=== PATIENT | female | born 1960 | race Caucasian/White ===

== ENCOUNTER 2016-07-23 17:26 | Inpatient (IN) | payer MEDICARE, MEDICAID ==
[~2016-07-23] VITALS: Ht 167.6 cm; Wt 69.4 kg
[2016-07-23 18:23] LABS: BASOPHILS % (AUTO) 2.4 % (0.0-2.0); EOSINOPHILS % (AUTO) 0.6 % (0.0-3.0); LYMPHOCYTES % (AUTO) 6.6 % (20.0-45.0); MEAN CORPUSCULAR HEMOGLOBIN 31.6 PG (27.0-31.0); MEAN CORPUSCULAR HGB CONC 31.9 G/DL (32.0-36.0); MEAN CORPUSCULAR VOLUME 99 FL (80-99); MEAN PLATELET VOLUME 5.3 FL (6.5-10.1); MONOCYTES % (AUTO) 13.6 % (1.0-10.0); NEUTROPHILS % (AUTO) 76.8 % (45.0-75.0); PLATELET COUNT 276 K/UL (150-450); RED BLOOD COUNT 3.26 M/UL (4.20-5.40); RED CELL DISTRIBUTION WIDTH 14.1 % (11.6-14.8)
[2016-07-23 18:39] LABS: TROPONIN I < 0.30 ng/mL (<=0.30)
[2016-07-23 18:41] LABS: ALBUMIN/GLOBULIN RATIO 0.9 (1.0-2.7); CALCIUM 8.2 mg/dL (8.6-10.2); CREATININE 1.2 mg/dL (0.5-0.9); GLOMERULAR FILTRATION RATE 46.2 mL/min (>60); POTASSIUM 3.1 mEQ/L (3.4-4.9); TOTAL PROTEIN 5.8 g/dL (6.6-8.7)
[2016-07-23 18:51] LABS: CKMB 2.5 ng/mL (< 3.8)
[2016-07-23] MEDS ORDERED: ATENOLOL25 MG ORAL (18:59)
[2016-07-23] MEDS ORDERED: ZANTAC150 MG ORAL (18:59)
[2016-07-23] MEDS ORDERED: CLOPIDOGREL75 MG ORAL (18:59)
[2016-07-23] MEDS ORDERED: PROTONIX40 MG ORAL (18:59)
[2016-07-23] MEDS ORDERED: MAGNESIUM OXID500 M2 PO (18:59)
[2016-07-23] MEDS ORDERED: PRAVASTATIN SOD20 M1 ORAL (18:59)
[2016-07-23] MEDS ORDERED: ASPIR 8181 MG ORAL (18:59)
[2016-07-23] MEDS ORDERED: VITAMIN C500 M1 ORAL (18:59)
[2016-07-23] MEDS ORDERED: FUROSEMIDE20 M1 ORAL (18:59)
[2016-07-23] MEDS ORDERED: ZOFRAN ODT8 MG ORAL (18:59)
[2016-07-23] MEDS ORDERED: MULTIVITAMINS1 EAC8 ORAL (18:59)
[2016-07-23] MEDS ORDERED: XANAX0.5 MG ORAL (18:59)
[2016-07-23] MEDS ORDERED: LORazepam Inj 2mg/ml 1ml ONE (19:15)
--- NOTE | 2016-07-23 21:08 | Emergency Room Report ---
History of Present Illness General Chief Complaint: Altered Level of Consciousness Source: EMS Present Illness HPI 56 YO F BIBEMS from SNF for AMS from 4pm today. No specifics provided by EMS as to what makes patient more altered than usual. No family members are present. Allergies: Coded Allergies: No Known Allergies (Verified , 04/10/06) Patient History Past Medical History: see triage record, old chart reviewed, CAD, CHF, COPD, other - PVD Past Surgical History: unable to obtain Pertinent Family History: unable to obtain Social History: Denies: alcohol use, drug use, smoking Now: No Immunizations: UTD Reviewed Nursing Documentation: PMH: Agreed, PSxH: Agreed Nursing Documentation-PMH Hx Cardiac Problems: Yes - CHF, renal insufficiency, coronary bypass, SC,[place] Hx Hypertension: Yes Hx COPD: Yes Hx Cancer: Yes Review of Systems All Other Systems: negative except mentioned in HPI Physical Exam Vital Signs Date Time Temp Pulse Resp B/P Pulse Ox O2 Delivery O2 Flow Rate FiO2 07/23/16 17:18 99.1 86 16 115/64 98 Sp02 EP Interpretation: reviewed, normal General Appearance: normal inspection, well appearing, no apparent distress, alert, obese, Chronically Ill Head: normocephalic, atraumatic Eyes: bilateral eye EOMI, bilateral eye PERRL ENT: normal ENT inspection, hearing grossly normal Neck: normal inspection, full range of motion, supple, no bony tend Respiratory: normal inspection, lungs clear, normal breath sounds, no respiratory distress, no retraction, no wheezing Cardiovascular #1: regular rate, rhythm, no edema Gastrointestinal: normal inspection, normal bowel sounds, non tender, soft, no guarding, no hernia Genitourinary: no CVA tenderness Musculoskeletal: normal inspection, back normal, normal range of motion, Pili' s Sign negative Neurologic: normal inspection, alert, responsive, rendering equipment tender III-XII nml as tested, speech normal, other - 4 limb movement normal Psychiatric: normal inspection, judgement/insight normal, mood/affect normal Skin: normal inspection, normal color, no rash Medical Decision Making Medicare Attestation I Joselito Garcia MD hereby attest that the medical record entry for date of service, 04/28/16 accurately reflects signatures/notations that I made in my capacity as MD when I treated/diagnosed the above listed Medicare beneficiary. I attest that this information is true, accurate and complete to the best of my knowledge. I understand that any falsification, omission, or concealment of material fact may subject me to administrative, civil, or criminal liability. This patient warrants hospital admission for extreme of age and has a condition that cannot be treated as outpatient. Diagnostic Impression: Primary Impression: Altered level of consciousness Additional Impressions: Lesion of left parietal lobe of brain LUBA (acute kidney injury) Rhabdomyolysis Qualified Codes: T79.6XXA - Traumatic ischemia of muscle, initial encounter ER Course Labs: 3.1K. Serum Cr 1.2. H&H stable. No leuks. Troponin 0. Elevated CK CT head: ?parietal infarct CXR: No PNA ECG Wide QRS rythm, RBBB A: AMS - Rhabdo, LUBA - ?parietal CVA although likely chronic on CT - Gentle hydration given - ASA given for ?CVA - Vitals stable in ED Endorsed to Dr Kendall 908pm tele admission EKG Diagnostic Results Rate: other - Wide QRS ST Segments: no acute changes ASA given to the pt in ED: Yes Rhythm Strip Diag. Results EP Interpretation: yes Rate: 83 Chest X-Ray Diagnostic Results EP Interpretation: Yes Findings: no consolidation, no effusion, no pneumothorax, no acute cardiopulmonary disease Number of Views: 1 Last Vital Signs Date Time Temp Pulse Resp B/P Pulse Ox O2 Delivery O2 Flow Rate FiO2 07/23/16 17:18 99.1 86 16 115/64 98 Status: improved Disposition: ADMITTED INPATIENT Condition: Serious Referrals: Todd Kendall MD (PCP) JOSELITO GARCIA M.D. Jul 23, 2016 21:08
[2016-07-23] MEDS ORDERED: Aspirin Baby 81mg ONE (21:16)
[2016-07-23 21:25] VITALS: BP 103/53
[2016-07-23 22:13] LABS: APPEARANCE,URINE SLIGHTLY CLOUDY; KETONES,URINE NEGATIVE (NEGATIVE); LEUKOCYTE ESTERASE ,URINE 1+ (NEGATIVE); NITRITE,URINE POSITIVE (NEGATIVE); PH,URINE 9 (4.5-8.0); PROTEIN,URINE NEGATIVE (NEGATIVE); UROBILINOGEN,URINE NORMAL MG/DL (0.0-1.0)
[2016-07-23] MEDS ORDERED: LORazepam Inj 2mg/ml 1ml IV PRN (22:30)
[2016-07-23] MEDS ORDERED: ALPRAZolam 0.5mg tab ORAL PRN (22:30)
[2016-07-23] MEDS ORDERED: Mylanta II UD 30ml ORAL PRN (22:30)
[2016-07-23] MEDS ORDERED: Miralax 17gm pkt ORAL PRN (22:30)
[2016-07-23] MEDS ORDERED: Morphine Sulfate 2mg/ml Inj IVP PRN (22:30)
[2016-07-23] MEDS ORDERED: Nitroglycerin Subl 0.4mg tab (Bottle Of 25) SL PRN (22:30)
[2016-07-23] MEDS ORDERED: Promethazine/Codeine 5ml UD ORAL PRN (22:30)
[2016-07-23] MEDS ORDERED: DuoNeb 0.5-3(2.5)mg/3ml neb HHN PRN (22:30)
[2016-07-23 22:37] LABS: AMORPHOUS SEDIMENT,UR MANY /LPF; BACTERIA,URINE MANY /HPF; RBC,URINE 0-2 /HPF (0 - 2); WBC,URINE 0-2 /HPF (0 - 2)
--- NOTE | 2016-07-23 23:22 | History & Physical ---
History and Physical History & Physicial The patient was seen and examined at bedside and all new and available data was reviewed in the patients chart. Last 24 Hour Vital Signs Date Time Temp Pulse Resp B/P Pulse Ox O2 Delivery O2 Flow Rate FiO2 07/23/16 22:13 98.9 75 17 103/53 99 07/23/16 21:25 98.9 75 17 103/53 99 07/23/16 17:18 99.1 86 16 115/64 98 GENERAL: The patient is well-developed and well-nourished, confused, no apparent distress. HEENT: Eyes, pupils are equal and responsive to light and accommodation. Extraocular movements are intact. NECK: Supple without lymphadenopathy. CHEST: Lungs are clear to auscultation bilaterally without wheezes. CARDIOVASCULAR: Regular rhythm and rate. S1 and S2 are normal, + Click. ABDOMEN: Soft, nontender, and nondistended. Positive bowel sounds. EXTREMITIES: Negative for clubbing, cyanosis, or edema. Hyperpigmentation on LE 's. RECTAL/GENITALIA: Refused. NEUROLOGIC: Limited due to patient status, moved all extremities. ASSESSMENT: 1. Altered mental status / Toxic Metabolic encephalopathy. 2. Urinary tract infection. 3. Congestive heart failure. 4. Chronic obstructive pulmonary disease. 5. History of coronary artery disease. 6. Hypertension. 7. Hypercholesterolemia. 8. Renal insufficiency. 9. History of gastrointestinal hemorrhage. 10. S/p Mechanical Mitral Valve replacement. 11. Squamous cell CA of Lung. 12. Depression and anxiety. Plan: Admit to [employer] [facility] Neurology / Pulmonary consult. (Patient was seen earlier today. Signature timestamp does not reflect patient encounter time) Todd Jaam MD, MD Jul 23, 2016 23:22
[2016-07-24 00:44] VITALS: BP 94/42
[2016-07-24] MEDS: D5 1/2NS 1,000 ML IV SCH ×2 (01:31→13:50)
[2016-07-24 04:34] VITALS: BP 97/48
[2016-07-24 08:00] VITALS: BP 88/44
[2016-07-24 08:25] LABS: BASOPHILS % (AUTO) 1.4 % (0.0-2.0); EOSINOPHILS % (AUTO) 1.4 % (0.0-3.0); LYMPHOCYTES % (AUTO) 5.7 % (20.0-45.0); MEAN CORPUSCULAR HEMOGLOBIN 31.8 PG (27.0-31.0); MEAN CORPUSCULAR HGB CONC 32.4 G/DL (32.0-36.0); MEAN CORPUSCULAR VOLUME 98 FL (80-99); MEAN PLATELET VOLUME 5.5 FL (6.5-10.1); MONOCYTES % (AUTO) 14.6 % (1.0-10.0); NEUTROPHILS % (AUTO) 76.9 % (45.0-75.0); PLATELET COUNT 288 K/UL (150-450); RED CELL DISTRIBUTION WIDTH 14.3 % (11.6-14.8); WHITE BLOOD COUNT 7.2 K/UL (4.8-10.8)
[2016-07-24 08:34] LABS: ALANINE AMINOTRANSFERASE 10 U/L (3-33); ALBUMIN/GLOBULIN RATIO 0.8 (1.0-2.7); ANION GAP 14 (5-15); ASPARTATE AMINO TRANSFERASE 22 U/L (5-40); CALCIUM 7.7 mg/dL (8.6-10.2); CARBON DIOXIDE 28 mEQ/L (20-30); CHLORIDE 96 mEQ/L (98-107); CHOLESTEROL 80 mg/dL (< 200); CHOLESTEROL/HDL RATIO 3.5 (3.3-4.4); CREATININE 0.8 mg/dL (0.5-0.9); GLOMERULAR FILTRATION RATE > 60 mL/min (>60); HEMOLYSIS 5; LDL CHOLESTEROL (CALC.) 31 mg/dL (60-99); POTASSIUM 2.9 mEQ/L (3.4-4.9); SODIUM 138 mEQ/L (135-145); TOTAL PROTEIN 4.9 g/dL (6.6-8.7)
[2016-07-24 08:39] LABS: INR 1.7 (0.9-1.1); PROTHROMBIN TIME 17.7 SEC (9.30-11.50)
[2016-07-24] MEDS ORDERED: Aspirin Baby 81mg ORAL SCH (09:00)
[2016-07-24] MEDS: Atenolol 25mg tab ORAL SCH (09:00)
[2016-07-24] MEDS: Heparin 5000 units/ml inj SUBQ SCH ×2 (09:00→21:00)
--- NOTE | 2016-07-24 10:05 | Diagnostic Imaging Report ---
Indication: Altered mental status Technique: Contiguous 5 mm thick transaxial imaging of the head obtained in a Siemens Sensation [address] scanner. Soft tissue and bone windows generated. Total Dose length Product (DLP): [address] Dose Index Volume (CTDIvol): 70.38 mGy Comparison: none Findings: Mild, nonspecific, white matter hypoattenuation is noted throughout the brain consistent with chronic small vessel disease. An asymmetric low attenuation focus is noted in the left posterior parietal lobe. This is probably a focus of old white matter ischemia. There is no midline shift, edema, acute hemorrhage, mass effect, or abnormal extra-axial fluid collections. Bones and extra osseous soft tissues are unremarkable. Impression: No acute intracranial bleed, mass effect or edema. Nonspecific white matter hypoattenuation probably due to chronic small vessel disease. The CT scanner at [facility] is accredited by the [employer] and the scans are performed using protocols designed to limit radiation exposure to as low as reasonably achievable to attain images of sufficient resolution adequate for diagnostic evaluation.
--- NOTE | 2016-07-24 11:46 | Neurology Progress Note ---
Objective Physical Exam Last Vital Signs Date Time Temp Pulse Resp B/P Pulse Ox O2 Delivery O2 Flow Rate FiO2 07/24/16 08:00 96.5 81 17 88/44 96 Room Air Laboratory Tests Test 07/23/16 18:00 07/23/16 21:30 07/24/16 07:20 White Blood Count 9.0 K/UL (4.8-10.8) 7.2 K/UL (4.8-10.8) Red Blood Count 3.26 M/UL (4.20-5.40) L 3.20 M/UL (4.20-5.40) L Hemoglobin 10.3 G/DL (12.0-16.0) L 10.2 G/DL (12.0-16.0) L Hematocrit 32.2 % (37.0-47.0) L 31.4 % (37.0-47.0) L Mean Corpuscular Volume 99 FL (80-99) 98 FL (80-99) Mean Corpuscular Hemoglobin 31.6 PG (27.0-31.0) H 31.8 PG (27.0-31.0) H Mean Corpuscular Hemoglobin Concent 31.9 G/DL (32.0-36.0) L 32.4 G/DL (32.0-36.0) Red Cell Distribution Width 14.1 % (11.6-14.8) 14.3 % (11.6-14.8) Platelet Count 276 K/UL (150-450) 288 K/UL (150-450) Mean Platelet Volume 5.3 FL (6.5-10.1) L 5.5 FL (6.5-10.1) L Neutrophils (%) (Auto) 76.8 % (45.0-75.0) H 76.9 % (45.0-75.0) H Lymphocytes (%) (Auto) 6.6 % (20.0-45.0) L 5.7 % (20.0-45.0) L Monocytes (%) (Auto) 13.6 % (1.0-10.0) H 14.6 % (1.0-10.0) H Eosinophils (%) (Auto) 0.6 % (0.0-3.0) 1.4 % (0.0-3.0) Basophils (%) (Auto) 2.4 % (0.0-2.0) H 1.4 % (0.0-2.0) Sodium Level 136 mEQ/L (135-145) 138 mEQ/L (135-145) Potassium Level 3.1 mEQ/L (3.4-4.9) L 2.9 mEQ/L (3.4-4.9) L Chloride Level 92 mEQ/L (98-107) L 96 mEQ/L (98-107) L Carbon Dioxide Level 28 mEQ/L (20-30) 28 mEQ/L (20-30) Anion Gap 16 (5-15) H 14 (5-15) Blood Urea Nitrogen 25 mg/dL (7-23) H 22 mg/dL (7-23) Creatinine 1.2 mg/dL (0.5-0.9) H 0.8 mg/dL (0.5-0.9) Estimat Glomerular Filtration Rate 46.2 mL/min (>60) > 60 mL/min (>60) Glucose Level 56 mg/dL (74-106) L 59 mg/dL (74-106) L Calcium Level 8.2 mg/dL (8.6-10.2) L 7.7 mg/dL (8.6-10.2) L Total Bilirubin 0.5 mg/dL (0.0-1.2) 0.5 mg/dL (0.0-1.2) Aspartate Amino Transf (AST/SGOT) 27 U/L (5-40) 22 U/L (5-40) Alanine Aminotransferase (ALT/SGPT) 12 U/L (3-33) 10 U/L (3-33) Alkaline Phosphatase 139 U/L (35-104) H 123 U/L (35-104) H Total Creatine Kinase 326 U/L (26-140) H Creatine Kinase MB 2.5 ng/mL (< 3.8) Creatine Kinase MB Relative Index 0.7 Troponin I < 0.30 ng/mL (<=0.30) Total Protein 5.8 g/dL (6.6-8.7) L 4.9 g/dL (6.6-8.7) L Albumin 2.8 g/dL (3.5-5.2) L 2.3 g/dL (3.5-5.2) L Globulin 3.0 g/dL 2.6 g/dL Albumin/Globulin Ratio 0.9 (1.0-2.7) L 0.8 (1.0-2.7) L Urine Color Pale yellow Urine Appearance Slightly cloudy Urine pH 9 (4.5-8.0) Urine Specific [place] 1.010 (1.005-1.035) Urine Protein Negative (NEGATIVE) Urine Glucose (UA) Negative (NEGATIVE) Urine Ketones Negative (NEGATIVE) Urine Occult Blood Negative (NEGATIVE) Urine Nitrite Positive (NEGATIVE) H Urine Bilirubin Negative (NEGATIVE) Urine Urobilinogen Normal MG/DL (0.0-1.0) Urine Leukocyte Esterase 1+ (NEGATIVE) H Urine RBC 0-2 /HPF (0 - 2) Urine WBC 0-2 /HPF (0 - 2) Urine Squamous Epithelial Cells None /LPF (NONE/OCC) Urine Amorphous Sediment Many /LPF (NONE) H Urine Bacteria Many /HPF (NONE) H Prothrombin Time 17.7 SEC (9.30-11.50) H Prothromb Time International Ratio 1.7 (0.9-1.1) H Activated Partial Thromboplast Time 34 SEC (23-33) H Triglycerides Level 132 mg/dL (< 150) Cholesterol Level 80 mg/dL (< 200) LDL Cholesterol 31 mg/dL (60-99) L HDL Cholesterol 23 mg/dL (> 60) Cholesterol/HDL Ratio 3.5 (3.3-4.4) Thyroid Stimulating Hormone (TSH) 3.660 uIU/mL (0.300-4.500) Impression/Recommendations Problems: (1) acute confusion with paranoid ideation (2) r/o vascular dementia (3) coagulopathy (4) 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
[2016-07-24 12:00] VITALS: BP 96/57
[2016-07-24] MEDS ORDERED: RisperiDONE 0.25mg tab ORAL PRN (12:00)
--- NOTE | 2016-07-24 13:36 | Diagnostic Imaging Report ---
Indication: Chest Pain Comparison: None A single view chest radiograph was obtained. Findings: No definite infiltrate or pulmonary vascular congestion identified. There is a right chest port. Sternotomy noted. The heart is enlarged. The aorta is mildly enlarged consistent with atherosclerotic vascular disease. The bones are osteopenic. Impression: No acute disease
[2016-07-24] MEDS ORDERED: KCl 10% 40mEq/30ml liquid ORAL SCH (15:30)
--- NOTE | 2016-07-24 15:33 | Consultation ---
History of Present Illness General Date patient seen: Jul 24, 2016 Chief Complaint: Altered Level of Consciousness Referring physician: Dr. Abbott Reason for Consultation: LUng cancer, COPd Present Illness HPI 56 year old female with extensive PMHx including CHF, COPD, coronary stent, Metalic Valve, brought in from SNF for AMS. No specifics provided by EMS as to what makes patient more altered than usual. Pt has been more lethargic than usual. Initial CT of head was negative. she is admitted to further work up. Allergies: Coded Allergies: No Known Allergies (Verified , 04/10/06) Medication History Scheduled Ascorbic Acid* (Vitamin C*), 500 MG ORAL DAILY, (Reported) Aspirin* (Aspir 81*), 81 MG ORAL DAILY, (Reported) Atenolol* (Tenormin*), 25 MG ORAL DAILY, (Reported) Clopidogrel* (Clopidogrel*), 75 MG ORAL DAILY, (Reported) Furosemide* (Lasix*), 20 MG ORAL DAILY, (Reported) Magnesium Oxide (Magnesium Oxide), 400 MG PO TID, (Reported) Multivitamin With Minerals (Multivitamins With Minerals*), 1 TAB ORAL DAILY, ( Reported) Pantoprazole* (Protonix*), 40 MG ORAL DAILY, (Reported) Pravastatin Sod* (Pravastatin Sod*), 80 MG ORAL BEDTIME, (Reported) Ranitidine Hcl* (Zantac*), 300 MG ORAL DAILY, (Reported) Scheduled PRN Alprazolam* (Xanax*), 0.5 MG ORAL TID PRN for PRN Agitation/Anxiety, (Reported) Ondansetron Odt* (Zofran Odt*), 8 MG ORAL Q6H PRN for Nausea & Vomiting, ( Reported) Patient History Healthcare decision maker Stephani Miller Resuscitation status Full Code Advanced Directive on File No Past Medical/Surgical History Past Medical/Surgical History: (1) 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 (2) S /P CABG/MVR (3) Lesion of left parietal lobe of brain Review of Systems All Other Systems: negative except mentioned in HPI Physical Exam General Appearance: WD/WN, no apparent distress Lines, tubes and drains: peripheral, central line HEENT: normocephalic, atraumatic Neck: non-tender, normal alignment Respiratory/Chest: chest wall non-tender, lungs clear Breasts: no masses Cardiovascular/Chest: normal peripheral pulses Genitourinary/Rectal: normal genital exam Extremities: normal range of motion Last 24 Hour Vital Signs Date Time Temp Pulse Resp B/P Pulse Ox O2 Delivery O2 Flow Rate FiO2 07/24/16 12:00 96.9 86 17 96/57 95 Room Air 07/24/16 08:00 96.5 81 17 88/44 96 Room Air 07/24/16 08:00 84 07/24/16 04:34 97.6 79 18 97/48 95 Room Air 07/24/16 04:00 75 07/24/16 00:44 97.0 77 19 94/42 94 Room Air 07/23/16 22:13 98.9 75 17 103/53 99 07/23/16 21:25 98.9 75 17 103/53 99 07/23/16 17:18 99.1 86 16 115/64 98 Intake and Output 07/23/16 07/24/16 19:00 07:00 Intake Total 0 ml 250 ml Output Total 600 ml Balance 0 ml -350 ml Intake Oral 0 ml IV Total 250 ml Output Urine Total 600 ml Laboratory Tests Test 07/23/16 18:00 07/23/16 21:30 07/24/16 07:20 White Blood Count 9.0 K/UL (4.8-10.8) 7.2 K/UL (4.8-10.8) Red Blood Count 3.26 M/UL (4.20-5.40) L 3.20 M/UL (4.20-5.40) L Hemoglobin 10.3 G/DL (12.0-16.0) L 10.2 G/DL (12.0-16.0) L Hematocrit 32.2 % (37.0-47.0) L 31.4 % (37.0-47.0) L Mean Corpuscular Volume 99 FL (80-99) 98 FL (80-99) Mean Corpuscular Hemoglobin 31.6 PG (27.0-31.0) H 31.8 PG (27.0-31.0) H Mean Corpuscular Hemoglobin Concent 31.9 G/DL (32.0-36.0) L 32.4 G/DL (32.0-36.0) Red Cell Distribution Width 14.1 % (11.6-14.8) 14.3 % (11.6-14.8) Platelet Count 276 K/UL (150-450) 288 K/UL (150-450) Mean Platelet Volume 5.3 FL (6.5-10.1) L 5.5 FL (6.5-10.1) L Neutrophils (%) (Auto) 76.8 % (45.0-75.0) H 76.9 % (45.0-75.0) H Lymphocytes (%) (Auto) 6.6 % (20.0-45.0) L 5.7 % (20.0-45.0) L Monocytes (%) (Auto) 13.6 % (1.0-10.0) H 14.6 % (1.0-10.0) H Eosinophils (%) (Auto) 0.6 % (0.0-3.0) 1.4 % (0.0-3.0) Basophils (%) (Auto) 2.4 % (0.0-2.0) H 1.4 % (0.0-2.0) Sodium Level 136 mEQ/L (135-145) 138 mEQ/L (135-145) Potassium Level 3.1 mEQ/L (3.4-4.9) L 2.9 mEQ/L (3.4-4.9) L Chloride Level 92 mEQ/L (98-107) L 96 mEQ/L (98-107) L Carbon Dioxide Level 28 mEQ/L (20-30) 28 mEQ/L (20-30) Anion Gap 16 (5-15) H 14 (5-15) Blood Urea Nitrogen 25 mg/dL (7-23) H 22 mg/dL (7-23) Creatinine 1.2 mg/dL (0.5-0.9) H 0.8 mg/dL (0.5-0.9) Estimat Glomerular Filtration Rate 46.2 mL/min (>60) > 60 mL/min (>60) Glucose Level 56 mg/dL (74-106) L 59 mg/dL (74-106) L Calcium Level 8.2 mg/dL (8.6-10.2) L 7.7 mg/dL (8.6-10.2) L Total Bilirubin 0.5 mg/dL (0.0-1.2) 0.5 mg/dL (0.0-1.2) Aspartate Amino Transf (AST/SGOT) 27 U/L (5-40) 22 U/L (5-40) Alanine Aminotransferase (ALT/SGPT) 12 U/L (3-33) 10 U/L (3-33) Alkaline Phosphatase 139 U/L (35-104) H 123 U/L (35-104) H Total Creatine Kinase 326 U/L (26-140) H Creatine Kinase MB 2.5 ng/mL (< 3.8) Creatine Kinase MB Relative Index 0.7 Troponin I < 0.30 ng/mL (<=0.30) Total Protein 5.8 g/dL (6.6-8.7) L 4.9 g/dL (6.6-8.7) L Albumin 2.8 g/dL (3.5-5.2) L 2.3 g/dL (3.5-5.2) L Globulin 3.0 g/dL 2.6 g/dL Albumin/Globulin Ratio 0.9 (1.0-2.7) L 0.8 (1.0-2.7) L Urine Color Pale yellow Urine Appearance Slightly cloudy Urine pH 9 (4.5-8.0) Urine Specific [place] 1.010 (1.005-1.035) Urine Protein Negative (NEGATIVE) Urine Glucose (UA) Negative (NEGATIVE) Urine Ketones Negative (NEGATIVE) Urine Occult Blood Negative (NEGATIVE) Urine Nitrite Positive (NEGATIVE) H Urine Bilirubin Negative (NEGATIVE) Urine Urobilinogen Normal MG/DL (0.0-1.0) Urine Leukocyte Esterase 1+ (NEGATIVE) H Urine RBC 0-2 /HPF (0 - 2) Urine WBC 0-2 /HPF (0 - 2) Urine Squamous Epithelial Cells None /LPF (NONE/OCC) Urine Amorphous Sediment Many /LPF (NONE) H Urine Bacteria Many /HPF (NONE) H Prothrombin Time 17.7 SEC (9.30-11.50) H Prothromb Time International Ratio 1.7 (0.9-1.1) H Activated Partial Thromboplast Time 34 SEC (23-33) H Triglycerides Level 132 mg/dL (< 150) Cholesterol Level 80 mg/dL (< 200) LDL Cholesterol 31 mg/dL (60-99) L HDL Cholesterol 23 mg/dL (> 60) Cholesterol/HDL Ratio 3.5 (3.3-4.4) Thyroid Stimulating Hormone (TSH) 3.660 uIU/mL (0.300-4.500) Height (Feet): 5 Height (Inches): 6.00 Weight (Pounds): 153 Medications Current Medications Medications (Trade) Dose Ordered Sig/Jagruti Route PRN Reason Start Time Stop Time Status Last Admin Dose Admin Acetaminophen (Tylenol) 650 mg Q4H PRN ORAL fever 07/23/16 22:30 08/22/16 22:29 Al Hydroxide/Mg Hydroxide (Mylanta II) 30 ml Q6H PRN ORAL dyspepsia 07/23/16 22:30 08/22/16 22:29 Albuterol/ Ipratropium (DuoNeb 0.5-3(2.5)mg/3ml) 3 ml EVERY 4 HOURS PRN HHN Shortness of Breath 07/23/16 22:30 07/28/16 22:29 Aspirin (ASA) 162 mg DAILY ORAL 07/24/16 09:00 08/23/16 08:59 Atenolol (Tenormin) 25 mg DAILY ORAL 07/24/16 09:00 08/23/16 08:59 Clonidine HCl (Catapres) 0.1 mg Q4H PRN ORAL For High Blood Pressure 07/23/16 22:30 08/22/16 22:29 Clopidogrel Bisulfate 75 mg 75 mg DAILY ORAL 07/24/16 09:00 08/23/16 08:59 Dextrose (Dextrose 50%) STAT PRN IV Hypoglycemia 07/23/16 22:30 08/22/16 22:29 Dextrose/Sodium Chloride (D5 0.45% NS) 1,000 ml @ 50 mls/hr Q20H IV 07/23/16 17:50 08/22/16 17:49 07/24/16 01:31 Heparin Sodium (Porcine) (Heparin 5000 units/ml) 5,000 units EVERY 12 HOURS SUBQ 07/24/16 09:00 08/23/16 08:59 Lorazepam (Ativan 2mg/ml 1ml) 0.5 mg Q4H PRN IV For Anxiety 07/23/16 22:30 07/30/16 22:29 Morphine Sulfate (Morphine Sulfate) 1 mg EVERY 4 HOURS PRN IVP For Pain 7-10 07/23/16 22:30 07/30/16 22:29 Nitroglycerin (Ntg) 0.4 mg Q5M X 3 DOSES PRN SL Prn Chest Pain 07/23/16 22:30 08/22/16 22:29 Ondansetron HCl (Zofran) 4 mg Q6H PRN IVP Nausea & Vomiting 07/23/16 22:30 08/22/16 22:29 Polyethylene Glycol (Miralax) 17 gm HSPRN PRN ORAL Constipation 07/23/16 22:30 08/22/16 22:29 Promethazine HCl/ Codeine (Phenergan with Codeine) 5 ml Q4H PRN ORAL For Cough 07/23/16 22:30 08/22/16 22:29 Risperidone (RisperDAL) 0.25 mg Q6H PRN ORAL Agitation 07/24/16 12:00 08/23/16 11:59 07/24/16 12:01 Temazepam (Restoril) 15 mg HSPRN PRN ORAL Insomnia 07/23/16 22:30 07/30/16 22:29 Assessment/Plan Problem List: (1) Altered level of consciousness ICD Codes: R40.4 - Transient alteration of awareness SNOMED: 8316718 (2) COPD (chronic obstructive pulmonary disease) ICD Codes: J44.9 - Chronic obstructive pulmonary disease, unspecified SNOMED: 17822265 (3) History of lung cancer ICD Codes: Z85.118 - Personal history of other malignant neoplasm of bronchus and lung SNOMED: 723565375, [id number] (4) 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 LISETTE ANTUNEZ Jul 24, 2016 15:32
--- NOTE | 2016-07-24 16:55 | History & Physical ---
History and Physical History & Physicial Dictated for Int Med-Dr Kendall no.[id number]. JOSE ALFARO Jul 24, 2016 16:55
[2016-07-24] MEDS: Warfarin Sodium 3mg ORAL SCH ×2 (17:00→18:07)
[2016-07-24] MEDS ORDERED: Haloperidol 5mg/ml Inj IM ONE (17:00)
--- NOTE | 2016-07-24 17:30 | Consultation ---
DATE OF CONSULTATION: 07/24/2016 NEUROLOGICAL CONSULTATION REQUESTING PHYSICIAN: Todd Kendall M.D. HISTORY OF PRESENT ILLNESS: The patient is a 56-year-old female, resident of nursing facility, brought to this hospital after she developed the confusional state. The patient has multiple medical issues, starting 4 p.m. on the day of admission, she was noted to be confused, disoriented more than usual. She was brought to the emergency room. Her vital signs were stable. Temperature 99.1. Her initial workup included CAT scan of the brain without contrast, this revealed mild nonspecific white matter attenuation with probably old left parietal lobe infarct but no evidence of acute stroke. No midline shift. No hemorrhage. Her laboratory work included CBC study with hemoglobin 10.2, hematocrit 32.2. Chemistry panel, potassium 3.1, anion gap of 16, BUN 25, creatinine 1.2, blood sugar , and a calcium 8.2. Elevated CPK at 326 and low albumin 2.8. Lipid panel unremarkable. TSH normal. Coagulation panel with INR 1.7 and PT 17.7. Urinalysis many bacteria, 1+ leukocyte esterase. Since admission till present time, there was no further changes. The patient remained confused. PAST MEDICAL HISTORY: Known that the patient has a mitral valve replacement, open heart surgery. She has a history of cardiac catheterization, coronary artery bypass grafting surgery, coronary disease, hypertension, chronic obstructive pulmonary disease, history of gastrointestinal bleed, history of anxiety and depression. Her treatment list prior to admission included Xanax 0.5 three times a day, aspirin, atenolol 25 mg daily, Plavix 75 mg daily, furosemide, magnesium oxide 400 mg t.i.d., Zofran, pantoprazole, pravastatin, and ranitidine. ALLERGIES: None reported. SOCIAL HISTORY: Resident of nursing facility. The patient has a daughter and a brother who are visiting her. No alcohol or drug abuse. 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 She has no complaints and she would like to go back home as soon as possible. Denies headache or dizziness. No chest pain. No palpitations. Unaware of ever having previous strokes, TIA, or seizures. PHYSICAL EXAMINATION: GENERAL: The patient is a well-developed but somewhat ill-appearing lady not in acute distress. VITAL SIGNS: Now stable but blood pressure down to 88/44, temperature HEENT: Head normocephalic. No evidence of trauma. Eyes, ears, and throat are clear. NECK: Neck is rigid, posture stooped. EXTREMITIES: Upper and lower extremities without clubbing, cyanosis, except left lower extremity swelling with dark discoloration with previous cellulitis. Peripheral pulses 1+ symmetric. MENTAL STATUS: The patient is alert and oriented to her name, but stated her age is 52. She was convinced that she lives in [place]. When corrected, she is in [place], she states yes, "I come and then go back." She also thought that her family is in [place]. The patient expressed paranoid ideation stating that they stolen her clothes and she has no idea why she is in the hospital stating that she came to pickup her stuff but would not name what is it. She was reluctantly following instructions. No aphasia. No apraxia noted. Mood depressed. She is tense and anxious. CRANIAL NERVE II: Pupils both responding to light and accommodation. Extraocular movement full range. CRANIAL NERVE V: Normal corneal responses. CRANIAL NERVE VII: Minor facial asymmetry. CRANIAL NERVE VIII: Normal hearing. CRANIAL NERVES IX THROUGH XII: Tongue is in midline. Symmetric palate elevation. MOTOR EXAMINATION: Able to lift arms and legs against gravity. Strength 5/5. Deep reflexes depressed bilaterally. Plantar response is mute. SENSORY EXAMINATION: Withdrawing to pin stimulation both arms and Legs.gait not tested but the patient reports she is able to ambulate without assistance. IMPRESSION: 1. Acute confusional state with paranoid ideation, rule out early dementia with confusion, rule out chronic psychiatric disorder. 2. Coagulopathy. 3. Depression. 4. Hypertension. 5. Coronary artery disease. 6. Status post mitral valve replacement/coronary artery bypass graft. 7. Chronic obstructive pulmonary disease. 8. Status post left lower extremity cellulitis. RECOMMENDATION: 1. Psychiatry assessment to the initiate antipsychotic treatment. 2. Recheck carotid duplex, 2D echocardiogram. 3. Address issue of coagulopathy in absence of anticoagulation. 4. Recheck liver function. 5. Risperdal 1 mg twice a day. 6. PT/OT started on mobility protocol. 7. Speech therapy to assess for swallow study. Thank you for allowing me to see this interesting patient in neurological consultation. Darryn Renetta Storey DR: Brigitte JOB#: [id number] CC:
[2016-07-24] MEDS: Cefepime HCl 1 GM in D5W 55 ML IVPB SCH ×2 (18:00→18:13)
--- NOTE | 2016-07-24 21:20 | History and Physical Report ---
DATE OF ADMISSION: 07/23/2016 CHIEF COMPLAINT: The patient is a 56-year-old white female, who presents with complaint of altered mental status. HISTORY OF PRESENT ILLNESS: The patient is a resident of [facility]. According to the staff at [facility], the patient began to become confused yesterday, 07/23/2016. The patient herself is unable to contribute much to the history and physical. Much of the history and physical is obtained from the patient's chart. The patient presented to [facility]. The patient was found to be confused. The patient was admitted for altered mental status to rule out acute cerebrovascular accident. PAST MEDICAL HISTORY: Significant for, 1. Congestive heart failure. 2. Chronic obstructive pulmonary disease. 3. History of coronary artery disease. 4. History of myocardial infarction. 5. Hypercholesterolemia. 6. Hypertension. 7. History of myocardial infarction. 8. History of renal insufficiency. PAST SURGICAL HISTORY: Significant for, 1. Cardiac stent placement. 2. Coronary artery bypass graft. 3. Mitral valve replacement. CURRENT MEDICATIONS: 1. Pravastatin 80 mg one tablet p.o. at bedtime. 2. Protonix 40 mg one tablet p.o. daily. 3. Spironolactone 50 mg one tablet p.o. daily. 4. Zantac 300 mg one tablet p.o. at bedtime. 5. Zofran 8 mg one tablet p.o. three times daily. 6. Xanax 0.5 mg one tablet p.o. q.6 hours p.r.n. 7. Remeron 30 mg one tablet p.o. at bedtime. 8. Wellbutrin XL 450 mg one tablet p.o. daily. 9. Aspirin 81 mg one tablet p.o. daily. 10. Atenolol 25 mg one tablet p.o. daily. 11. Clopidogrel 75 mg one tablet p.o. daily. 12. Lasix 20 mg one tablet p.o. daily. 13. MS Contin extended release 100 mg one tablet p.o. twice daily p.r.n. ALLERGIES: No known drug allergies. SOCIAL HISTORY: The patient is single. The patient is a resident of [facility]. The patient admits to tobacco use of [id number] packs per day. The patient denies alcohol use. REVIEW OF SYSTEMS: Unable to assess secondary to the patient's altered mental status. PHYSICAL EXAMINATION: VITAL SIGNS: Temperature 98.9 degrees, respirations 17, pulse 75, and blood pressure 103/53. GENERAL: The patient is well-developed and well-nourished, slightly confused, female, in no apparent distress. HEENT: Eyes, pupils are equal and responsive to light and accommodation. Extraocular movements are intact. NECK: Supple without lymphadenopathy. CHEST: Lungs are clear to auscultation bilaterally without wheezes or rales. CARDIOVASCULAR: Regular rhythm and rate. S1 and S2 are normal without murmurs, rubs, or gallops. ABDOMEN: Soft, nontender, and nondistended. Positive bowel sounds. No evidence of hepatosplenomegaly. Currently, no rebound or guarding noted. EXTREMITIES: Negative for clubbing, cyanosis, or edema. RECTAL/GENITALIA: Refused. NEUROLOGIC: Cranial nerves II through XII are grossly intact without focal deficits. Motor strength is 5/5 bilaterally. Deep tendon reflexes are 2+ plantar. LABORATORY STUDIES: WBC 9.2, hemoglobin 10.8, hematocrit 32.2, and platelets 276,000. Sodium 136, potassium 3.1, chloride 92, CO2 28, BUN 25, creatinine 1.2, and glucose 56. Troponin less than 0.3. Urinalysis reveals nitrite positive and 1+ leukocyte esterase. A CT of the brain showed no acute intracranial bleed, mass, or edema. The chest x-ray was reported as no acute disease. ASSESSMENT: This is a 56-year-old white female. 1. Altered mental status. 2. Urinary tract infection. 3. Congestive heart failure. 4. Chronic obstructive pulmonary disease. 5. History of coronary artery disease. 6. Hypertension. 7. Hypercholesterolemia. 8. Renal insufficiency. 9. History of gastrointestinal hemorrhage. TREATMENT: 1. Urinary tract infection. A urine culture is pending. The patient has been started empirically on intravenous cefepime and Levaquin. We will for follow up with urine culture as above. 2. Altered mental status. This is probably secondary to the urinary tract infection as above. Initial CT scan of the brain was reported as within normal limits. Carotid duplex and Dopplers are pending. 3. Congestive heart failure. A Cardiology consultation is pending. A BNP is pending. We will follow recommendation of Cardiology. 4. Hypertension. Continue atenolol as above. 5. Hypercholesterolemia. Continue pravastatin as above. 6. Renal insufficiency. The patient is currently receiving intravenous fluids. Jaden Abbott M.D. DR: RAYNE JOB#: [id number] CC:
[2016-07-25] VITALS: BP 128/83
--- NOTE | 2016-07-25 03:10 | Consultation ---
DATE OF CONSULTATION: HISTORY OF PRESENT ILLNESS: The patient is a 56-year-old female, who is admitted to the hospital due to altered mental status. Apparently, the patient [place] in a jail and she presented with confusion. She has been unable to provide any history and presents with waxing and waning consciousness. Mood is disoriented. PAST PSYCHIATRIC HISTORY: No history of psychiatric hospitalizations. PAST MEDICAL HISTORY: Includes congestive heart failure, renal insufficiency, myocardial infarction, hypertension, hypercholesterolemia, coronary artery disease, and chronic obstructive pulmonary disease. PAST SURGICAL HISTORY: Cardiac stent placement, coronary artery bypass, and mitral valve replacement. MEDICATIONS: The patient has been taking Xanax for anxiety 0.5 mg t.i.d. as needed. Medications at home includes Lasix, Clopidogrel, , aspirin, Wellbutrin, Xanax, warfarin, Zantac, Protonix, pravastatin, and Remeron. ALLERGIES: No known drug allergies. SUBSTANCE ABUSE HISTORY: No history of illicit drug use or alcohol. The patient is a smoker, [id number] packets per day. SOCIAL HISTORY: She resides in a jail. MENTAL STATUS EXAM: The patient is confused and disoriented and presenting with waxing and waning consciousness. Mood is neutral. Affect is constricted. Congruent mood. Thought process, there is a paucity of thought content. Insight and judgment is impaired. ASSESSMENT: [place] I Delirium due to underlying medical condition. [place] II Deferred. [place] III As above. [place] IV Low. [place] V Global assessment of functioning is 25. PLAN: 1. We will continue the patient on Haldol IM p.r.n. 2. We will start the patient on Risperdal 1 mg p.o. at bedtime. 3. We will recommend to limit risperidone, the benzodiazepines, opiate pain medication, and anticholinergics that may exacerbate delirium. Khurram Hoskins M.D. DR: GAIL JOB#: [id number] CC:
[2016-07-25] MEDS: Cefepime HCl 1 GM in D5W 55 ML IVPB SCH (06:00)
[2016-07-25 07:45] VITALS: BP 87/50
[2016-07-25] MEDS: Atenolol 25mg tab ORAL SCH (08:04)
[2016-07-25] MEDS: Heparin 5000 units/ml inj SUBQ SCH (08:05)
[2016-07-25 08:54] LABS: EOSINOPHILS % (AUTO) 0.2 % (0.0-3.0); LYMPHOCYTES % (AUTO) 4.4 % (20.0-45.0); MEAN CORPUSCULAR HEMOGLOBIN 31.7 PG (27.0-31.0); MEAN CORPUSCULAR HGB CONC 32.2 G/DL (32.0-36.0); MEAN CORPUSCULAR VOLUME 98 FL (80-99); MEAN PLATELET VOLUME 5.7 FL (6.5-10.1); MONOCYTES % (AUTO) 13.8 % (1.0-10.0); NEUTROPHILS % (AUTO) 80.6 % (45.0-75.0); PLATELET COUNT 251 K/UL (150-450); RED BLOOD COUNT 3.15 M/UL (4.20-5.40); RED CELL DISTRIBUTION WIDTH 14.2 % (11.6-14.8); WHITE BLOOD COUNT 8.1 K/UL (4.8-10.8)
[2016-07-25 09:06] LABS: INR 1.6 (0.9-1.1)
[2016-07-25 09:15] LABS: TROPONIN I < 0.30 ng/mL (<=0.30)
[2016-07-25 09:19] LABS: ANION GAP 16 (5-15); CALCIUM 7.8 mg/dL (8.6-10.2); CARBON DIOXIDE 27 mEQ/L (20-30); CHLORIDE 98 mEQ/L (98-107); CREATININE 0.8 mg/dL (0.5-0.9); GLOMERULAR FILTRATION RATE > 60 mL/min (>60); HEMOLYSIS 51; POTASSIUM 2.8 mEQ/L (3.4-4.9); SODIUM 141 mEQ/L (135-145)
[2016-07-25] MEDS ORDERED: Nitroglycerin Subl 0.4mg tab (Bottle Of 25) SL PRN (10:15)
[2016-07-25] MEDS ORDERED: Promethazine/Codeine 5ml UD ORAL PRN (10:30)
[2016-07-25] MEDS ORDERED: Mylanta II UD 30ml ORAL PRN (10:30)
[2016-07-25 10:40] VITALS: BP 98/62
[2016-07-25] MEDS ORDERED: D5 1/2NS 1,000 ML IV SCH (11:00)
[2016-07-25 12:00] VITALS: BP 109/68
[2016-07-25] MEDS ORDERED: Morphine Sulfate 2mg/ml Inj IVP PRN (13:00)
--- NOTE | 2016-07-25 13:32 | Pulmonology Progress Note ---
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 hx of CABG/MVR acute metabolic encephalopathy 2 to acute confusion , likely on underlying chronic dementia acute kidney injury-resolved hypokalemia COPD Hx of lung Ca PLAN OF CARE MS floor IVF, LUBA resolved, likely prerenal component [address] head no acute findings neuro follows, , no evidence of acute CVA, recommended psych eval ECHO and Carotid pending on Plavix a/coagulation with Coumadin to keep INR ij therapeutic range replace K, check K and Mg in am O2 HHN prn CXR negative PT/OT/ST psych eval noted, started on Risperdal, avoid oversedation case discussed and evaluated by supervising physician Subjective Allergies: Coded Allergies: No Known Allergies (Verified , 04/10/06) Subjective off tele on RA pulse oximetry stable renal parameters down to normal K-2.8 Objective Last 24 Hour Vital Signs Date Time Temp Pulse Resp B/P Pulse Ox O2 Delivery O2 Flow Rate FiO2 07/25/16 10:40 74 98/62 07/25/16 08:04 85 87/50 07/25/16 07:45 98.1 85 18 87/50 97 Room Air 07/25/16 07:30 86 18 Room Air 21 07/25/16 00:00 97.0 107 20 128/83 93 Room Air 07/24/16 16:00 82 Intake and Output 07/24/16 07/25/16 19:00 07:00 Intake Total 510 ml Output Total 250 ml Balance 260 ml Intake Oral 360 ml IV Total 150 ml Output Urine Total 250 ml # Voids 4 # Bowel Movements 1 General Appearance: WD/WN, no acute distress HEENT: normocephalic, atraumatic, anicteric, mucous membranes moist, PERRL Respiratory/Chest: chest wall non-tender, lungs clear, no respiratory distress , no accessory muscle use Cardiovascular: normal rate, regular rhythm, no JVD Abdomen: normal bowel sounds, soft, non tender Genitourinary: normal external genitalia Extremities: other - +1 edema BLE Neurologic/Psychiatric: alert, responsive - agitated at times Musculoskeletal: normal muscle bulk Microbiology Date/Time Source Procedure Growth Status 07/23/16 18:00 Blood Blood Culture - Preliminary NO GROWTH AFTER 24 HOURS Resulted 07/23/16 18:00 Blood Blood Culture - Preliminary NO GROWTH AFTER 24 HOURS Resulted 07/23/16 21:30 Urine,Clean Catch Urine Culture - Preliminary Gram Negative Bacillus 1 Resulted Laboratory Tests 07/24/16 16:00: Vitamin B12 Level 579 07/25/16 07:25: White Blood Count 8.1, Red Blood Count 3.15L, Hemoglobin 10.0L, Hematocrit 31.1L , Mean Corpuscular Volume 98, Mean Corpuscular Hemoglobin 31.7H, Mean Corpuscular Hemoglobin Concent 32.2, Red Cell Distribution Width 14.2, Platelet Count 251, Mean Platelet Volume 5.7L, Neutrophils (%) (Auto) 80.6H, Lymphocytes (%) (Auto) 4.4L, Monocytes (%) (Auto) 13.8H, Eosinophils (%) (Auto) 0.2, Basophils (%) (Auto) 1.0, Prothrombin Time 17.0H, Prothromb Time International Ratio 1.6H, Sodium Level 141, Potassium Level 2.8L, Chloride Level 98, Carbon Dioxide Level 27, Anion Gap 16H, Blood Urea Nitrogen 20, Creatinine 0.8, Estimat Glomerular Filtration Rate > 60, Glucose Level 73L, Calcium Level 7.8L, Troponin I < 0.30, Pro-B-Type Natriuretic Peptide 1295H Current Medications Medications (Trade) Dose Ordered Sig/Jagruti Route PRN Reason Start Time Stop Time Status Last Admin Dose Admin Acetaminophen (Tylenol) 650 mg Q4H PRN ORAL fever 07/25/16 10:30 08/24/16 10:29 Al Hydroxide/Mg Hydroxide (Mylanta II) 30 ml Q6H PRN ORAL dyspepsia 07/25/16 10:30 08/24/16 10:29 Albuterol/ Ipratropium (DuoNeb 0.5-3(2.5)mg/3ml) 3 ml EVERY 4 HOURS PRN HHN Shortness of Breath 07/25/16 13:00 07/30/16 12:59 Atenolol (Tenormin) 25 mg DAILY ORAL 07/26/16 09:00 08/25/16 08:59 Cefepime HCl 1 gm/ Dextrose 55 ml @ 110 mls/hr Q12HR@0600,1800 IVPB 07/25/16 18:00 07/31/16 17:59 Clonidine HCl (Catapres) 0.1 mg Q4H PRN ORAL For High Blood Pressure 07/25/16 10:30 08/24/16 10:29 Clopidogrel Bisulfate (Plavix) 75 mg DAILY ORAL 07/26/16 09:00 08/25/16 08:59 Dextrose (Dextrose 50%) STAT PRN IV Hypoglycemia 07/25/16 22:30 08/24/16 22:29 Dextrose/Sodium Chloride 1,000 ml @ 50 mls/hr Q20H IV 07/25/16 11:00 08/24/16 10:59 Heparin Sodium (Porcine) (Heparin 5000 units/ml) 5,000 units EVERY 12 HOURS SUBQ 07/25/16 21:00 08/24/16 20:59 Levofloxacin (Levaquin) 100 ml @ 100 mls/hr Q24H IVPB 07/25/16 19:00 07/31/16 18:59 Morphine Sulfate (Morphine Sulfate) 1 mg EVERY 4 HOURS PRN IVP For Pain 7-10 07/25/16 13:00 08/01/16 12:59 Nitroglycerin (Ntg) 0.4 mg Q5M X 3 DOSES PRN SL Prn Chest Pain 07/25/16 10:15 08/24/16 10:14 Ondansetron HCl (Zofran) 4 mg Q6H PRN IVP Nausea & Vomiting 07/25/16 10:30 08/24/16 10:29 Polyethylene Glycol (Miralax) 17 gm HSPRN PRN ORAL Constipation 07/25/16 22:30 08/24/16 22:29 Promethazine HCl/ Codeine (Phenergan with Codeine) 5 ml Q4H PRN ORAL For Cough 07/25/16 10:30 08/24/16 10:29 Risperidone (RisperDAL) 1 mg BEDTIME ORAL 07/25/16 21:00 08/24/16 20:59 Temazepam (Restoril) 15 mg HSPRN PRN ORAL Insomnia 07/25/16 22:30 08/01/16 22:29 Warfarin Sodium (Coumadin per pharmacy) 1 ea DAILY PRN MISC Per rx protocol 07/26/16 09:00 08/25/16 08:59 Warfarin Sodium (Coumadin) 4 mg COUMADIN PO 07/26/16 17:00 07/31/16 16:59 Warfarin Sodium (Coumadin) 6 mg COUMADIN ONCE ORAL 07/25/16 17:00 07/25/16 17:01 Ibrahima ([facility])Marisol NP Jul 25, 2016 13:32
[2016-07-25] MEDS ORDERED: KCl 10% 40mEq/30ml liquid NG ONE (14:00)
[2016-07-25] MEDS: DuoNeb 0.5-3(2.5)mg/3ml neb HHN PRN ×2 (15:03→19:58)
[2016-07-25] MEDS ORDERED: Morphine Sulfate 2mg/ml Inj IM PRN ×2 (15:30→23:30)
[2016-07-25] MEDS ORDERED: Haloperidol 5mg/ml Inj IM PRN (15:30)
[2016-07-25 16:00] VITALS: BP 94/49
[2016-07-25] MEDS ORDERED: Warfarin Sodium 3mg ORAL ONE (17:00)
[2016-07-25] MEDS ORDERED: Cefepime HCl 1 GM in D5W 55 ML IVPB SCH (18:00)
--- NOTE | 2016-07-25 18:52 | Internal Med Progress Note ---
Subjective Date of Service: Jul 25, 2016 Physician Name Jose Alfaro Attending Physician Todd Kendall MD Current Medications Medications (Trade) Dose Ordered Sig/Jagruti Route PRN Reason Start Time Stop Time Status Last Admin Dose Admin Acetaminophen (Tylenol) 650 mg Q4H PRN ORAL fever 07/25/16 10:30 08/24/16 10:29 Al Hydroxide/Mg Hydroxide (Mylanta II) 30 ml Q6H PRN ORAL dyspepsia 07/25/16 10:30 08/24/16 10:29 Albuterol/ Ipratropium (DuoNeb 0.5-3(2.5)mg/3ml) 3 ml EVERY 4 HOURS PRN HHN Shortness of Breath 07/25/16 13:00 07/30/16 12:59 07/25/16 15:03 Atenolol (Tenormin) 25 mg DAILY ORAL 07/26/16 09:00 08/25/16 08:59 Cefepime HCl 1 gm/ Dextrose 55 ml @ 110 mls/hr Q12HR@0600,1800 IVPB 07/25/16 18:00 07/31/16 17:59 Clonidine HCl (Catapres) 0.1 mg Q4H PRN ORAL For High Blood Pressure 07/25/16 10:30 08/24/16 10:29 Clopidogrel Bisulfate (Plavix) 75 mg DAILY ORAL 07/26/16 09:00 08/25/16 08:59 Dextrose (Dextrose 50%) STAT PRN IV Hypoglycemia 07/25/16 22:30 08/24/16 22:29 Dextrose/Sodium Chloride 1,000 ml @ 50 mls/hr Q20H IV 07/25/16 11:00 08/24/16 10:59 Enoxaparin Sodium (Lovenox) 70 mg Q12HR SUBQ 07/25/16 21:00 08/24/16 20:59 Haloperidol Lactate (Haldol) 5 mg Q6H PRN IM Agitation 07/25/16 15:30 08/24/16 15:29 07/25/16 15:04 Levofloxacin (Levaquin) 100 ml @ 100 mls/hr Q24H IVPB 07/25/16 19:00 07/31/16 18:59 Morphine Sulfate (Morphine Sulfate) 1 mg EVERY 4 HOURS PRN IVP For Pain 7-10 07/25/16 13:00 08/01/16 12:59 Morphine Sulfate (Morphine Sulfate) 2 mg Q4H PRN IM FOR SEVERE PAIN 07/25/16 15:30 08/01/16 15:29 Nitroglycerin (Ntg) 0.4 mg Q5M X 3 DOSES PRN SL Prn Chest Pain 07/25/16 10:15 08/24/16 10:14 Ondansetron HCl (Zofran) 4 mg Q6H PRN IVP Nausea & Vomiting 07/25/16 10:30 08/24/16 10:29 Polyethylene Glycol (Miralax) 17 gm HSPRN PRN ORAL Constipation 07/25/16 22:30 08/24/16 22:29 Promethazine HCl/ Codeine (Phenergan with Codeine) 5 ml Q4H PRN ORAL For Cough 07/25/16 10:30 08/24/16 10:29 Risperidone (RisperDAL) 1 mg BEDTIME ORAL 07/25/16 21:00 08/24/16 20:59 Temazepam (Restoril) 15 mg HSPRN PRN ORAL Insomnia 07/25/16 22:30 08/01/16 22:29 Warfarin Sodium (Coumadin per pharmacy) 1 ea DAILY PRN MISC Per rx protocol 07/26/16 09:00 08/25/16 08:59 Warfarin Sodium (Coumadin) 4 mg COUMADIN PO 07/26/16 17:00 07/31/16 16:59 Allergies: Coded Allergies: No Known Allergies (Verified , 04/10/06) ROS Limited/Unobtainable: No Constitutional: Reports: no symptoms HEENT: Reports: no symptoms Cardiovascular: Reports: no symptoms Respiratory: Reports: no symptoms Gastrointestinal/Abdominal: Reports: no symptoms Genitourinary: Reports: no symptoms Neurologic/Psychiatric: Reports: no symptoms Subjective 56 YO F admitted with altered mental status. Now UTI. Cover for Int Jm Kendall Objective Last Vital Signs Date Time Temp Pulse Resp B/P Pulse Ox O2 Delivery O2 Flow Rate FiO2 07/25/16 16:00 98.0 101 20 94/49 96 Non-Rebreather 15.0 07/25/16 15:05 28 General Appearance: WD/WN, no apparent distress, alert EENT: PERRL/EOMI, normal ENT inspection, TMs normal Neck: non-tender, normal alignment, supple Cardiovascular: normal peripheral pulses, normal rate, regular rhythm, regularly irregular, no gallop/murmur Respiratory/Chest: chest wall non-tender, lungs clear, normal breath sounds, no respiratory distress, no accessory muscle use Abdomen: normal bowel sounds, non tender, soft, no organomegaly, no mass, abnormal bowel sounds Extremities: normal range of motion Neurologic: clinical product manager II-XII grossly normal, no motor/sensory deficits Skin: normal pigmentation, warm/dry Laboratory Tests Test 07/25/16 07:25 White Blood Count 8.1 K/UL (4.8-10.8) Red Blood Count 3.15 M/UL (4.20-5.40) L Hemoglobin 10.0 G/DL (12.0-16.0) L Hematocrit 31.1 % (37.0-47.0) L Mean Corpuscular Volume 98 FL (80-99) Mean Corpuscular Hemoglobin 31.7 PG (27.0-31.0) H Mean Corpuscular Hemoglobin Concent 32.2 G/DL (32.0-36.0) Red Cell Distribution Width 14.2 % (11.6-14.8) Platelet Count 251 K/UL (150-450) Mean Platelet Volume 5.7 FL (6.5-10.1) L Neutrophils (%) (Auto) 80.6 % (45.0-75.0) H Lymphocytes (%) (Auto) 4.4 % (20.0-45.0) L Monocytes (%) (Auto) 13.8 % (1.0-10.0) H Eosinophils (%) (Auto) 0.2 % (0.0-3.0) Basophils (%) (Auto) 1.0 % (0.0-2.0) Prothrombin Time 17.0 SEC (9.30-11.50) H Prothromb Time International Ratio 1.6 (0.9-1.1) H Sodium Level 141 mEQ/L (135-145) Potassium Level 2.8 mEQ/L (3.4-4.9) L Chloride Level 98 mEQ/L (98-107) Carbon Dioxide Level 27 mEQ/L (20-30) Anion Gap 16 (5-15) H Blood Urea Nitrogen 20 mg/dL (7-23) Creatinine 0.8 mg/dL (0.5-0.9) Estimat Glomerular Filtration Rate > 60 mL/min (>60) Glucose Level 73 mg/dL (74-106) L Calcium Level 7.8 mg/dL (8.6-10.2) L Troponin I < 0.30 ng/mL (<=0.30) Pro-B-Type Natriuretic Peptide 1295 pg/mL (0-125) H Microbiology Date/Time Source Procedure Growth Status 07/23/16 18:00 Blood Blood Culture - Preliminary NO GROWTH AFTER 24 HOURS Resulted 07/23/16 18:00 Blood Blood Culture - Preliminary NO GROWTH AFTER 24 HOURS Resulted 07/23/16 21:30 Urine,Clean Catch Urine Culture - Preliminary Gram Negative Bacillus 1 Resulted Intake and Output 07/24/16 07/25/16 19:00 07:00 Intake Total 510 ml Output Total 250 ml Balance 260 ml Intake Oral 360 ml IV Total 150 ml Output Urine Total 250 ml # Voids 4 # Bowel Movements 1 Assessment/Plan Problem List: (1) UTI (urinary tract infection) Assessment & Plan: Gram neg deidre. Await ID and sensitivity. Cont levaquin for now. (2) CAD (coronary artery disease) (3) HTN (hypertension) Assessment & Plan: Cont atenolol (4) Hypercholesteremia (5) Renal insufficiency (6) Lesion of left parietal lobe of brain (7) COPD (chronic obstructive pulmonary disease) Status: not improved JOSE ALFARO Jul 25, 2016 18:52
[2016-07-25] MEDS: Enoxaparin 80mg Inj SUBQ SCH (20:32)
[2016-07-25] MEDS ORDERED: Heparin 5000 units/ml inj SUBQ SCH (21:00)
[2016-07-25 22:10] LABS: ABG ALLEN TEST POSITIVE; ABG BASE EXCESS -3.7
[2016-07-25 22:16] VITALS: BP 95/50
[2016-07-25] MEDS ORDERED: Miralax 17gm pkt ORAL PRN (22:30)
[2016-07-26] VITALS (19 sets, daily range): BP systolic 74–137; BP diastolic 38–105
[2016-07-26 01:47] LABS: ABG PCO2 22.5 mmHg (35.0-45.0)
[2016-07-26 01:48] LABS: ABG ALLEN TEST POSITIVE; ABG BASE EXCESS -4.6
[2016-07-26] MEDS ORDERED: Vancomycin 1 GM in D5W 275 ML IVPB ONE (02:15)
[2016-07-26 02:57] LABS: MEAN CORPUSCULAR HEMOGLOBIN 32.7 PG (27.0-31.0); MEAN CORPUSCULAR HGB CONC 33.6 G/DL (32.0-36.0); MEAN CORPUSCULAR VOLUME 97 FL (80-99); MEAN PLATELET VOLUME 6.6 FL (6.5-10.1); PLATELET COUNT 193 K/UL (150-450); RED BLOOD COUNT 2.49 M/UL (4.20-5.40); RED CELL DISTRIBUTION WIDTH 14.1 % (11.6-14.8); WHITE BLOOD COUNT 8.3 K/UL (4.8-10.8)
[2016-07-26] MEDS ORDERED: Vancomycin 1.5 GM in D5W 325 ML IVPB SCH ×2 (03:00→15:00)
[2016-07-26 03:03] LABS: INR 2.5 (0.9-1.1); PROTHROMBIN TIME 25.7 SEC (9.30-11.50)
[2016-07-26 03:13] LABS: ALBUMIN/GLOBULIN RATIO 0.8 (1.0-2.7); CALCIUM 7.4 mg/dL (8.6-10.2); CREATININE 1.8 mg/dL (0.5-0.9); GLOMERULAR FILTRATION RATE 28.9 mL/min (>60); MAGNESIUM 1.3 mg/dL (1.7-2.5); PHOSPHORUS 4.6 mg/dL (2.5-4.8); POTASSIUM 3.5 mEQ/L (3.4-4.9); TOTAL PROTEIN 4.7 g/dL (6.6-8.7)
[2016-07-26] MEDS ORDERED: Zosyn 3.375gm inj ONE (04:39)
[2016-07-26] MEDS ORDERED: Piperacillin/Tazobactam 3.375 GM in D5W 110 ML IVPB SCH ×2 (06:00→14:00)
[2016-07-26] MEDS ORDERED: Nitroglycerin Subl 0.4mg tab (Bottle Of 25) SL PRN ×2 (07:45→17:00)
[2016-07-26] MEDS ORDERED: Morphine Sulfate 2mg/ml Inj IVP PRN ×2 (08:00→17:00)
[2016-07-26] MEDS ORDERED: Morphine Sulfate 2mg/ml Inj IM PRN (08:00)
[2016-07-26] MEDS ORDERED: Promethazine/Codeine 5ml UD ORAL PRN ×2 (08:00→17:00)
[2016-07-26] MEDS ORDERED: Haloperidol 5mg/ml Inj IM PRN (08:00)
[2016-07-26] MEDS ORDERED: Mylanta II UD 30ml ORAL PRN ×2 (08:00→17:00)
[2016-07-26] MEDS ORDERED: Atenolol 25mg tab ORAL SCH ×3 (09:00)
[2016-07-26] MEDS ORDERED: Enoxaparin 80mg Inj SUBQ SCH (09:00)
[2016-07-26] MEDS: Enoxaparin 80mg Inj SUBQ SCH (09:00)
[2016-07-26] MEDS ORDERED: DuoNeb 0.5-3(2.5)mg/3ml neb HHN PRN ×2 (09:00→17:00)
--- NOTE | 2016-07-26 09:37 | Diagnostic Imaging Report ---
Indication: Shortness of breath Technique: XRAY CHEST 1 V Comparison: 07/23/16 Findings: Cardiomediastinal silhouette is stable. Sternotomy wires, right chest Port-A-Cath and valve replacement are again noted. Mild increased interstitial lung markings are unchanged. No new consolidation is identified. Osseous structures are stable. Impression: No interval change from 07/23/16.
[2016-07-26 10:05] LABS: MEAN CORPUSCULAR HEMOGLOBIN 31.9 PG (27.0-31.0); MEAN CORPUSCULAR HGB CONC 32.4 G/DL (32.0-36.0); MEAN CORPUSCULAR VOLUME 99 FL (80-99); PLATELET COUNT 177 K/UL (150-450); RED BLOOD COUNT 3.16 M/UL (4.20-5.40); RED CELL DISTRIBUTION WIDTH 13.7 % (11.6-14.8)
[2016-07-26 10:31] LABS: ALBUMIN/GLOBULIN RATIO 0.9 (1.0-2.7); ANION GAP 24 (5-15); CALCIUM 7.7 mg/dL (8.6-10.2); CARBON DIOXIDE 20 mEQ/L (20-30); CHLORIDE 99 mEQ/L (98-107); CREATININE 1.9 mg/dL (0.5-0.9); GLOMERULAR FILTRATION RATE 27.2 mL/min (>60); POTASSIUM 3.1 mEQ/L (3.4-4.9); SODIUM 143 mEQ/L (135-145); TOTAL PROTEIN 5.4 g/dL (6.6-8.7); URIC ACID 8.1 mg/dL (3.0-7.5)
[2016-07-26 10:42] LABS: FREE T3 1.7 pg/mL (2.3-4.2)
--- NOTE | 2016-07-26 10:51 | Diagnostic Imaging Report ---
Indication: Elevated renal function test Technique: Renal ultrasound Findings: The right kidney measures 11.0 cm in length. The left kidney measures 10.5 cm in length. Bilateral kidneys demonstrate normal echogenicity. No focal renal lesions are seen. There is no hydronephrosis. No sonographically evident stones are seen. The visualized portions of the inferior vena cava are unremarkable. The bladder is partially distended and grossly unremarkable. Impression: Normal sonographic appearance of the bilateral kidneys. Clinical correlation recommended.
[2016-07-26 10:58] LABS: HEMOLYSIS 13; IRON 123 ug/dL (37-145); TOTAL IRON BINDING CAPACITY 169 ug/dL (250-400)
[2016-07-26 11:03] LABS: ALANINE AMINOTRANSFERASE 1095 U/L (3-33); ASPARTATE AMINO TRANSFERASE 3975 U/L (5-40)
[2016-07-26 11:14] LABS: ERYTHROCYTE SEDIMENTATION RATE 55 MM/HR (0-30)
[2016-07-26 11:25] LABS: LACTATE DEHYDROGENASE 3740 U/L (135-230)
[2016-07-26 11:32] LABS: ABG PCO2 30.6 mmHg (35.0-45.0)
[2016-07-26 11:33] LABS: ABG ALLEN TEST POSITIVE; ABG BASE EXCESS -1.8
[2016-07-26 12:01] LABS: RETICULOCYTE COUNT 0.4 % (0.0-2.0)
--- NOTE | 2016-07-26 12:58 | Pulmonolgy Critical Care Note ---
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 acute metabolic encephalopathy 2 to acute confusion , likely on underlying chronic dementia acute renal failure elevated transaminase hypokalemia COPD Hx of lung Ca PLAN OF CARE ICU IVF, started on Midodrine and titrate as needed off BiPAP, ABG on 2L O2 stable LUBA resolved, likely prerenal component [address] head no acute findings neuro follows , no evidence of acute CVA, recommended psych eval ECHO and Carotid pending on Plavix a/coagulation with Coumadin to keep INR ij therapeutic range replace K, check K and Mg in am O2 HHN prn CXR negative PT/OT/ST psych eval noted, on Risperdal, avoid oversedation transfer to [facility] case discussed and evaluated by supervising physician Critical Care - Objective Last 24 Hour Vital Signs Date Time Temp Pulse Resp B/P Pulse Ox O2 Delivery O2 Flow Rate FiO2 07/26/16 11:05 100 2.0 28 07/26/16 11:00 96 23 85/49 100 Nasal Cannula 2.0 07/26/16 10:00 103 23 137/105 100 Bi-pap 35 07/26/16 09:05 98 22 100 Facial 35 07/26/16 09:00 83/45 07/26/16 09:00 98 22 125/48 100 Bi-pap 35 07/26/16 08:00 98.2 81 24 81/43 100 Bi-pap 35 07/26/16 07:00 100 26 102/83 100 Bi-pap 35 07/26/16 07:00 103 24 100 Facial 35 07/26/16 06:00 100 26 102/84 100 Bi-pap 35 07/26/16 05:30 98 27 82/61 100 Bi-pap 35 07/26/16 05:12 99 19 100 Facial 35 07/26/16 05:00 100 25 75/42 100 Bi-pap 35 07/26/16 04:30 98.0 95 25 114/92 100 Bi-pap 35 07/26/16 04:04 100 07/26/16 04:00 35 07/26/16 03:57 100 26 87/42 98 Bi-pap 35 07/26/16 03:30 97 25 99/82 98 Bi-pap 35 07/26/16 03:00 100 26 74/38 100 Bi-pap 35 07/26/16 02:55 98 26 97 Facial 35 07/26/16 02:15 75 07/26/16 02:15 98.5 99 28 88/67 96 Bi-pap 12.0 40 07/26/16 02:15 99 07/26/16 01:20 110 37 99 Facial 75 07/26/16 00:00 97 28 91/76 100 Bi-pap 07/25/16 22:30 91 25 97 Facial 50 07/25/16 22:16 99 20 95/50 95 Venturi Mask 15.0 07/25/16 20:06 78 26 97 Venturi Mask 15.0 50 07/25/16 19:56 50 07/25/16 19:54 101 18 Venturi Mask 15.0 50 07/25/16 19:49 101 24 96 Venturi Mask 15.0 50 07/25/16 16:00 98.0 101 20 94/49 96 Non-Rebreather 15.0 07/25/16 15:05 76 26 94 Nasal Cannula 2.0 28 07/25/16 14:55 74 24 94 Nasal Cannula 2.0 28 Objective: General Appearance: WD/WN, no acute distress HEENT: normocephalic, atraumatic, anicteric, mucous membranes moist, PERRL Respiratory/Chest: chest wall non-tender, lungs clear, no respiratory distress , no accessory muscle use Cardiovascular: normal rate, regular rhythm, no JVD Abdomen: normal bowel sounds, soft, non tender Genitourinary: normal external genitalia Extremities: other - +1 edema BLE Neurologic/Psychiatric: alert, responsive Musculoskeletal: normal muscle bulk Micro: Microbiology Date/Time Source Procedure Growth Status 07/23/16 18:00 Blood Blood Culture - Preliminary NO GROWTH AFTER 24 HOURS Resulted 07/23/16 18:00 Blood Blood Culture - Preliminary NO GROWTH AFTER 24 HOURS Resulted 07/23/16 21:00 Nasal Nares MRSA Culture - Final NO METHICILLIN RESISTANT STAPH AUREUS... Complete 07/23/16 21:30 Urine,Clean Catch Urine Culture - Final Proteus Mirabilis Complete Accucheck: 62 Critical Care - Subjective ROS Limited/Unobtainable: Yes Interval Events: off BiPAP ABG stable on o2 via NC BP remains stable on IVF, mental status back to baseline Condition: improving EKG Rhythm: Sinus Rhythm FI02: 28 Sputum Amount: None Fluids: NS at 100 I&O: Intake and Output 07/25/16 07/26/16 19:00 07:00 Intake Total 120 ml 1052.5 ml Balance 120 ml 1052.5 ml Intake Oral 120 ml IV Total 1052.5 ml # Voids 2 3 # Bowel Movements 2 Ibrahima (Marisol Grissom NP Jul 26, 2016 12:58
[2016-07-26 13:14] LABS: BAND NEUTROPHILS % (MANUAL) 3 % (0-8); BASOPHILS % (MANUAL) 0 % (0-2); EOSINOPHILS % (MANUAL) 0 % (0-3); LYMPHOCYTES % (MANUAL) 8 % (20-45); NEUTROPHILS % (MANUAL) 86 % (45-75); PLATELET ESTIMATE ADEQUATE; PLATELET MORPHOLOGY NORMAL; TOTAL CELLS COUNTED 100
[2016-07-26 13:15] LABS: HYPOCHROMASIA 1+; MACROCYTES 1+
[2016-07-26 13:31] LABS: PATH BLOOD SMEAR/OMC SENT TO PATHOLOGIST
--- NOTE | 2016-07-26 13:31 | Wound Care Consultation ---
Wound Assessment Wound Assessment #1: Wound Number: #1 Wound Present on Admission: Yes New Wound: No Status Change of Wound: No Wound Location Body Site Modif: mid Wound Location Body Site: sacral Wound Type: pressure ulcer Barrie Test: Does not Barrie Pressure Ulcer Stage: I - noted scattered full thickness scars Wound Length: 5.0 Wound Width: 5.0 Percent of Wound [place]/Red: 100 Wound Drainage Description: Serous Wound Drainage Amount: None Wound Drainage Odor: None/Absent Tissue Surrounding Wound: Erythemic Wound General Appearance: Reddened Wound Assessment #2: Wound Number: #2 Wound Present on Admission: Yes New Wound: No Status Change of Wound: No Wound Location Body Site Modif: left, lower, anterior Wound Location Body Site: leg Wound Type: scab Barrie Test: Does not Barrie Wound Thickness: Full Thickness Wound Length: 1.0 Wound Width: 1.0 Percent of Wound Black/Brown: 100 - thick adhered Wound Drainage Amount: None Wound Drainage Odor: None/Absent Tissue Surrounding Wound: Intact Wound General Appearance: Blackened Wound Assessment #3: Wound Number: #3 Wound Present on Admission: Yes New Wound: No Status Change of Wound: No Wound Location Body Site Modif: left, dorsal Wound Location Body Site: foot Wound Type: scab Barrie Test: Does not Barrie Wound Thickness: Full Thickness Wound Length: 1.0 Wound Width: 1.0 Wound Depth: utd Percent of Wound Black/Brown: 100 - thick adhered scab. Wound Drainage Amount: None Wound Drainage Odor: None/Absent Tissue Surrounding Wound: Intact Wound General Appearance: Blackened Wound Assessment #4: Wound Number: #4 Wound Present on Admission: Yes New Wound: No Status Change of Wound: No Wound Location Body Site Modif: left Wound Location Body Site: toe - 2nd Wound Type: scab - thick adhered Barrie Test: Does not Barrie Wound Thickness: Full Thickness Wound Length: 0.5 Wound Width: 0.5 Wound Depth: utd Percent of Wound Black/Brown: 100 Wound Drainage Amount: None Wound Drainage Odor: None/Absent Tissue Surrounding Wound: Intact Wound General Appearance: Blackened Wound Assessment #5: Wound Number: #5 Wound Present on Admission: Yes New Wound: No Status Change of Wound: No Wound Location Body Site Modif: right Wound Location Body Site: knee Wound Type: other - open wound-etiology unknown. Barrie Test: Does not Barrie Wound Thickness: Full Thickness Wound Length: 1.5 Wound Width: 1.5 Wound Depth: 0.2 Percent of Wound Bed Yellow/Wh: 100 Wound Drainage Description: Serosanguineous Wound Drainage Amount: Scant Wound Drainage Odor: None/Absent Tissue Surrounding Wound: Macerated Wound General Appearance: Reddened Wound Assessment #6: Wound Number: #6 Wound Present on Admission: Yes New Wound: No Status Change of Wound: No Wound Location Body Site Modif: left, anterior, dorsal Wound Location Body Site: foot Wound Type: other - scattered redness/maroon intact skin Barrie Test: Does not Barrie Percent of Wound [place]/Red: 50 Percent of Wound Purple/Maroon: 50 Wound Drainage Amount: None Wound Drainage Odor: None/Absent Tissue Surrounding Wound: Intact Wound General Appearance: Open to air Wound Assessment #7: Wound Number: #7 Wound Present on Admission: Yes New Wound: No Status Change of Wound: No Wound Location Body Site Modif: left Wound Location Body Site: heel Wound Type: pressure ulcer Barrie Test: Does not Barrie Pressure Ulcer Stage: IV/unstageable Wound Thickness: Full Thickness Wound Length: 0.5 Wound Width: 0.5 Wound Depth: utd Percent of Wound Black/Brown: 100 Wound Drainage Amount: None Wound Drainage Odor: None/Absent Tissue Surrounding Wound: Intact Wound General Appearance: Necrotic Wound Comment #1 Sacral pressure ulcer stage I. #2 Right knee open wound-etiology unknown. #3 Left anterior lower leg scab. #4 Left dorsal aspect of foot scab. #5 Left second toe scab. #6 Scattered reddened/maroon discoloration to left anterior foot. #7 Left heel pressure ulcer stage IV/Unstageable. Recommendation -Local wound care as ordered. -Turn and reposition. -Offload affected sites. -Heel protectors. -Keep clean and dry. -Optimize nutrition. -Assess and notify MD if change of condition is noted. upon assessment noted patient is able to reposition self. Patient was repositioned on side to offload sacral site,however she placed herself back to supine position. Placed pillows to offload heels, however patient did not keep heels offloaded , kicked off pillow , noted patient rubbing feet, heels on bed, skin on heels at risk for skin breakdown due to friction and shear. continue to remind and encourage patient risks and benefits of repositioning and offloading. TERRENCE CORTES Jul 26, 2016 13:31
--- NOTE | 2016-07-26 14:08 | Internal Med Progress Note ---
Subjective Date of Service: Jul 26, 2016 Physician Name Jose Alfaro Attending Physician Todd Kendall MD Current Medications Medications (Trade) Dose Ordered Sig/Jagruti Route PRN Reason Start Time Stop Time Status Last Admin Dose Admin Acetaminophen (Tylenol) 650 mg Q4H PRN ORAL fever 07/26/16 08:00 08/25/16 07:59 Al Hydroxide/Mg Hydroxide (Mylanta II) 30 ml Q6H PRN ORAL dyspepsia 07/26/16 08:00 08/25/16 07:59 Albuterol/ Ipratropium (DuoNeb 0.5-3(2.5)mg/3ml) 3 ml Q4H PRN HHN Shortness of Breath 07/26/16 09:00 07/31/16 08:59 Atenolol (Tenormin) 25 mg DAILY ORAL 07/26/16 09:00 08/25/16 08:59 Clonidine HCl (Catapres) 0.1 mg Q4H PRN ORAL For High Blood Pressure 07/26/16 10:30 08/25/16 10:29 Clopidogrel Bisulfate (Plavix) 75 mg DAILY ORAL 07/26/16 09:00 08/25/16 08:59 Dextrose (Dextrose 50%) STAT PRN IV Hypoglycemia 07/26/16 08:00 08/25/16 07:59 Haloperidol Lactate (Haldol) 5 mg Q6H PRN IM Agitation 07/26/16 08:00 08/25/16 07:59 07/26/16 10:10 Midodrine (Pro-Amatine) 2.5 mg THREE TIMES A DAY ORAL 07/26/16 10:00 08/25/16 09:59 Morphine Sulfate (Morphine Sulfate) 1 mg Q4H PRN IVP For Pain 7-10 07/26/16 08:00 08/02/16 07:59 Morphine Sulfate (Morphine Sulfate) 2 mg Q4H PRN IM FOR SEVERE PAIN/SOB 07/26/16 08:00 08/02/16 07:59 Nitroglycerin (Ntg) 0.4 mg Q5M X 3 DOSES PRN SL Prn Chest Pain 07/26/16 07:45 08/25/16 07:44 Ondansetron HCl (Zofran) 4 mg Q6H PRN IVP Nausea & Vomiting 07/26/16 08:00 08/25/16 07:59 Piperacillin Sod/ Tazobactam Sod/ Dextrose (Zosyn/D5W) 110 ml @ 27.5 mls/hr EVERY 8 HOURS IVPB 07/26/16 14:00 07/31/16 13:59 07/26/16 13:58 Polyethylene Glycol (Miralax) 17 gm HSPRN PRN ORAL Constipation 07/26/16 22:30 08/25/16 22:29 Promethazine HCl/ Codeine (Phenergan with Codeine) 5 ml Q4H PRN ORAL For Cough 07/26/16 08:00 08/25/16 07:59 Risperidone (RisperDAL) 1 mg BEDTIME ORAL 07/26/16 21:00 08/25/16 20:59 Sodium Chloride 1,000 ml @ 100 mls/hr Q10H IV 07/26/16 08:30 08/25/16 08:29 07/26/16 09:16 Temazepam (Restoril) 15 mg HSPRN PRN ORAL Insomnia 07/26/16 22:30 08/02/16 22:29 Vancomycin HCl (Vanco rx to dose) 1 ea DAILY PRN MISC Per rx protocol 07/26/16 09:00 08/25/16 08:59 Vitamin A/Vitamin D (A & D Oint) 1 applic EVERY 12 HOURS TOPIC 07/26/16 21:00 08/25/16 20:59 Warfarin Sodium (Coumadin per pharmacy) 1 ea DAILY PRN MISC Per rx protocol 07/26/16 09:00 08/25/16 08:59 Warfarin Sodium (Coumadin) 4 mg COUMADIN PO 07/27/16 17:00 08/01/16 16:59 Allergies: Coded Allergies: No Known Allergies (Verified , 04/10/06) Subjective 56 YO F admitted with altered mental status. Transfered to ICU overnight due to worsening Respiratory failure. ICU. Cover for Int Med Dr Kendall Objective Last Vital Signs Date Time Temp Pulse Resp B/P Pulse Ox O2 Delivery O2 Flow Rate FiO2 07/26/16 12:30 35 07/26/16 11:05 100 2.0 07/26/16 11:00 96 23 85/49 Nasal Cannula 07/26/16 08:00 98.2 Laboratory Tests Test 07/25/16 22:04 07/26/16 02:40 07/26/16 09:20 07/26/16 09:45 Arterial Blood pH 7.416 (7.350-7.450) Arterial Blood Partial Pressure CO2 32.0 mmHg (35.0-45.0) L Arterial Blood Partial Pressure O2 51.9 mmHg (75.0-100.0) L Arterial Blood HCO3 20.1 mmol/L (22.0-26.0) L Arterial Blood Oxygen Saturation 80.5 % (92.0-98.0) L Arterial Blood Base Excess -3.7 Bi Test Positive White Blood Count 8.3 K/UL (4.8-10.8) 10.0 K/UL (4.8-10.8) Red Blood Count 2.49 M/UL (4.20-5.40) L 3.16 M/UL (4.20-5.40) L Hemoglobin 8.1 G/DL (12.0-16.0) L 10.1 G/DL (12.0-16.0) L Hematocrit 24.2 % (37.0-47.0) L 31.2 % (37.0-47.0) L Mean Corpuscular Volume 97 FL (80-99) 99 FL (80-99) Mean Corpuscular Hemoglobin 32.7 PG (27.0-31.0) H 31.9 PG (27.0-31.0) H Mean Corpuscular Hemoglobin Concent 33.6 G/DL (32.0-36.0) 32.4 G/DL (32.0-36.0) Red Cell Distribution Width 14.1 % (11.6-14.8) 13.7 % (11.6-14.8) Platelet Count 193 K/UL (150-450) 177 K/UL (150-450) Mean Platelet Volume 6.6 FL (6.5-10.1) 6.0 FL (6.5-10.1) L Neutrophils (%) (Auto) % (45.0-75.0) % (45.0-75.0) Lymphocytes (%) (Auto) % (20.0-45.0) % (20.0-45.0) Monocytes (%) (Auto) % (1.0-10.0) % (1.0-10.0) Eosinophils (%) (Auto) % (0.0-3.0) % (0.0-3.0) Basophils (%) (Auto) % (0.0-2.0) % (0.0-2.0) Prothrombin Time 25.7 SEC (9.30-11.50) H Prothromb Time International Ratio 2.5 (0.9-1.1) H Sodium Level 144 mEQ/L (135-145) 143 mEQ/L (135-145) Potassium Level 3.5 mEQ/L (3.4-4.9) 3.1 mEQ/L (3.4-4.9) L Chloride Level 102 mEQ/L (98-107) 99 mEQ/L (98-107) Carbon Dioxide Level 19 mEQ/L (20-30) L 20 mEQ/L (20-30) Anion Gap 23 (5-15) H 24 (5-15) H Blood Urea Nitrogen 23 mg/dL (7-23) 25 mg/dL (7-23) H Creatinine 1.8 mg/dL (0.5-0.9) #H 1.9 mg/dL (0.5-0.9) H Estimat Glomerular Filtration Rate 28.9 mL/min (>60) 27.2 mL/min (>60) Glucose Level 92 mg/dL (74-106) 73 mg/dL (74-106) L Calcium Level 7.4 mg/dL (8.6-10.2) L 7.7 mg/dL (8.6-10.2) L Phosphorus Level 4.6 mg/dL (2.5-4.8) Magnesium Level 1.3 mg/dL (1.7-2.5) L Total Bilirubin 0.9 mg/dL (0.0-1.2) 1.0 mg/dL (0.0-1.2) Aspartate Amino Transf (AST/SGOT) 3616 U/L (5-40) H 3975 U/L (5-40) H Alanine Aminotransferase (ALT/SGPT) 953 U/L (3-33) H 1095 U/L (3-33) H Alkaline Phosphatase 412 U/L (35-104) H 447 U/L (35-104) H Total Creatine Kinase 377 U/L (26-140) H Troponin I 1.80 ng/mL (<=0.30) *H Total Protein 4.7 g/dL (6.6-8.7) L 5.4 g/dL (6.6-8.7) L Albumin 2.2 g/dL (3.5-5.2) L 2.6 g/dL (3.5-5.2) L Globulin 2.5 g/dL 2.8 g/dL Albumin/Globulin Ratio 0.8 (1.0-2.7) L 0.9 (1.0-2.7) L Differential Total Cells Counted 100 Neutrophils % (Manual) 86 % (45-75) H Lymphocytes % (Manual) 8 % (20-45) L Monocytes % (Manual) 3 % (1-10) Eosinophils % (Manual) 0 % (0-3) Basophils % (Manual) 0 % (0-2) Band Neutrophils 3 % (0-8) Platelet Estimate Adequate Platelet Morphology Normal Hypochromasia 1+ Macrocytosis 1+ Erythrocyte Sedimentation Rate 55 MM/HR (0-30) H Reticulocyte Count 0.4 % (0.0-2.0) Activated Partial Thromboplast Time 30 SEC (23-33) Plasma/Serum Osmolality Pending Uric Acid 8.1 mg/dL (3.0-7.5) H Iron Level 123 ug/dL (37-145) Total Iron Binding Capacity 169 ug/dL (250-400) L Percent Iron Saturation 73 % (15-50) H Unsaturated Iron Binding 46 ug/dL (112-346) L Lactate Dehydrogenase 3740 U/L (135-230) H Carcinoembryonic Antigen 5.5 ng/mL H Vitamin B12 Level > 2000 pg/mL (211-946) H Folate Pending Thyroid Stimulating Hormone (TSH) 3.680 uIU/mL (0.300-4.500) Free Thyroxine 1.21 ng/dL (0.86-1.85) Free Triiodothyronine 1.7 pg/mL (2.3-4.2) L Cortisol Pending Urine Osmolality Pending Urine Random Sodium 110 mmol/L Urine Random Chloride 86 MEQ/L Urine Potassium Timed 12 mmol/L Test 07/26/16 11:26 07/26/16 13:29 Arterial Blood pH 7.462 (7.350-7.450) 7.501 (7.350-7.450) Arterial Blood Partial Pressure CO2 30.6 mmHg (35.0-45.0) L 22.5 mmHg (35.0-45.0) *L Arterial Blood Partial Pressure O2 102.6 mmHg (75.0-100.0) H 286.1 mmHg (75.0-100.0) H Arterial Blood HCO3 21.4 mmol/L (22.0-26.0) L 17.2 mmol/L (22.0-26.0) L Arterial Blood Oxygen Saturation 96.3 % (92.0-98.0) 99.0 % (92.0-98.0) H Arterial Blood Base Excess -1.8 -4.6 Bi Test Positive Positive Microbiology Date/Time Source Procedure Growth Status 07/23/16 18:00 Blood Blood Culture - Preliminary NO GROWTH AFTER 48 HOURS Resulted 07/23/16 18:00 Blood Blood Culture - Preliminary NO GROWTH AFTER 48 HOURS Resulted 07/23/16 21:00 Nasal Nares MRSA Culture - Final NO METHICILLIN RESISTANT STAPH AUREUS... Complete 07/23/16 21:30 Urine,Clean Catch Urine Culture - Final Proteus Mirabilis Complete 07/23/16 21:00 Rectum VRE Culture - Final Enterococcus Faecium - Vre Complete Intake and Output 07/25/16 07/26/16 19:00 07:00 Intake Total 120 ml 1052.5 ml Balance 120 ml 1052.5 ml Intake Oral 120 ml IV Total 1052.5 ml # Voids 2 3 # Bowel Movements 2 Objective General Appearance: WD/WN, no apparent distress, alert EENT: PERRL/EOMI, normal ENT inspection, TMs normal Neck: non-tender, normal alignment, supple Cardiovascular: normal peripheral pulses, normal rate, regular rhythm, regularly irregular, no gallop/murmur Respiratory/Chest: Nasal canula; chest wall non-tender, Wheezing bilat, respiratory distress, accessory muscle use Abdomen: normal bowel sounds, non tender, soft, no organomegaly, no mass, abnormal bowel sounds Extremities: normal range of motion 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 D/C levaquin; start zosyn. 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 See pulmonary note. Status: deteriorating JOSE ALFARO Jul 26, 2016 14:08
[2016-07-26] MEDS ORDERED: D5 1/2NS 1000ml IV ONE (16:37)
[2016-07-26] MEDS ORDERED: Warfarin Sodium 4mg PO SCH (17:00)
[2016-07-26] MEDS: Haloperidol 5mg/ml Inj IM PRN (18:13)
[2016-07-26] MEDS ORDERED: Levofloxacin 250mg/D5W 50ml IVPB SCH (19:00)
[2016-07-26] MEDS ORDERED: Vitamin A&D Oint 2oz Tube TOPIC SCH (21:00)
[2016-07-26] MEDS ORDERED: Miralax 17gm pkt ORAL PRN ×2 (21:00→22:30)
[2016-07-26] MEDS: Vitamin A&D Oint 2oz Tube TOPIC SCH (21:28)
[2016-07-26] MEDS: Piperacillin/Tazobactam 3.375 GM in D5W 110 ML IVPB SCH (21:34)
--- NOTE | 2016-07-26 21:38 | Consultation ---
DATE OF CONSULTATION: 07/26/2016 CHIEF COMPLAINT: Anemia. HISTORY OF PRESENT ILLNESS: Most of the history per chart. The patient is in the intensive care unit on BiPAP. Cannot give any history. She is an elderly female, who was admitted to the hospital with a complaint of shortness of breath and was found to have acute myocardial infarction and also was found to be anemic, so GI consult was requested for evaluation. PAST MEDICAL HISTORY: History of UTI, CHF, hypertension, hypercholesterolemia, renal insufficiency, lung CA, depression anxiety, and mitral valve replacement. PAST SURGICAL HISTORY: History of mitral valve replacement. ALLERGIES: No known drug allergies. MEDICATIONS: Please see medication reconciliation list. FAMILY HISTORY: Noncontributory. REVIEW OF SYSTEMS: Unable to obtain. PHYSICAL EXAMINATION: VITAL SIGNS: Temperature 98.2 degrees, pulse 96, respirations 23, and blood pressure is 85/49. HEENT: Normocephalic and atraumatic. Pale conjunctivae. NECK: Supple. No adenopathy. CARDIOVASCULAR: Tachy. Regular rate. Plus S1 and S2. LUNGS: Decreased breath sounds bilaterally and diffusely. ABDOMEN: Soft and nontender. No rebound. No guarding. EXTREMITIES: Lower extremity, the patient has minimum lower extremity edema. There is no evidence of any clubbing. LABORATORY DATA: Sodium 143, potassium 3.1, BUN 25, and creatinine is 1.9. White count is 10, hemoglobin 10, hematocrit 31, and platelets 177,000. ASSESSMENT AND PLAN: This is a 56-year-old female with multiple medical problems. At this time, the patient is not actively bleeding. Stool for occult blood still pending. H and H has been relatively stable. The patient is at very high risk for any gastrointestinal procedures given recent troponin elevation. The patient is currently on BiPAP so we are going to monitor closely. The patient had evidence of signs and symptoms of acute bleeding. The patient most probably would need an intubation and gastrointestinal procedures. The patient also has minimal by mouth intake. We will monitor overnight. If continues to be might need an NG tube placement for feeding. nAgus Berman M.D. DR: MANUELA JOB#: [id number] CC:
[2016-07-27] VITALS: BP 122/88
[2016-07-27] MEDS: Haloperidol 5mg/ml Inj IM PRN ×2 (00:36→10:00)
[2016-07-27 04:00] VITALS: BP 106/67
[2016-07-27 04:43] LABS: MEAN CORPUSCULAR HEMOGLOBIN 32.5 PG (27.0-31.0); MEAN CORPUSCULAR HGB CONC 32.8 G/DL (32.0-36.0); MEAN CORPUSCULAR VOLUME 99 FL (80-99); MEAN PLATELET VOLUME 5.8 FL (6.5-10.1); PLATELET COUNT 163 K/UL (150-450); RED BLOOD COUNT 2.93 M/UL (4.20-5.40); RED CELL DISTRIBUTION WIDTH 14.2 % (11.6-14.8); WHITE BLOOD COUNT 8.9 K/UL (4.8-10.8)
[2016-07-27 04:50] LABS: INR 2.2 (0.9-1.1); PROTHROMBIN TIME 23.3 SEC (9.30-11.50)
[2016-07-27] MEDS: Morphine Sulfate 2mg/ml Inj IM PRN ×2 (05:10→14:46)
[2016-07-27 05:43] LABS: ALBUMIN/GLOBULIN RATIO 0.9 (1.0-2.7); CALCIUM 7.2 mg/dL (8.6-10.2); CREATININE 1.9 mg/dL (0.5-0.9); GLOMERULAR FILTRATION RATE 27.2 mL/min (>60); TOTAL PROTEIN 5.1 g/dL (6.6-8.7)
[2016-07-27] MEDS: Piperacillin/Tazobactam 3.375 GM in D5W 110 ML IVPB SCH ×3 (05:59→20:53)
[2016-07-27] MEDS ORDERED: Vancomycin 1.5 GM in D5W 325 ML IVPB SCH (06:30)
[2016-07-27] MEDS: Vancomycin 1gm/D5W 275ml IVPB SCH ×2 (07:41)
[2016-07-27 08:00] VITALS: BP 108/61
[2016-07-27 08:08] LABS: CORTISOL LC 33.5 ug/dL (.)
[2016-07-27] MEDS: Vitamin A&D Oint 2oz Tube TOPIC SCH ×2 (09:00→20:54)
[2016-07-27] MEDS: Atenolol 25mg tab ORAL SCH (09:00)
[2016-07-27] MEDS ORDERED: KCl 10% 40mEq/30ml liquid ORAL ONE (10:00)
--- NOTE | 2016-07-27 10:49 | Pulmonology Progress Note ---
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 CT head no acute findings neuro follows , no evidence of acute CVA, recommended psych eval ECHO Carotid on Plavix a/coagulation with Coumadin to keep INR in therapeutic range , INR-2.2 today replace K, check K and Mg in am insert Key - 400 cc out, renal US 07/26 with normal bilateral kidney echogenicity, no hydro creat up to 1.9 nephro consult as per PMD IVF, LFT trending down, still high hepatitis panel, abdominal US GI follows PT/OT/ST psych eval noted, on Risperdal, avoid oversedation case discussed and evaluated by supervising physician Subjective Allergies: Coded Allergies: No Known Allergies (Verified , 04/10/06) Subjective on BiPAP, ABG stable mild tachycardia and tachypnea per nurse no UO from last night Objective Last 24 Hour Vital Signs Date Time Temp Pulse Resp B/P Pulse Ox O2 Delivery O2 Flow Rate FiO2 07/27/16 09:00 105 106/67 07/27/16 08:42 105 36 98 Facial 100 07/27/16 07:17 102 36 100 Facial 100 07/27/16 05:15 89 27 99 Facial 100 07/27/16 04:00 35 07/27/16 04:00 113 07/27/16 04:00 97.7 109 21 106/67 97 Mechanical Ventilator 07/27/16 03:14 89 26 91 Facial 100 07/27/16 01:16 94 32 96 Facial 35 07/27/16 00:00 97.0 103 24 122/88 96 Bi-pap 07/27/16 00:00 110 07/27/16 00:00 35 07/26/16 23:04 88 38 97 Facial 35 07/26/16 20:42 91 32 100 Facial 35 07/26/16 20:00 99 07/26/16 20:00 35 07/26/16 19:16 89 34 100 Facial 35 07/26/16 17:30 98 32 100 Facial 35 07/26/16 16:00 110 07/26/16 16:00 35 07/26/16 16:00 98.1 107 27 109/64 100 Bi-pap 35 07/26/16 15:11 102 24 97/48 100 Bi-pap 35 07/26/16 15:00 98 31 100 Facial 35 07/26/16 14:00 106 26 119/105 100 Bi-pap 35 07/26/16 13:10 97 35 100 Facial 35 07/26/16 13:00 107 29 93/53 100 Bi-pap 35 07/26/16 12:30 35 07/26/16 12:00 97 07/26/16 12:00 97.2 106 27 98/50 100 Nasal Cannula 2.0 07/26/16 11:05 100 2.0 28 07/26/16 11:00 96 23 85/49 100 Nasal Cannula 2.0 Intake and Output 07/26/16 07/27/16 19:00 07:00 Intake Total 1197.5 ml 1010.0 ml Output Total 300 ml Balance 897.5 ml 1010.0 ml Intake Oral 205 ml IV Total 992.5 ml 1010.0 ml Output Urine Total 300 ml # Voids 4 Objective General Appearance: WD/WN, no acute distress, weak, HEENT: normocephalic, atraumatic, anicteric, mucous membranes moist, PERRL Respiratory/Chest: chest wall non-tender, lungs clear with decreased air entry , tachypnea. BiPAP mask on , R chest ya cath Cardiovascular: tachy, 100-110, regular rhythm, no JVD Abdomen: normal bowel sounds, soft, non tender Genitourinary: normal external genitalia Extremities: +1 edema BLE Neurologic/Psychiatric: alert, responsive, depressed Musculoskeletal: normal muscle bulk Laboratory Tests 07/26/16 11:26: Arterial Blood pH 7.462H, Arterial Blood Partial Pressure CO2 30.6L, Arterial Blood Partial Pressure O2 102.6H, Arterial Blood HCO3 21.4L, Arterial Blood Oxygen Saturation 96.3, Arterial Blood Base Excess -1.8, Bi Test Positive 07/26/16 13:29: Arterial Blood pH 7.501H, Arterial Blood Partial Pressure CO2 22.5*L, Arterial Blood Partial Pressure O2 286.1H, Arterial Blood HCO3 17.2L, Arterial Blood Oxygen Saturation 99.0H, Arterial Blood Base Excess -4.6, Bi Test Positive 07/27/16 04:15: White Blood Count 8.9, Red Blood Count 2.93L, Hemoglobin 9.5L, Hematocrit 29.0L , Mean Corpuscular Volume 99, Mean Corpuscular Hemoglobin 32.5H, Mean Corpuscular Hemoglobin Concent 32.8, Red Cell Distribution Width 14.2, Platelet Count 163, Mean Platelet Volume 5.8L, Neutrophils (%) (Auto) , Lymphocytes (%) ( Auto) , Monocytes (%) (Auto) , Eosinophils (%) (Auto) , Basophils (%) (Auto) , Prothrombin Time 23.3H, Prothromb Time International Ratio 2.2H, Sodium Level 144, Potassium Level 3.0L, Chloride Level 103, Carbon Dioxide Level 18L, Anion Gap 23H, Blood Urea Nitrogen 30H, Creatinine 1.9H, Estimat Glomerular Filtration Rate 27.2, Glucose Level 53L, Calcium Level 7.2L, Total Bilirubin 0.8 , Aspartate Amino Transf (AST/SGOT) 1159H, Alanine Aminotransferase (ALT/SGPT) 2699H, Alkaline Phosphatase 392H, Total Protein 5.1L, Albumin 2.5L, Globulin 2.6 , Albumin/Globulin Ratio 0.9L, Random Vancomycin Level 17.8 Current Medications Medications (Trade) Dose Ordered Sig/Jagruti Route PRN Reason Start Time Stop Time Status Last Admin Dose Admin Acetaminophen (Tylenol) 650 mg Q4H PRN ORAL T>100.5 07/26/16 17:00 08/25/16 16:59 Al Hydroxide/Mg Hydroxide (Mylanta II) 30 ml Q6H PRN ORAL dyspepsia 07/26/16 17:00 08/25/16 16:59 Albuterol/ Ipratropium (DuoNeb 0.5-3(2.5)mg/3ml) 3 ml Q4H PRN HHN Shortness of Breath 07/26/16 17:00 07/31/16 16:59 Atenolol (Tenormin) 25 mg DAILY ORAL 07/27/16 09:00 08/26/16 08:59 Clonidine HCl (Catapres) 0.1 mg Q4H PRN ORAL SBP>160 07/26/16 17:00 08/25/16 16:59 Clopidogrel Bisulfate (Plavix) 75 mg DAILY ORAL 07/27/16 09:00 08/26/16 08:59 07/27/16 10:01 Dextrose (Dextrose 50%) STAT PRN IV Hypoglycemia 07/26/16 17:00 08/25/16 16:59 Haloperidol Lactate (Haldol) 5 mg Q6H PRN IM Agitation 07/26/16 17:00 08/25/16 16:59 07/27/16 10:00 Midodrine (Pro-Amatine) 2.5 mg THREE TIMES A DAY ORAL 07/26/16 18:00 08/25/16 17:59 07/27/16 10:01 Morphine Sulfate (Morphine Sulfate) 1 mg Q4H PRN IVP For Pain 7-10 07/26/16 17:00 08/02/16 16:59 Morphine Sulfate (Morphine Sulfate) 2 mg Q4H PRN IM FOR SEVERE PAIN/SOB 07/26/16 17:00 08/02/16 16:59 07/27/16 05:10 Nitroglycerin (Ntg) 0.4 mg Q5M X 3 DOSES PRN SL Prn Chest Pain 07/26/16 17:00 08/25/16 16:59 Ondansetron HCl (Zofran) 4 mg Q6H PRN IVP Nausea & Vomiting 07/26/16 17:00 08/25/16 16:59 Piperacillin Sod/ Tazobactam Sod/ Dextrose (Zosyn/D5W) 110 ml @ 27.5 mls/hr EVERY 8 HOURS IVPB 07/26/16 22:00 07/31/16 21:59 07/27/16 05:59 Polyethylene Glycol (Miralax) 17 gm HSPRN PRN ORAL Constipation 07/26/16 21:00 08/25/16 20:59 Promethazine HCl/ Codeine (Phenergan with Codeine) 5 ml Q4H PRN ORAL For Cough 07/26/16 17:00 08/25/16 16:59 Risperidone (RisperDAL) 1 mg BEDTIME ORAL 07/26/16 21:00 08/25/16 20:59 07/26/16 21:28 Sodium Chloride 1,000 ml @ 100 mls/hr Q10H IV 07/26/16 17:00 08/25/16 16:59 07/27/16 03:49 Temazepam (Restoril) 15 mg HSPRN PRN ORAL Insomnia 07/26/16 21:00 08/02/16 20:59 07/27/16 00:36 Vancomycin HCl (Vanco rx to dose) 1 ea DAILY PRN MISC Per rx protocol 07/26/16 17:00 08/25/16 16:59 Vancomycin HCl/ Dextrose (Vancomycin/D5W) 275 ml @ 183.708 mls/hr Q24H IVPB 07/27/16 06:30 08/01/16 06:29 07/27/16 07:41 Vitamin A/Vitamin D (A & D Oint) 1 applic EVERY 12 HOURS TOPIC 07/26/16 21:00 08/25/16 20:59 07/27/16 09:00 Warfarin Sodium (Coumadin per pharmacy) 1 ea DAILY PRN MISC Per rx protocol 07/26/16 17:00 08/25/16 16:59 Warfarin Sodium 4 mg 4 mg COUMADIN PO 07/27/16 17:00 08/01/16 16:59 Ibrahima (Eileenclaudia)Marisol NP Jul 27, 2016 10:49
[2016-07-27 11:43] LABS: ABG BASE EXCESS -5.6; ABG PCO2 29.7 mmHg (35.0-45.0)
[2016-07-27 11:44] LABS: ABG ALLEN TEST POSITIVE
--- NOTE | 2016-07-27 11:53 | General Progress Note ---
Assessment/Plan Problem List: (1) Shock liver ICD Codes: K72.00 - Acute and subacute hepatic failure without coma SNOMED: 427998797 (2) Anemia ICD Codes: D64.9 - Anemia, unspecified SNOMED: 211624788 (3) 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 (4) coagulopathy (5) COPD (chronic obstructive pulmonary disease) ICD Codes: J44.9 - Chronic obstructive pulmonary disease, unspecified SNOMED: 90661810 (6) CAD (coronary artery disease) ICD Codes: I25.10 - Atherosclerotic heart disease of [place] coronary artery without angina pectoris SNOMED: 30039210 (7) Hypercholesteremia ICD Codes: E78.00 - Pure hypercholesterolemia, unspecified SNOMED: 76122419 (8) Renal insufficiency ICD Codes: N28.9 - Disorder of kidney and ureter, unspecified SNOMED: 725581262 (9) HTN (hypertension) ICD Codes: I10 - Essential (primary) hypertension SNOMED: 27674670 Assessment/Plan still NPO stable H&H ppi GI procedures on hold fu LFTS>>> improving Subjective ROS Limited/Unobtainable: No Allergies: Coded Allergies: No Known Allergies (Verified , 04/10/06) Subjective respiratory distress Objective Last 24 Hour Vital Signs Date Time Temp Pulse Resp B/P Pulse Ox O2 Delivery O2 Flow Rate FiO2 07/27/16 10:49 117 43 99 Facial 100 07/27/16 09:00 105 106/67 07/27/16 08:42 105 36 98 Facial 100 07/27/16 08:00 98.4 101 27 108/61 98 Mechanical Ventilator 35 07/27/16 08:00 35 07/27/16 08:00 115 07/27/16 07:17 102 36 100 Facial 100 07/27/16 05:15 89 27 99 Facial 100 07/27/16 04:00 35 07/27/16 04:00 113 07/27/16 04:00 97.7 109 21 106/67 97 Mechanical Ventilator 07/27/16 03:14 89 26 91 Facial 100 07/27/16 01:16 94 32 96 Facial 35 07/27/16 00:00 97.0 103 24 122/88 96 Bi-pap 07/27/16 00:00 110 07/27/16 00:00 35 07/26/16 23:04 88 38 97 Facial 35 07/26/16 20:42 91 32 100 Facial 35 07/26/16 20:00 99 07/26/16 20:00 35 07/26/16 19:16 89 34 100 Facial 35 07/26/16 17:30 98 32 100 Facial 35 07/26/16 16:00 110 07/26/16 16:00 35 07/26/16 16:00 98.1 107 27 109/64 100 Bi-pap 35 07/26/16 15:11 102 24 97/48 100 Bi-pap 35 07/26/16 15:00 98 31 100 Facial 35 07/26/16 14:00 106 26 119/105 100 Bi-pap 35 07/26/16 13:10 97 35 100 Facial 35 07/26/16 13:00 107 29 93/53 100 Bi-pap 35 07/26/16 12:30 35 07/26/16 12:00 97 07/26/16 12:00 97.2 106 27 98/50 100 Nasal Cannula 2.0 Intake and Output 07/26/16 07/27/16 19:00 07:00 Intake Total 1197.5 ml 1237.5 ml Output Total 300 ml Balance 897.5 ml 1237.5 ml Intake Oral 205 ml IV Total 992.5 ml 1237.5 ml Output Urine Total 300 ml # Voids 4 Laboratory Tests 07/26/16 13:29: Arterial Blood pH 7.501H, Arterial Blood Partial Pressure CO2 22.5*L, Arterial Blood Partial Pressure O2 286.1H, Arterial Blood HCO3 17.2L, Arterial Blood Oxygen Saturation 99.0H, Arterial Blood Base Excess -4.6, Bi Test Positive 07/27/16 04:15: White Blood Count 8.9, Red Blood Count 2.93L, Hemoglobin 9.5L, Hematocrit 29.0L , Mean Corpuscular Volume 99, Mean Corpuscular Hemoglobin 32.5H, Mean Corpuscular Hemoglobin Concent 32.8, Red Cell Distribution Width 14.2, Platelet Count 163, Mean Platelet Volume 5.8L, Neutrophils (%) (Auto) , Lymphocytes (%) ( Auto) , Monocytes (%) (Auto) , Eosinophils (%) (Auto) , Basophils (%) (Auto) , Prothrombin Time 23.3H, Prothromb Time International Ratio 2.2H, Sodium Level 144, Potassium Level 3.0L, Chloride Level 103, Carbon Dioxide Level 18L, Anion Gap 23H, Blood Urea Nitrogen 30H, Creatinine 1.9H, Estimat Glomerular Filtration Rate 27.2, Glucose Level 53L, Calcium Level 7.2L, Total Bilirubin 0.8 , Aspartate Amino Transf (AST/SGOT) 1159H, Alanine Aminotransferase (ALT/SGPT) 2699H, Alkaline Phosphatase 392H, Total Protein 5.1L, Albumin 2.5L, Globulin 2.6 , Albumin/Globulin Ratio 0.9L, Random Vancomycin Level 17.8 07/27/16 11:38: Arterial Blood pH 7.404, Arterial Blood Partial Pressure CO2 29.7L, Arterial Blood Partial Pressure O2 419.1H, Arterial Blood HCO3 18.3L, Arterial Blood Oxygen Saturation 99.7H, Arterial Blood Base Excess -5.6, Bi Test Positive Height (Feet): 5 Height (Inches): 6.00 Weight (Pounds): 153 General Appearance: mild distress EENT: normal ENT inspection Neck: supple Cardiovascular: tachycardia Respiratory/Chest: decreased breath sounds Abdomen: normal bowel sounds, non tender, soft Extremities: non-tender MARQUITA LUIS Jul 27, 2016 11:53
[2016-07-27 12:00] VITALS: BP 129/78
--- NOTE | 2016-07-27 14:24 | Consultation ---
Consult Note Consult Note asked to eval for worsenning renal failure- 56 Y old female in DEIRDRE on BIPAP now ! According to the staff at [facility], the patient began to become confused on, 07/23/2016. The patient presented to [facility]. The patient was found to be confused. The patient was admitted for altered mental status to rule out acute cerebrovascular accident. PAST MEDICAL HISTORY: Significant for, 1. Congestive heart failure. 2. Chronic obstructive pulmonary disease. 3. History of coronary artery disease. 4. History of myocardial infarction. 5. Hypercholesterolemia. 6. Hypertension. 7. History of myocardial infarction. 8. History of renal insufficiency. PAST SURGICAL HISTORY: Significant for, 1. Cardiac stent placement. 2. Coronary artery bypass graft. 3. Mitral valve replacement. patient examined- She can not give any history- data reviewed . Assessment/Plan Acute Renal Failure - Cr deneen from 0.8 to 1.9- Multifactorial: Low BP- Vanco.... 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
--- NOTE | 2016-07-27 14:26 | Internal Med Progress Note ---
Subjective Date of Service: Jul 27, 2016 Physician Name Jose Alfaro Attending Physician Todd Kendall MD Current Medications Medications (Trade) Dose Ordered Sig/Jagruti Route PRN Reason Start Time Stop Time Status Last Admin Dose Admin Acetaminophen (Tylenol) 650 mg Q4H PRN ORAL T>100.5 07/26/16 17:00 08/25/16 16:59 Al Hydroxide/Mg Hydroxide (Mylanta II) 30 ml Q6H PRN ORAL dyspepsia 07/26/16 17:00 08/25/16 16:59 Albuterol/ Ipratropium (DuoNeb 0.5-3(2.5)mg/3ml) 3 ml Q4H PRN HHN Shortness of Breath 07/26/16 17:00 07/31/16 16:59 Atenolol (Tenormin) 25 mg DAILY ORAL 07/27/16 09:00 08/26/16 08:59 Clonidine HCl (Catapres) 0.1 mg Q4H PRN ORAL SBP>160 07/26/16 17:00 08/25/16 16:59 Clopidogrel Bisulfate (Plavix) 75 mg DAILY ORAL 07/27/16 09:00 08/26/16 08:59 07/27/16 10:01 Dextrose (Dextrose 50%) STAT PRN IV Hypoglycemia 07/26/16 17:00 08/25/16 16:59 Haloperidol Lactate (Haldol) 5 mg Q6H PRN IM Agitation 07/26/16 17:00 08/25/16 16:59 07/27/16 10:00 Midodrine (Pro-Amatine) 5 mg THREE TIMES A DAY ORAL 07/27/16 13:00 08/26/16 12:59 07/27/16 13:35 Morphine Sulfate (Morphine Sulfate) 1 mg Q4H PRN IVP For Pain 7-10 07/26/16 17:00 08/02/16 16:59 Morphine Sulfate (Morphine Sulfate) 2 mg Q4H PRN IM FOR SEVERE PAIN/SOB 07/26/16 17:00 08/02/16 16:59 07/27/16 05:10 Nitroglycerin (Ntg) 0.4 mg Q5M X 3 DOSES PRN SL Prn Chest Pain 07/26/16 17:00 08/25/16 16:59 Ondansetron HCl (Zofran) 4 mg Q6H PRN IVP Nausea & Vomiting 07/26/16 17:00 08/25/16 16:59 Piperacillin Sod/ Tazobactam Sod/ Dextrose (Zosyn/D5W) 110 ml @ 27.5 mls/hr EVERY 8 HOURS IVPB 07/26/16 22:00 07/31/16 21:59 07/27/16 13:36 Polyethylene Glycol (Miralax) 17 gm HSPRN PRN ORAL Constipation 07/26/16 21:00 08/25/16 20:59 Promethazine HCl/ Codeine (Phenergan with Codeine) 5 ml Q4H PRN ORAL For Cough 07/26/16 17:00 08/25/16 16:59 Risperidone (RisperDAL) 1 mg BEDTIME ORAL 07/26/16 21:00 08/25/16 20:59 07/26/16 21:28 Sodium Chloride 1,000 ml @ 100 mls/hr Q10H IV 07/26/16 17:00 08/25/16 16:59 07/27/16 13:35 Temazepam (Restoril) 15 mg HSPRN PRN ORAL Insomnia 07/26/16 21:00 08/02/16 20:59 07/27/16 00:36 Vancomycin HCl (Vanco rx to dose) 1 ea DAILY PRN MISC Per rx protocol 07/26/16 17:00 08/25/16 16:59 Vancomycin HCl/ Dextrose (Vancomycin/D5W) 275 ml @ 183.708 mls/hr Q24H IVPB 07/27/16 06:30 08/01/16 06:29 07/27/16 07:41 Vitamin A/Vitamin D (A & D Oint) 1 applic EVERY 12 HOURS TOPIC 07/26/16 21:00 08/25/16 20:59 07/27/16 09:00 Warfarin Sodium (Coumadin per pharmacy) 1 ea DAILY PRN MISC Per rx protocol 07/26/16 17:00 08/25/16 16:59 Warfarin Sodium 4 mg 4 mg COUMADIN PO 07/27/16 17:00 08/01/16 16:59 Allergies: Coded Allergies: No Known Allergies (Verified , 04/10/06) ROS Limited/Unobtainable: Yes Subjective 56 YO F admitted with altered mental status. DEIRDRE. Cover for Int Med Dr Kendall. Tolerating full face mask. Objective Last Vital Signs Date Time Temp Pulse Resp B/P Pulse Ox O2 Delivery O2 Flow Rate FiO2 07/27/16 14:10 129 43 99 Facial 60 07/27/16 09:00 106/67 07/27/16 08:00 98.4 07/26/16 12:00 2.0 Laboratory Tests Test 07/27/16 04:15 07/27/16 11:38 White Blood Count 8.9 K/UL (4.8-10.8) Red Blood Count 2.93 M/UL (4.20-5.40) L Hemoglobin 9.5 G/DL (12.0-16.0) L Hematocrit 29.0 % (37.0-47.0) L Mean Corpuscular Volume 99 FL (80-99) Mean Corpuscular Hemoglobin 32.5 PG (27.0-31.0) H Mean Corpuscular Hemoglobin Concent 32.8 G/DL (32.0-36.0) Red Cell Distribution Width 14.2 % (11.6-14.8) Platelet Count 163 K/UL (150-450) Mean Platelet Volume 5.8 FL (6.5-10.1) L Neutrophils (%) (Auto) % (45.0-75.0) Lymphocytes (%) (Auto) % (20.0-45.0) Monocytes (%) (Auto) % (1.0-10.0) Eosinophils (%) (Auto) % (0.0-3.0) Basophils (%) (Auto) % (0.0-2.0) Prothrombin Time 23.3 SEC (9.30-11.50) H Prothromb Time International Ratio 2.2 (0.9-1.1) H Sodium Level 144 mEQ/L (135-145) Potassium Level 3.0 mEQ/L (3.4-4.9) L Chloride Level 103 mEQ/L (98-107) Carbon Dioxide Level 18 mEQ/L (20-30) L Anion Gap 23 (5-15) H Blood Urea Nitrogen 30 mg/dL (7-23) H Creatinine 1.9 mg/dL (0.5-0.9) H Estimat Glomerular Filtration Rate 27.2 mL/min (>60) Glucose Level 53 mg/dL (74-106) L Calcium Level 7.2 mg/dL (8.6-10.2) L Total Bilirubin 0.8 mg/dL (0.0-1.2) Aspartate Amino Transf (AST/SGOT) 1159 U/L (5-40) H Alanine Aminotransferase (ALT/SGPT) 2699 U/L (3-33) H Alkaline Phosphatase 392 U/L (35-104) H Total Protein 5.1 g/dL (6.6-8.7) L Albumin 2.5 g/dL (3.5-5.2) L Globulin 2.6 g/dL Albumin/Globulin Ratio 0.9 (1.0-2.7) L Random Vancomycin Level 17.8 ug/mL Arterial Blood pH 7.404 (7.350-7.450) Arterial Blood Partial Pressure CO2 29.7 mmHg (35.0-45.0) L Arterial Blood Partial Pressure O2 419.1 mmHg (75.0-100.0) H Arterial Blood HCO3 18.3 mmol/L (22.0-26.0) L Arterial Blood Oxygen Saturation 99.7 % (92.0-98.0) H Arterial Blood Base Excess -5.6 Bi Test Positive Intake and Output 07/26/16 07/27/16 19:00 07:00 Intake Total 1197.5 ml 1237.5 ml Output Total 300 ml Balance 897.5 ml 1237.5 ml Intake Oral 205 ml IV Total 992.5 ml 1237.5 ml Output Urine Total 300 ml # Voids 4 Objective General Appearance: WD/WN, no apparent distress, alert EENT: PERRL/EOMI, normal ENT inspection, TMs normal Neck: non-tender, normal alignment, supple Cardiovascular: normal peripheral pulses, normal rate, regular rhythm, regularly irregular, no gallop/murmur Respiratory/Chest: Full face mask; chest wall non-tender, Wheezing bilat, respiratory distress, accessory muscle use Abdomen: normal bowel sounds, non tender, soft, no organomegaly, no mass, abnormal bowel sounds Extremities: normal range of motion Neurologic: press officer 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 D/C levaquin; start zosyn. 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 Tolerating full face mask. See pulmonary note. Status: not improved JOSE ALFARO Jul 27, 2016 14:26
[2016-07-27] MEDS ORDERED: NS 275ml ONE (15:16)
[2016-07-27] MEDS ORDERED: Tubing IV Secondary IV ONE (15:27)
[2016-07-27] MEDS ORDERED: LORazepam Inj 2mg/ml 1ml IV ONE (16:20)
[2016-07-27 17:00] VITALS: BP 110/64
[2016-07-27] MEDS ORDERED: Warfarin Sodium 4mg PO SCH ×2 (17:00)
[2016-07-27 20:00] VITALS: BP_SYST 113; BP_SYST 118; BP_DIAS 63; BP_DIAS 69
[2016-07-27] MEDS: Pantoprazole Inj IVP SCH (20:53)
[2016-07-28] VITALS: BP 139/71
[2016-07-28 04:00] VITALS: BP 111/67
[2016-07-28 06:15] LABS: MEAN CORPUSCULAR HEMOGLOBIN 33.6 PG (27.0-31.0); MEAN CORPUSCULAR HGB CONC 33.5 G/DL (32.0-36.0); MEAN CORPUSCULAR VOLUME 100 FL (80-99); MEAN PLATELET VOLUME 6.7 FL (6.5-10.1); PLATELET COUNT 146 K/UL (150-450); RED BLOOD COUNT 2.76 M/UL (4.20-5.40); RED CELL DISTRIBUTION WIDTH 14.3 % (11.6-14.8); WHITE BLOOD COUNT 9.1 K/UL (4.8-10.8)
[2016-07-28] MEDS: Vancomycin 1gm/D5W 275ml IVPB SCH ×2 (06:25)
[2016-07-28 06:27] LABS: INR 2.9 (0.9-1.1); PROTHROMBIN TIME 30.8 SEC (9.30-11.50)
[2016-07-28 06:52] LABS: ALBUMIN/GLOBULIN RATIO 0.7 (1.0-2.7); CALCIUM 7.1 mg/dL (8.6-10.2); GLOMERULAR FILTRATION RATE 56.9 mL/min (>60); TOTAL PROTEIN 4.6 g/dL (6.6-8.7)
[2016-07-28 06:57] LABS: CRP QUANT 6.4 mg/dL (< 0.5); PHOSPHORUS 1.7 mg/dL (2.5-4.8); URIC ACID 3.9 mg/dL (3.0-7.5)
[2016-07-28 07:00] LABS: CHOLESTEROL/HDL RATIO 16.8 (3.3-4.4); MAGNESIUM 1.2 mg/dL (1.7-2.5)
[2016-07-28 07:04] LABS: THYROID STIMULATING HORMONE 2.41 uIU/mL (0.300-4.500)
[2016-07-28 07:08] LABS: POTASSIUM 2.6 mEQ/L (3.4-4.9)
--- NOTE | 2016-07-28 07:55 | Diagnostic Imaging Report ---
Indication: Abdominal pain Technique: Ultrasound of the abdomen. Findings: The pancreas is incompletely visualized. Visualized portions are unremarkable. Liver measures 16.4 cm with mild increased echogenicity. No focal liver lesions are identified. Visualized portions of the main portal vein and the hepatic veins are grossly unremarkable although incompletely evaluated. There is a punctate echogenic focus dependently within the gallbladder. Gallbladder wall thickness is within normal limits. Sonographic Olea's is negative. Common bile duct measures 3 mm. Bilateral kidneys demonstrate normal echogenicity. A left renal cyst measures 11 mm. There is no hydronephrosis. No echogenic renal stones are identified. The spleen is normal in size and echogenicity. The visualized aorta is normal in caliber. Visualized portions of the inferior vena cava are unremarkable. Impression: Punctate echogenic focus dependently within the gallbladder possibly a tiny calculus or polyp measuring 3 mm. No sonographic evidence of acute cholecystitis. Slight increased echogenicity of the liver may suggest fatty infiltration. Clinical correlation recommended. Small left renal cyst.
[2016-07-28 08:00] VITALS: BP 97/54
[2016-07-28] MEDS: Atenolol 25mg tab ORAL SCH (09:09)
[2016-07-28] MEDS: Haloperidol 5mg/ml Inj IM PRN (09:12)
[2016-07-28] MEDS: Vitamin A&D Oint 2oz Tube TOPIC SCH ×2 (09:12→21:54)
[2016-07-28] MEDS: Pantoprazole Inj IVP SCH ×2 (09:53→21:54)
[2016-07-28] MEDS: Piperacillin/Tazobactam 3.375 GM in D5W 110 ML IVPB SCH ×2 (09:53→17:59)
[2016-07-28] MEDS ORDERED: Potassium Phosphate 30 MM in NS 275 ML IV ONE (12:00)
[2016-07-28 12:01] VITALS: BP 123/78
--- NOTE | 2016-07-28 12:10 | Neurology Progress Note ---
Interim History Interim History ROS Limited/Unobtainable: Yes Complaints: sedated Events: agitated in AM , sedated with Haldol Objective Physical Exam Last Vital Signs Date Time Temp Pulse Resp B/P Pulse Ox O2 Delivery O2 Flow Rate FiO2 07/28/16 12:01 97.7 105 22 123/78 100 Bi-pap 07/28/16 08:00 40 07/27/16 12:00 14.0 Laboratory Tests Test 07/28/16 03:50 07/28/16 04:00 White Blood Count 9.1 K/UL (4.8-10.8) Red Blood Count 2.76 M/UL (4.20-5.40) L Hemoglobin 9.3 G/DL (12.0-16.0) L Hematocrit 27.6 % (37.0-47.0) L Mean Corpuscular Volume 100 FL (80-99) H Mean Corpuscular Hemoglobin 33.6 PG (27.0-31.0) H Mean Corpuscular Hemoglobin Concent 33.5 G/DL (32.0-36.0) Red Cell Distribution Width 14.3 % (11.6-14.8) Platelet Count 146 K/UL (150-450) L Mean Platelet Volume 6.7 FL (6.5-10.1) Neutrophils (%) (Auto) % (45.0-75.0) Lymphocytes (%) (Auto) % (20.0-45.0) Monocytes (%) (Auto) % (1.0-10.0) Eosinophils (%) (Auto) % (0.0-3.0) Basophils (%) (Auto) % (0.0-2.0) Prothrombin Time 30.8 SEC (9.30-11.50) H Prothromb Time International Ratio 2.9 (0.9-1.1) H Sodium Level 146 mEQ/L (135-145) H Potassium Level 2.6 mEQ/L (3.4-4.9) *L Chloride Level 111 mEQ/L (98-107) H Carbon Dioxide Level 17 mEQ/L (20-30) L Anion Gap 18 (5-15) H Blood Urea Nitrogen 23 mg/dL (7-23) Creatinine 1.0 mg/dL (0.5-0.9) H Estimat Glomerular Filtration Rate 56.9 mL/min (>60) Glucose Level 93 mg/dL (74-106) Uric Acid 3.9 mg/dL (3.0-7.5) Calcium Level 7.1 mg/dL (8.6-10.2) L Phosphorus Level 1.7 mg/dL (2.5-4.8) L Magnesium Level 1.2 mg/dL (1.7-2.5) L Total Bilirubin 0.7 mg/dL (0.0-1.2) Gamma Glutamyl Transpeptidase 89 U/L (5-36) H Aspartate Amino Transf (AST/SGOT) 764 U/L (5-40) H Alanine Aminotransferase (ALT/SGPT) 721 U/L (3-33) H Alkaline Phosphatase 325 U/L (35-104) H Total Creatine Kinase 196 U/L (26-140) H C-Reactive Protein, Quantitative 6.4 mg/dL (< 0.5) H Pro-B-Type Natriuretic Peptide 47306 pg/mL (0-125) H Total Protein 4.6 g/dL (6.6-8.7) L Albumin 2.0 g/dL (3.5-5.2) L Globulin 2.6 g/dL Albumin/Globulin Ratio 0.7 (1.0-2.7) L Triglycerides Level 167 mg/dL (< 150) H Cholesterol Level 67 mg/dL (< 200) LDL Cholesterol 30 mg/dL (60-99) L HDL Cholesterol 4 mg/dL (> 60) Cholesterol/HDL Ratio 16.8 (3.3-4.4) H Thyroid Stimulating Hormone (TSH) 2.410 uIU/mL (0.300-4.500) Hepatitis A IgM Antibody Pending Hepatitis B Surface Antigen Pending Hepatitis B Core IgM Antibody Pending Hepatitis C Antibody Pending Urine Eosinophils None seen General: well developed, well nourished - O2 mask torticollis, no acute distress, other - O2 mask torticollis Head: normocophalic, atraumatic Neck: other - rigid Neurologic Exam Mental Status: other - asleep Speech: other Language: other Cranial Nerve II: other Cranial Nerves III, IV, : EOMI, pupils Cranial Nerve V: masseters function normal Cranial Nerve VII: other - droopy R side Cranial Nerve VIII: no nystagmus Cranial Nerve IX: other - poor gag Cranial Nerve X: other Cranial Nerve XI: other Cranial Nerve XII: tongue midline Motor System: other - diffuse rigidity weakness 4/5 R arm Sensory: other Coordination: other Deep Tendon Reflexes: 0 ankle (L), 0 ankle (R), 0 bicep (L), 0 bicep (R), 0 brachioradialis (L), 0 brachioradialis (R), 0 knee (L), 0 knee (R), 0 tricep (L) , 0 tricep (R) Reflexes: mute plantar (L), mute plantar (R) Impression/Recommendations Problems: (1) acute confusion with paranoid ideation (2) r/o vascular dementia (3) 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
--- NOTE | 2016-07-28 12:10 | Pulmonology Progress Note ---
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 (5) S /P CABG/MVR Respiratory: monitor respiratory rate, adjust FIO2, CXR, other - taper/titrate bipap Renal: F/U I&O, decrease IV fluid, other - lasix bid Gastrointestinal: hold feedings Endocrine: monitor blood sugar, check TSH Hematologic: monitor H/H Prophylaxis: Protonix Time Spent (Minutes): 40 Notes Reviewed: radio rigger, cardio, renal Discussed with: consultants, continuous pillowcase cutter Subjective ROS Limited/Unobtainable: Yes Interval Events: on BIPAP Allergies: Coded Allergies: No Known Allergies (Verified , 04/10/06) Objective Last 24 Hour Vital Signs Date Time Temp Pulse Resp B/P Pulse Ox O2 Delivery O2 Flow Rate FiO2 07/28/16 12:01 97.7 105 22 123/78 100 Bi-pap 07/28/16 09:09 121 97/54 07/28/16 08:00 97.3 121 24 97/54 100 Bi-pap 07/28/16 08:00 40 07/28/16 05:02 138 45 99 Facial 40 07/28/16 04:00 124 07/28/16 04:00 40 07/28/16 04:00 97.3 120 30 111/67 99 Bi-pap 07/28/16 02:47 132 45 98 Facial 40 07/28/16 00:42 116 39 96 Facial 40 07/28/16 00:00 40 07/28/16 00:00 136 07/28/16 00:00 99.0 139 28 139/71 99 Bi-pap 07/27/16 23:10 129 40 100 Facial 40 07/27/16 20:37 123 34 100 Facial 40 07/27/16 20:00 126 07/27/16 20:00 40 07/27/16 20:00 99.0 117 28 118/63 100 Bi-pap 07/27/16 20:00 99.0 122 24 113/69 100 Bi-pap 07/27/16 18:55 117 34 100 Facial 50 07/27/16 17:00 98.4 26 110/64 98 Bi-pap 07/27/16 16:03 115 34 98 Facial 60 07/27/16 16:00 127 07/27/16 16:00 35 07/27/16 14:10 129 43 99 Facial 60 Intake and Output 07/27/16 07/28/16 19:00 07:00 Intake Total 1457.500 ml 1232.5 ml Output Total 350 ml 370 ml Balance 1107.500 ml 862.5 ml IV Total 1457.500 ml 1232.5 ml Output Urine Total 350 ml 370 ml # Bowel Movements 1 General Appearance: WD/WN HEENT: normocephalic, anicteric Respiratory/Chest: decreased breath sounds, crackles/rales Cardiovascular: normal peripheral pulses, normal rate Abdomen: normal bowel sounds, soft, non tender Genitourinary: normal external genitalia Neurologic/Psychiatric: 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 specialist 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 grossly normal, no motor/sensory deficits Lymphatic: no neck adenopathy Musculoskeletal: normal muscle bulk Laboratory Tests 07/28/16 03:50: White Blood Count 9.1, Red Blood Count 2.76L, Hemoglobin 9.3L, Hematocrit 27.6L , Mean Corpuscular Volume 100H, Mean Corpuscular Hemoglobin 33.6H, Mean Corpuscular Hemoglobin Concent 33.5, Red Cell Distribution Width 14.3, Platelet Count 146L, Mean Platelet Volume 6.7, Neutrophils (%) (Auto) , Lymphocytes (%) ( Auto) , Monocytes (%) (Auto) , Eosinophils (%) (Auto) , Basophils (%) (Auto) , Prothrombin Time 30.8H, Prothromb Time International Ratio 2.9H, Sodium Level 146H, Potassium Level 2.6*L, Chloride Level 111H, Carbon Dioxide Level 17L, Anion Gap 18H, Blood Urea Nitrogen 23, Creatinine 1.0H, Estimat Glomerular Filtration Rate 56.9, Glucose Level 93, Uric Acid 3.9, Calcium Level 7.1L, Phosphorus Level 1.7L, Magnesium Level 1.2L, Total Bilirubin 0.7, Gamma Glutamyl Transpeptidase 89H, Aspartate Amino Transf (AST/SGOT) 764H, Alanine Aminotransferase (ALT/SGPT) 721H, Alkaline Phosphatase 325H, Total Creatine Kinase 196H, C-Reactive Protein, Quantitative 6.4H, Pro-B-Type Natriuretic Peptide 97167I, Total Protein 4.6L, Albumin 2.0L, Globulin 2.6, Albumin/ Globulin Ratio 0.7L, Triglycerides Level 167H, Cholesterol Level 67, LDL Cholesterol 30L, HDL Cholesterol 4, Cholesterol/HDL Ratio 16.8H, Thyroid Stimulating Hormone (TSH) 2.410, Hepatitis A IgM Antibody [Pending], Hepatitis B Surface Antigen [Pending], Hepatitis B Core IgM Antibody [Pending], Hepatitis C Antibody [Pending] 07/28/16 04:00: Urine Eosinophils None seen Current Medications Medications (Trade) Dose Ordered Sig/Jagruti Route PRN Reason Start Time Stop Time Status Last Admin Dose Admin Acetaminophen (Tylenol) 650 mg Q4H PRN ORAL T>100.5 07/26/16 17:00 08/25/16 16:59 Albuterol/ Ipratropium (DuoNeb 0.5-3(2.5)mg/3ml) 3 ml Q4H PRN HHN Shortness of Breath 07/26/16 17:00 07/31/16 16:59 Atenolol (Tenormin) 25 mg DAILY ORAL 07/27/16 09:00 08/26/16 08:59 07/28/16 09:09 Clonidine HCl (Catapres) 0.1 mg Q4H PRN ORAL SBP>160 07/26/16 17:00 08/25/16 16:59 Clopidogrel Bisulfate (Plavix) 75 mg DAILY ORAL 07/27/16 09:00 08/26/16 08:59 07/28/16 09:13 Dextrose (Dextrose 50%) STAT PRN IV Hypoglycemia 07/26/16 17:00 08/25/16 16:59 Haloperidol Lactate (Haldol) 5 mg Q6H PRN IM Agitation 07/26/16 17:00 08/25/16 16:59 07/28/16 09:12 Midodrine 5 mg 5 mg THREE TIMES A DAY ORAL 07/27/16 13:00 08/26/16 12:59 07/28/16 09:24 Morphine Sulfate (Morphine Sulfate) 1 mg Q4H PRN IVP For Pain 7-10 07/26/16 17:00 08/02/16 16:59 Nitroglycerin (Ntg) 0.4 mg Q5M X 3 DOSES PRN SL Prn Chest Pain 07/26/16 17:00 08/25/16 16:59 Ondansetron HCl (Zofran) 4 mg Q6H PRN IVP Nausea & Vomiting 07/26/16 17:00 08/25/16 16:59 Pantoprazole 40 mg 40 mg EVERY 12 HOURS IVP 07/27/16 21:00 08/26/16 20:59 07/28/16 09:53 Piperacillin Sod/ Tazobactam Sod/ Dextrose (Zosyn/D5W) 110 ml @ 27.5 mls/hr EVERY 12 HOURS IVPB 07/27/16 21:00 07/28/16 14:00 07/28/16 09:53 Piperacillin Sod/ Tazobactam Sod/ Dextrose (Zosyn/D5W) 110 ml @ 27.5 mls/hr Q8HR@0200,1000,1800 IVPB 07/28/16 18:00 08/04/16 17:59 Potassium Phosphate/Sodium Chloride (Potassium Phosphate/Sodium Chloride) 285 ml @ 47.5 mls/hr ONCE ONCE IV 07/28/16 12:00 07/28/16 17:59 Vancomycin HCl (Vanco rx to dose) 1 ea DAILY PRN MISC Per rx protocol 07/26/16 17:00 08/25/16 16:59 Vancomycin HCl/ Dextrose (Vancomycin/D5W) 275 ml @ 183.708 mls/hr Q24H IVPB 07/27/16 06:30 08/01/16 06:29 07/28/16 06:25 Vitamin A/Vitamin D (A & D Oint) 1 applic EVERY 12 HOURS TOPIC 07/26/16 21:00 08/25/16 20:59 07/28/16 09:12 Warfarin Sodium 1 ea 1 ea DAILY PRN MISC Per rx protocol 07/26/16 17:00 08/25/16 16:59 Warfarin Sodium 1 mg 1 mg COUMADIN ONCE ORAL 07/28/16 17:00 07/28/16 17:01 LISETTE ANTUNEZ Jul 28, 2016 12:10
--- NOTE | 2016-07-28 12:15 | Diagnostic Imaging Report ---
Indication: Dyspnea Comparison: 07/26/16 A single view chest radiograph was obtained. Findings: There is a right chest port present. Mechanical heart, cardiomegaly and some vascular congestion are noted. Impression: No significant radiographically
[2016-07-28] MEDS ORDERED: LORazepam Inj 2mg/ml 1ml IV PRN (12:45)
--- NOTE | 2016-07-28 12:47 | Internal Med Progress Note ---
Subjective Date of Service: Jul 28, 2016 Physician Name Alfaro,Jose Attending Physician Todd Kendall MD Current Medications Medications (Trade) Dose Ordered Sig/Jagruti Route PRN Reason Start Time Stop Time Status Last Admin Dose Admin Acetaminophen (Tylenol) 650 mg Q4H PRN ORAL T>100.5 07/26/16 17:00 08/25/16 16:59 Albuterol/ Ipratropium (DuoNeb 0.5-3(2.5)mg/3ml) 3 ml Q4H PRN HHN Shortness of Breath 07/26/16 17:00 07/31/16 16:59 Atenolol (Tenormin) 25 mg DAILY ORAL 07/27/16 09:00 08/26/16 08:59 07/28/16 09:09 Clonidine HCl (Catapres) 0.1 mg Q4H PRN ORAL SBP>160 07/26/16 17:00 08/25/16 16:59 Clopidogrel Bisulfate (Plavix) 75 mg DAILY ORAL 07/27/16 09:00 08/26/16 08:59 07/28/16 09:13 Dextrose (Dextrose 50%) STAT PRN IV Hypoglycemia 07/26/16 17:00 08/25/16 16:59 Furosemide (Lasix) 20 mg EVERY 12 HOURS IV 07/28/16 13:00 08/27/16 12:59 Haloperidol Lactate (Haldol) 2 mg Q6H PRN IM Agitation 07/28/16 15:00 08/27/16 14:59 Midodrine (Pro-Amatine) 5 mg BEFORE BREAKFAST ORAL 07/29/16 06:30 08/28/16 06:29 Morphine Sulfate (Morphine Sulfate) 1 mg Q4H PRN IVP For Pain 7-10 07/26/16 17:00 08/02/16 16:59 Nitroglycerin (Ntg) 0.4 mg Q5M X 3 DOSES PRN SL Prn Chest Pain 07/26/16 17:00 08/25/16 16:59 Ondansetron HCl (Zofran) 4 mg Q6H PRN IVP Nausea & Vomiting 07/26/16 17:00 08/25/16 16:59 Pantoprazole 40 mg 40 mg EVERY 12 HOURS IVP 07/27/16 21:00 08/26/16 20:59 07/28/16 09:53 Piperacillin Sod/ Tazobactam Sod/ Dextrose (Zosyn/D5W) 110 ml @ 27.5 mls/hr EVERY 12 HOURS IVPB 07/27/16 21:00 07/28/16 14:00 07/28/16 09:53 Piperacillin Sod/ Tazobactam Sod/ Dextrose (Zosyn/D5W) 110 ml @ 27.5 mls/hr Q8HR@0200,1000,1800 IVPB 07/28/16 18:00 08/04/16 17:59 Potassium Phosphate/Sodium Chloride (Potassium Phosphate/Sodium Chloride) 285 ml @ 47.5 mls/hr ONCE ONCE IV 07/28/16 12:00 07/28/16 17:59 Potassium Chloride (K-Dur) 40 meq ONCE ONCE ORAL 07/28/16 21:00 07/28/16 21:01 Vancomycin HCl (Vanco rx to dose) 1 ea DAILY PRN MISC Per rx protocol 07/26/16 17:00 08/25/16 16:59 Vancomycin HCl 1 gm/Dextrose 275 ml @ 183.708 mls/hr Q24H IVPB 07/27/16 06:30 08/01/16 06:29 07/28/16 06:25 Vitamin A/Vitamin D (A & D Oint) 1 applic EVERY 12 HOURS TOPIC 07/26/16 21:00 08/25/16 20:59 07/28/16 09:12 Warfarin Sodium 1 ea 1 ea DAILY PRN MISC Per rx protocol 07/26/16 17:00 08/25/16 16:59 Warfarin Sodium 1 mg 1 mg COUMADIN ONCE ORAL 07/28/16 17:00 07/28/16 17:01 Allergies: Coded Allergies: No Known Allergies (Verified , 04/10/06) ROS Limited/Unobtainable: Yes Subjective 56 YO F admitted with altered mental status. DEIRDRE. Cover for Int Med Dr Kendall. Back on BIPAP Objective Last Vital Signs Date Time Temp Pulse Resp B/P Pulse Ox O2 Delivery O2 Flow Rate FiO2 07/28/16 12:01 97.7 105 22 123/78 100 Bi-pap 07/28/16 10:56 40 07/27/16 12:00 14.0 Laboratory Tests Test 07/28/16 03:50 3/6/17 04:00 White Blood Count 9.1 K/UL (4.8-10.8) Red Blood Count 2.76 M/UL (4.20-5.40) L Hemoglobin 9.3 G/DL (12.0-16.0) L Hematocrit 27.6 % (37.0-47.0) L Mean Corpuscular Volume 100 FL (80-99) H Mean Corpuscular Hemoglobin 33.6 PG (27.0-31.0) H Mean Corpuscular Hemoglobin Concent 33.5 G/DL (32.0-36.0) Red Cell Distribution Width 14.3 % (11.6-14.8) Platelet Count 146 K/UL (150-450) L Mean Platelet Volume 6.7 FL (6.5-10.1) Neutrophils (%) (Auto) % (45.0-75.0) Lymphocytes (%) (Auto) % (20.0-45.0) Monocytes (%) (Auto) % (1.0-10.0) Eosinophils (%) (Auto) % (0.0-3.0) Basophils (%) (Auto) % (0.0-2.0) Prothrombin Time 30.8 SEC (9.30-11.50) H Prothromb Time International Ratio 2.9 (0.9-1.1) H Sodium Level 146 mEQ/L (135-145) H Potassium Level 2.6 mEQ/L (3.4-4.9) *L Chloride Level 111 mEQ/L (98-107) H Carbon Dioxide Level 17 mEQ/L (20-30) L Anion Gap 18 (5-15) H Blood Urea Nitrogen 23 mg/dL (7-23) Creatinine 1.0 mg/dL (0.5-0.9) H Estimat Glomerular Filtration Rate 56.9 mL/min (>60) Glucose Level 93 mg/dL (74-106) Uric Acid 3.9 mg/dL (3.0-7.5) Calcium Level 7.1 mg/dL (8.6-10.2) L Phosphorus Level 1.7 mg/dL (2.5-4.8) L Magnesium Level 1.2 mg/dL (1.7-2.5) L Total Bilirubin 0.7 mg/dL (0.0-1.2) Gamma Glutamyl Transpeptidase 89 U/L (5-36) H Aspartate Amino Transf (AST/SGOT) 764 U/L (5-40) H Alanine Aminotransferase (ALT/SGPT) 721 U/L (3-33) H Alkaline Phosphatase 325 U/L (35-104) H Total Creatine Kinase 196 U/L (26-140) H C-Reactive Protein, Quantitative 6.4 mg/dL (< 0.5) H Pro-B-Type Natriuretic Peptide 94180 pg/mL (0-125) H Total Protein 4.6 g/dL (6.6-8.7) L Albumin 2.0 g/dL (3.5-5.2) L Globulin 2.6 g/dL Albumin/Globulin Ratio 0.7 (1.0-2.7) L Triglycerides Level 167 mg/dL (< 150) H Cholesterol Level 67 mg/dL (< 200) LDL Cholesterol 30 mg/dL (60-99) L HDL Cholesterol 4 mg/dL (> 60) Cholesterol/HDL Ratio 16.8 (3.3-4.4) H Thyroid Stimulating Hormone (TSH) 2.410 uIU/mL (0.300-4.500) Hepatitis A IgM Antibody Pending Hepatitis B Surface Antigen Pending Hepatitis B Core IgM Antibody Pending Hepatitis C Antibody Pending Urine Eosinophils None seen Intake and Output 07/27/16 07/28/16 19:00 07:00 Intake Total 1457.500 ml 1232.5 ml Output Total 350 ml 370 ml Balance 1107.500 ml 862.5 ml IV Total 1457.500 ml 1232.5 ml Output Urine Total 350 ml 370 ml # Bowel Movements 1 Objective General Appearance: WD/WN, no apparent distress, alert EENT: PERRL/EOMI, normal ENT inspection, TMs normal Neck: non-tender, normal alignment, supple Cardiovascular: normal peripheral pulses, normal rate, regular rhythm, regularly irregular, no gallop/murmur Respiratory/Chest: BIPAP; chest wall non-tender, Wheezing bilat, respiratory distress, accessory muscle use Abdomen: normal bowel sounds, non tender, soft, no organomegaly, no mass, abnormal bowel sounds Extremities: normal range of motion 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 D/C levaquin; start zosyn. 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 On BIPAP. See pulmonary note. (9) Agitation Assessment & Plan: Restart ativan prn Status: deteriorating JOSE ALFARO Jul 28, 2016 12:47
--- NOTE | 2016-07-28 14:39 | General Progress Note ---
Assessment/Plan Status: stable - from renal state, unchanged - pulmonary status Status Narrative Cr 1.9 down to 1.0 Assessment/Plan Acute Renal Failure - Cr deneen from 0.8 to 1.9- Multifactorial: Low BP- Vanco.... 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 elevated transaminase , likely due to shock liver , improving hypokalemia COPD Hx of lung Ca urinary retention , has hadley now Sugg: Hydrate- Correct abnormal electrolytes- Gastric support- Avoid Nephrotoxics- Aim to optimize cardiac and pulmonary status Subjective ROS Limited/Unobtainable: No Constitutional: Reports: malaise, weakness Allergies: Coded Allergies: No Known Allergies (Verified , 04/10/06) Objective Last 24 Hour Vital Signs Date Time Temp Pulse Resp B/P Pulse Ox O2 Delivery O2 Flow Rate FiO2 07/28/16 13:06 105 46 99 Facial 40 07/28/16 12:01 97.7 105 22 123/78 100 Bi-pap 07/28/16 12:00 40 07/28/16 11:57 105 07/28/16 10:56 119 48 99 Facial 40 07/28/16 09:09 121 97/54 07/28/16 08:55 123 39 99 Facial 40 07/28/16 08:00 97.3 121 24 97/54 100 Bi-pap 07/28/16 08:00 40 07/28/16 07:59 122 07/28/16 06:54 121 48 100 Facial 40 07/28/16 05:02 138 45 99 Facial 40 07/28/16 04:00 124 07/28/16 04:00 40 07/28/16 04:00 97.3 120 30 111/67 99 Bi-pap 07/28/16 02:47 132 45 98 Facial 40 07/28/16 00:42 116 39 96 Facial 40 07/28/16 00:00 40 07/28/16 00:00 136 07/28/16 00:00 99.0 139 28 139/71 99 Bi-pap 07/27/16 23:10 129 40 100 Facial 40 07/27/16 20:37 123 34 100 Facial 40 07/27/16 20:00 126 07/27/16 20:00 40 07/27/16 20:00 99.0 117 28 118/63 100 Bi-pap 07/27/16 20:00 99.0 122 24 113/69 100 Bi-pap 07/27/16 18:55 117 34 100 Facial 50 07/27/16 17:00 98.4 26 110/64 98 Bi-pap 07/27/16 16:03 115 34 98 Facial 60 07/27/16 16:00 127 07/27/16 16:00 35 Intake and Output 07/27/16 07/28/16 19:00 07:00 Intake Total 1457.500 ml 1232.5 ml Output Total 350 ml 370 ml Balance 1107.500 ml 862.5 ml IV Total 1457.500 ml 1232.5 ml Output Urine Total 350 ml 370 ml # Bowel Movements 1 Laboratory Tests 07/28/16 03:50: White Blood Count 9.1, Red Blood Count 2.76L, Hemoglobin 9.3L, Hematocrit 27.6L , Mean Corpuscular Volume 100H, Mean Corpuscular Hemoglobin 33.6H, Mean Corpuscular Hemoglobin Concent 33.5, Red Cell Distribution Width 14.3, Platelet Count 146L, Mean Platelet Volume 6.7, Neutrophils (%) (Auto) , Lymphocytes (%) ( Auto) , Monocytes (%) (Auto) , Eosinophils (%) (Auto) , Basophils (%) (Auto) , Prothrombin Time 30.8H, Prothromb Time International Ratio 2.9H, Sodium Level 146H, Potassium Level 2.6*L, Chloride Level 111H, Carbon Dioxide Level 17L, Anion Gap 18H, Blood Urea Nitrogen 23, Creatinine 1.0H, Estimat Glomerular Filtration Rate 56.9, Glucose Level 93, Uric Acid 3.9, Calcium Level 7.1L, Phosphorus Level 1.7L, Magnesium Level 1.2L, Total Bilirubin 0.7, Gamma Glutamyl Transpeptidase 89H, Aspartate Amino Transf (AST/SGOT) 764H, Alanine Aminotransferase (ALT/SGPT) 721H, Alkaline Phosphatase 325H, Total Creatine Kinase 196H, C-Reactive Protein, Quantitative 6.4H, Pro-B-Type Natriuretic Peptide 35395X, Total Protein 4.6L, Albumin 2.0L, Globulin 2.6, Albumin/ Globulin Ratio 0.7L, Triglycerides Level 167H, Cholesterol Level 67, LDL Cholesterol 30L, HDL Cholesterol 4, Cholesterol/HDL Ratio 16.8H, Thyroid Stimulating Hormone (TSH) 2.410, Hepatitis A IgM Antibody [Pending], Hepatitis B Surface Antigen [Pending], Hepatitis B Core IgM Antibody [Pending], Hepatitis C Antibody [Pending] 07/28/16 04:00: Urine Eosinophils None seen Height (Feet): 5 Height (Inches): 6.00 Weight (Pounds): 153 General Appearance: moderate distress Neck: stiff neck Cardiovascular: bradycardia Respiratory/Chest: decreased breath sounds, rhonchi - bilaterally Abdomen: distended GINA VILLARREAL 6, 2017 14:39
[2016-07-28] MEDS ORDERED: Haloperidol 5mg/ml Inj IM PRN (15:00)
--- NOTE | 2016-07-28 15:50 | GI Progress Note ---
Assessment/Plan Problems: (1) Elevated CEA ICD Codes: R97.0 - Elevated carcinoembryonic antigen [CEA] SNOMED: 84108582, 086100268 (2) Shock liver ICD Codes: K72.00 - Acute and subacute hepatic failure without coma SNOMED: 294452765 (3) Anemia ICD Codes: D64.9 - Anemia, unspecified SNOMED: 141299532 (4) Liver disease ICD Codes: K76.9 - Liver disease, unspecified SNOMED: 489049731 Status: unchanged Status Narrative Discussed with Dr. Berman. Assessment/Plan abd U/S >> fatty infiltration, see full report. OB stool uncollected ok to resume diet stable H&H, transfuse prn monitor LFTS>>> improving ppi GI procedures on hold, will require cardiac clearance fu labs Subjective Subjective limited Objective Last 24 Hour Vital Signs Date Time Temp Pulse Resp B/P Pulse Ox O2 Delivery O2 Flow Rate FiO2 07/28/16 13:06 105 46 99 Facial 40 07/28/16 12:01 97.7 105 22 123/78 100 Bi-pap 07/28/16 12:00 40 07/28/16 11:57 105 07/28/16 10:56 119 48 99 Facial 40 07/28/16 09:09 121 97/54 07/28/16 08:55 123 39 99 Facial 40 07/28/16 08:00 97.3 121 24 97/54 100 Bi-pap 07/28/16 08:00 40 07/28/16 07:59 122 07/28/16 06:54 121 48 100 Facial 40 07/28/16 05:02 138 45 99 Facial 40 07/28/16 04:00 124 07/28/16 04:00 40 07/28/16 04:00 97.3 120 30 111/67 99 Bi-pap 07/28/16 02:47 132 45 98 Facial 40 07/28/16 00:42 116 39 96 Facial 40 07/28/16 00:00 40 07/28/16 00:00 136 07/28/16 00:00 99.0 139 28 139/71 99 Bi-pap 07/27/16 23:10 129 40 100 Facial 40 07/27/16 20:37 123 34 100 Facial 40 07/27/16 20:00 126 07/27/16 20:00 40 07/27/16 20:00 99.0 117 28 118/63 100 Bi-pap 07/27/16 20:00 99.0 122 24 113/69 100 Bi-pap 07/27/16 18:55 117 34 100 Facial 50 07/27/16 17:00 98.4 26 110/64 98 Bi-pap 07/27/16 16:03 115 34 98 Facial 60 07/27/16 16:00 127 07/27/16 16:00 35 Intake and Output 07/27/16 07/28/16 19:00 07:00 Intake Total 1457.500 ml 1232.5 ml Output Total 350 ml 370 ml Balance 1107.500 ml 862.5 ml IV Total 1457.500 ml 1232.5 ml Output Urine Total 350 ml 370 ml # Bowel Movements 1 Laboratory Tests Test 07/28/16 03:50 07/28/16 04:00 White Blood Count 9.1 K/UL (4.8-10.8) Red Blood Count 2.76 M/UL (4.20-5.40) L Hemoglobin 9.3 G/DL (12.0-16.0) L Hematocrit 27.6 % (37.0-47.0) L Mean Corpuscular Volume 100 FL (80-99) H Mean Corpuscular Hemoglobin 33.6 PG (27.0-31.0) H Mean Corpuscular Hemoglobin Concent 33.5 G/DL (32.0-36.0) Red Cell Distribution Width 14.3 % (11.6-14.8) Platelet Count 146 K/UL (150-450) L Mean Platelet Volume 6.7 FL (6.5-10.1) Neutrophils (%) (Auto) % (45.0-75.0) Lymphocytes (%) (Auto) % (20.0-45.0) Monocytes (%) (Auto) % (1.0-10.0) Eosinophils (%) (Auto) % (0.0-3.0) Basophils (%) (Auto) % (0.0-2.0) Prothrombin Time 30.8 SEC (9.30-11.50) H Prothromb Time International Ratio 2.9 (0.9-1.1) H Sodium Level 146 mEQ/L (135-145) H Potassium Level 2.6 mEQ/L (3.4-4.9) *L Chloride Level 111 mEQ/L (98-107) H Carbon Dioxide Level 17 mEQ/L (20-30) L Anion Gap 18 (5-15) H Blood Urea Nitrogen 23 mg/dL (7-23) Creatinine 1.0 mg/dL (0.5-0.9) H Estimat Glomerular Filtration Rate 56.9 mL/min (>60) Glucose Level 93 mg/dL (74-106) Uric Acid 3.9 mg/dL (3.0-7.5) Calcium Level 7.1 mg/dL (8.6-10.2) L Phosphorus Level 1.7 mg/dL (2.5-4.8) L Magnesium Level 1.2 mg/dL (1.7-2.5) L Total Bilirubin 0.7 mg/dL (0.0-1.2) Gamma Glutamyl Transpeptidase 89 U/L (5-36) H Aspartate Amino Transf (AST/SGOT) 764 U/L (5-40) H Alanine Aminotransferase (ALT/SGPT) 721 U/L (3-33) H Alkaline Phosphatase 325 U/L (35-104) H Total Creatine Kinase 196 U/L (26-140) H C-Reactive Protein, Quantitative 6.4 mg/dL (< 0.5) H Pro-B-Type Natriuretic Peptide 86935 pg/mL (0-125) H Total Protein 4.6 g/dL (6.6-8.7) L Albumin 2.0 g/dL (3.5-5.2) L Globulin 2.6 g/dL Albumin/Globulin Ratio 0.7 (1.0-2.7) L Triglycerides Level 167 mg/dL (< 150) H Cholesterol Level 67 mg/dL (< 200) LDL Cholesterol 30 mg/dL (60-99) L HDL Cholesterol 4 mg/dL (> 60) Cholesterol/HDL Ratio 16.8 (3.3-4.4) H Thyroid Stimulating Hormone (TSH) 2.410 uIU/mL (0.300-4.500) Hepatitis A IgM Antibody Pending Hepatitis B Surface Antigen Pending Hepatitis B Core IgM Antibody Pending Hepatitis C Antibody Pending Urine Eosinophils None seen Height (Feet): 5 Height (Inches): 6.00 Weight (Pounds): 153 General Appearance: no apparent distress, moderate distress Cardiovascular: normal rate Respiratory/Chest: other - facial mask Abdominal Exam: normal bowel sounds, non tender, soft Objective Service Date: 07/26/16 Procedure: US ABD Complete Indication: Abdominal pain Impression: Punctate echogenic focus dependently within the gallbladder possibly a tiny calculus or polyp measuring 3 mm. No sonographic evidence of acute cholecystitis. Slight increased echogenicity of the liver may suggest fatty infiltration. Clinical correlation recommended. Small left renal cyst. Mckenzie Taylor N.P. Jul 28, 2016 15:50
[2016-07-28 16:00] VITALS: BP 111/68
[2016-07-28] MEDS ORDERED: Warfarin Sodium 1mg ORAL ONE (17:00)
[2016-07-28 20:00] VITALS: BP 116/78
--- NOTE | 2016-07-28 23:18 | Progress Note ---
SUBJECTIVE: The patient is still confused, presents with waxing and waning consciousness, not engaged during the evaluation, and disoriented. Her anxiety and agitation has improved. The patient has been agitated in the morning and received Haldol p.r.n. MENTAL STATUS EXAMINATION: The patient is not engaged during the evaluation, presents with waxing and waning consciousness. Mood is currently neutral as the patient refused antipsychotics, however, was agitated in the morning. Affect is constricted. Congruent mood. Thought process is concrete. There is a paucity of thought content. ASSESSMENT: Delirium. Haldol was decreased by the neurologist. Risperidone was stopped by Dr. Abbott. PLAN: 1. I do recommend limit prescribing pain medication. 2. Treating underlying medical condition. 3. Limit prescribing benzodiazepine as the patient is delirious and all the above may cause more sedation and confusion. The antipsychotics do not cause deterioration of delirium or confusion. Khurram Hoskins M.D. DR: Antonio JOB#: [id number] CC:
[2016-07-29] VITALS: BP 110/65
[2016-07-29] MEDS: Piperacillin/Tazobactam 3.375 GM in D5W 110 ML IVPB SCH ×3 (01:54→17:42)
[2016-07-29 04:00] VITALS: BP 100/60
[2016-07-29 06:30] LABS: MEAN CORPUSCULAR HEMOGLOBIN 32.5 PG (27.0-31.0); MEAN CORPUSCULAR HGB CONC 32.8 G/DL (32.0-36.0); MEAN CORPUSCULAR VOLUME 99 FL (80-99); MEAN PLATELET VOLUME 6.9 FL (6.5-10.1); PLATELET COUNT 176 K/UL (150-450); RED BLOOD COUNT 3.32 M/UL (4.20-5.40); RED CELL DISTRIBUTION WIDTH 14.2 % (11.6-14.8); WHITE BLOOD COUNT 11.3 K/UL (4.8-10.8)
[2016-07-29 06:53] LABS: PROTHROMBIN TIME 42.2 SEC (9.30-11.50)
[2016-07-29] MEDS: Vancomycin 1gm/D5W 275ml IVPB SCH ×2 (07:30)
[2016-07-29 07:35] LABS: ALANINE AMINOTRANSFERASE 533 U/L (3-33); ALBUMIN/GLOBULIN RATIO 0.8 (1.0-2.7); ASPARTATE AMINO TRANSFERASE 230 U/L (5-40); CALCIUM 7.5 mg/dL (8.6-10.2); CARBON DIOXIDE 25 mEQ/L (20-30); CHLORIDE 106 mEQ/L (98-107); CREATININE 0.9 mg/dL (0.5-0.9); GLOMERULAR FILTRATION RATE > 60 mL/min (>60); HEMOLYSIS 7; SODIUM 149 mEQ/L (135-145); TOTAL PROTEIN 5.3 g/dL (6.6-8.7)
[2016-07-29 07:40] LABS: ANION GAP 18 (5-15)
[2016-07-29 07:44] LABS: POTASSIUM 2.4 mEQ/L (3.4-4.9)
[2016-07-29 08:25] VITALS: BP 95/67
[2016-07-29] MEDS: Atenolol 25mg tab ORAL SCH (09:00)
[2016-07-29] MEDS: Pantoprazole Inj IVP SCH ×2 (09:00→20:50)
[2016-07-29] MEDS: Vitamin A&D Oint 2oz Tube TOPIC SCH ×2 (09:00→21:57)
[2016-07-29] MEDS ORDERED: Haloperidol 5mg/ml Inj IM PRN (09:45)
--- NOTE | 2016-07-29 11:30 | Diagnostic Imaging Report ---
Indication: DYSPNEA Technique: One view of the chest Comparison: 07/28/2016 Findings: Patient is rotated to the right. There may be decreased interstitial congestive changes, although this may in part be an artifact of improved technique and positioning. Right chest port catheter remains. Evidence of prior cardiac valve replacement again noted. The heart remains borderline enlarged. Impression: Suspect improvement of previously demonstrated interstitial congestive changes, over one day Other findings as noted
[2016-07-29 11:33] VITALS: BP 99/53
--- NOTE | 2016-07-29 11:49 | General Progress Note ---
Assessment/Plan Status: stable - from renal stand, unchanged, deteriorating - from pulmonary stand Assessment/Plan Acute Renal Failure - Cr deneen from 0.8 to 1.9- Multifactorial: Low BP- Vanco.... 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 elevated transaminase , likely due to shock liver , improving hypokalemia COPD Hx of lung Ca urinary retention , has hadley now Sugg: Hydrate- Correct abnormal electrolytes- Gastric support- Avoid Nephrotoxics- Aim to optimize cardiac and pulmonary status Subjective ROS Limited/Unobtainable: Yes Allergies: Coded Allergies: No Known Allergies (Verified , 04/10/06) Objective Last 24 Hour Vital Signs Date Time Temp Pulse Resp B/P Pulse Ox O2 Delivery O2 Flow Rate FiO2 07/29/16 11:33 98.7 101 19 99/53 100 Mechanical Ventilator 07/29/16 11:01 100 Venturi Mask 45 07/29/16 09:21 99 39 100 Facial 40 07/29/16 09:00 100 95/67 07/29/16 08:25 98.3 100 19 95/67 100 Bi-pap 07/29/16 08:00 100 07/29/16 08:00 40 07/29/16 07:29 100 34 100 Facial 40 07/29/16 05:07 95 29 100 Facial 40 07/29/16 04:00 97.3 95 20 100/60 100 Bi-pap 40.0 07/29/16 04:00 40 07/29/16 03:38 99 07/29/16 03:02 102 36 100 Facial 40 07/29/16 00:54 99 26 100 Facial 40 07/29/16 00:00 100 07/29/16 00:00 88.2 97 43 110/65 100 Bi-pap 40 07/29/16 00:00 40 07/28/16 23:00 93 32 100 Facial 40 07/28/16 20:45 95 30 100 Facial 40 07/28/16 20:00 96 07/28/16 20:00 40 07/28/16 20:00 97.7 99 33 116/78 100 Bi-pap 40 07/28/16 19:03 98 33 100 Facial 40 07/28/16 17:27 112 52 99 Facial 40 07/28/16 16:00 40 07/28/16 16:00 97.0 97 42 111/68 99 Bi-pap 40 07/28/16 16:00 99 07/28/16 15:27 97 28 99 Facial 40 07/28/16 13:06 105 46 99 Facial 40 07/28/16 12:01 97.7 105 22 123/78 100 Bi-pap 07/28/16 12:00 40 07/28/16 11:57 105 Intake and Output 07/28/16 07/29/16 19:00 07:00 Intake Total 370.000 ml 110.0 ml Output Total 350 ml 2200 ml Balance 20.000 ml -2090.0 ml Intake Oral 0 ml IV Total 370.000 ml 110.0 ml Output Urine Total 350 ml 2200 ml Laboratory Tests 07/29/16 04:30: Urine Eosinophils None seen 07/29/16 06:15: White Blood Count 11.3H, Red Blood Count 3.32L, Hemoglobin 10.8L, Hematocrit 32.9L, Mean Corpuscular Volume 99, Mean Corpuscular Hemoglobin 32.5H, Mean Corpuscular Hemoglobin Concent 32.8, Red Cell Distribution Width 14.2, Platelet Count 176, Mean Platelet Volume 6.9, Neutrophils (%) (Auto) , Lymphocytes (%) ( Auto) , Monocytes (%) (Auto) , Eosinophils (%) (Auto) , Basophils (%) (Auto) , Prothrombin Time 42.2H, Prothromb Time International Ratio 4.0H, Sodium Level 149H, Potassium Level 2.4*L, Chloride Level 106, Carbon Dioxide Level 25, Anion Gap 18H, Blood Urea Nitrogen 14, Creatinine 0.9, Estimat Glomerular Filtration Rate > 60, Glucose Level 117H, Calcium Level 7.5L, Phosphorus Level 1.8L, Total Bilirubin 0.9, Aspartate Amino Transf (AST/SGOT) 230H, Alanine Aminotransferase (ALT/SGPT) 533H, Alkaline Phosphatase 312H, Pro-B-Type Natriuretic Peptide 85147Q, Total Protein 5.3L, Albumin 2.5L, Globulin 2.8, Albumin/Globulin Ratio 0.8L, Vancomycin Level Trough 13.7H Height (Feet): 5 Height (Inches): 6.00 Weight (Pounds): 153 General Appearance: moderate distress EENT: other - on bipap Cardiovascular: tachycardia Respiratory/Chest: decreased breath sounds Abdomen: distended FOULADIAN,GINA Jul 29, 2016 11:48
[2016-07-29] MEDS ORDERED: Potassium Chloride 60 MEQ in NS 1000ml 1,000 ML IV ONE (12:00)
--- NOTE | 2016-07-29 12:01 | Diagnostic Imaging Report ---
APPROVED REPORT CPT Code: 20150 Present Symptoms Shortness of breath Comments: The left greater saphenous vein was absent due to graft (CAD) BILATERAL: Imaging reveals a patent deep venous system bilaterally. There is no evidence of thrombus within the femoral, popliteal or tibial segments. The right greater saphenous vein is also within normal limits. Doppler indicates normal spontaneous flow within these segments.
--- NOTE | 2016-07-29 12:15 | Pulmonology Progress Note ---
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 (5) S /P CABG/MVR Assessment/Plan bipap prn dc vancomycin, no evidence of MRSA check electrolytes titrate fio2 to sat of 92% f/u renal function dvt prophylaxis all notes, meds reviewed ON zosyn for UTI Subjective ROS Limited/Unobtainable: No Interval Events: off bipap, wants to eat, Constitutional: Reports: no symptoms HEENT: Repors: no symptoms Respiratory: Reports: shortness of breath Cardiovascular: Reports: no symptoms Allergies: Coded Allergies: No Known Allergies (Verified , 04/10/06) Objective Last 24 Hour Vital Signs Date Time Temp Pulse Resp B/P Pulse Ox O2 Delivery O2 Flow Rate FiO2 07/29/16 11:33 98.7 101 19 99/53 100 Mechanical Ventilator 07/29/16 11:01 100 Venturi Mask 45 07/29/16 09:21 99 39 100 Facial 40 07/29/16 09:00 100 95/67 07/29/16 08:25 98.3 100 19 95/67 100 Bi-pap 07/29/16 08:00 100 07/29/16 08:00 40 07/29/16 07:29 100 34 100 Facial 40 07/29/16 05:07 95 29 100 Facial 40 07/29/16 04:00 97.3 95 20 100/60 100 Bi-pap 40.0 07/29/16 04:00 40 07/29/16 03:38 99 07/29/16 03:02 102 36 100 Facial 40 07/29/16 00:54 99 26 100 Facial 40 07/29/16 00:00 100 07/29/16 00:00 88.2 97 43 110/65 100 Bi-pap 40 07/29/16 00:00 40 07/28/16 23:00 93 32 100 Facial 40 07/28/16 20:45 95 30 100 Facial 40 07/28/16 20:00 96 07/28/16 20:00 40 07/28/16 20:00 97.7 99 33 116/78 100 Bi-pap 40 07/28/16 19:03 98 33 100 Facial 40 07/28/16 17:27 112 52 99 Facial 40 07/28/16 16:00 40 07/28/16 16:00 97.0 97 42 111/68 99 Bi-pap 40 07/28/16 16:00 99 07/28/16 15:27 97 28 99 Facial 40 07/28/16 13:06 105 46 99 Facial 40 Intake and Output 07/28/16 07/29/16 18:59 06:59 Intake Total 370.000 ml 110.0 ml Output Total 350 ml 2200 ml Balance 20.000 ml -2090.0 ml Intake Oral 0 ml IV Total 370.000 ml 110.0 ml Output Urine Total 350 ml 2200 ml General Appearance: WD/WN HEENT: normocephalic, atraumatic Respiratory/Chest: chest wall non-tender, lungs clear, decreased breath sounds Breasts: no masses Cardiovascular: normal rate Abdomen: normal bowel sounds, soft, non tender Extremities: no cyanosis, no clubbing Skin: no rash, no lesions Laboratory Tests 07/29/16 04:30: Urine Eosinophils None seen 07/29/16 06:15: White Blood Count 11.3H, Red Blood Count 3.32L, Hemoglobin 10.8L, Hematocrit 32.9L, Mean Corpuscular Volume 99, Mean Corpuscular Hemoglobin 32.5H, Mean Corpuscular Hemoglobin Concent 32.8, Red Cell Distribution Width 14.2, Platelet Count 176, Mean Platelet Volume 6.9, Neutrophils (%) (Auto) , Lymphocytes (%) ( Auto) , Monocytes (%) (Auto) , Eosinophils (%) (Auto) , Basophils (%) (Auto) , Prothrombin Time 42.2H, Prothromb Time International Ratio 4.0H, Sodium Level 149H, Potassium Level 2.4*L, Chloride Level 106, Carbon Dioxide Level 25, Anion Gap 18H, Blood Urea Nitrogen 14, Creatinine 0.9, Estimat Glomerular Filtration Rate > 60, Glucose Level 117H, Calcium Level 7.5L, Phosphorus Level 1.8L, Total Bilirubin 0.9, Aspartate Amino Transf (AST/SGOT) 230H, Alanine Aminotransferase (ALT/SGPT) 533H, Alkaline Phosphatase 312H, Pro-B-Type Natriuretic Peptide 17610E, Total Protein 5.3L, Albumin 2.5L, Globulin 2.8, Albumin/Globulin Ratio 0.8L, Vancomycin Level Trough 13.7H Current Medications Medications (Trade) Dose Ordered Sig/Jagruti Route PRN Reason Start Time Stop Time Status Last Admin Dose Admin Acetaminophen (Tylenol) 650 mg Q4H PRN ORAL T>100.5 07/26/16 17:00 08/25/16 16:59 Albuterol/ Ipratropium (DuoNeb 0.5-3(2.5)mg/3ml) 3 ml Q4H PRN HHN Shortness of Breath 07/26/16 17:00 07/31/16 16:59 Atenolol (Tenormin) 25 mg DAILY ORAL 07/27/16 09:00 08/26/16 08:59 07/28/16 09:09 Clonidine HCl (Catapres) 0.1 mg Q4H PRN ORAL SBP>160 07/26/16 17:00 08/25/16 16:59 Clopidogrel Bisulfate (Plavix) 75 mg DAILY ORAL 07/27/16 09:00 08/26/16 08:59 07/29/16 09:00 Dextrose (Dextrose 50%) STAT PRN IV Hypoglycemia 07/26/16 17:00 08/25/16 16:59 Furosemide (Lasix) 20 mg EVERY 12 HOURS IV 07/28/16 13:00 08/27/16 12:59 07/29/16 09:00 Haloperidol Lactate 2.5 mg 2.5 mg Q6H PRN IM Agitation 07/29/16 09:45 08/28/16 09:44 Midodrine (Pro-Amatine) 5 mg BEFORE BREAKFAST ORAL 07/29/16 06:30 08/28/16 06:29 07/29/16 07:30 Morphine Sulfate (Morphine Sulfate) 1 mg Q4H PRN IVP For Pain 7-10 07/26/16 17:00 08/02/16 16:59 Nitroglycerin (Ntg) 0.4 mg Q5M X 3 DOSES PRN SL Prn Chest Pain 07/26/16 17:00 08/25/16 16:59 Ondansetron HCl (Zofran) 4 mg Q6H PRN IVP Nausea & Vomiting 07/26/16 17:00 08/25/16 16:59 Pantoprazole 40 mg 40 mg EVERY 12 HOURS IVP 07/27/16 21:00 08/26/16 20:59 07/29/16 09:00 Phosphorus (Phospha 250 Neutral) 500 mg THREE TIMES A DAY ORAL 07/29/16 13:00 08/28/16 12:59 UNV Piperacillin Sod/ Tazobactam Sod/ Dextrose (Zosyn/D5W) 110 ml @ 27.5 mls/hr Q8HR@0200,1000,1800 IVPB 07/28/16 18:00 08/04/16 17:59 07/29/16 10:00 Potassium Chloride/Sodium Chloride (KCl/Sodium Chloride 1000ml bag) 1,030 ml @ 167 mls/hr ONCE ONCE IV 07/29/16 12:00 07/29/16 18:10 07/29/16 11:44 Vancomycin HCl (Vanco rx to dose) 1 ea DAILY PRN MISC Per rx protocol 07/26/16 17:00 08/25/16 16:59 Vancomycin HCl/ Dextrose (Vancomycin/D5W) 275 ml @ 183.708 mls/hr Q24H IVPB 07/27/16 06:30 08/01/16 06:29 07/29/16 07:30 Vitamin A/Vitamin D (A & D Oint) 1 applic EVERY 12 HOURS TOPIC 07/26/16 21:00 08/25/16 20:59 07/29/16 09:00 Warfarin Sodium 1 ea 1 ea DAILY PRN MISC Per rx protocol 07/26/16 17:00 08/25/16 16:59 LISETTE ANTUNEZ Jul 29, 2016 12:15
--- NOTE | 2016-07-29 12:51 | GI Progress Note ---
Assessment/Plan Problems: (1) Elevated CEA ICD Codes: R97.0 - Elevated carcinoembryonic antigen [CEA] SNOMED: 82964364, 667310567 (2) Shock liver ICD Codes: K72.00 - Acute and subacute hepatic failure without coma SNOMED: 097120678 (3) Anemia ICD Codes: D64.9 - Anemia, unspecified SNOMED: 686664728 (4) Liver disease ICD Codes: K76.9 - Liver disease, unspecified SNOMED: 565718099 Status: unchanged Status Narrative Discussed with Dr. Berman. Assessment/Plan ST eval >> INITIATE YVONNE MOIST PUREED AND NECTAR THICK LIQUIDS USING POSTED ASPIRATION AND REFLUX PRECAUTIONS AND 1 TO 1 FEEDING. abd U/S >> fatty infiltration, see full report. OB stool uncollected stable H&H, transfuse prn shock liver >> monitor LFTS>>> downtrending ppi GI procedures on hold, will require cardiac clearance fu labs Subjective Subjective hungry, wants to eat Objective Last 24 Hour Vital Signs Date Time Temp Pulse Resp B/P Pulse Ox O2 Delivery O2 Flow Rate FiO2 07/29/16 11:33 98.7 101 19 99/53 100 Mechanical Ventilator 07/29/16 11:01 100 Venturi Mask 45 07/29/16 09:21 99 39 100 Facial 40 07/29/16 09:00 100 95/67 07/29/16 08:25 98.3 100 19 95/67 100 Bi-pap 07/29/16 08:00 100 07/29/16 08:00 40 07/29/16 07:29 100 34 100 Facial 40 07/29/16 05:07 95 29 100 Facial 40 07/29/16 04:00 97.3 95 20 100/60 100 Bi-pap 40.0 07/29/16 04:00 40 07/29/16 03:38 99 07/29/16 03:02 102 36 100 Facial 40 07/29/16 00:54 99 26 100 Facial 40 07/29/16 00:00 100 07/29/16 00:00 88.2 97 43 110/65 100 Bi-pap 40 07/29/16 00:00 40 07/28/16 23:00 93 32 100 Facial 40 07/28/16 20:45 95 30 100 Facial 40 07/28/16 20:00 96 07/28/16 20:00 40 07/28/16 20:00 97.7 99 33 116/78 100 Bi-pap 40 07/28/16 19:03 98 33 100 Facial 40 07/28/16 17:27 112 52 99 Facial 40 07/28/16 16:00 40 07/28/16 16:00 97.0 97 42 111/68 99 Bi-pap 40 07/28/16 16:00 99 07/28/16 15:27 97 28 99 Facial 40 07/28/16 13:06 105 46 99 Facial 40 Intake and Output 07/28/16 07/29/16 19:00 07:00 Intake Total 370.000 ml 110.0 ml Output Total 350 ml 2200 ml Balance 20.000 ml -2090.0 ml Intake Oral 0 ml IV Total 370.000 ml 110.0 ml Output Urine Total 350 ml 2200 ml Laboratory Tests Test 07/29/16 04:30 07/29/16 06:15 Urine Eosinophils None seen White Blood Count 11.3 K/UL (4.8-10.8) H Red Blood Count 3.32 M/UL (4.20-5.40) L Hemoglobin 10.8 G/DL (12.0-16.0) L Hematocrit 32.9 % (37.0-47.0) L Mean Corpuscular Volume 99 FL (80-99) Mean Corpuscular Hemoglobin 32.5 PG (27.0-31.0) H Mean Corpuscular Hemoglobin Concent 32.8 G/DL (32.0-36.0) Red Cell Distribution Width 14.2 % (11.6-14.8) Platelet Count 176 K/UL (150-450) Mean Platelet Volume 6.9 FL (6.5-10.1) Neutrophils (%) (Auto) % (45.0-75.0) Lymphocytes (%) (Auto) % (20.0-45.0) Monocytes (%) (Auto) % (1.0-10.0) Eosinophils (%) (Auto) % (0.0-3.0) Basophils (%) (Auto) % (0.0-2.0) Prothrombin Time 42.2 SEC (9.30-11.50) H Prothromb Time International Ratio 4.0 (0.9-1.1) H Sodium Level 149 mEQ/L (135-145) H Potassium Level 2.4 mEQ/L (3.4-4.9) *L Chloride Level 106 mEQ/L (98-107) Carbon Dioxide Level 25 mEQ/L (20-30) Anion Gap 18 (5-15) H Blood Urea Nitrogen 14 mg/dL (7-23) Creatinine 0.9 mg/dL (0.5-0.9) Estimat Glomerular Filtration Rate > 60 mL/min (>60) Glucose Level 117 mg/dL (74-106) H Calcium Level 7.5 mg/dL (8.6-10.2) L Phosphorus Level 1.8 mg/dL (2.5-4.8) L Total Bilirubin 0.9 mg/dL (0.0-1.2) Aspartate Amino Transf (AST/SGOT) 230 U/L (5-40) H Alanine Aminotransferase (ALT/SGPT) 533 U/L (3-33) H Alkaline Phosphatase 312 U/L (35-104) H Pro-B-Type Natriuretic Peptide 12130 pg/mL (0-125) H Total Protein 5.3 g/dL (6.6-8.7) L Albumin 2.5 g/dL (3.5-5.2) L Globulin 2.8 g/dL Albumin/Globulin Ratio 0.8 (1.0-2.7) L Vancomycin Level Trough 13.7 ug/mL (5.0-12.0) H Height (Feet): 5 Height (Inches): 6.00 Weight (Pounds): 153 General Appearance: no apparent distress, alert Cardiovascular: normal rate Respiratory/Chest: other - venturi mask Abdominal Exam: normal bowel sounds, non tender, soft Objective Service Date: 07/26/16 Procedure: US ABD Complete Indication: Abdominal pain Impression: Punctate echogenic focus dependently within the gallbladder possibly a tiny calculus or polyp measuring 3 mm. No sonographic evidence of acute cholecystitis. Slight increased echogenicity of the liver may suggest fatty infiltration. Clinical correlation recommended. Small left renal cyst. Mckenzie Taylor N.P. Jul 29, 2016 12:51
--- NOTE | 2016-07-29 14:19 | Cardiology Report ---
APPROVED REPORT EXAM: Two-dimensional and M-mode echocardiogram with Doppler and color Doppler. INDICATION Left ventricular function M-Mode DIMENSIONS IVSd0.8 (0.7-1.1cm)Left Atrium (MM)4.0 (1.6-4.0cm) LVDd5.6 (3.5-5.6cm)Aortic Root2.5 (2.0-3.7cm) PWd0.9 (0.7-1.1cm)Aortic Cusp Exc.1.8 (1.5-2.0cm) LVDs5.3 (2.5-4.0cm) PWs0.8 cm Technically difficult study due to poor acoustic windows. Normal left ventricular chamber size. Global left ventricular hypokinesis. Distal anterior wall and apical dyskinesis. Apical echodensity noted in some views, cannot rule out apical thrombus. Left ventricular ejection fraction estimated to be 30-35 %. No evidence of left ventricular hypertrophy. Small posterior pericardial fat or effusion. Focal aortic valve sclerosis with adequate cusp excursion Mitral valve prosthesis is seen and appears to move appropriately. Mitral annulus and aortic root calcification. Pulmonic valve is well visualized. Normal tricuspid valve structure. IVC is normal in size with physiologic collapse. A color flow and spectral Doppler study was performed and revealed: No aortic regurgitation. Trace mitral regurgitation. Mitral P1/2 time of 167 m/s is compatible with a mitral valve area of 4.5cm2 Peak mitral valve diastolic gradient of 8 mmHg and a mean gradient of 3 mmHg Mild tricuspid regurgitation. Tricuspid systolic velocities suggests peak right ventricular systolic pressure of 22 mmHg Pulmonic regurgitation present.
[2016-07-29] MEDS: Phospha 250 Neutral tab ORAL SCH ×2 (14:44→17:42)
--- NOTE | 2016-07-29 15:40 | Internal Med Progress Note ---
Subjective Date of Service: Jul 29, 2016 Physician Name Alfaro,Jose Attending Physician Todd Kendall MD Current Medications Medications (Trade) Dose Ordered Sig/Jagruti Route PRN Reason Start Time Stop Time Status Last Admin Dose Admin Acetaminophen (Tylenol) 650 mg Q4H PRN ORAL T>100.5 07/26/16 17:00 08/25/16 16:59 Albuterol/ Ipratropium (DuoNeb 0.5-3(2.5)mg/3ml) 3 ml Q4H PRN HHN Shortness of Breath 07/26/16 17:00 07/31/16 16:59 Atenolol (Tenormin) 25 mg DAILY ORAL 07/27/16 09:00 08/26/16 08:59 07/28/16 09:09 Clonidine HCl (Catapres) 0.1 mg Q4H PRN ORAL SBP>160 07/26/16 17:00 08/25/16 16:59 Clopidogrel Bisulfate (Plavix) 75 mg DAILY ORAL 07/27/16 09:00 08/26/16 08:59 07/29/16 09:00 Dextrose (Dextrose 50%) STAT PRN IV Hypoglycemia 07/26/16 17:00 08/25/16 16:59 Furosemide (Lasix) 20 mg EVERY 12 HOURS IV 07/28/16 13:00 08/27/16 12:59 07/29/16 09:00 Haloperidol Lactate 2.5 mg 2.5 mg Q6H PRN IM Agitation 07/29/16 09:45 08/28/16 09:44 Midodrine (Pro-Amatine) 5 mg BEFORE BREAKFAST ORAL 07/29/16 06:30 08/28/16 06:29 07/29/16 07:30 Morphine Sulfate (Morphine Sulfate) 1 mg Q4H PRN IVP For Pain 7-10 07/26/16 17:00 08/02/16 16:59 Nitroglycerin (Ntg) 0.4 mg Q5M X 3 DOSES PRN SL Prn Chest Pain 07/26/16 17:00 08/25/16 16:59 Ondansetron HCl (Zofran) 4 mg Q6H PRN IVP Nausea & Vomiting 07/26/16 17:00 08/25/16 16:59 Pantoprazole 40 mg 40 mg EVERY 12 HOURS IVP 07/27/16 21:00 08/26/16 20:59 07/29/16 09:00 Phosphorus (Phospha 250 Neutral) 500 mg THREE TIMES A DAY ORAL 07/29/16 13:00 08/28/16 12:59 07/29/16 14:44 Piperacillin Sod/ Tazobactam Sod/ Dextrose (Zosyn/D5W) 110 ml @ 27.5 mls/hr Q8HR@0200,1000,1800 IVPB 07/28/16 18:00 08/04/16 17:59 07/29/16 10:00 Potassium Chloride/Sodium Chloride (KCl/Sodium Chloride 1000ml bag) 1,030 ml @ 167 mls/hr ONCE ONCE IV 07/29/16 12:00 07/29/16 18:10 07/29/16 11:44 Vitamin A/Vitamin D (A & D Oint) 1 applic EVERY 12 HOURS TOPIC 07/26/16 21:00 08/25/16 20:59 07/29/16 09:00 Warfarin Sodium (Coumadin per pharmacy) 1 ea DAILY PRN MISC Per rx protocol 07/26/16 17:00 08/25/16 16:59 Allergies: Coded Allergies: No Known Allergies (Verified , 04/10/06) ROS Limited/Unobtainable: Yes Subjective 56 YO F admitted with altered mental status. DEIRDRE. Cover for Int Med Dr Kendall. Tolerating nasal canula. Objective Last Vital Signs Date Time Temp Pulse Resp B/P Pulse Ox O2 Delivery O2 Flow Rate FiO2 07/29/16 14:20 100 Nasal Cannula 4.0 07/29/16 12:00 40 07/29/16 12:00 106 07/29/16 11:33 98.7 19 99/53 Laboratory Tests Test 07/29/16 04:30 07/29/16 06:15 Urine Eosinophils None seen White Blood Count 11.3 K/UL (4.8-10.8) H Red Blood Count 3.32 M/UL (4.20-5.40) L Hemoglobin 10.8 G/DL (12.0-16.0) L Hematocrit 32.9 % (37.0-47.0) L Mean Corpuscular Volume 99 FL (80-99) Mean Corpuscular Hemoglobin 32.5 PG (27.0-31.0) H Mean Corpuscular Hemoglobin Concent 32.8 G/DL (32.0-36.0) Red Cell Distribution Width 14.2 % (11.6-14.8) Platelet Count 176 K/UL (150-450) Mean Platelet Volume 6.9 FL (6.5-10.1) Neutrophils (%) (Auto) % (45.0-75.0) Lymphocytes (%) (Auto) % (20.0-45.0) Monocytes (%) (Auto) % (1.0-10.0) Eosinophils (%) (Auto) % (0.0-3.0) Basophils (%) (Auto) % (0.0-2.0) Prothrombin Time 42.2 SEC (9.30-11.50) H Prothromb Time International Ratio 4.0 (0.9-1.1) H Sodium Level 149 mEQ/L (135-145) H Potassium Level 2.4 mEQ/L (3.4-4.9) *L Chloride Level 106 mEQ/L (98-107) Carbon Dioxide Level 25 mEQ/L (20-30) Anion Gap 18 (5-15) H Blood Urea Nitrogen 14 mg/dL (7-23) Creatinine 0.9 mg/dL (0.5-0.9) Estimat Glomerular Filtration Rate > 60 mL/min (>60) Glucose Level 117 mg/dL (74-106) H Calcium Level 7.5 mg/dL (8.6-10.2) L Phosphorus Level 1.8 mg/dL (2.5-4.8) L Total Bilirubin 0.9 mg/dL (0.0-1.2) Aspartate Amino Transf (AST/SGOT) 230 U/L (5-40) H Alanine Aminotransferase (ALT/SGPT) 533 U/L (3-33) H Alkaline Phosphatase 312 U/L (35-104) H Pro-B-Type Natriuretic Peptide 65698 pg/mL (0-125) H Total Protein 5.3 g/dL (6.6-8.7) L Albumin 2.5 g/dL (3.5-5.2) L Globulin 2.8 g/dL Albumin/Globulin Ratio 0.8 (1.0-2.7) L Vancomycin Level Trough 13.7 ug/mL (5.0-12.0) H Intake and Output 07/28/16 07/29/16 19:00 07:00 Intake Total 370.000 ml 110.0 ml Output Total 350 ml 2200 ml Balance 20.000 ml -2090.0 ml Intake Oral 0 ml IV Total 370.000 ml 110.0 ml Output Urine Total 350 ml 2200 ml Objective General Appearance: WD/WN, no apparent distress, alert EENT: PERRL/EOMI, normal ENT inspection, TMs normal Neck: non-tender, normal alignment, supple Cardiovascular: normal peripheral pulses, normal rate, regular rhythm, regularly irregular, no gallop/murmur Respiratory/Chest: Nasal canula; chest wall non-tender, Wheezing bilat, respiratory distress, accessory muscle use Abdomen: normal bowel sounds, non tender, soft, no organomegaly, no mass, abnormal bowel sounds Extremities: normal range of motion Neurologic: coffee weigher 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 D/C levaquin; start zosyn. 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 On BIPAP. See pulmonary note. (9) Agitation Assessment & Plan: Restart ativan prn Status: progressing Assessment/Plan Transfer to telemetry today JOSE ALFARO Jul 29, 2016 15:40
[2016-07-29 16:00] VITALS: BP 117/74
[2016-07-29 20:06] VITALS: BP 121/59
[2016-07-30] VITALS: BP 118/48
[2016-07-30] MEDS: Piperacillin/Tazobactam 3.375 GM in D5W 110 ML IVPB SCH ×3 (01:34→18:34)
[2016-07-30 04:00] VITALS: BP 113/77
[2016-07-30 06:03] LABS: MEAN CORPUSCULAR HEMOGLOBIN 32.9 PG (27.0-31.0); MEAN CORPUSCULAR VOLUME 100 FL (80-99); MEAN PLATELET VOLUME 6.4 FL (6.5-10.1); PLATELET COUNT 189 K/UL (150-450); RED BLOOD COUNT 3.32 M/UL (4.20-5.40); RED CELL DISTRIBUTION WIDTH 14.3 % (11.6-14.8); WHITE BLOOD COUNT 18.5 K/UL (4.8-10.8)
[2016-07-30 06:32] LABS: INR 4.4 (0.9-1.1); PROTHROMBIN TIME 46.8 SEC (9.30-11.50)
[2016-07-30 07:12] LABS: ALANINE AMINOTRANSFERASE 370 U/L (3-33); ALBUMIN/GLOBULIN RATIO 0.8 (1.0-2.7); ANION GAP 18 (5-15); ASPARTATE AMINO TRANSFERASE 106 U/L (5-40); CALCIUM 7.2 mg/dL (8.6-10.2); CARBON DIOXIDE 24 mEQ/L (20-30); CHLORIDE 103 mEQ/L (98-107); CRP QUANT 2.3 mg/dL (< 0.5); GLOMERULAR FILTRATION RATE 56.9 mL/min (>60); HEMOLYSIS 3; MAGNESIUM 1.1 mg/dL (1.7-2.5); PHOSPHORUS 1.4 mg/dL (2.5-4.8); SODIUM 145 mEQ/L (135-145); TOTAL PROTEIN 5.4 g/dL (6.6-8.7); URIC ACID 2.8 mg/dL (3.0-7.5)
[2016-07-30 07:40] LABS: POTASSIUM 2.3 mEQ/L (3.4-4.9)
[2016-07-30 08:00] VITALS: BP 117/70
[2016-07-30] MEDS: Phospha 250 Neutral tab ORAL SCH ×3 (08:06→18:36)
[2016-07-30] MEDS: Pantoprazole Inj IVP SCH ×2 (08:07→20:54)
[2016-07-30] MEDS: Vitamin A&D Oint 2oz Tube TOPIC SCH ×2 (08:07→20:54)
[2016-07-30 08:36] LABS: BAND NEUTROPHILS % (MANUAL) 2 % (0-8); BASOPHILS % (MANUAL) 0 % (0-2); EOSINOPHILS % (MANUAL) 0 % (0-3); LYMPHOCYTES % (MANUAL) 1 % (20-45); NEUTROPHILS % (MANUAL) 93 % (45-75); PLATELET ESTIMATE ADEQUATE; PLATELET MORPHOLOGY NORMAL; TOTAL CELLS COUNTED 100
[2016-07-30 08:37] LABS: MACROCYTES 1+
[2016-07-30] MEDS ORDERED: Metoprolol 5mg/5ml Inj IVP SCH ×2 (09:15→22:30)
[2016-07-30] MEDS: KCl 10% 40mEq/30ml liquid ORAL SCH ×2 (09:20→18:35)
--- NOTE | 2016-07-30 11:04 | GI Progress Note ---
Assessment/Plan Problems: (1) Elevated CEA ICD Codes: R97.0 - Elevated carcinoembryonic antigen [CEA] SNOMED: 27504996, 036519430 (2) Shock liver ICD Codes: K72.00 - Acute and subacute hepatic failure without coma SNOMED: 652635275 (3) Anemia ICD Codes: D64.9 - Anemia, unspecified SNOMED: 054311358 (4) Liver disease ICD Codes: K76.9 - Liver disease, unspecified SNOMED: 352821021 Status: unchanged Status Narrative Discussed with Dr. Berman. Assessment/Plan ST eval >> INITIATE YVONNE MOIST PUREED AND NECTAR THICK LIQUIDS USING POSTED ASPIRATION AND REFLUX PRECAUTIONS AND 1 TO 1 FEEDING. abd U/S >> fatty infiltration, see full report. OB stool uncollected stable H&H, transfuse prn shock liver >> monitor LFTS>>> downtrending ppi GI procedures on hold, will require cardiac clearance fu labs Subjective Subjective hungry Objective Last 24 Hour Vital Signs Date Time Temp Pulse Resp B/P Pulse Ox O2 Delivery O2 Flow Rate FiO2 07/30/16 10:03 150 102/58 07/30/16 09:08 141 38 100 Facial 40 07/30/16 08:06 144 117/75 07/30/16 07:06 Bi-pap 40 07/30/16 07:06 138 35 100 Facial 40 07/30/16 07:06 100 Bi-pap 40 07/30/16 05:39 121 35 100 Facial 40 07/30/16 04:00 40 07/30/16 04:00 98.4 107 26 113/77 94 Bi-pap 40 07/30/16 04:00 149 07/30/16 02:46 116 33 100 Facial 40 07/30/16 01:00 103 28 100 Facial 40 07/30/16 00:10 99 26 Bi-pap 40 07/30/16 00:00 97.9 107 44 118/48 99 Bi-pap 40 07/30/16 00:00 40 07/30/16 00:00 103 07/29/16 23:05 112 27 100 Facial 40 07/29/16 21:06 90 32 97 Facial 40 07/29/16 20:06 97.2 120 25 121/59 99 Bi-pap 07/29/16 20:00 40 07/29/16 19:25 123 27 100 Facial 70 07/29/16 19:24 Bi-pap 70 07/29/16 19:23 100 Bi-pap 70 07/29/16 19:09 126 07/29/16 17:14 4.0 07/29/16 16:00 98.1 109 20 117/74 100 Nasal Cannula 07/29/16 16:00 110 07/29/16 14:20 100 Nasal Cannula 4.0 07/29/16 12:00 40 07/29/16 12:00 106 07/29/16 11:33 98.7 101 19 99/53 100 Mechanical Ventilator Intake and Output 07/29/16 07/30/16 19:00 07:00 Intake Total 150 ml 260.0 ml Output Total 750 ml 1600 ml Balance -600 ml -1340.0 ml Intake Oral 150 ml 150 ml IV Total 110.0 ml Output Urine Total 750 ml 1600 ml # Bowel Movements 2 6 Laboratory Tests Test 07/30/16 03:15 07/30/16 05:30 White Blood Count 18.5 K/UL (4.8-10.8) #H Red Blood Count 3.32 M/UL (4.20-5.40) L Hemoglobin 10.9 G/DL (12.0-16.0) L Hematocrit 33.1 % (37.0-47.0) L Mean Corpuscular Volume 100 FL (80-99) H Mean Corpuscular Hemoglobin 32.9 PG (27.0-31.0) H Mean Corpuscular Hemoglobin Concent 33.0 G/DL (32.0-36.0) Red Cell Distribution Width 14.3 % (11.6-14.8) Platelet Count 189 K/UL (150-450) Mean Platelet Volume 6.4 FL (6.5-10.1) L Neutrophils (%) (Auto) % (45.0-75.0) Lymphocytes (%) (Auto) % (20.0-45.0) Monocytes (%) (Auto) % (1.0-10.0) Eosinophils (%) (Auto) % (0.0-3.0) Basophils (%) (Auto) % (0.0-2.0) Differential Total Cells Counted 100 Neutrophils % (Manual) 93 % (45-75) H Lymphocytes % (Manual) 1 % (20-45) L Monocytes % (Manual) 4 % (1-10) Eosinophils % (Manual) 0 % (0-3) Basophils % (Manual) 0 % (0-2) Band Neutrophils 2 % (0-8) Platelet Estimate Adequate Platelet Morphology Normal Macrocytosis 1+ Prothrombin Time 46.8 SEC (9.30-11.50) H Prothromb Time International Ratio 4.4 (0.9-1.1) H Sodium Level 145 mEQ/L (135-145) Potassium Level 2.3 mEQ/L (3.4-4.9) *L Chloride Level 103 mEQ/L (98-107) Carbon Dioxide Level 24 mEQ/L (20-30) Anion Gap 18 (5-15) H Blood Urea Nitrogen 11 mg/dL (7-23) Creatinine 1.0 mg/dL (0.5-0.9) H Estimat Glomerular Filtration Rate 56.9 mL/min (>60) Glucose Level 112 mg/dL (74-106) H Uric Acid 2.8 mg/dL (3.0-7.5) L Calcium Level 7.2 mg/dL (8.6-10.2) L Phosphorus Level 1.4 mg/dL (2.5-4.8) L Magnesium Level 1.1 mg/dL (1.7-2.5) L Total Bilirubin 0.9 mg/dL (0.0-1.2) Gamma Glutamyl Transpeptidase 105 U/L (5-36) H Aspartate Amino Transf (AST/SGOT) 106 U/L (5-40) H Alanine Aminotransferase (ALT/SGPT) 370 U/L (3-33) H Alkaline Phosphatase 286 U/L (35-104) H Total Creatine Kinase 93 U/L (26-140) C-Reactive Protein, Quantitative 2.3 mg/dL (< 0.5) H Pro-B-Type Natriuretic Peptide 80284 pg/mL (0-125) H Total Protein 5.4 g/dL (6.6-8.7) L Albumin 2.5 g/dL (3.5-5.2) L Globulin 2.9 g/dL Albumin/Globulin Ratio 0.8 (1.0-2.7) L Urine Eosinophils None seen Height (Feet): 5 Height (Inches): 6.00 Weight (Pounds): 153 General Appearance: moderate distress Cardiovascular: normal rate Respiratory/Chest: other - facial Abdominal Exam: normal bowel sounds, non tender, soft Objective Service Date: 07/26/16 Procedure: US ABD Complete Indication: Abdominal pain Impression: Punctate echogenic focus dependently within the gallbladder possibly a tiny calculus or polyp measuring 3 mm. No sonographic evidence of acute cholecystitis. Slight increased echogenicity of the liver may suggest fatty infiltration. Clinical correlation recommended. Small left renal cyst. Mckenzie Taylor N.P. Jul 30, 2016 11:04
--- NOTE | 2016-07-30 11:44 | Internal Med Progress Note ---
Subjective Date of Service: Jul 30, 2016 Physician Name Jose Alfaro Attending Physician Todd Kendall MD Current Medications Medications (Trade) Dose Ordered Sig/Jagruti Route PRN Reason Start Time Stop Time Status Last Admin Dose Admin Acetaminophen (Tylenol) 650 mg Q4H PRN ORAL T>100.5 07/26/16 17:00 08/25/16 16:59 Albuterol/ Ipratropium (DuoNeb 0.5-3(2.5)mg/3ml) 3 ml Q4H PRN HHN Shortness of Breath 07/26/16 17:00 07/31/16 16:59 07/29/16 19:23 Atenolol (Tenormin) 50 mg BID ORAL 07/30/16 18:00 08/29/16 17:59 Clonidine HCl (Catapres) 0.1 mg Q4H PRN ORAL SBP>160 07/26/16 17:00 08/25/16 16:59 Clopidogrel Bisulfate (Plavix) 75 mg DAILY ORAL 07/27/16 09:00 08/26/16 08:59 07/30/16 08:06 Dextrose (Dextrose 50%) STAT PRN IV Hypoglycemia 07/26/16 17:00 08/25/16 16:59 Furosemide (Lasix) 20 mg EVERY 12 HOURS IV 07/28/16 13:00 08/27/16 12:59 07/30/16 11:33 Haloperidol Lactate (Haldol) 2.5 mg Q6H PRN IM Agitation 07/29/16 09:45 08/28/16 09:44 07/30/16 01:34 Magnesium Sulfate (Magnesium Sulfate 1gm/100ml) 100 ml @ 100 mls/hr Q1H IVPB 07/30/16 10:00 07/30/16 13:59 07/30/16 11:33 Metoprolol Tartrate 10 mg 10 mg Q5MIN X 3 IVP 07/30/16 09:15 07/30/16 23:59 07/30/16 10:03 Midodrine (Pro-Amatine) 5 mg BEFORE BREAKFAST ORAL 07/29/16 06:30 08/28/16 06:29 07/30/16 06:30 Morphine Sulfate (Morphine Sulfate) 1 mg Q4H PRN IVP For Pain 7-10 07/26/16 17:00 08/02/16 16:59 07/30/16 04:28 Nitroglycerin (Ntg) 0.4 mg Q5M X 3 DOSES PRN SL Prn Chest Pain 07/26/16 17:00 08/25/16 16:59 Ondansetron HCl (Zofran) 4 mg Q6H PRN IVP Nausea & Vomiting 07/26/16 17:00 08/25/16 16:59 Pantoprazole 40 mg 40 mg EVERY 12 HOURS IVP 07/27/16 21:00 08/26/16 20:59 07/30/16 08:07 Phosphorus (Phospha 250 Neutral) 500 mg THREE TIMES A DAY ORAL 07/29/16 13:00 08/28/16 12:59 07/30/16 08:06 Piperacillin Sod/ Tazobactam Sod/ Dextrose (Zosyn/D5W) 110 ml @ 27.5 mls/hr Q8HR@0200,1000,1800 IVPB 07/28/16 18:00 08/04/16 17:59 07/30/16 10:08 Potassium Phosphate 30 mm/ Sodium Chloride 285 ml @ 47.5 mls/hr ONCE ONCE IV 07/30/16 12:00 07/30/16 17:59 Potassium Chloride (KCl 10% 40mEq Oral solution) 40 meq TWICE A DAY ORAL 07/30/16 09:00 07/30/16 18:01 07/30/16 09:20 Vitamin A/Vitamin D (A & D Oint) 1 applic EVERY 12 HOURS TOPIC 07/26/16 21:00 08/25/16 20:59 07/30/16 08:07 Warfarin Sodium (Coumadin per pharmacy) 1 ea DAILY PRN MISC Per rx protocol 07/26/16 17:00 08/25/16 16:59 Allergies: Coded Allergies: No Known Allergies (Verified , 04/10/06) ROS Limited/Unobtainable: No Constitutional: Reports: no symptoms HEENT: Reports: no symptoms Cardiovascular: Reports: no symptoms Respiratory: Reports: no symptoms Gastrointestinal/Abdominal: Reports: no symptoms Genitourinary: Reports: no symptoms Neurologic/Psychiatric: Reports: no symptoms Subjective 56 YO F admitted with altered mental status. DEIRDRE. Cover for Int Med Dr Kendall. Tolerating nasal canula. Objective Last Vital Signs Date Time Temp Pulse Resp B/P Pulse Ox O2 Delivery O2 Flow Rate FiO2 07/30/16 10:03 150 102/58 07/30/16 09:08 38 100 Facial 40 07/30/16 08:00 98.2 07/29/16 17:14 4.0 Laboratory Tests Test 07/30/16 03:15 07/30/16 05:30 White Blood Count 18.5 K/UL (4.8-10.8) #H Red Blood Count 3.32 M/UL (4.20-5.40) L Hemoglobin 10.9 G/DL (12.0-16.0) L Hematocrit 33.1 % (37.0-47.0) L Mean Corpuscular Volume 100 FL (80-99) H Mean Corpuscular Hemoglobin 32.9 PG (27.0-31.0) H Mean Corpuscular Hemoglobin Concent 33.0 G/DL (32.0-36.0) Red Cell Distribution Width 14.3 % (11.6-14.8) Platelet Count 189 K/UL (150-450) Mean Platelet Volume 6.4 FL (6.5-10.1) L Neutrophils (%) (Auto) % (45.0-75.0) Lymphocytes (%) (Auto) % (20.0-45.0) Monocytes (%) (Auto) % (1.0-10.0) Eosinophils (%) (Auto) % (0.0-3.0) Basophils (%) (Auto) % (0.0-2.0) Differential Total Cells Counted 100 Neutrophils % (Manual) 93 % (45-75) H Lymphocytes % (Manual) 1 % (20-45) L Monocytes % (Manual) 4 % (1-10) Eosinophils % (Manual) 0 % (0-3) Basophils % (Manual) 0 % (0-2) Band Neutrophils 2 % (0-8) Platelet Estimate Adequate Platelet Morphology Normal Macrocytosis 1+ Prothrombin Time 46.8 SEC (9.30-11.50) H Prothromb Time International Ratio 4.4 (0.9-1.1) H Sodium Level 145 mEQ/L (135-145) Potassium Level 2.3 mEQ/L (3.4-4.9) *L Chloride Level 103 mEQ/L (98-107) Carbon Dioxide Level 24 mEQ/L (20-30) Anion Gap 18 (5-15) H Blood Urea Nitrogen 11 mg/dL (7-23) Creatinine 1.0 mg/dL (0.5-0.9) H Estimat Glomerular Filtration Rate 56.9 mL/min (>60) Glucose Level 112 mg/dL (74-106) H Uric Acid 2.8 mg/dL (3.0-7.5) L Calcium Level 7.2 mg/dL (8.6-10.2) L Phosphorus Level 1.4 mg/dL (2.5-4.8) L Magnesium Level 1.1 mg/dL (1.7-2.5) L Total Bilirubin 0.9 mg/dL (0.0-1.2) Gamma Glutamyl Transpeptidase 105 U/L (5-36) H Aspartate Amino Transf (AST/SGOT) 106 U/L (5-40) H Alanine Aminotransferase (ALT/SGPT) 370 U/L (3-33) H Alkaline Phosphatase 286 U/L (35-104) H Total Creatine Kinase 93 U/L (26-140) C-Reactive Protein, Quantitative 2.3 mg/dL (< 0.5) H Pro-B-Type Natriuretic Peptide 11855 pg/mL (0-125) H Total Protein 5.4 g/dL (6.6-8.7) L Albumin 2.5 g/dL (3.5-5.2) L Globulin 2.9 g/dL Albumin/Globulin Ratio 0.8 (1.0-2.7) L Urine Eosinophils None seen Intake and Output 07/29/16 07/30/16 19:00 07:00 Intake Total 150 ml 260.0 ml Output Total 750 ml 1600 ml Balance -600 ml -1340.0 ml Intake Oral 150 ml 150 ml IV Total 110.0 ml Output Urine Total 750 ml 1600 ml # Bowel Movements 2 6 Objective General Appearance: WD/WN, no apparent distress, alert EENT: PERRL/EOMI, normal ENT inspection, TMs normal Neck: non-tender, normal alignment, supple Cardiovascular: normal peripheral pulses, normal rate, regular rhythm, regularly irregular, no gallop/murmur Respiratory/Chest: Nasal canula; chest wall non-tender, Wheezing bilat, respiratory distress, accessory muscle use Abdomen: normal bowel sounds, non tender, soft, no organomegaly, no mass, abnormal bowel sounds Extremities: normal range of motion 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 D/C levaquin; start zosyn. 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 On BIPAP. See pulmonary note. (9) Agitation Assessment & Plan: Delirium per psych. Agitation meds to be managed by psychiatry only. D/W Dr Hoskins (10) Delirium due to another medical condition, acute, hyperactive Assessment & Plan: See psych note. Status: unchanged Assessment/Plan Transfer to telemetry today JOSE ALFARO Jul 30, 2016 11:43
--- NOTE | 2016-07-30 11:53 | Pulmonology Progress Note ---
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 (6) S /P CABG/MVR Assessment/Plan bipap prn check electrolytes titrate fio2 to sat of 92% f/u renal function dvt prophylaxis all notes, meds reviewed cardiology evaluation for tachycardia Subjective ROS Limited/Unobtainable: Yes Interval Events: back on bipap, more somnolent Allergies: Coded Allergies: No Known Allergies (Verified , 04/10/06) Objective Last 24 Hour Vital Signs Date Time Temp Pulse Resp B/P Pulse Ox O2 Delivery O2 Flow Rate FiO2 07/30/16 10:03 150 102/58 07/30/16 09:08 141 38 100 Facial 40 07/30/16 08:06 144 117/75 07/30/16 08:00 163 07/30/16 08:00 40 07/30/16 08:00 98.2 98 40 117/70 95 Bi-pap 40 07/30/16 07:06 Bi-pap 40 07/30/16 07:06 138 35 100 Facial 40 07/30/16 07:06 100 Bi-pap 40 07/30/16 05:39 121 35 100 Facial 40 07/30/16 04:00 40 07/30/16 04:00 98.4 107 26 113/77 94 Bi-pap 40 07/30/16 04:00 149 07/30/16 02:46 116 33 100 Facial 40 07/30/16 01:00 103 28 100 Facial 40 07/30/16 00:10 99 26 Bi-pap 40 07/30/16 00:00 97.9 107 44 118/48 99 Bi-pap 40 07/30/16 00:00 40 07/30/16 00:00 103 07/29/16 23:05 112 27 100 Facial 40 07/29/16 21:06 90 32 97 Facial 40 07/29/16 20:06 97.2 120 25 121/59 99 Bi-pap 07/29/16 20:00 40 07/29/16 19:25 123 27 100 Facial 70 07/29/16 19:24 Bi-pap 70 07/29/16 19:23 100 Bi-pap 70 07/29/16 19:09 126 3/7/17 17:14 4.0 07/29/16 16:00 98.1 109 20 117/74 100 Nasal Cannula 07/29/16 16:00 110 07/29/16 14:20 100 Nasal Cannula 4.0 07/29/16 12:00 40 07/29/16 12:00 106 Intake and Output 07/29/16 07/30/16 19:00 07:00 Intake Total 150 ml 260.0 ml Output Total 750 ml 1600 ml Balance -600 ml -1340.0 ml Intake Oral 150 ml 150 ml IV Total 110.0 ml Output Urine Total 750 ml 1600 ml # Bowel Movements 2 6 General Appearance: WD/WN HEENT: normocephalic, atraumatic Cardiovascular: normal peripheral pulses, regular rhythm Genitourinary: normal external genitalia Extremities: no cyanosis Skin: no rash Neurologic/Psychiatric: color corrector II-XII grossly normal, abnormal gait Laboratory Tests 07/30/16 03:15: White Blood Count 18.5#H, Red Blood Count 3.32L, Hemoglobin 10.9L, Hematocrit 33.1L, Mean Corpuscular Volume 100H, Mean Corpuscular Hemoglobin 32.9H, Mean Corpuscular Hemoglobin Concent 33.0, Red Cell Distribution Width 14.3, Platelet Count 189, Mean Platelet Volume 6.4L, Neutrophils (%) (Auto) , Lymphocytes (%) ( Auto) , Monocytes (%) (Auto) , Eosinophils (%) (Auto) , Basophils (%) (Auto) , Differential Total Cells Counted 100, Neutrophils % (Manual) 93H, Lymphocytes % (Manual) 1L, Monocytes % (Manual) 4, Eosinophils % (Manual) 0, Basophils % ( Manual) 0, Band Neutrophils 2, Platelet Estimate Adequate, Platelet Morphology Normal, Macrocytosis 1+, Prothrombin Time 46.8H, Prothromb Time International Ratio 4.4H, Sodium Level 145, Potassium Level 2.3*L, Chloride Level 103, Carbon Dioxide Level 24, Anion Gap 18H, Blood Urea Nitrogen 11, Creatinine 1.0H, Estimat Glomerular Filtration Rate 56.9, Glucose Level 112H, Uric Acid 2.8L, Calcium Level 7.2L, Phosphorus Level 1.4L, Magnesium Level 1.1L, Total Bilirubin 0.9, Gamma Glutamyl Transpeptidase 105H, Aspartate Amino Transf (AST/ SGOT) 106H, Alanine Aminotransferase (ALT/SGPT) 370H, Alkaline Phosphatase 286H , Total Creatine Kinase 93, C-Reactive Protein, Quantitative 2.3H, Pro-B-Type Natriuretic Peptide 87295M, Total Protein 5.4L, Albumin 2.5L, Globulin 2.9, Albumin/Globulin Ratio 0.8L 07/30/16 05:30: Urine Eosinophils None seen Current Medications Medications (Trade) Dose Ordered Sig/Jagruti Route PRN Reason Start Time Stop Time Status Last Admin Dose Admin Acetaminophen (Tylenol) 650 mg Q4H PRN ORAL T>100.5 07/26/16 17:00 08/25/16 16:59 Albuterol/ Ipratropium (DuoNeb 0.5-3(2.5)mg/3ml) 3 ml Q4H PRN HHN Shortness of Breath 07/26/16 17:00 07/31/16 16:59 07/29/16 19:23 Atenolol (Tenormin) 50 mg BID ORAL 07/30/16 18:00 08/29/16 17:59 Clonidine HCl (Catapres) 0.1 mg Q4H PRN ORAL SBP>160 07/26/16 17:00 08/25/16 16:59 Clopidogrel Bisulfate (Plavix) 75 mg DAILY ORAL 07/27/16 09:00 08/26/16 08:59 07/30/16 08:06 Dextrose (Dextrose 50%) STAT PRN IV Hypoglycemia 07/26/16 17:00 08/25/16 16:59 Furosemide (Lasix) 20 mg EVERY 12 HOURS IV 07/28/16 13:00 08/27/16 12:59 07/30/16 11:33 Haloperidol Lactate (Haldol) 2.5 mg Q6H PRN IM Agitation 07/29/16 09:45 08/28/16 09:44 07/30/16 01:34 Magnesium Sulfate (Magnesium Sulfate 1gm/100ml) 100 ml @ 100 mls/hr Q1H IVPB 07/30/16 10:00 07/30/16 13:59 07/30/16 11:33 Metoprolol Tartrate 10 mg 10 mg Q5MIN X 3 IVP 07/30/16 09:15 07/30/16 23:59 07/30/16 10:03 Midodrine (Pro-Amatine) 5 mg BEFORE BREAKFAST ORAL 07/29/16 06:30 08/28/16 06:29 07/30/16 06:30 Morphine Sulfate (Morphine Sulfate) 1 mg Q4H PRN IVP For Pain 7-10 07/26/16 17:00 08/02/16 16:59 07/30/16 04:28 Nitroglycerin (Ntg) 0.4 mg Q5M X 3 DOSES PRN SL Prn Chest Pain 07/26/16 17:00 08/25/16 16:59 Ondansetron HCl (Zofran) 4 mg Q6H PRN IVP Nausea & Vomiting 07/26/16 17:00 08/25/16 16:59 Pantoprazole 40 mg 40 mg EVERY 12 HOURS IVP 07/27/16 21:00 08/26/16 20:59 07/30/16 08:07 Phosphorus (Phospha 250 Neutral) 500 mg THREE TIMES A DAY ORAL 07/29/16 13:00 08/28/16 12:59 07/30/16 08:06 Piperacillin Sod/ Tazobactam Sod/ Dextrose (Zosyn/D5W) 110 ml @ 27.5 mls/hr Q8HR@0200,1000,1800 IVPB 07/28/16 18:00 08/04/16 17:59 07/30/16 10:08 Potassium Phosphate 30 mm/ Sodium Chloride 285 ml @ 47.5 mls/hr ONCE ONCE IV 07/30/16 12:00 07/30/16 17:59 Potassium Chloride (KCl 10% 40mEq Oral solution) 40 meq TWICE A DAY ORAL 07/30/16 09:00 07/30/16 18:01 07/30/16 09:20 Vitamin A/Vitamin D (A & D Oint) 1 applic EVERY 12 HOURS TOPIC 07/26/16 21:00 08/25/16 20:59 07/30/16 08:07 Warfarin Sodium (Coumadin per pharmacy) 1 ea DAILY PRN MISC Per rx protocol 07/26/16 17:00 08/25/16 16:59 LISETTE ANTUNEZ Jul 30, 2016 11:53
[2016-07-30 12:00] VITALS: BP 119/59
[2016-07-30] MEDS ORDERED: Potassium Phosphate 30 MM in NS 275 ML IV ONE (12:00)
--- NOTE | 2016-07-30 14:13 | General Progress Note ---
Assessment/Plan Status: unchanged Assessment/Plan Acute Renal Failure - Cr deneen from 0.8 to 1.9- Multifactorial: Low BP- Vanco.... 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 elevated transaminase , likely due to shock liver , improving hypokalemia COPD Hx of lung Ca urinary retention , has hadley now Sugg: Hydrate- Correct abnormal electrolytes- ordered Gastric support- Avoid Nephrotoxics- Aim to optimize cardiac and pulmonary status Subjective ROS Limited/Unobtainable: No Constitutional: Reports: malaise, weakness Allergies: Coded Allergies: No Known Allergies (Verified , 04/10/06) Objective Last 24 Hour Vital Signs Date Time Temp Pulse Resp B/P Pulse Ox O2 Delivery O2 Flow Rate FiO2 07/30/16 12:58 96 42 99 Facial 40 07/30/16 12:00 40 07/30/16 10:03 150 102/58 07/30/16 09:08 141 38 100 Facial 40 07/30/16 08:06 144 117/75 07/30/16 08:00 163 07/30/16 08:00 40 07/30/16 08:00 98.2 98 40 117/70 95 Bi-pap 40 07/30/16 07:06 Bi-pap 40 07/30/16 07:06 138 35 100 Facial 40 07/30/16 07:06 100 Bi-pap 40 07/30/16 05:39 121 35 100 Facial 40 07/30/16 04:00 40 07/30/16 04:00 98.4 107 26 113/77 94 Bi-pap 40 07/30/16 04:00 149 07/30/16 02:46 116 33 100 Facial 40 07/30/16 01:00 103 28 100 Facial 40 07/30/16 00:10 99 26 Bi-pap 40 07/30/16 00:00 97.9 107 44 118/48 99 Bi-pap 40 07/30/16 00:00 40 07/30/16 00:00 103 07/29/16 23:05 112 27 100 Facial 40 07/29/16 21:06 90 32 97 Facial 40 07/29/16 20:06 97.2 120 25 121/59 99 Bi-pap 07/29/16 20:00 40 07/29/16 19:25 123 27 100 Facial 70 07/29/16 19:24 Bi-pap 70 07/29/16 19:23 100 Bi-pap 70 07/29/16 19:09 126 07/29/16 17:14 4.0 07/29/16 16:00 98.1 109 20 117/74 100 Nasal Cannula 07/29/16 16:00 110 07/29/16 14:20 100 Nasal Cannula 4.0 Intake and Output 07/29/16 07/30/16 19:00 07:00 Intake Total 150 ml 260.0 ml Output Total 750 ml 1600 ml Balance -600 ml -1340.0 ml Intake Oral 150 ml 150 ml IV Total 110.0 ml Output Urine Total 750 ml 1600 ml # Bowel Movements 2 6 Laboratory Tests 07/30/16 03:15: White Blood Count 18.5#H, Red Blood Count 3.32L, Hemoglobin 10.9L, Hematocrit 33.1L, Mean Corpuscular Volume 100H, Mean Corpuscular Hemoglobin 32.9H, Mean Corpuscular Hemoglobin Concent 33.0, Red Cell Distribution Width 14.3, Platelet Count 189, Mean Platelet Volume 6.4L, Neutrophils (%) (Auto) , Lymphocytes (%) ( Auto) , Monocytes (%) (Auto) , Eosinophils (%) (Auto) , Basophils (%) (Auto) , Differential Total Cells Counted 100, Neutrophils % (Manual) 93H, Lymphocytes % (Manual) 1L, Monocytes % (Manual) 4, Eosinophils % (Manual) 0, Basophils % ( Manual) 0, Band Neutrophils 2, Platelet Estimate Adequate, Platelet Morphology Normal, Macrocytosis 1+, Prothrombin Time 46.8H, Prothromb Time International Ratio 4.4H, Sodium Level 145, Potassium Level 2.3*L, Chloride Level 103, Carbon Dioxide Level 24, Anion Gap 18H, Blood Urea Nitrogen 11, Creatinine 1.0H, Estimat Glomerular Filtration Rate 56.9, Glucose Level 112H, Uric Acid 2.8L, Calcium Level 7.2L, Phosphorus Level 1.4L, Magnesium Level 1.1L, Total Bilirubin 0.9, Gamma Glutamyl Transpeptidase 105H, Aspartate Amino Transf (AST/ SGOT) 106H, Alanine Aminotransferase (ALT/SGPT) 370H, Alkaline Phosphatase 286H , Total Creatine Kinase 93, C-Reactive Protein, Quantitative 2.3H, Pro-B-Type Natriuretic Peptide 26177N, Total Protein 5.4L, Albumin 2.5L, Globulin 2.9, Albumin/Globulin Ratio 0.8L 07/30/16 05:30: Urine Eosinophils None seen Height (Feet): 5 Height (Inches): 6.00 Weight (Pounds): 153 General Appearance: moderate distress Neck: stiff neck Cardiovascular: tachycardia Respiratory/Chest: decreased breath sounds Abdomen: soft, distended Objective other physical exam not changed GINA VILLARREAL Jul 30, 2016 14:13
[2016-07-30 16:00] VITALS: BP 80/47
[2016-07-30] MEDS ORDERED: Tubing IV Secondary IV ONE (17:46)
[2016-07-30] MEDS ORDERED: NS 275ml ONE (17:46)
[2016-07-30 19:00] VITALS: BP 102/67
--- NOTE | 2016-07-30 19:16 | Cardiology Progress Note ---
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 electolyte abn cad lung cancer anemia diarrhea stool c diff bb diuretic once stable will need acei electrolyte repletion [id number] Objective Last 24 Hour Vital Signs Date Time Temp Pulse Resp B/P Pulse Ox O2 Delivery O2 Flow Rate FiO2 07/30/16 18:35 92 130/88 07/30/16 17:01 90 24 98 07/30/16 16:00 96.8 93 20 80/47 99 Bi-pap 40 07/30/16 14:52 100 40 95 Facial 40 07/30/16 12:58 96 42 99 Facial 40 07/30/16 12:00 101 07/30/16 12:00 98.1 104 41 119/59 100 Bi-pap 40 07/30/16 12:00 40 07/30/16 10:03 150 102/58 07/30/16 09:08 141 38 100 Facial 40 07/30/16 08:06 144 117/75 07/30/16 08:00 163 07/30/16 08:00 40 07/30/16 08:00 98.2 98 40 117/70 95 Bi-pap 40 07/30/16 07:06 Bi-pap 40 07/30/16 07:06 138 35 100 Facial 40 07/30/16 07:06 100 Bi-pap 40 07/30/16 05:39 121 35 100 Facial 40 07/30/16 04:00 40 07/30/16 04:00 98.4 107 26 113/77 94 Bi-pap 40 07/30/16 04:00 149 07/30/16 02:46 116 33 100 Facial 40 07/30/16 01:00 103 28 100 Facial 40 07/30/16 00:10 99 26 Bi-pap 40 07/30/16 00:00 97.9 107 44 118/48 99 Bi-pap 40 07/30/16 00:00 40 07/30/16 00:00 103 07/29/16 23:05 112 27 100 Facial 40 07/29/16 21:06 90 32 97 Facial 40 07/29/16 20:06 97.2 120 25 121/59 99 Bi-pap 07/29/16 20:00 40 07/29/16 19:25 123 27 100 Facial 70 07/29/16 19:24 Bi-pap 70 07/29/16 19:23 100 Bi-pap 70 Intake and Output 07/29/16 07/30/16 19:00 07:00 Intake Total 150 ml 260.0 ml Output Total 750 ml 1600 ml Balance -600 ml -1340.0 ml Intake Oral 150 ml 150 ml IV Total 110.0 ml Output Urine Total 750 ml 1600 ml # Bowel Movements 2 6 Laboratory Tests Test 07/30/16 03:15 07/30/16 05:30 White Blood Count 18.5 K/UL (4.8-10.8) #H Red Blood Count 3.32 M/UL (4.20-5.40) L Hemoglobin 10.9 G/DL (12.0-16.0) L Hematocrit 33.1 % (37.0-47.0) L Mean Corpuscular Volume 100 FL (80-99) H Mean Corpuscular Hemoglobin 32.9 PG (27.0-31.0) H Mean Corpuscular Hemoglobin Concent 33.0 G/DL (32.0-36.0) Red Cell Distribution Width 14.3 % (11.6-14.8) Platelet Count 189 K/UL (150-450) Mean Platelet Volume 6.4 FL (6.5-10.1) L Neutrophils (%) (Auto) % (45.0-75.0) Lymphocytes (%) (Auto) % (20.0-45.0) Monocytes (%) (Auto) % (1.0-10.0) Eosinophils (%) (Auto) % (0.0-3.0) Basophils (%) (Auto) % (0.0-2.0) Differential Total Cells Counted 100 Neutrophils % (Manual) 93 % (45-75) H Lymphocytes % (Manual) 1 % (20-45) L Monocytes % (Manual) 4 % (1-10) Eosinophils % (Manual) 0 % (0-3) Basophils % (Manual) 0 % (0-2) Band Neutrophils 2 % (0-8) Platelet Estimate Adequate Platelet Morphology Normal Macrocytosis 1+ Prothrombin Time 46.8 SEC (9.30-11.50) H Prothromb Time International Ratio 4.4 (0.9-1.1) H Sodium Level 145 mEQ/L (135-145) Potassium Level 2.3 mEQ/L (3.4-4.9) *L Chloride Level 103 mEQ/L (98-107) Carbon Dioxide Level 24 mEQ/L (20-30) Anion Gap 18 (5-15) H Blood Urea Nitrogen 11 mg/dL (7-23) Creatinine 1.0 mg/dL (0.5-0.9) H Estimat Glomerular Filtration Rate 56.9 mL/min (>60) Glucose Level 112 mg/dL (74-106) H Uric Acid 2.8 mg/dL (3.0-7.5) L Calcium Level 7.2 mg/dL (8.6-10.2) L Phosphorus Level 1.4 mg/dL (2.5-4.8) L Magnesium Level 1.1 mg/dL (1.7-2.5) L Total Bilirubin 0.9 mg/dL (0.0-1.2) Gamma Glutamyl Transpeptidase 105 U/L (5-36) H Aspartate Amino Transf (AST/SGOT) 106 U/L (5-40) H Alanine Aminotransferase (ALT/SGPT) 370 U/L (3-33) H Alkaline Phosphatase 286 U/L (35-104) H Total Creatine Kinase 93 U/L (26-140) C-Reactive Protein, Quantitative 2.3 mg/dL (< 0.5) H Pro-B-Type Natriuretic Peptide 51075 pg/mL (0-125) H Total Protein 5.4 g/dL (6.6-8.7) L Albumin 2.5 g/dL (3.5-5.2) L Globulin 2.9 g/dL Albumin/Globulin Ratio 0.8 (1.0-2.7) L Urine Eosinophils None seen HIPOLITO LUCERO Jul 30, 2016 19:16
[2016-07-30] MEDS ORDERED: Nitroglycerin Subl 0.4mg tab (Bottle Of 25) SL PRN (22:30)
[2016-07-30] MEDS ORDERED: Ondansetron ODT 8mg tab ORAL PRN (22:30)
--- NOTE | 2016-07-30 23:48 | Progress Note ---
SUBJECTIVE: The patient continues to present with confusion. She is disoriented, however, she is more alert and she is in no apparent distress and still not engaged during the evaluation and is unable to answer questions appropriately. She still has episodes of anxiety and agitation. MENTAL STATUS EXAMINATION: Alert and oriented to self. She still presents with waxing and waning consciousness. Mood is anxious to neutral. Affect is blunted. Congruent with mood. Thought process is concrete. Thought content, there is no suicidal or homicidal ideation. Cognition is impaired. ASSESSMENT: Delirium due to general medical condition. PLAN: The patient will be continued on Haldol IM p.r.n. Avoid benzodiazepines. Avoid opiate pain medication and anticholinergics. Khurram Hoskins M.D. DR: GAIL JOB#: [id number] CC:
[2016-07-31 00:20] VITALS: BP 98/49
[2016-07-31] MEDS ORDERED: DuoNeb 0.5-3(2.5)mg/3ml neb HHN PRN (01:00)
[2016-07-31] MEDS: Piperacillin/Tazobactam 3.375 GM in D5W 110 ML IVPB SCH ×3 (02:41→18:59)
[2016-07-31] MEDS ORDERED: Haloperidol 5mg/ml Inj IM PRN (03:45)
[2016-07-31 04:12] VITALS: BP 84/52
[2016-07-31 08:43] VITALS: BP 112/62
[2016-07-31 09:29] LABS: MEAN CORPUSCULAR HEMOGLOBIN 31.5 PG (27.0-31.0); MEAN CORPUSCULAR HGB CONC 31.2 G/DL (32.0-36.0); MEAN CORPUSCULAR VOLUME 101 FL (80-99); PLATELET COUNT 191 K/UL (150-450); RED BLOOD COUNT 3.48 M/UL (4.20-5.40); RED CELL DISTRIBUTION WIDTH 14.6 % (11.6-14.8); WHITE BLOOD COUNT 15.7 K/UL (4.8-10.8)
[2016-07-31] MEDS: Phospha 250 Neutral tab ORAL SCH ×3 (09:43→17:41)
[2016-07-31] MEDS: Ascorbic Acid 500mg tab ORAL SCH (09:43)
[2016-07-31] MEDS: Multivitamin w/Minerals tab ORAL SCH (09:43)
[2016-07-31] MEDS: Vitamin A&D Oint 2oz Tube TOPIC SCH ×2 (09:46→21:38)
[2016-07-31 09:48] LABS: ALANINE AMINOTRANSFERASE 233 U/L (3-33); ALBUMIN/GLOBULIN RATIO 0.9 (1.0-2.7); ANION GAP 18 (5-15); ASPARTATE AMINO TRANSFERASE 45 U/L (5-40); CALCIUM 7.6 mg/dL (8.6-10.2); CARBON DIOXIDE 27 mEQ/L (20-30); CHLORIDE 102 mEQ/L (98-107); CREATININE 0.9 mg/dL (0.5-0.9); GLOMERULAR FILTRATION RATE > 60 mL/min (>60); HEMOLYSIS 4; SODIUM 147 mEQ/L (135-145); TOTAL PROTEIN 5.6 g/dL (6.6-8.7)
[2016-07-31 09:51] LABS: INR 2.5 (0.9-1.1); PROTHROMBIN TIME 26.2 SEC (9.30-11.50)
[2016-07-31 10:00] LABS: MAGNESIUM 1.6 mg/dL (1.7-2.5); PHOSPHORUS 2.4 mg/dL (2.5-4.8)
[2016-07-31 10:04] LABS: TROPONIN I < 0.30 ng/mL (<=0.30)
[2016-07-31 10:41] LABS: POTASSIUM 2.3 mEQ/L (3.4-4.9)
[2016-07-31 10:57] LABS: ANISOCYTOSIS 1+; BAND NEUTROPHILS % (MANUAL) 1 % (0-8); BASOPHILS % (MANUAL) 0 % (0-2); EOSINOPHILS % (MANUAL) 0 % (0-3); LYMPHOCYTES % (MANUAL) 5 % (20-45); MACROCYTES 1+; NEUTROPHILS % (MANUAL) 92 % (45-75); PLATELET ESTIMATE ADEQUATE; PLATELET MORPHOLOGY NORMAL; TOTAL CELLS COUNTED 100
[2016-07-31 10:58] LABS: HYPOCHROMASIA 1+
[2016-07-31] MEDS: Aspirin EC 81mg tab ORAL SCH (11:00)
--- NOTE | 2016-07-31 11:17 | General Progress Note ---
Assessment/Plan Status: stable - from renal stand Status Narrative low K and Phos persists Assessment/Plan status: Acute Renal Failure - Cr deneen from 0.8 to 1.9- Multifactorial: Low BP- Vanco.... 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 elevated transaminase , likely due to shock liver , improving hypokalemia COPD Hx of lung Ca urinary retention , has hadley now Sugg: Hydrate- Correct abnormal electrolytes- ordered Gastric support- Avoid Nephrotoxics- Aim to optimize cardiac and pulmonary status Subjective ROS Limited/Unobtainable: No Constitutional: Reports: malaise, other - off BIPAP, weakness Allergies: Coded Allergies: No Known Allergies (Verified , 04/10/06) Objective Last 24 Hour Vital Signs Date Time Temp Pulse Resp B/P Pulse Ox O2 Delivery O2 Flow Rate FiO2 07/31/16 09:46 98 112/62 07/31/16 08:43 97.2 98 22 112/62 100 Nasal Cannula 3.0 07/31/16 07:45 Nasal Cannula 3.0 32 07/31/16 07:45 100 Nasal Cannula 3.0 32 07/31/16 04:12 98.5 93 18 84/52 97 Room Air 07/31/16 03:42 94 07/31/16 00:20 98.7 92 18 98/49 99 Nasal Cannula 4.0 07/30/16 23:50 90 07/30/16 23:50 90 07/30/16 20:36 100 Nasal Cannula 3.0 32 07/30/16 20:36 Nasal Cannula 3.0 32 07/30/16 20:00 40 07/30/16 20:00 90 07/30/16 19:00 97.3 92 20 102/67 100 Bi-pap 40 07/30/16 18:35 92 130/88 07/30/16 17:01 90 24 98 07/30/16 16:00 92 07/30/16 16:00 40 07/30/16 16:00 96.8 93 20 80/47 99 Bi-pap 40 07/30/16 14:52 100 40 95 Facial 40 07/30/16 12:58 96 42 99 Facial 40 07/30/16 12:00 101 07/30/16 12:00 98.1 104 41 119/59 100 Bi-pap 40 07/30/16 12:00 40 Intake and Output 07/30/16 07/31/16 19:00 07:00 Intake Total 1005.0 ml Output Total 1000 ml 1350 ml Balance 5.0 ml -1350 ml Intake Oral 800 ml IV Total 205.0 ml Output Urine Total 1000 ml 1350 ml # Bowel Movements 1 1 Laboratory Tests 07/30/16 23:00: Stool Occult Blood [Pending] 07/31/16 09:03: White Blood Count 15.7H, Red Blood Count 3.48L, Hemoglobin 11.0L, Hematocrit 35.2L, Mean Corpuscular Volume 101H, Mean Corpuscular Hemoglobin 31.5H, Mean Corpuscular Hemoglobin Concent 31.2L, Red Cell Distribution Width 14.6, Platelet Count 191, Mean Platelet Volume 7.0, Neutrophils (%) (Auto) , Lymphocytes (%) (Auto) , Monocytes (%) (Auto) , Eosinophils (%) (Auto) , Basophils (%) (Auto) , Differential Total Cells Counted 100, Neutrophils % ( Manual) 92H, Lymphocytes % (Manual) 5L, Monocytes % (Manual) 2, Eosinophils % ( Manual) 0, Basophils % (Manual) 0, Band Neutrophils 1, Platelet Estimate Adequate, Platelet Morphology Normal, Hypochromasia 1+, Anisocytosis 1+, Macrocytosis 1+, Prothrombin Time 26.2H, Prothromb Time International Ratio 2.5H , Sodium Level 147H, Potassium Level 2.3*L, Chloride Level 102, Carbon Dioxide Level 27, Anion Gap 18H, Blood Urea Nitrogen 14, Creatinine 0.9, Estimat Glomerular Filtration Rate > 60, Glucose Level 130H, Calcium Level 7.6L, Phosphorus Level 2.4L, Magnesium Level 1.6L, Total Bilirubin 0.6, Aspartate Amino Transf (AST/SGOT) 45H, Alanine Aminotransferase (ALT/SGPT) 233H, Alkaline Phosphatase 229H, Troponin I < 0.30, Total Protein 5.6L, Albumin 2.7L, Globulin 2.9, Albumin/Globulin Ratio 0.9L Height (Feet): 5 Height (Inches): 6.00 Weight (Pounds): 153 General Appearance: no apparent distress, lethargic Cardiovascular: tachycardia Respiratory/Chest: decreased breath sounds Abdomen: soft Objective other physical exam not changed GINA VILLARREAL Jul 31, 2016 11:17
--- NOTE | 2016-07-31 11:23 | GI Progress Note ---
Assessment/Plan Problems: (1) Elevated CEA ICD Codes: R97.0 - Elevated carcinoembryonic antigen [CEA] SNOMED: 39508363, 331430642 (2) Shock liver ICD Codes: K72.00 - Acute and subacute hepatic failure without coma SNOMED: 845656011 (3) Anemia ICD Codes: D64.9 - Anemia, unspecified SNOMED: 869477724 (4) Liver disease ICD Codes: K76.9 - Liver disease, unspecified SNOMED: 461916624 Status: stable, progressing Status Narrative Discussed with Dr. Berman. Assessment/Plan ST eval >> INITIATE YVONNE MOIST PUREED AND NECTAR THICK LIQUIDS USING POSTED ASPIRATION AND REFLUX PRECAUTIONS AND 1 TO 1 FEEDING. abd U/S >> fatty infiltration, see full report. OB stool pending fu cdiff stable H&H, transfuse prn shock liver >> monitor LFTS>>> downtrending ppi GI procedures on hold, will require cardiac clearance fu labs Subjective Subjective hungry Objective Last 24 Hour Vital Signs Date Time Temp Pulse Resp B/P Pulse Ox O2 Delivery O2 Flow Rate FiO2 07/31/16 09:46 98 112/62 07/31/16 08:43 97.2 98 22 112/62 100 Nasal Cannula 3.0 07/31/16 07:45 Nasal Cannula 3.0 32 07/31/16 07:45 100 Nasal Cannula 3.0 32 07/31/16 04:12 98.5 93 18 84/52 97 Room Air 07/31/16 03:42 94 07/31/16 00:20 98.7 92 18 98/49 99 Nasal Cannula 4.0 07/30/16 23:50 90 07/30/16 23:50 90 07/30/16 20:36 100 Nasal Cannula 3.0 32 07/30/16 20:36 Nasal Cannula 3.0 32 07/30/16 20:00 40 07/30/16 20:00 90 07/30/16 19:00 97.3 92 20 102/67 100 Bi-pap 40 07/30/16 18:35 92 130/88 07/30/16 17:01 90 24 98 07/30/16 16:00 92 07/30/16 16:00 40 07/30/16 16:00 96.8 93 20 80/47 99 Bi-pap 40 07/30/16 14:52 100 40 95 Facial 40 07/30/16 12:58 96 42 99 Facial 40 07/30/16 12:00 101 07/30/16 12:00 98.1 104 41 119/59 100 Bi-pap 40 07/30/16 12:00 40 Intake and Output 07/30/16 07/31/16 19:00 07:00 Intake Total 1005.0 ml Output Total 1000 ml 1350 ml Balance 5.0 ml -1350 ml Intake Oral 800 ml IV Total 205.0 ml Output Urine Total 1000 ml 1350 ml # Bowel Movements 1 1 Laboratory Tests Test 07/30/16 23:00 07/31/16 09:03 Stool Occult Blood Pending White Blood Count 15.7 K/UL (4.8-10.8) H Red Blood Count 3.48 M/UL (4.20-5.40) L Hemoglobin 11.0 G/DL (12.0-16.0) L Hematocrit 35.2 % (37.0-47.0) L Mean Corpuscular Volume 101 FL (80-99) H Mean Corpuscular Hemoglobin 31.5 PG (27.0-31.0) H Mean Corpuscular Hemoglobin Concent 31.2 G/DL (32.0-36.0) L Red Cell Distribution Width 14.6 % (11.6-14.8) Platelet Count 191 K/UL (150-450) Mean Platelet Volume 7.0 FL (6.5-10.1) Neutrophils (%) (Auto) % (45.0-75.0) Lymphocytes (%) (Auto) % (20.0-45.0) Monocytes (%) (Auto) % (1.0-10.0) Eosinophils (%) (Auto) % (0.0-3.0) Basophils (%) (Auto) % (0.0-2.0) Differential Total Cells Counted 100 Neutrophils % (Manual) 92 % (45-75) H Lymphocytes % (Manual) 5 % (20-45) L Monocytes % (Manual) 2 % (1-10) Eosinophils % (Manual) 0 % (0-3) Basophils % (Manual) 0 % (0-2) Band Neutrophils 1 % (0-8) Platelet Estimate Adequate Platelet Morphology Normal Hypochromasia 1+ Anisocytosis 1+ Macrocytosis 1+ Prothrombin Time 26.2 SEC (9.30-11.50) H Prothromb Time International Ratio 2.5 (0.9-1.1) H Sodium Level 147 mEQ/L (135-145) H Potassium Level 2.3 mEQ/L (3.4-4.9) *L Chloride Level 102 mEQ/L (98-107) Carbon Dioxide Level 27 mEQ/L (20-30) Anion Gap 18 (5-15) H Blood Urea Nitrogen 14 mg/dL (7-23) Creatinine 0.9 mg/dL (0.5-0.9) Estimat Glomerular Filtration Rate > 60 mL/min (>60) Glucose Level 130 mg/dL (74-106) H Calcium Level 7.6 mg/dL (8.6-10.2) L Phosphorus Level 2.4 mg/dL (2.5-4.8) L Magnesium Level 1.6 mg/dL (1.7-2.5) L Total Bilirubin 0.6 mg/dL (0.0-1.2) Aspartate Amino Transf (AST/SGOT) 45 U/L (5-40) H Alanine Aminotransferase (ALT/SGPT) 233 U/L (3-33) H Alkaline Phosphatase 229 U/L (35-104) H Troponin I < 0.30 ng/mL (<=0.30) Total Protein 5.6 g/dL (6.6-8.7) L Albumin 2.7 g/dL (3.5-5.2) L Globulin 2.9 g/dL Albumin/Globulin Ratio 0.9 (1.0-2.7) L Height (Feet): 5 Height (Inches): 6.00 Weight (Pounds): 153 General Appearance: no apparent distress, alert, thin Cardiovascular: normal rate Respiratory/Chest: other - 2LNC Abdominal Exam: normal bowel sounds, non tender, soft Objective Service Date: 07/26/16 Procedure: US ABD Complete Indication: Abdominal pain Impression: Punctate echogenic focus dependently within the gallbladder possibly a tiny calculus or polyp measuring 3 mm. No sonographic evidence of acute cholecystitis. Slight increased echogenicity of the liver may suggest fatty infiltration. Clinical correlation recommended. Small left renal cyst. Mckenzie Taylor NJosi Jul 31, 2016 11:23
--- NOTE | 2016-07-31 11:44 | Diagnostic Imaging Report ---
Indication: DYSPNEA Technique: One view of the chest Comparison: 07/29/2016 Findings: Right jugular port catheter, aortic valve prosthesis again demonstrated. Stable cardiomegaly. Mild interstitial congestive changes appear slightly improved, as does aeration at the lung bases. Impression: Over 2 days, suggestion of slight improvement of interstitial parenchymal disease. Correlate with clinical findings Other stable findings as described
[2016-07-31 12:35] VITALS: BP 106/62
[2016-07-31] MEDS: Pantoprazole Inj IVP SCH ×2 (13:20→21:36)
[2016-07-31] MEDS ORDERED: Tubing IV Secondary IV ONE (15:03)
[2016-07-31] MEDS ORDERED: NS 275ml ONE (15:03)
[2016-07-31 16:00] VITALS: BP 94/50
[2016-07-31] MEDS ORDERED: Potassium Phosphate 30 MM in NS 275 ML IV ONE (16:00)
--- NOTE | 2016-07-31 16:16 | Internal Med Progress Note ---
Subjective Date of Service: Jul 31, 2016 Physician Name Jose Alfaro Attending Physician Todd Kendall MD Current Medications Medications (Trade) Dose Ordered Sig/Jagruti Route PRN Reason Start Time Stop Time Status Last Admin Dose Admin Acetaminophen (Tylenol) 650 mg Q4H PRN ORAL T>100.5 07/31/16 01:00 08/30/16 00:59 Albuterol/ Ipratropium (DuoNeb 0.5-3(2.5)mg/3ml) 3 ml Q4H PRN HHN Shortness of Breath 07/31/16 01:00 08/05/16 00:59 Ascorbic Acid (Vitamin C) 500 mg DAILY ORAL 07/31/16 09:00 08/30/16 08:59 07/31/16 09:43 Aspirin (Ecotrin) 81 mg DAILY ORAL 07/31/16 09:00 08/30/16 08:59 07/31/16 11:00 Atenolol (Tenormin) 50 mg BID ORAL 07/31/16 09:00 08/30/16 08:59 07/31/16 09:46 Clonidine HCl (Catapres) 0.1 mg Q4H PRN ORAL SBP>160 07/31/16 01:00 08/30/16 00:59 Clopidogrel Bisulfate (Plavix) 75 mg DAILY ORAL 07/31/16 09:00 08/30/16 08:59 07/31/16 09:42 Dextrose (Dextrose 50%) STAT PRN IV Hypoglycemia 07/31/16 17:00 08/30/16 16:59 Furosemide (Lasix) 20 mg EVERY 12 HOURS IV 07/31/16 09:00 08/30/16 08:59 07/31/16 13:19 Haloperidol Lactate (Haldol) 2.5 mg Q6H PRN IM Agitation 07/31/16 03:45 08/30/16 03:44 Metoprolol Tartrate (Lopressor) 10 mg Q5MIN X 3 IVP 07/30/16 22:30 08/29/16 22:29 Midodrine (Pro-Amatine) 5 mg BEFORE BREAKFAST ORAL 07/31/16 06:30 08/30/16 06:29 07/31/16 06:58 Morphine Sulfate (Morphine Sulfate) 1 mg Q4H PRN IVP For Pain 7-10 07/31/16 01:00 08/07/16 00:59 Multivitamins Therapeutic (Therapeutic Multivitamin) 1 ea DAILY ORAL 07/31/16 09:00 08/30/16 08:59 07/31/16 09:43 Nitroglycerin (Ntg) 0.4 mg Q5M X 3 DOSES PRN SL Prn Chest Pain 07/30/16 22:30 08/29/16 22:29 Ondansetron HCl (Zofran) 4 mg Q6H PRN IVP Nausea & Vomiting 07/30/16 23:00 08/29/16 22:59 Pantoprazole (Protonix) 40 mg EVERY 12 HOURS IVP 07/31/16 09:00 08/30/16 08:59 07/31/16 13:20 Phosphorus (Phospha 250 Neutral) 500 mg THREE TIMES A DAY ORAL 07/31/16 09:00 08/30/16 08:59 07/31/16 13:20 Piperacillin Sod/ Tazobactam Sod/ Dextrose (Zosyn/D5W) 110 ml @ 27.5 mls/hr Q8HR@0200,1000,1800 IVPB 07/31/16 02:00 08/07/16 01:59 07/31/16 09:47 Potassium Phosphate/Sodium Chloride (Potassium Phosphate/Sodium Chloride) 285 ml @ 47.5 mls/hr ONCE ONCE IV 07/31/16 16:00 07/31/16 21:59 Potassium Chloride (K-Dur) 40 meq TWICE A DAY ORAL 07/31/16 12:00 08/30/16 11:59 07/31/16 13:20 Pravastatin Sodium 80 mg 80 mg BEDTIME ORAL 07/31/16 21:00 08/30/16 20:59 Vitamin A/Vitamin D (A & D Oint) 1 applic EVERY 12 HOURS TOPIC 07/31/16 09:00 08/30/16 08:59 07/31/16 09:46 Warfarin Sodium (Coumadin) 2 mg COUMADIN ONCE ORAL 07/31/16 17:00 07/31/16 17:01 Warfarin Sodium 1 ea 1 ea DAILY PRN MISC Per rx protocol 07/31/16 09:00 08/30/16 08:59 Allergies: Coded Allergies: No Known Allergies (Verified , 04/10/06) ROS Limited/Unobtainable: Yes Subjective 56 YO F admitted with altered mental status. Cover for Int Jm Kendall. Tolerating nasal canula. Objective Last Vital Signs Date Time Temp Pulse Resp B/P Pulse Ox O2 Delivery O2 Flow Rate FiO2 07/31/16 12:35 98.2 92 22 106/62 100 Nasal Cannula 3.0 07/31/16 07:45 32 Laboratory Tests Test 07/31/16 09:03 White Blood Count 15.7 K/UL (4.8-10.8) H Red Blood Count 3.48 M/UL (4.20-5.40) L Hemoglobin 11.0 G/DL (12.0-16.0) L Hematocrit 35.2 % (37.0-47.0) L Mean Corpuscular Volume 101 FL (80-99) H Mean Corpuscular Hemoglobin 31.5 PG (27.0-31.0) H Mean Corpuscular Hemoglobin Concent 31.2 G/DL (32.0-36.0) L Red Cell Distribution Width 14.6 % (11.6-14.8) Platelet Count 191 K/UL (150-450) Mean Platelet Volume 7.0 FL (6.5-10.1) Neutrophils (%) (Auto) % (45.0-75.0) Lymphocytes (%) (Auto) % (20.0-45.0) Monocytes (%) (Auto) % (1.0-10.0) Eosinophils (%) (Auto) % (0.0-3.0) Basophils (%) (Auto) % (0.0-2.0) Differential Total Cells Counted 100 Neutrophils % (Manual) 92 % (45-75) H Lymphocytes % (Manual) 5 % (20-45) L Monocytes % (Manual) 2 % (1-10) Eosinophils % (Manual) 0 % (0-3) Basophils % (Manual) 0 % (0-2) Band Neutrophils 1 % (0-8) Platelet Estimate Adequate Platelet Morphology Normal Hypochromasia 1+ Anisocytosis 1+ Macrocytosis 1+ Prothrombin Time 26.2 SEC (9.30-11.50) H Prothromb Time International Ratio 2.5 (0.9-1.1) H Sodium Level 147 mEQ/L (135-145) H Potassium Level 2.3 mEQ/L (3.4-4.9) *L Chloride Level 102 mEQ/L (98-107) Carbon Dioxide Level 27 mEQ/L (20-30) Anion Gap 18 (5-15) H Blood Urea Nitrogen 14 mg/dL (7-23) Creatinine 0.9 mg/dL (0.5-0.9) Estimat Glomerular Filtration Rate > 60 mL/min (>60) Glucose Level 130 mg/dL (74-106) H Calcium Level 7.6 mg/dL (8.6-10.2) L Phosphorus Level 2.4 mg/dL (2.5-4.8) L Magnesium Level 1.6 mg/dL (1.7-2.5) L Total Bilirubin 0.6 mg/dL (0.0-1.2) Aspartate Amino Transf (AST/SGOT) 45 U/L (5-40) H Alanine Aminotransferase (ALT/SGPT) 233 U/L (3-33) H Alkaline Phosphatase 229 U/L (35-104) H Troponin I < 0.30 ng/mL (<=0.30) Total Protein 5.6 g/dL (6.6-8.7) L Albumin 2.7 g/dL (3.5-5.2) L Globulin 2.9 g/dL Albumin/Globulin Ratio 0.9 (1.0-2.7) L Intake and Output 07/30/16 07/31/16 19:00 07:00 Intake Total 1005.0 ml Output Total 1000 ml 1350 ml Balance 5.0 ml -1350 ml Intake Oral 800 ml IV Total 205.0 ml Output Urine Total 1000 ml 1350 ml # Bowel Movements 1 1 Objective General Appearance: WD/WN, no apparent distress, alert EENT: PERRL/EOMI, normal ENT inspection, TMs normal Neck: non-tender, normal alignment, supple Cardiovascular: normal peripheral pulses, normal rate, regular rhythm, regularly irregular, no gallop/murmur Respiratory/Chest: Nasal canula; chest wall non-tender, Wheezing bilat, respiratory distress, accessory muscle use Abdomen: normal bowel sounds, non tender, soft, no organomegaly, no mass, abnormal bowel sounds Extremities: normal range of motion Neurologic: nurse midwife 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 D/C levaquin; start zosyn. (2) CAD (coronary artery disease) (3) HTN (hypertension) Assessment & Plan: Cont atenolol (4) Hypercholesteremia (5) Renal insufficiency Assessment & Plan: See nephrology note. 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 See pulmonary note. (9) Agitation Assessment & Plan: Delirium per psych. Agitation meds to be managed by psychiatry only. D/W Dr Hoskins (10) Delirium due to another medical condition, acute, hyperactive Assessment & Plan: See psych note. (11) Hypokalemia Assessment & Plan: Replace potassium; see nephrology note. Status: progressing JOSE ALFARO Jul 31, 2016 16:16
[2016-07-31] MEDS ORDERED: Warfarin Sodium 2mg ORAL ONE (17:00)
--- NOTE | 2016-07-31 19:29 | Cardiology Progress Note ---
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 electolyte abn cad lung cancer anemia diarrhea hypotension stool c diff bb will dc diurtic as has diarhea and is hypotensive stool for c diff still not back once stable will need acei electrolyte repletion tele persoanlly reviewed Subjective Cardiovascular: Denies: chest pain, lightheadedness Respiratory: Denies: shortness of breath Gastrointestinal/Abdominal: Denies: abdominal pain Genitourinary: Denies: burning Objective Last 24 Hour Vital Signs Date Time Temp Pulse Resp B/P Pulse Ox O2 Delivery O2 Flow Rate FiO2 07/31/16 17:26 94 94/50 07/31/16 16:00 96.6 94 20 94/50 Nasal Cannula 2.0 88 07/31/16 12:35 98.2 92 22 106/62 100 Nasal Cannula 3.0 07/31/16 12:00 92 07/31/16 09:46 98 112/62 07/31/16 08:43 97.2 98 22 112/62 100 Nasal Cannula 3.0 07/31/16 08:00 104 07/31/16 07:45 Nasal Cannula 3.0 32 07/31/16 07:45 100 Nasal Cannula 3.0 32 07/31/16 04:12 98.5 93 18 84/52 97 Room Air 07/31/16 03:42 94 07/31/16 00:20 98.7 92 18 98/49 99 Nasal Cannula 4.0 07/30/16 23:50 90 07/30/16 23:50 90 07/30/16 20:36 100 Nasal Cannula 3.0 32 07/30/16 20:36 Nasal Cannula 3.0 32 07/30/16 20:00 40 07/30/16 20:00 90 General Appearance: no apparent distress, alert Neck: supple Cardiovascular: normal rate, regular rhythm Respiratory/Chest: lungs clear Abdomen: normal bowel sounds, non tender, soft Extremities: no swelling Intake and Output 07/30/16 07/31/16 19:00 07:00 Intake Total 1005.0 ml Output Total 1000 ml 1350 ml Balance 5.0 ml -1350 ml Intake Oral 800 ml IV Total 205.0 ml Output Urine Total 1000 ml 1350 ml # Bowel Movements 1 1 Laboratory Tests Test 07/31/16 09:03 White Blood Count 15.7 K/UL (4.8-10.8) H Red Blood Count 3.48 M/UL (4.20-5.40) L Hemoglobin 11.0 G/DL (12.0-16.0) L Hematocrit 35.2 % (37.0-47.0) L Mean Corpuscular Volume 101 FL (80-99) H Mean Corpuscular Hemoglobin 31.5 PG (27.0-31.0) H Mean Corpuscular Hemoglobin Concent 31.2 G/DL (32.0-36.0) L Red Cell Distribution Width 14.6 % (11.6-14.8) Platelet Count 191 K/UL (150-450) Mean Platelet Volume 7.0 FL (6.5-10.1) Neutrophils (%) (Auto) % (45.0-75.0) Lymphocytes (%) (Auto) % (20.0-45.0) Monocytes (%) (Auto) % (1.0-10.0) Eosinophils (%) (Auto) % (0.0-3.0) Basophils (%) (Auto) % (0.0-2.0) Differential Total Cells Counted 100 Neutrophils % (Manual) 92 % (45-75) H Lymphocytes % (Manual) 5 % (20-45) L Monocytes % (Manual) 2 % (1-10) Eosinophils % (Manual) 0 % (0-3) Basophils % (Manual) 0 % (0-2) Band Neutrophils 1 % (0-8) Platelet Estimate Adequate Platelet Morphology Normal Hypochromasia 1+ Anisocytosis 1+ Macrocytosis 1+ Prothrombin Time 26.2 SEC (9.30-11.50) H Prothromb Time International Ratio 2.5 (0.9-1.1) H Sodium Level 147 mEQ/L (135-145) H Potassium Level 2.3 mEQ/L (3.4-4.9) *L Chloride Level 102 mEQ/L (98-107) Carbon Dioxide Level 27 mEQ/L (20-30) Anion Gap 18 (5-15) H Blood Urea Nitrogen 14 mg/dL (7-23) Creatinine 0.9 mg/dL (0.5-0.9) Estimat Glomerular Filtration Rate > 60 mL/min (>60) Glucose Level 130 mg/dL (74-106) H Calcium Level 7.6 mg/dL (8.6-10.2) L Phosphorus Level 2.4 mg/dL (2.5-4.8) L Magnesium Level 1.6 mg/dL (1.7-2.5) L Total Bilirubin 0.6 mg/dL (0.0-1.2) Aspartate Amino Transf (AST/SGOT) 45 U/L (5-40) H Alanine Aminotransferase (ALT/SGPT) 233 U/L (3-33) H Alkaline Phosphatase 229 U/L (35-104) H Troponin I < 0.30 ng/mL (<=0.30) Total Protein 5.6 g/dL (6.6-8.7) L Albumin 2.7 g/dL (3.5-5.2) L Globulin 2.9 g/dL Albumin/Globulin Ratio 0.9 (1.0-2.7) L HIPOLITO LUCERO Jul 31, 2016 19:29
[2016-07-31 20:00] VITALS: BP 116/44
--- NOTE | 2016-07-31 22:13 | Pulmonology Progress Note ---
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 (6) S /P CABG/MVR Assessment/Plan bipap prn check electrolytes titrate fio2 to sat of 92% f/u renal function dvt prophylaxis all notes, meds reviewed cardiology evaluation appreciated check cbc, bmp Subjective ROS Limited/Unobtainable: No Interval Events: doing better Allergies: Coded Allergies: No Known Allergies (Verified , 04/10/06) Objective Last 24 Hour Vital Signs Date Time Temp Pulse Resp B/P Pulse Ox O2 Delivery O2 Flow Rate FiO2 07/31/16 20:07 Nasal Cannula 3.0 32 07/31/16 20:07 99 Nasal Cannula 3.0 32 07/31/16 20:00 96.6 94 19 116/44 Nasal Cannula 2.0 100 07/31/16 17:26 94 94/50 07/31/16 16:00 92 07/31/16 16:00 96.6 94 20 94/50 Nasal Cannula 2.0 88 07/31/16 12:35 98.2 92 22 106/62 100 Nasal Cannula 3.0 07/31/16 12:00 92 07/31/16 09:46 98 112/62 07/31/16 08:43 97.2 98 22 112/62 100 Nasal Cannula 3.0 07/31/16 08:00 104 07/31/16 07:45 Nasal Cannula 3.0 32 07/31/16 07:45 100 Nasal Cannula 3.0 32 07/31/16 04:12 98.5 93 18 84/52 97 Room Air 07/31/16 03:42 94 07/31/16 00:20 98.7 92 18 98/49 99 Nasal Cannula 4.0 07/30/16 23:50 90 07/30/16 23:50 90 Intake and Output 07/30/16 07/31/16 19:00 07:00 Intake Total 1005.0 ml Output Total 1000 ml 1350 ml Balance 5.0 ml -1350 ml Intake Oral 800 ml IV Total 205.0 ml Output Urine Total 1000 ml 1350 ml # Bowel Movements 1 1 Objective General Appearance: WD/WN HEENT: normocephalic, atraumatic Respiratory/Chest: chest wall non-tender, crackles/rales Cardiovascular: normal peripheral pulses, normal rate Abdomen: normal bowel sounds, soft, non tender Genitourinary: normal external genitalia Extremities: no cyanosis, no clubbing Skin: no rash Neurologic/Psychiatric: 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 grossly normal Laboratory Tests 07/31/16 09:03: White Blood Count 15.7H, Red Blood Count 3.48L, Hemoglobin 11.0L, Hematocrit 35.2L, Mean Corpuscular Volume 101H, Mean Corpuscular Hemoglobin 31.5H, Mean Corpuscular Hemoglobin Concent 31.2L, Red Cell Distribution Width 14.6, Platelet Count 191, Mean Platelet Volume 7.0, Neutrophils (%) (Auto) , Lymphocytes (%) (Auto) , Monocytes (%) (Auto) , Eosinophils (%) (Auto) , Basophils (%) (Auto) , Differential Total Cells Counted 100, Neutrophils % ( Manual) 92H, Lymphocytes % (Manual) 5L, Monocytes % (Manual) 2, Eosinophils % ( Manual) 0, Basophils % (Manual) 0, Band Neutrophils 1, Platelet Estimate Adequate, Platelet Morphology Normal, Hypochromasia 1+, Anisocytosis 1+, Macrocytosis 1+, Prothrombin Time 26.2H, Prothromb Time International Ratio 2.5H , Sodium Level 147H, Potassium Level 2.3*L, Chloride Level 102, Carbon Dioxide Level 27, Anion Gap 18H, Blood Urea Nitrogen 14, Creatinine 0.9, Estimat Glomerular Filtration Rate > 60, Glucose Level 130H, Calcium Level 7.6L, Phosphorus Level 2.4L, Magnesium Level 1.6L, Total Bilirubin 0.6, Aspartate Amino Transf (AST/SGOT) 45H, Alanine Aminotransferase (ALT/SGPT) 233H, Alkaline Phosphatase 229H, Troponin I < 0.30, Total Protein 5.6L, Albumin 2.7L, Globulin 2.9, Albumin/Globulin Ratio 0.9L Current Medications Medications (Trade) Dose Ordered Sig/Jagruti Route PRN Reason Start Time Stop Time Status Last Admin Dose Admin Acetaminophen (Tylenol) 650 mg Q4H PRN ORAL T>100.5 07/31/16 01:00 08/30/16 00:59 Albuterol/ Ipratropium (DuoNeb 0.5-3(2.5)mg/3ml) 3 ml Q4H PRN HHN Shortness of Breath 07/31/16 01:00 08/05/16 00:59 Ascorbic Acid (Vitamin C) 500 mg DAILY ORAL 07/31/16 09:00 08/30/16 08:59 07/31/16 09:43 Aspirin (Ecotrin) 81 mg DAILY ORAL 07/31/16 09:00 08/30/16 08:59 07/31/16 11:00 Atenolol (Tenormin) 50 mg BID ORAL 07/31/16 09:00 08/30/16 08:59 07/31/16 09:46 Clonidine HCl (Catapres) 0.1 mg Q4H PRN ORAL SBP>160 07/31/16 01:00 08/30/16 00:59 Clopidogrel Bisulfate (Plavix) 75 mg DAILY ORAL 07/31/16 09:00 08/30/16 08:59 07/31/16 09:42 Dextrose (Dextrose 50%) STAT PRN IV Hypoglycemia 07/31/16 17:00 08/30/16 16:59 Furosemide (Lasix) 20 mg EVERY 12 HOURS IV 07/31/16 09:00 08/30/16 08:59 07/31/16 21:36 Haloperidol Lactate (Haldol) 2.5 mg Q6H PRN IM Agitation 07/31/16 03:45 08/30/16 03:44 Metoprolol Tartrate (Lopressor) 10 mg Q5MIN X 3 IVP 07/30/16 22:30 08/29/16 22:29 Midodrine (Pro-Amatine) 5 mg BEFORE BREAKFAST ORAL 07/31/16 06:30 08/30/16 06:29 07/31/16 06:58 Morphine Sulfate (Morphine Sulfate) 1 mg Q4H PRN IVP For Pain 7-10 07/31/16 01:00 08/07/16 00:59 Multivitamins Therapeutic (Therapeutic Multivitamin) 1 ea DAILY ORAL 07/31/16 09:00 08/30/16 08:59 07/31/16 09:43 Nitroglycerin (Ntg) 0.4 mg Q5M X 3 DOSES PRN SL Prn Chest Pain 07/30/16 22:30 08/29/16 22:29 Ondansetron HCl (Zofran) 4 mg Q6H PRN IVP Nausea & Vomiting 07/30/16 23:00 08/29/16 22:59 Pantoprazole (Protonix) 40 mg EVERY 12 HOURS IVP 07/31/16 09:00 08/30/16 08:59 07/31/16 21:36 Phosphorus (Phospha 250 Neutral) 500 mg THREE TIMES A DAY ORAL 07/31/16 09:00 08/30/16 08:59 07/31/16 17:41 Piperacillin Sod/ Tazobactam Sod/ Dextrose (Zosyn/D5W) 110 ml @ 27.5 mls/hr Q8HR@0200,1000,1800 IVPB 07/31/16 02:00 08/07/16 01:59 07/31/16 18:59 Potassium Chloride (K-Dur) 40 meq TWICE A DAY ORAL 07/31/16 12:00 08/30/16 11:59 07/31/16 17:41 Pravastatin Sodium 80 mg 80 mg BEDTIME ORAL 07/31/16 21:00 08/30/16 20:59 07/31/16 21:37 Vitamin A/Vitamin D (A & D Oint) 1 applic EVERY 12 HOURS TOPIC 07/31/16 09:00 08/30/16 08:59 07/31/16 21:38 Warfarin Sodium (Coumadin per pharmacy) 1 ea DAILY PRN MISC Per rx protocol 07/31/16 09:00 08/30/16 08:59 LISETTE ANTUNEZ Jul 31, 2016 22:13
[2016-08-01 00:25] VITALS: BP 95/58
[2016-08-01] MEDS: Piperacillin/Tazobactam 3.375 GM in D5W 110 ML IVPB SCH ×2 (02:00→10:27)
[2016-08-01 04:11] VITALS: BP 110/59
[2016-08-01] MEDS: Morphine Sulfate 2mg/ml Inj IVP PRN ×5 (05:06→22:17)
[2016-08-01 07:12] LABS: INR 2.2 (0.9-1.1); MEAN CORPUSCULAR HEMOGLOBIN 32.1 PG (27.0-31.0); MEAN CORPUSCULAR HGB CONC 32.2 G/DL (32.0-36.0); MEAN CORPUSCULAR VOLUME 100 FL (80-99); MEAN PLATELET VOLUME 7.4 FL (6.5-10.1); PLATELET COUNT 198 K/UL (150-450); RED BLOOD COUNT 3.72 M/UL (4.20-5.40); RED CELL DISTRIBUTION WIDTH 14.6 % (11.6-14.8); WHITE BLOOD COUNT 17.7 K/UL (4.8-10.8)
[2016-08-01 07:20] LABS: ALANINE AMINOTRANSFERASE 193 U/L (3-33); ALBUMIN/GLOBULIN RATIO 0.8 (1.0-2.7); ASPARTATE AMINO TRANSFERASE 34 U/L (5-40); CARBON DIOXIDE 26 mEQ/L (20-30); CHLORIDE 94 mEQ/L (98-107); CREATININE 0.8 mg/dL (0.5-0.9); CRP QUANT 1.2 mg/dL (< 0.5); GLOMERULAR FILTRATION RATE > 60 mL/min (>60); HEMOLYSIS 5; MAGNESIUM 1.9 mg/dL (1.7-2.5); PHOSPHORUS 3.5 mg/dL (2.5-4.8); SODIUM 141 mEQ/L (135-145); TOTAL PROTEIN 6.5 g/dL (6.6-8.7); URIC ACID 1.7 mg/dL (3.0-7.5)
[2016-08-01 07:33] LABS: ANION GAP 21 (5-15)
[2016-08-01 07:41] LABS: POTASSIUM 2.3 mEQ/L (3.4-4.9)
[2016-08-01 08:32] LABS: BAND NEUTROPHILS % (MANUAL) 4 % (0-8); EOSINOPHILS % (MANUAL) 2 % (0-3); LYMPHOCYTES % (MANUAL) 6 % (20-45); NEUTROPHILS % (MANUAL) 81 % (45-75); TOTAL CELLS COUNTED 100
[2016-08-01 08:33] LABS: BASOPHILS % (MANUAL) 0 % (0-2); PLATELET ESTIMATE ADEQUATE; PLATELET MORPHOLOGY NORMAL
[2016-08-01 08:48] VITALS: BP 95/64
[2016-08-01] MEDS: Vitamin A&D Oint 2oz Tube TOPIC SCH ×2 (09:00→20:53)
--- NOTE | 2016-08-01 10:07 | General Progress Note ---
Assessment/Plan Status: unchanged Assessment/Plan status: Acute Renal Failure - Cr deneen from 0.8 to 1.9- Multifactorial: Low BP- Vanco.... 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 elevated transaminase , likely due to shock liver , improving hypokalemia COPD Hx of lung Ca urinary retention , has hadley now Sugg: K supplement Diuresis Correct abnormal electrolytes- ordered Gastric support- Avoid Nephrotoxics- Aim to optimize cardiac and pulmonary status Subjective ROS Limited/Unobtainable: No Constitutional: Reports: malaise, weakness Allergies: Coded Allergies: No Known Allergies (Verified , 04/10/06) Objective Last 24 Hour Vital Signs Date Time Temp Pulse Resp B/P Pulse Ox O2 Delivery O2 Flow Rate FiO2 08/01/16 08:48 97.0 104 20 95/64 100 Nasal Cannula 3.0 08/01/16 07:43 Nasal Cannula 3.0 08/01/16 07:42 100 Nasal Cannula 3.0 08/01/16 04:11 98.7 106 18 110/59 100 Nasal Cannula 3.0 08/01/16 04:00 106 08/01/16 00:25 98.2 99 19 95/58 98 Nasal Cannula 3.0 08/01/16 00:00 101 07/31/16 20:07 Nasal Cannula 3.0 32 07/31/16 20:07 99 Nasal Cannula 3.0 32 07/31/16 20:00 96 07/31/16 20:00 96.6 94 19 116/44 Nasal Cannula 2.0 100 07/31/16 17:26 94 94/50 07/31/16 16:00 92 07/31/16 16:00 96.6 94 20 94/50 Nasal Cannula 2.0 88 07/31/16 12:35 98.2 92 22 106/62 100 Nasal Cannula 3.0 07/31/16 12:00 92 Intake and Output 07/31/16 08/01/16 19:00 07:00 Intake Total 790.5 ml 890.0 ml Output Total 100 ml 1150 ml Balance 690.5 ml -260.0 ml Intake Oral 480 ml 480 ml IV Total 310.5 ml 410.0 ml Output Urine Total 100 ml 1150 ml # Bowel Movements 9 4 Laboratory Tests 08/01/16 05:35: White Blood Count 17.7H, Red Blood Count 3.72L, Hemoglobin 11.9L, Hematocrit 37.1, Mean Corpuscular Volume 100H, Mean Corpuscular Hemoglobin 32.1H, Mean Corpuscular Hemoglobin Concent 32.2, Red Cell Distribution Width 14.6, Platelet Count 198, Mean Platelet Volume 7.4, Neutrophils (%) (Auto) , Lymphocytes (%) ( Auto) , Monocytes (%) (Auto) , Eosinophils (%) (Auto) , Basophils (%) (Auto) , Differential Total Cells Counted 100, Neutrophils % (Manual) 81H, Lymphocytes % (Manual) 6L, Monocytes % (Manual) 7, Eosinophils % (Manual) 2, Basophils % ( Manual) 0, Band Neutrophils 4, Platelet Estimate Adequate, Platelet Morphology Normal, Red Blood Cell Morphology Normal, Prothrombin Time 23.0H, Prothromb Time International Ratio 2.2H, Sodium Level 141, Potassium Level 2.3*L, Chloride Level 94L, Carbon Dioxide Level 26, Anion Gap 21H, Blood Urea Nitrogen 13, Creatinine 0.8, Estimat Glomerular Filtration Rate > 60, Glucose Level 90, Uric Acid 1.7L, Calcium Level 8.0L, Phosphorus Level 3.5, Magnesium Level 1.9, Total Bilirubin 0.9, Gamma Glutamyl Transpeptidase 96H, Aspartate Amino Transf ( AST/SGOT) 34, Alanine Aminotransferase (ALT/SGPT) 193H, Alkaline Phosphatase 236H, C-Reactive Protein, Quantitative 1.2H, Pro-B-Type Natriuretic Peptide 7879H, Total Protein 6.5L, Albumin 3.0L, Globulin 3.5, Albumin/Globulin Ratio 0.8L Height (Feet): 5 Height (Inches): 6.00 Weight (Pounds): 153 General Appearance: no apparent distress, lethargic, confused Neck: stiff neck Cardiovascular: tachycardia Respiratory/Chest: decreased breath sounds Abdomen: soft, distended Objective other physical exam not changed GINA VILLARREAL Aug 01, 2016 10:07
[2016-08-01] MEDS: Ascorbic Acid 500mg tab ORAL SCH (10:25)
[2016-08-01] MEDS: Pantoprazole Inj IVP SCH ×2 (10:25→20:53)
[2016-08-01] MEDS: Multivitamin w/Minerals tab ORAL SCH (10:26)
[2016-08-01] MEDS: Phospha 250 Neutral tab ORAL SCH ×3 (10:26→18:10)
[2016-08-01] MEDS: Aspirin EC 81mg tab ORAL SCH (10:26)
[2016-08-01] MEDS ORDERED: Potassium Chloride 60 MEQ in NS 1000ml 1,000 ML IV ONE (10:30)
--- NOTE | 2016-08-01 12:12 | GI Progress Note ---
Assessment/Plan Problems: (1) Elevated CEA ICD Codes: R97.0 - Elevated carcinoembryonic antigen [CEA] SNOMED: 65397592, 705348157 (2) Shock liver ICD Codes: K72.00 - Acute and subacute hepatic failure without coma SNOMED: 045428928 (3) Anemia ICD Codes: D64.9 - Anemia, unspecified SNOMED: 987732642 (4) Liver disease ICD Codes: K76.9 - Liver disease, unspecified SNOMED: 279229959 Status: unchanged Status Narrative Discussed with Dr. Berman. Assessment/Plan ST eval >> INITIATE YVONNE MOIST PUREED AND NECTAR THICK LIQUIDS USING POSTED ASPIRATION AND REFLUX PRECAUTIONS AND 1 TO 1 FEEDING. abd U/S >> fatty infiltration, see full report. OB stool pending fu cdiff stable H&H, transfuse prn shock liver >> monitor LFTS>>> downtrending ppi GI procedures on hold, will require cardiac clearance fu labs Subjective Subjective nausea Objective Last 24 Hour Vital Signs Date Time Temp Pulse Resp B/P Pulse Ox O2 Delivery O2 Flow Rate FiO2 08/01/16 09:00 104 95/64 08/01/16 08:48 97.0 104 20 95/64 100 Nasal Cannula 3.0 08/01/16 07:43 Nasal Cannula 3.0 08/01/16 07:42 100 Nasal Cannula 3.0 08/01/16 04:11 98.7 106 18 110/59 100 Nasal Cannula 3.0 08/01/16 04:00 106 08/01/16 00:25 98.2 99 19 95/58 98 Nasal Cannula 3.0 08/01/16 00:00 101 07/31/16 20:07 Nasal Cannula 3.0 32 07/31/16 20:07 99 Nasal Cannula 3.0 32 07/31/16 20:00 96 07/31/16 20:00 96.6 94 19 116/44 Nasal Cannula 2.0 100 07/31/16 17:26 94 94/50 07/31/16 16:00 92 07/31/16 16:00 96.6 94 20 94/50 Nasal Cannula 2.0 88 07/31/16 12:35 98.2 92 22 106/62 100 Nasal Cannula 3.0 Intake and Output 07/31/16 08/01/16 19:00 07:00 Intake Total 790.5 ml 890.0 ml Output Total 100 ml 1150 ml Balance 690.5 ml -260.0 ml Intake Oral 480 ml 480 ml IV Total 310.5 ml 410.0 ml Output Urine Total 100 ml 1150 ml # Bowel Movements 9 4 Laboratory Tests Test 08/01/16 05:35 White Blood Count 17.7 K/UL (4.8-10.8) H Red Blood Count 3.72 M/UL (4.20-5.40) L Hemoglobin 11.9 G/DL (12.0-16.0) L Hematocrit 37.1 % (37.0-47.0) Mean Corpuscular Volume 100 FL (80-99) H Mean Corpuscular Hemoglobin 32.1 PG (27.0-31.0) H Mean Corpuscular Hemoglobin Concent 32.2 G/DL (32.0-36.0) Red Cell Distribution Width 14.6 % (11.6-14.8) Platelet Count 198 K/UL (150-450) Mean Platelet Volume 7.4 FL (6.5-10.1) Neutrophils (%) (Auto) % (45.0-75.0) Lymphocytes (%) (Auto) % (20.0-45.0) Monocytes (%) (Auto) % (1.0-10.0) Eosinophils (%) (Auto) % (0.0-3.0) Basophils (%) (Auto) % (0.0-2.0) Differential Total Cells Counted 100 Neutrophils % (Manual) 81 % (45-75) H Lymphocytes % (Manual) 6 % (20-45) L Monocytes % (Manual) 7 % (1-10) Eosinophils % (Manual) 2 % (0-3) Basophils % (Manual) 0 % (0-2) Band Neutrophils 4 % (0-8) Platelet Estimate Adequate Platelet Morphology Normal Red Blood Cell Morphology Normal Prothrombin Time 23.0 SEC (9.30-11.50) H Prothromb Time International Ratio 2.2 (0.9-1.1) H Sodium Level 141 mEQ/L (135-145) Potassium Level 2.3 mEQ/L (3.4-4.9) *L Chloride Level 94 mEQ/L (98-107) L Carbon Dioxide Level 26 mEQ/L (20-30) Anion Gap 21 (5-15) H Blood Urea Nitrogen 13 mg/dL (7-23) Creatinine 0.8 mg/dL (0.5-0.9) Estimat Glomerular Filtration Rate > 60 mL/min (>60) Glucose Level 90 mg/dL (74-106) Uric Acid 1.7 mg/dL (3.0-7.5) L Calcium Level 8.0 mg/dL (8.6-10.2) L Phosphorus Level 3.5 mg/dL (2.5-4.8) Magnesium Level 1.9 mg/dL (1.7-2.5) Total Bilirubin 0.9 mg/dL (0.0-1.2) Gamma Glutamyl Transpeptidase 96 U/L (5-36) H Aspartate Amino Transf (AST/SGOT) 34 U/L (5-40) Alanine Aminotransferase (ALT/SGPT) 193 U/L (3-33) H Alkaline Phosphatase 236 U/L (35-104) H C-Reactive Protein, Quantitative 1.2 mg/dL (< 0.5) H Pro-B-Type Natriuretic Peptide 7879 pg/mL (0-125) H Total Protein 6.5 g/dL (6.6-8.7) L Albumin 3.0 g/dL (3.5-5.2) L Globulin 3.5 g/dL Albumin/Globulin Ratio 0.8 (1.0-2.7) L Height (Feet): 5 Height (Inches): 6.00 Weight (Pounds): 153 General Appearance: no apparent distress, alert, thin Cardiovascular: normal rate Respiratory/Chest: other - 2LNC Abdominal Exam: normal bowel sounds, non tender, soft Objective Service Date: 07/26/16 Procedure: US ABD Complete Indication: Abdominal pain Impression: Punctate echogenic focus dependently within the gallbladder possibly a tiny calculus or polyp measuring 3 mm. No sonographic evidence of acute cholecystitis. Slight increased echogenicity of the liver may suggest fatty infiltration. Clinical correlation recommended. Small left renal cyst. Mckenzie Taylor N.P. Aug 01, 2016 12:12
[2016-08-01 12:35] VITALS: BP 100/77
--- NOTE | 2016-08-01 15:39 | Consultation ---
DATE OF CONSULTATION: 07/30/2016 CONSULTING PHYSICIAN: Mario Mayberry M.D. ATTENDING PHYSICIAN: Jean-Claude Suresh M.D. REASON FOR REFERRAL: Tachycardia. HISTORY OF PRESENT ILLNESS: This is a 56-year-old female with a history of multiple medical problems as delineated below. The patient has been admitted to the hospital for some time now. She was noted to have an episode of tachycardia with heart rates staying in the 150. Oral beta-blockers were administered, but that did not control. IV beta-blockers were administered and she suddenly broke to sinus rhythm and she is now being seen in cardiac consultation. She tells me that she has had these palpitations off and on for some time, but this episode looked longest she has had for some time. She has occasionally some pain in the chest as well including a sharp sensation in the chest that lasted approximately one hour or so after the palpitations. She does have shortness of breath on exertion. There is no PND. She uses two pillows. Does not have any heartburn. Does not have any dizziness or lightheadedness. She does ambulate at some point. PAST MEDICAL HISTORY: Positive for history of anxiety; history of C. difficile colitis; history of tobacco use disorder, which she quit number of years ago; history of GI bleed; anemia; coronary artery disease, status post coronary artery bypass grafting and stent placement; history of atypical chest pain; history of acute chronic congestive heart failure; pneumonia; lung cancer; diastolic heart failure; acute on chronic respiratory failure; encephalopathy; cellulitis; depression; opiate use on chronic basis; mitral valve replacement; renal insufficiency; and mild cognitive dysfunction. The patient has a history of lung cancer, status post chemo and radiation therapy; non-small cell lung cancer; and she has had thrombocytopenia and anemia as well. ALLERGIES: She is not allergic to any medications. SOCIAL HISTORY: She used to smoke and drink previously as mentioned, she has quit those sometime ago. REVIEW OF SYSTEMS: Gastrointestinal: She has had some nausea, vomiting, diarrhea, and constipation. Genitourinary: Does have burning on urination, blood in her urine. Pulmonary: Does have cough and wheezing. Constitutional: Recently she has had fever, chills, and night sweats. Neurologic: There is numbness and tingling in her legs. PHYSICAL EXAMINATION: GENERAL: Shows to be elderly female, in no respiratory distress, although she is somewhat tachypneic. NECK: Supple. No jugular venous distention. Carotid upstrokes intact. LUNGS: She has some crackles at the bases. CARDIAC: Mechanical heart sounds. Regular rhythm. No heaves or thrills noted. Systolic ejection murmur. ABDOMEN: Soft and obese. Positive bowel sounds. EXTREMITIES: No significant edema. NEUROLOGICAL: She is awake, alert, responsive, and in no apparent respiratory distress. LABORATORY AND DIAGNOSTIC DATA: The chest x-ray performed yesterday demonstrated congestive changes and a venous duplex study of the lower extremities that have been performed showed patent venous lower extremities. An echocardiogram has been performed on 07/28/2016 that showed ejection fraction of 30% to 35%, global hypokinesis, thrombus could not be excluded, mitral valve prosthesis is seen and peak gradient of 8 and mean gradient of 3 across the mitral valve. PA pressure of 22. Lipase 18.5. Hemoglobin 10.9 and platelet count of 189,000. Chemistry, sodium 145, potassium 2.3, chloride 103, bicarbonate 24, BUN of 11, creatinine 1.0, and glucose of 112. Magnesium of 1.1. Phosphorus of 1.4. Calcium of 4.2. Uric acid is 2.8. GGT of 105. AST of 105, ALT of 370, and alkaline phosphatase was 280. ProBNP of 27,800. CRP of 2.3. Albumin of 2.5. Coags, INR of 4.4. Urine eosinophils are not seen. EKG shows what appears to be sinus with right bundle-branch conduction defect of atrial activity, it is very difficult to see on all EKGs, it is present on some of the EKGs. There is tachycardia of 103 and right bundle-branch conduction defect secondary to ST-segment changes that extends laterally. She does at the time of her supraventricular tachycardia, EKG shows rate as high as 156. There is no flutter waves that are visible, although that could not be entirely excluded in direct comparison with her EKG performed at [facility] in June . The right bundle-branch conduction defect was present at that time. She was in sinus at that time as well. Her previous echocardiograms at [facility] in February 2016 showed ejection fraction of 55% with a prosthetic mitral valve. Previous PET Rubidium scan has shown ejection fraction between 49% and 51% with 37% of fixed defect in the circumflex territory and small partial reversible defect in the apical area. ASSESSMENT: 1. Supraventricular tachycardia, cannot exclude atrial flutter. 2. Chronic right bundle-branch conduction defect. 3. Cardiomyopathy. 4. Coronary artery disease with a history of 37% fixed defect in the circumflex and the right coronary artery territory back in 2013 at [facility]. 5. Lung cancer, status post chemoradiation therapy. 6. Mitral valve prosthesis. 7. Coagulopathy. 8. Diarrhea, possible Clostridium difficile. 9. Anemia. 10. Electrolyte abnormality. PLAN: Dr. Suresh, this patient was seen in cardiac consultation. The patient responded to beta-blockers and we will need to incorporate those into her medications and she needs her electrolytes repleted. I agree with continuation of beta-blockers and atenolol on twice a day basis. For the time being, she may require other agents for control of her heart rate. She is already on anticoagulation for stroke prevention and those should be continued. A set of cardiac enzymes will be ordered. She will be diuresed. It is of note that her LV systolic function appears worse than what was reported on perfusion imaging, although perfusion defect seems to be significant amount of myocardium of 37% with ejection fraction of 49% to 50% . She had liver function test abnormalities, may be passive congestion or other etiologies. C. difficile should be sent. Mario Mayberry M.D. DR: JAZIEL JOB#: [id number] CC:
[2016-08-01 16:28] VITALS: BP 97/54
[2016-08-01] MEDS ORDERED: Warfarin Sodium 2.5mg ORAL ONE (17:00)
--- NOTE | 2016-08-01 17:21 | Internal Med Progress Note ---
Subjective Physician Name Todd Kendall Attending Physician Todd Kendall MD Current Medications Medications (Trade) Dose Ordered Sig/Jagruti Route PRN Reason Start Time Stop Time Status Last Admin Dose Admin Acetaminophen (Tylenol) 650 mg Q4H PRN ORAL T>100.5 07/31/16 01:00 08/30/16 00:59 Albuterol/ Ipratropium (DuoNeb 0.5-3(2.5)mg/3ml) 3 ml Q4H PRN HHN Shortness of Breath 07/31/16 01:00 08/05/16 00:59 Ascorbic Acid (Vitamin C) 500 mg DAILY ORAL 07/31/16 09:00 08/30/16 08:59 08/01/16 10:25 Aspirin (Ecotrin) 81 mg DAILY ORAL 07/31/16 09:00 08/30/16 08:59 08/01/16 10:26 Atenolol (Tenormin) 50 mg BID ORAL 07/31/16 09:00 08/30/16 08:59 07/31/16 09:46 Ceftriaxone Sodium/Dextrose (Rocephin/D5W) 55 ml @ 110 mls/hr Q24H IVPB 08/01/16 18:00 08/08/16 17:59 Clonidine HCl (Catapres) 0.1 mg Q4H PRN ORAL SBP>160 07/31/16 01:00 08/30/16 00:59 Clopidogrel Bisulfate (Plavix) 75 mg DAILY ORAL 07/31/16 09:00 08/30/16 08:59 08/01/16 10:26 Dextrose (Dextrose 50%) STAT PRN IV Hypoglycemia 07/31/16 17:00 08/30/16 16:59 Furosemide (Lasix) 20 mg EVERY 12 HOURS IV 07/31/16 09:00 08/30/16 08:59 08/01/16 10:27 Haloperidol Lactate (Haldol) 2.5 mg Q6H PRN IM Agitation 07/31/16 03:45 08/30/16 03:44 Metoprolol Tartrate (Lopressor) 10 mg Q5MIN X 3 IVP 07/30/16 22:30 08/29/16 22:29 Midodrine (Pro-Amatine) 5 mg BEFORE BREAKFAST ORAL 07/31/16 06:30 08/30/16 06:29 07/31/16 06:58 Morphine Sulfate (Morphine Sulfate) 1 mg Q4H PRN IVP For Pain 7-10 07/31/16 01:00 08/07/16 00:59 08/01/16 12:22 Multivitamins Therapeutic (Therapeutic Multivitamin) 1 ea DAILY ORAL 07/31/16 09:00 08/30/16 08:59 08/01/16 10:26 Nitroglycerin (Ntg) 0.4 mg Q5M X 3 DOSES PRN SL Prn Chest Pain 07/30/16 22:30 08/29/16 22:29 Ondansetron HCl 4 mg 4 mg Q4H PRN IVP Nausea & Vomiting 08/01/16 11:45 08/31/16 11:44 08/01/16 12:21 Pantoprazole (Protonix) 40 mg EVERY 12 HOURS IVP 07/31/16 09:00 08/30/16 08:59 08/01/16 10:25 Phosphorus (Phospha 250 Neutral) 500 mg THREE TIMES A DAY ORAL 07/31/16 09:00 08/30/16 08:59 08/01/16 12:21 Potassium Chloride (K-Dur) 40 meq TID ORAL 08/01/16 18:00 08/31/16 17:59 Pravastatin Sodium (Pravachol) 80 mg BEDTIME ORAL 07/31/16 21:00 08/30/16 20:59 07/31/16 21:37 Vitamin A/Vitamin D (A & D Oint) 1 applic EVERY 12 HOURS TOPIC 07/31/16 09:00 08/30/16 08:59 08/01/16 09:00 Warfarin Sodium (Coumadin per pharmacy) 1 ea DAILY PRN MISC Per rx protocol 07/31/16 09:00 08/30/16 08:59 Allergies: Coded Allergies: No Known Allergies (Verified , 04/10/06) Subjective awake, more responsive, NAD, sitting up on chair, WBC: 17.7 Objective Last Vital Signs Date Time Temp Pulse Resp B/P Pulse Ox O2 Delivery O2 Flow Rate FiO2 08/01/16 16:28 97.7 106 20 97/54 100 Nasal Cannula 3.0 07/31/16 20:07 32 Laboratory Tests Test 08/01/16 05:35 White Blood Count 17.7 K/UL (4.8-10.8) H Red Blood Count 3.72 M/UL (4.20-5.40) L Hemoglobin 11.9 G/DL (12.0-16.0) L Hematocrit 37.1 % (37.0-47.0) Mean Corpuscular Volume 100 FL (80-99) H Mean Corpuscular Hemoglobin 32.1 PG (27.0-31.0) H Mean Corpuscular Hemoglobin Concent 32.2 G/DL (32.0-36.0) Red Cell Distribution Width 14.6 % (11.6-14.8) Platelet Count 198 K/UL (150-450) Mean Platelet Volume 7.4 FL (6.5-10.1) Neutrophils (%) (Auto) % (45.0-75.0) Lymphocytes (%) (Auto) % (20.0-45.0) Monocytes (%) (Auto) % (1.0-10.0) Eosinophils (%) (Auto) % (0.0-3.0) Basophils (%) (Auto) % (0.0-2.0) Differential Total Cells Counted 100 Neutrophils % (Manual) 81 % (45-75) H Lymphocytes % (Manual) 6 % (20-45) L Monocytes % (Manual) 7 % (1-10) Eosinophils % (Manual) 2 % (0-3) Basophils % (Manual) 0 % (0-2) Band Neutrophils 4 % (0-8) Platelet Estimate Adequate Platelet Morphology Normal Red Blood Cell Morphology Normal Prothrombin Time 23.0 SEC (9.30-11.50) H Prothromb Time International Ratio 2.2 (0.9-1.1) H Sodium Level 141 mEQ/L (135-145) Potassium Level 2.3 mEQ/L (3.4-4.9) *L Chloride Level 94 mEQ/L (98-107) L Carbon Dioxide Level 26 mEQ/L (20-30) Anion Gap 21 (5-15) H Blood Urea Nitrogen 13 mg/dL (7-23) Creatinine 0.8 mg/dL (0.5-0.9) Estimat Glomerular Filtration Rate > 60 mL/min (>60) Glucose Level 90 mg/dL (74-106) Uric Acid 1.7 mg/dL (3.0-7.5) L Calcium Level 8.0 mg/dL (8.6-10.2) L Phosphorus Level 3.5 mg/dL (2.5-4.8) Magnesium Level 1.9 mg/dL (1.7-2.5) Total Bilirubin 0.9 mg/dL (0.0-1.2) Gamma Glutamyl Transpeptidase 96 U/L (5-36) H Aspartate Amino Transf (AST/SGOT) 34 U/L (5-40) Alanine Aminotransferase (ALT/SGPT) 193 U/L (3-33) H Alkaline Phosphatase 236 U/L (35-104) H C-Reactive Protein, Quantitative 1.2 mg/dL (< 0.5) H Pro-B-Type Natriuretic Peptide 7879 pg/mL (0-125) H Total Protein 6.5 g/dL (6.6-8.7) L Albumin 3.0 g/dL (3.5-5.2) L Globulin 3.5 g/dL Albumin/Globulin Ratio 0.8 (1.0-2.7) L Microbiology Date/Time Source Procedure Growth Status 07/31/16 03:00 Stool Clostridium difficile Toxin Assay - Final Complete Intake and Output 07/31/16 08/01/16 19:00 07:00 Intake Total 790.5 ml 890.0 ml Output Total 100 ml 1150 ml Balance 690.5 ml -260.0 ml Intake Oral 480 ml 480 ml IV Total 310.5 ml 410.0 ml Output Urine Total 100 ml 1150 ml # Bowel Movements 9 4 Objective GENERAL: The patient is well-developed and well-nourished, awake, responsive, no apparent distress. HEENT: Eyes, pupils are equal and responsive to light and accommodation. Extraocular movements are intact. NECK: Supple without lymphadenopathy. CHEST: decrease air in bases, Lungs are clear to auscultation bilaterally without wheezes. CHEST WALL: [place] with access, no sign of infection CARDIOVASCULAR: Regular rhythm and rate. S1 and S2 are normal, + Click. ABDOMEN: Soft, nontender, and nondistended. Positive bowel sounds. EXTREMITIES: Negative for clubbing, cyanosis, or edema. Hyperpigmentation on LE 's. RECTAL/GENITALIA: Refused. NEUROLOGIC: CN2-12 wnl, moved all extremities. Assessment/Plan Assessment/Plan ASSESSMENT: 1. Altered mental status / Toxic Metabolic encephalopathy. 2. Proteus Mirabilis Urinary tract infection. 3. Chronic Congestive heart failure. 4. Chronic obstructive pulmonary disease. 5. History of coronary artery disease. 6. Hypertension. 7. Hypercholesterolemia. 8. Renal insufficiency. 9. History of gastrointestinal hemorrhage. 10. S/p Mechanical Mitral Valve replacement. 11. Squamous cell CA of Lung. 12. Depression and anxiety. 13. Acute and subacute hepatic failure without coma 14. 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 Kcl supplements Abx: Jose Guadalupeepneyn discuss with daughter over the phone Todd Kendall MD Aug 01, 2016 17:21
[2016-08-01] MEDS ORDERED: cefTRIAXone 1gm/D5W 55ml IVPB SCH ×2 (18:00)
--- NOTE | 2016-08-01 19:22 | Cardiology Progress Note ---
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 electolyte abn cad lung cancer anemia diarrhea hypotension cdiff neg tele reviwed neg bp is on the lwo side keep off diuretics abx as per id lfts improve little k supplelmt Subjective Cardiovascular: Denies: chest pain, lightheadedness, palpitations Respiratory: Denies: shortness of breath Gastrointestinal/Abdominal: Denies: abdominal pain Genitourinary: Denies: burning Subjective wants to go home Objective Last 24 Hour Vital Signs Date Time Temp Pulse Resp B/P Pulse Ox O2 Delivery O2 Flow Rate FiO2 08/01/16 18:00 95 97/54 08/01/16 16:28 97.7 106 20 97/54 100 Nasal Cannula 3.0 08/01/16 12:52 97.7 08/01/16 12:35 97.7 106 20 100/77 100 Nasal Cannula 3.0 08/01/16 11:55 106 08/01/16 09:00 104 95/64 08/01/16 08:48 97.0 104 20 95/64 100 Nasal Cannula 3.0 08/01/16 08:22 112 08/01/16 07:43 Nasal Cannula 3.0 08/01/16 07:42 100 Nasal Cannula 3.0 08/01/16 04:11 98.7 106 18 110/59 100 Nasal Cannula 3.0 08/01/16 04:00 106 08/01/16 00:25 98.2 99 19 95/58 98 Nasal Cannula 3.0 08/01/16 00:00 101 07/31/16 20:07 Nasal Cannula 3.0 32 07/31/16 20:07 99 Nasal Cannula 3.0 32 07/31/16 20:00 96 07/31/16 20:00 96.6 94 19 116/44 Nasal Cannula 2.0 100 General Appearance: no apparent distress, alert Neck: supple Cardiovascular: normal rate, regular rhythm Respiratory/Chest: lungs clear, normal breath sounds Abdomen: normal bowel sounds, non tender, soft Extremities: no swelling Intake and Output 07/31/16 08/01/16 19:00 07:00 Intake Total 790.5 ml 890.0 ml Output Total 100 ml 1150 ml Balance 690.5 ml -260.0 ml Intake Oral 480 ml 480 ml IV Total 310.5 ml 410.0 ml Output Urine Total 100 ml 1150 ml # Bowel Movements 9 4 Laboratory Tests Test 08/01/16 05:35 White Blood Count 17.7 K/UL (4.8-10.8) H Red Blood Count 3.72 M/UL (4.20-5.40) L Hemoglobin 11.9 G/DL (12.0-16.0) L Hematocrit 37.1 % (37.0-47.0) Mean Corpuscular Volume 100 FL (80-99) H Mean Corpuscular Hemoglobin 32.1 PG (27.0-31.0) H Mean Corpuscular Hemoglobin Concent 32.2 G/DL (32.0-36.0) Red Cell Distribution Width 14.6 % (11.6-14.8) Platelet Count 198 K/UL (150-450) Mean Platelet Volume 7.4 FL (6.5-10.1) Neutrophils (%) (Auto) % (45.0-75.0) Lymphocytes (%) (Auto) % (20.0-45.0) Monocytes (%) (Auto) % (1.0-10.0) Eosinophils (%) (Auto) % (0.0-3.0) Basophils (%) (Auto) % (0.0-2.0) Differential Total Cells Counted 100 Neutrophils % (Manual) 81 % (45-75) H Lymphocytes % (Manual) 6 % (20-45) L Monocytes % (Manual) 7 % (1-10) Eosinophils % (Manual) 2 % (0-3) Basophils % (Manual) 0 % (0-2) Band Neutrophils 4 % (0-8) Platelet Estimate Adequate Platelet Morphology Normal Red Blood Cell Morphology Normal Prothrombin Time 23.0 SEC (9.30-11.50) H Prothromb Time International Ratio 2.2 (0.9-1.1) H Sodium Level 141 mEQ/L (135-145) Potassium Level 2.3 mEQ/L (3.4-4.9) *L Chloride Level 94 mEQ/L (98-107) L Carbon Dioxide Level 26 mEQ/L (20-30) Anion Gap 21 (5-15) H Blood Urea Nitrogen 13 mg/dL (7-23) Creatinine 0.8 mg/dL (0.5-0.9) Estimat Glomerular Filtration Rate > 60 mL/min (>60) Glucose Level 90 mg/dL (74-106) Uric Acid 1.7 mg/dL (3.0-7.5) L Calcium Level 8.0 mg/dL (8.6-10.2) L Phosphorus Level 3.5 mg/dL (2.5-4.8) Magnesium Level 1.9 mg/dL (1.7-2.5) Total Bilirubin 0.9 mg/dL (0.0-1.2) Gamma Glutamyl Transpeptidase 96 U/L (5-36) H Aspartate Amino Transf (AST/SGOT) 34 U/L (5-40) Alanine Aminotransferase (ALT/SGPT) 193 U/L (3-33) H Alkaline Phosphatase 236 U/L (35-104) H C-Reactive Protein, Quantitative 1.2 mg/dL (< 0.5) H Pro-B-Type Natriuretic Peptide 7879 pg/mL (0-125) H Total Protein 6.5 g/dL (6.6-8.7) L Albumin 3.0 g/dL (3.5-5.2) L Globulin 3.5 g/dL Albumin/Globulin Ratio 0.8 (1.0-2.7) L Microbiology Date/Time Source Procedure Growth Status 07/31/16 03:00 Stool Clostridium difficile Toxin Assay - Final Complete HIPOLITO LUCERO Aug 01, 2016 19:22
[2016-08-01 20:00] VITALS: BP 111/58
--- NOTE | 2016-08-01 23:28 | Pulmonology Progress Note ---
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 (6) S /P CABG/MVR Assessment/Plan bipap prn tolerating nasal cnnula check electrolytes titrate fio2 to sat of 92% f/u renal function dvt prophylaxis all notes, meds reviewed Subjective ROS Limited/Unobtainable: No Interval Events: less short of breath Allergies: Coded Allergies: No Known Allergies (Verified , 04/10/06) Objective Last 24 Hour Vital Signs Date Time Temp Pulse Resp B/P Pulse Ox O2 Delivery O2 Flow Rate FiO2 08/01/16 20:00 98.1 74 18 111/58 100 Room Air 08/01/16 19:47 99 Nasal Cannula 3.0 32 08/01/16 19:47 Nasal Cannula 3.0 32 08/01/16 18:00 95 97/54 08/01/16 16:28 97.7 106 20 97/54 100 Nasal Cannula 3.0 08/01/16 12:52 97.7 08/01/16 12:35 97.7 106 20 100/77 100 Nasal Cannula 3.0 08/01/16 11:55 106 08/01/16 09:00 104 95/64 08/01/16 08:48 97.0 104 20 95/64 100 Nasal Cannula 3.0 08/01/16 08:22 112 08/01/16 07:43 Nasal Cannula 3.0 08/01/16 07:42 100 Nasal Cannula 3.0 08/01/16 04:11 98.7 106 18 110/59 100 Nasal Cannula 3.0 08/01/16 04:00 106 08/01/16 00:25 98.2 99 19 95/58 98 Nasal Cannula 3.0 08/01/16 00:00 101 Intake and Output 07/31/16 08/01/16 19:00 07:00 Intake Total 790.5 ml 890.0 ml Output Total 100 ml 1150 ml Balance 690.5 ml -260.0 ml Intake Oral 480 ml 480 ml IV Total 310.5 ml 410.0 ml Output Urine Total 100 ml 1150 ml # Bowel Movements 9 4 Objective General Appearance: WD/WN HEENT: normocephalic, atraumatic Respiratory/Chest: chest wall non-tender, crackles/rales Cardiovascular: normal peripheral pulses, normal rate Abdomen: normal bowel sounds, soft, non tender Genitourinary: normal external genitalia Extremities: no cyanosis, no clubbing Skin: no rash 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 Microbiology Date/Time Source Procedure Growth Status 07/31/16 03:00 Stool Clostridium difficile Toxin Assay - Final Complete Laboratory Tests 08/01/16 05:35: White Blood Count 17.7H, Red Blood Count 3.72L, Hemoglobin 11.9L, Hematocrit 37.1, Mean Corpuscular Volume 100H, Mean Corpuscular Hemoglobin 32.1H, Mean Corpuscular Hemoglobin Concent 32.2, Red Cell Distribution Width 14.6, Platelet Count 198, Mean Platelet Volume 7.4, Neutrophils (%) (Auto) , Lymphocytes (%) ( Auto) , Monocytes (%) (Auto) , Eosinophils (%) (Auto) , Basophils (%) (Auto) , Differential Total Cells Counted 100, Neutrophils % (Manual) 81H, Lymphocytes % (Manual) 6L, Monocytes % (Manual) 7, Eosinophils % (Manual) 2, Basophils % ( Manual) 0, Band Neutrophils 4, Platelet Estimate Adequate, Platelet Morphology Normal, Red Blood Cell Morphology Normal, Prothrombin Time 23.0H, Prothromb Time International Ratio 2.2H, Sodium Level 141, Potassium Level 2.3*L, Chloride Level 94L, Carbon Dioxide Level 26, Anion Gap 21H, Blood Urea Nitrogen 13, Creatinine 0.8, Estimat Glomerular Filtration Rate > 60, Glucose Level 90, Uric Acid 1.7L, Calcium Level 8.0L, Phosphorus Level 3.5, Magnesium Level 1.9, Total Bilirubin 0.9, Gamma Glutamyl Transpeptidase 96H, Aspartate Amino Transf ( AST/SGOT) 34, Alanine Aminotransferase (ALT/SGPT) 193H, Alkaline Phosphatase 236H, C-Reactive Protein, Quantitative 1.2H, Pro-B-Type Natriuretic Peptide 7879H, Total Protein 6.5L, Albumin 3.0L, Globulin 3.5, Albumin/Globulin Ratio 0.8L Current Medications Medications (Trade) Dose Ordered Sig/Jagruti Route PRN Reason Start Time Stop Time Status Last Admin Dose Admin Acetaminophen (Tylenol) 650 mg Q4H PRN ORAL T>100.5 07/31/16 01:00 08/30/16 00:59 Albuterol/ Ipratropium (DuoNeb 0.5-3(2.5)mg/3ml) 3 ml Q4H PRN HHN Shortness of Breath 07/31/16 01:00 08/05/16 00:59 Ascorbic Acid (Vitamin C) 500 mg DAILY ORAL 07/31/16 09:00 08/30/16 08:59 08/01/16 10:25 Aspirin (Ecotrin) 81 mg DAILY ORAL 07/31/16 09:00 08/30/16 08:59 08/01/16 10:26 Atenolol (Tenormin) 50 mg BID ORAL 07/31/16 09:00 08/30/16 08:59 07/31/16 09:46 Ceftriaxone Sodium/Dextrose (Rocephin/D5W) 55 ml @ 110 mls/hr Q24H IVPB 08/01/16 18:00 08/08/16 17:59 08/01/16 18:26 Clonidine HCl (Catapres) 0.1 mg Q4H PRN ORAL SBP>160 07/31/16 01:00 08/30/16 00:59 Clopidogrel Bisulfate (Plavix) 75 mg DAILY ORAL 07/31/16 09:00 08/30/16 08:59 08/01/16 10:26 Dextrose (Dextrose 50%) STAT PRN IV Hypoglycemia 07/31/16 17:00 08/30/16 16:59 Haloperidol Lactate (Haldol) 2.5 mg Q6H PRN IM Agitation 07/31/16 03:45 08/30/16 03:44 Metoprolol Tartrate (Lopressor) 10 mg Q5MIN X 3 IVP 07/30/16 22:30 08/29/16 22:29 Midodrine (Pro-Amatine) 5 mg BEFORE BREAKFAST ORAL 07/31/16 06:30 08/30/16 06:29 07/31/16 06:58 Morphine Sulfate (Morphine Sulfate) 1 mg Q4H PRN IVP For Pain 7-10 07/31/16 01:00 08/07/16 00:59 08/01/16 22:17 Multivitamins Therapeutic (Therapeutic Multivitamin) 1 ea DAILY ORAL 07/31/16 09:00 08/30/16 08:59 08/01/16 10:26 Nitroglycerin (Ntg) 0.4 mg Q5M X 3 DOSES PRN SL Prn Chest Pain 07/30/16 22:30 08/29/16 22:29 Ondansetron HCl 4 mg 4 mg Q4H PRN IVP Nausea & Vomiting 08/01/16 11:45 08/31/16 11:44 08/01/16 12:21 Pantoprazole (Protonix) 40 mg EVERY 12 HOURS IVP 07/31/16 09:00 08/30/16 08:59 08/01/16 20:53 Phosphorus (Phospha 250 Neutral) 500 mg THREE TIMES A DAY ORAL 07/31/16 09:00 08/30/16 08:59 08/01/16 18:10 Potassium Chloride (K-Dur) 40 meq TID ORAL 08/01/16 18:00 08/31/16 17:59 08/01/16 18:10 Pravastatin Sodium (Pravachol) 80 mg BEDTIME ORAL 07/31/16 21:00 08/30/16 20:59 08/01/16 20:52 Vitamin A/Vitamin D (A & D Oint) 1 applic EVERY 12 HOURS TOPIC 07/31/16 09:00 08/30/16 08:59 08/01/16 20:53 Warfarin Sodium (Coumadin per pharmacy) 1 ea DAILY PRN MISC Per rx protocol 07/31/16 09:00 08/30/16 08:59 LISETTE ANTUNEZ Aug 01, 2016 23:28
[2016-08-02] VITALS: BP 97/54
[2016-08-02] MEDS: Morphine Sulfate 2mg/ml Inj IVP PRN ×5 (02:36→22:00)
[2016-08-02 04:00] VITALS: BP 96/61
[2016-08-02 07:16] LABS: INR 1.6 (0.9-1.1); PROTHROMBIN TIME 16.8 SEC (9.30-11.50)
[2016-08-02 07:17] LABS: MEAN CORPUSCULAR HEMOGLOBIN 31.7 PG (27.0-31.0); MEAN CORPUSCULAR HGB CONC 31.8 G/DL (32.0-36.0); MEAN CORPUSCULAR VOLUME 99 FL (80-99); MEAN PLATELET VOLUME 7.4 FL (6.5-10.1); PLATELET COUNT 170 K/UL (150-450); RED BLOOD COUNT 3.17 M/UL (4.20-5.40); RED CELL DISTRIBUTION WIDTH 14.2 % (11.6-14.8)
[2016-08-02 08:05] VITALS: BP 100/99
[2016-08-02 08:16] LABS: ALANINE AMINOTRANSFERASE 115 U/L (3-33); ALBUMIN/GLOBULIN RATIO 0.9 (1.0-2.7); ANION GAP 17 (5-15); ASPARTATE AMINO TRANSFERASE 30 U/L (5-40); CALCIUM 7.9 mg/dL (8.6-10.2); CARBON DIOXIDE 25 mEQ/L (20-30); CHLORIDE 95 mEQ/L (98-107); CREATININE 0.7 mg/dL (0.5-0.9); GLOMERULAR FILTRATION RATE > 60 mL/min (>60); HEMOLYSIS 11; POTASSIUM 3.1 mEQ/L (3.4-4.9); SODIUM 137 mEQ/L (135-145); TOTAL PROTEIN 5.5 g/dL (6.6-8.7)
[2016-08-02] MEDS: Multivitamin w/Minerals tab ORAL SCH (09:00)
[2016-08-02] MEDS: Pantoprazole Inj IVP SCH ×2 (09:52→20:04)
[2016-08-02] MEDS: Aspirin EC 81mg tab ORAL SCH (09:52)
[2016-08-02] MEDS: Phospha 250 Neutral tab ORAL SCH (09:53)
[2016-08-02] MEDS: Ascorbic Acid 500mg tab ORAL SCH (09:53)
[2016-08-02 10:50] LABS: BAND NEUTROPHILS % (MANUAL) 0 % (0-8); BASOPHILS % (MANUAL) 0 % (0-2); EOSINOPHILS % (MANUAL) 1 % (0-3); LYMPHOCYTES % (MANUAL) 2 % (20-45); MACROCYTES OCCASIONAL; NEUTROPHILS % (MANUAL) 89 % (45-75); PLATELET ESTIMATE ADEQUATE; PLATELET MORPHOLOGY NORMAL; TOTAL CELLS COUNTED 100
[2016-08-02 11:29] VITALS: BP 107/70
--- NOTE | 2016-08-02 12:03 | General Progress Note ---
Assessment/Plan Status: stable - from renal stand Assessment/Plan status: Acute Renal Failure - Cr deneen from 0.8 to 1.9- Multifactorial: Low BP- Vanco.... 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 elevated transaminase , likely due to shock liver , improving hypokalemia COPD Hx of lung Ca urinary retention , has hadley now Sugg: K supplement Diuresis Correct abnormal electrolytes- ordered Gastric support- Avoid Nephrotoxics- Aim to optimize cardiac and pulmonary status Subjective ROS Limited/Unobtainable: No Constitutional: Reports: malaise, weakness Allergies: Coded Allergies: No Known Allergies (Verified , 04/10/06) Objective Last 24 Hour Vital Signs Date Time Temp Pulse Resp B/P Pulse Ox O2 Delivery O2 Flow Rate FiO2 08/02/16 11:29 98.1 111 20 107/70 98 Room Air 08/02/16 09:54 113 100/99 08/02/16 08:05 98.2 113 20 100/99 100 Room Air 08/02/16 08:00 110 08/02/16 07:40 99 Nasal Cannula 3.0 32 08/02/16 07:40 Nasal Cannula 3.0 32 08/02/16 04:00 98.6 110 16 96/61 95 Room Air 08/02/16 04:00 116 08/02/16 00:00 97.7 104 16 97/54 96 Nasal Cannula 2.0 08/02/16 00:00 106 08/01/16 20:00 108 08/01/16 20:00 98.1 74 18 111/58 100 Room Air 08/01/16 19:47 99 Nasal Cannula 3.0 32 08/01/16 19:47 Nasal Cannula 3.0 32 08/01/16 18:00 95 97/54 08/01/16 16:28 97.7 106 20 97/54 100 Nasal Cannula 3.0 08/01/16 16:00 113 08/01/16 12:52 97.7 08/01/16 12:35 97.7 106 20 100/77 100 Nasal Cannula 3.0 Intake and Output 08/01/16 08/02/16 19:00 07:00 Intake Total 1425.0 ml 864 ml Output Total 500 ml Balance 925.0 ml 864 ml Intake Oral 480 ml 420 ml IV Total 945.0 ml 444 ml Output Urine Total 500 ml # Bowel Movements 1 2 Laboratory Tests 08/02/16 00:30: Stool Occult Blood Negative 08/02/16 04:55: White Blood Count 15.0H, Red Blood Count 3.17L, Hemoglobin 10.0L, Hematocrit 31.5L, Mean Corpuscular Volume 99, Mean Corpuscular Hemoglobin 31.7H, Mean Corpuscular Hemoglobin Concent 31.8L, Red Cell Distribution Width 14.2, Platelet Count 170, Mean Platelet Volume 7.4, Neutrophils (%) (Auto) , Lymphocytes (%) (Auto) , Monocytes (%) (Auto) , Eosinophils (%) (Auto) , Basophils (%) (Auto) , Differential Total Cells Counted 100, Neutrophils % ( Manual) 89H, Lymphocytes % (Manual) 2L, Monocytes % (Manual) 8, Eosinophils % ( Manual) 1, Basophils % (Manual) 0, Band Neutrophils 0, Platelet Estimate Adequate, Platelet Morphology Normal, Macrocytosis Occasional, Prothrombin Time 16.8H, Prothromb Time International Ratio 1.6H, Sodium Level 137, Potassium Level 3.1L, Chloride Level 95L, Carbon Dioxide Level 25, Anion Gap 17H, Blood Urea Nitrogen 15, Creatinine 0.7, Estimat Glomerular Filtration Rate > 60, Glucose Level 76, Calcium Level 7.9L, Total Bilirubin 0.5, Aspartate Amino Transf (AST/SGOT) 30, Alanine Aminotransferase (ALT/SGPT) 115H, Alkaline Phosphatase 194H, Total Protein 5.5L, Albumin 2.7L, Globulin 2.8, Albumin/ Globulin Ratio 0.9L Height (Feet): 5 Height (Inches): 6.00 Weight (Pounds): 153 General Appearance: no apparent distress Cardiovascular: tachycardia Respiratory/Chest: decreased breath sounds Objective other physical exam not changed GINA VILLARREAL Aug 02, 2016 12:03
--- NOTE | 2016-08-02 12:28 | Pulmonology Progress Note ---
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 (6) S /P CABG/MVR Assessment/Plan improving wbc lc most likely seocndary to UTI, no other source check electrolytes titrate fio2 to sat of 92% f/u renal function dvt prophylaxis all notes, meds reviewed med/surg dc planning Subjective ROS Limited/Unobtainable: No Constitutional: Reports: no symptoms HEENT: Repors: no symptoms Respiratory: Reports: no symptoms Gastrointestinal/Abdominal: Reports: no symptoms Genitourinary: Reports: no symptoms Allergies: Coded Allergies: No Known Allergies (Verified , 04/10/06) Objective Last 24 Hour Vital Signs Date Time Temp Pulse Resp B/P Pulse Ox O2 Delivery O2 Flow Rate FiO2 08/02/16 11:29 98.1 111 20 107/70 98 Room Air 08/02/16 09:54 113 100/99 08/02/16 08:05 98.2 113 20 100/99 100 Room Air 08/02/16 08:00 110 08/02/16 07:40 99 Nasal Cannula 3.0 32 08/02/16 07:40 Nasal Cannula 3.0 32 08/02/16 04:00 98.6 110 16 96/61 95 Room Air 08/02/16 04:00 116 08/02/16 00:00 97.7 104 16 97/54 96 Nasal Cannula 2.0 08/02/16 00:00 106 08/01/16 20:00 108 08/01/16 20:00 98.1 74 18 111/58 100 Room Air 08/01/16 19:47 99 Nasal Cannula 3.0 32 08/01/16 19:47 Nasal Cannula 3.0 32 08/01/16 18:00 95 97/54 08/01/16 16:28 97.7 106 20 97/54 100 Nasal Cannula 3.0 08/01/16 16:00 113 08/01/16 12:52 97.7 08/01/16 12:35 97.7 106 20 100/77 100 Nasal Cannula 3.0 Intake and Output 08/01/16 08/02/16 19:00 07:00 Intake Total 1425.0 ml 864 ml Output Total 500 ml Balance 925.0 ml 864 ml Intake Oral 480 ml 420 ml IV Total 945.0 ml 444 ml Output Urine Total 500 ml # Bowel Movements 1 2 General Appearance: WD/WN HEENT: normocephalic, atraumatic Respiratory/Chest: chest wall non-tender, crackles/rales Cardiovascular: normal peripheral pulses, normal rate Abdomen: normal bowel sounds, soft, non tender Genitourinary: normal external genitalia Extremities: no cyanosis, no clubbing Skin: no rash 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 Microbiology Date/Time Source Procedure Growth Status 07/31/16 03:00 Stool Clostridium difficile Toxin Assay - Final Complete Laboratory Tests 08/02/16 00:30: Stool Occult Blood Negative 08/02/16 04:55: White Blood Count 15.0H, Red Blood Count 3.17L, Hemoglobin 10.0L, Hematocrit 31.5L, Mean Corpuscular Volume 99, Mean Corpuscular Hemoglobin 31.7H, Mean Corpuscular Hemoglobin Concent 31.8L, Red Cell Distribution Width 14.2, Platelet Count 170, Mean Platelet Volume 7.4, Neutrophils (%) (Auto) , Lymphocytes (%) (Auto) , Monocytes (%) (Auto) , Eosinophils (%) (Auto) , Basophils (%) (Auto) , Differential Total Cells Counted 100, Neutrophils % ( Manual) 89H, Lymphocytes % (Manual) 2L, Monocytes % (Manual) 8, Eosinophils % ( Manual) 1, Basophils % (Manual) 0, Band Neutrophils 0, Platelet Estimate Adequate, Platelet Morphology Normal, Macrocytosis Occasional, Prothrombin Time 16.8H, Prothromb Time International Ratio 1.6H, Sodium Level 137, Potassium Level 3.1L, Chloride Level 95L, Carbon Dioxide Level 25, Anion Gap 17H, Blood Urea Nitrogen 15, Creatinine 0.7, Estimat Glomerular Filtration Rate > 60, Glucose Level 76, Calcium Level 7.9L, Phosphorus Level [Pending], Total Bilirubin 0.5, Aspartate Amino Transf (AST/SGOT) 30, Alanine Aminotransferase ( ALT/SGPT) 115H, Alkaline Phosphatase 194H, Total Protein 5.5L, Albumin 2.7L, Globulin 2.8, Albumin/Globulin Ratio 0.9L Current Medications Medications (Trade) Dose Ordered Sig/Jagruti Route PRN Reason Start Time Stop Time Status Last Admin Dose Admin Acetaminophen (Tylenol) 650 mg Q4H PRN ORAL T>100.5 07/31/16 01:00 08/30/16 00:59 Albuterol/ Ipratropium (DuoNeb 0.5-3(2.5)mg/3ml) 3 ml Q4H PRN HHN Shortness of Breath 07/31/16 01:00 08/05/16 00:59 Ascorbic Acid (Vitamin C) 500 mg DAILY ORAL 07/31/16 09:00 08/30/16 08:59 08/02/16 09:53 Aspirin (Ecotrin) 81 mg DAILY ORAL 07/31/16 09:00 08/30/16 08:59 08/02/16 09:52 Atenolol (Tenormin) 50 mg BID ORAL 07/31/16 09:00 08/30/16 08:59 08/02/16 09:54 Ceftriaxone Sodium/Dextrose (Rocephin/D5W) 55 ml @ 110 mls/hr Q24H IVPB 08/01/16 18:00 08/08/16 17:59 08/01/16 18:26 Clonidine HCl (Catapres) 0.1 mg Q4H PRN ORAL SBP>160 07/31/16 01:00 08/30/16 00:59 Clopidogrel Bisulfate (Plavix) 75 mg DAILY ORAL 07/31/16 09:00 08/30/16 08:59 08/02/16 09:53 Dextrose (Dextrose 50%) STAT PRN IV Hypoglycemia 07/31/16 17:00 08/30/16 16:59 Haloperidol Lactate (Haldol) 2.5 mg Q6H PRN IM Agitation 07/31/16 03:45 08/30/16 03:44 Metoprolol Tartrate (Lopressor) 10 mg Q5MIN X 3 IVP 07/30/16 22:30 08/29/16 22:29 Midodrine (Pro-Amatine) 5 mg BEFORE BREAKFAST ORAL 07/31/16 06:30 08/30/16 06:29 07/31/16 06:58 Morphine Sulfate (Morphine Sulfate) 1 mg Q4H PRN IVP For Pain 7-10 07/31/16 01:00 08/07/16 00:59 08/02/16 06:45 Multivitamins Therapeutic (Therapeutic Multivitamin) 1 ea DAILY ORAL 07/31/16 09:00 08/30/16 08:59 08/01/16 10:26 Nitroglycerin (Ntg) 0.4 mg Q5M X 3 DOSES PRN SL Prn Chest Pain 07/30/16 22:30 08/29/16 22:29 Ondansetron HCl 4 mg 4 mg Q4H PRN IVP Nausea & Vomiting 08/01/16 11:45 08/31/16 11:44 08/01/16 12:21 Pantoprazole (Protonix) 40 mg EVERY 12 HOURS IVP 07/31/16 09:00 08/30/16 08:59 08/02/16 09:52 Potassium Chloride (K-Dur) 40 meq BID ORAL 08/02/16 18:00 09/01/16 17:59 Pravastatin Sodium (Pravachol) 80 mg BEDTIME ORAL 07/31/16 21:00 08/30/16 20:59 08/01/16 20:52 Vitamin A/Vitamin D (A & D Oint) 1 applic EVERY 12 HOURS TOPIC 07/31/16 09:00 08/30/16 08:59 08/01/16 20:53 Warfarin Sodium (Coumadin per pharmacy) 1 ea DAILY PRN MISC Per rx protocol 07/31/16 09:00 08/30/16 08:59 LISETTE ANTUNEZ Aug 02, 2016 12:28
--- NOTE | 2016-08-02 12:36 | Cardiology Progress Note ---
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 electolyte abn cad lung cancer anemia diarrhea hypotension cdiff neg tele reviwed neg bp is better keep off diuretics abx as per id lfts improve little k supplelmt will need to inc hr is borderline cotorlled Subjective ROS Limited/Unobtainable: No Cardiovascular: Denies: chest pain, lightheadedness, palpitations Respiratory: Denies: shortness of breath Genitourinary: Denies: burning Subjective wants to go home Objective Last 24 Hour Vital Signs Date Time Temp Pulse Resp B/P Pulse Ox O2 Delivery O2 Flow Rate FiO2 08/02/16 11:29 98.1 111 20 107/70 98 Room Air 08/02/16 09:54 113 100/99 08/02/16 08:05 98.2 113 20 100/99 100 Room Air 08/02/16 08:00 110 08/02/16 07:40 99 Nasal Cannula 3.0 32 08/02/16 07:40 Nasal Cannula 3.0 32 08/02/16 04:00 98.6 110 16 96/61 95 Room Air 08/02/16 04:00 116 08/02/16 00:00 97.7 104 16 97/54 96 Nasal Cannula 2.0 08/02/16 00:00 106 08/01/16 20:00 108 08/01/16 20:00 98.1 74 18 111/58 100 Room Air 08/01/16 19:47 99 Nasal Cannula 3.0 32 08/01/16 19:47 Nasal Cannula 3.0 32 08/01/16 18:00 95 97/54 08/01/16 16:28 97.7 106 20 97/54 100 Nasal Cannula 3.0 08/01/16 16:00 113 08/01/16 12:52 97.7 08/01/16 12:35 97.7 106 20 100/77 100 Nasal Cannula 3.0 General Appearance: no apparent distress, alert Neck: no JVD Cardiovascular: irregularly irregular Respiratory/Chest: lungs clear, normal breath sounds Abdomen: normal bowel sounds, non tender, soft Extremities: no swelling Intake and Output 08/01/16 08/02/16 19:00 07:00 Intake Total 1425.0 ml 864 ml Output Total 500 ml Balance 925.0 ml 864 ml Intake Oral 480 ml 420 ml IV Total 945.0 ml 444 ml Output Urine Total 500 ml # Bowel Movements 1 2 Laboratory Tests Test 08/02/16 00:30 08/02/16 04:55 Stool Occult Blood Negative (NEGATIVE) White Blood Count 15.0 K/UL (4.8-10.8) H Red Blood Count 3.17 M/UL (4.20-5.40) L Hemoglobin 10.0 G/DL (12.0-16.0) L Hematocrit 31.5 % (37.0-47.0) L Mean Corpuscular Volume 99 FL (80-99) Mean Corpuscular Hemoglobin 31.7 PG (27.0-31.0) H Mean Corpuscular Hemoglobin Concent 31.8 G/DL (32.0-36.0) L Red Cell Distribution Width 14.2 % (11.6-14.8) Platelet Count 170 K/UL (150-450) Mean Platelet Volume 7.4 FL (6.5-10.1) Neutrophils (%) (Auto) % (45.0-75.0) Lymphocytes (%) (Auto) % (20.0-45.0) Monocytes (%) (Auto) % (1.0-10.0) Eosinophils (%) (Auto) % (0.0-3.0) Basophils (%) (Auto) % (0.0-2.0) Differential Total Cells Counted 100 Neutrophils % (Manual) 89 % (45-75) H Lymphocytes % (Manual) 2 % (20-45) L Monocytes % (Manual) 8 % (1-10) Eosinophils % (Manual) 1 % (0-3) Basophils % (Manual) 0 % (0-2) Band Neutrophils 0 % (0-8) Platelet Estimate Adequate Platelet Morphology Normal Macrocytosis Occasional Prothrombin Time 16.8 SEC (9.30-11.50) H Prothromb Time International Ratio 1.6 (0.9-1.1) H Sodium Level 137 mEQ/L (135-145) Potassium Level 3.1 mEQ/L (3.4-4.9) L Chloride Level 95 mEQ/L (98-107) L Carbon Dioxide Level 25 mEQ/L (20-30) Anion Gap 17 (5-15) H Blood Urea Nitrogen 15 mg/dL (7-23) Creatinine 0.7 mg/dL (0.5-0.9) Estimat Glomerular Filtration Rate > 60 mL/min (>60) Glucose Level 76 mg/dL (74-106) Calcium Level 7.9 mg/dL (8.6-10.2) L Phosphorus Level Pending Total Bilirubin 0.5 mg/dL (0.0-1.2) Aspartate Amino Transf (AST/SGOT) 30 U/L (5-40) Alanine Aminotransferase (ALT/SGPT) 115 U/L (3-33) H Alkaline Phosphatase 194 U/L (35-104) H Total Protein 5.5 g/dL (6.6-8.7) L Albumin 2.7 g/dL (3.5-5.2) L Globulin 2.8 g/dL Albumin/Globulin Ratio 0.9 (1.0-2.7) L Microbiology Date/Time Source Procedure Growth Status 07/31/16 03:00 Stool Clostridium difficile Toxin Assay - Final Complete HIPOLITO LUCERO Aug 02, 2016 12:36
[2016-08-02] MEDS: Vitamin A&D Oint 2oz Tube TOPIC SCH ×2 (13:05→20:04)
--- NOTE | 2016-08-02 13:25 | General Progress Note ---
Assessment/Plan Assessment/Plan Assessment (1) Elevated CEA ICD Codes: R97.0 - Elevated carcinoembryonic antigen [CEA] SNOMED: 55551485, 028558491 (2) Shock liver ICD Codes: K72.00 - Acute and subacute hepatic failure without coma SNOMED: 878337088 (3) Anemia ICD Codes: D64.9 - Anemia, unspecified SNOMED: 584139320 (4) Liver disease ICD Codes: K76.9 - Liver disease, unspecified SNOMED: 752239052 Status: unchanged Assessment/Plan po as tolerated. abd U/S >> fatty infiltration, see full report. OB stool (-) atool cdiff (-) stable H&H, transfuse prn shock liver >> monitor LFTS>>> downtrending ppi GI procedures on hold, will require cardiac clearance fu labs Subjective Allergies: Coded Allergies: No Known Allergies (Verified , 04/10/06) Subjective c/o nausea ablet to take some PO (+) BM Objective Last 24 Hour Vital Signs Date Time Temp Pulse Resp B/P Pulse Ox O2 Delivery O2 Flow Rate FiO2 08/02/16 11:29 98.1 111 20 107/70 98 Room Air 08/02/16 09:54 113 100/99 08/02/16 08:05 98.2 113 20 100/99 100 Room Air 08/02/16 08:00 110 08/02/16 07:40 99 Nasal Cannula 3.0 32 08/02/16 07:40 Nasal Cannula 3.0 32 08/02/16 04:00 98.6 110 16 96/61 95 Room Air 08/02/16 04:00 116 08/02/16 00:00 97.7 104 16 97/54 96 Nasal Cannula 2.0 08/02/16 00:00 106 08/01/16 20:00 108 08/01/16 20:00 98.1 74 18 111/58 100 Room Air 08/01/16 19:47 99 Nasal Cannula 3.0 32 08/01/16 19:47 Nasal Cannula 3.0 32 08/01/16 18:00 95 97/54 08/01/16 16:28 97.7 106 20 97/54 100 Nasal Cannula 3.0 08/01/16 16:00 113 Intake and Output 08/01/16 08/02/16 19:00 07:00 Intake Total 1425.0 ml 864 ml Output Total 500 ml Balance 925.0 ml 864 ml Intake Oral 480 ml 420 ml IV Total 945.0 ml 444 ml Output Urine Total 500 ml # Bowel Movements 1 2 Laboratory Tests 08/02/16 00:30: Stool Occult Blood Negative 08/02/16 04:55: White Blood Count 15.0H, Red Blood Count 3.17L, Hemoglobin 10.0L, Hematocrit 31.5L, Mean Corpuscular Volume 99, Mean Corpuscular Hemoglobin 31.7H, Mean Corpuscular Hemoglobin Concent 31.8L, Red Cell Distribution Width 14.2, Platelet Count 170, Mean Platelet Volume 7.4, Neutrophils (%) (Auto) , Lymphocytes (%) (Auto) , Monocytes (%) (Auto) , Eosinophils (%) (Auto) , Basophils (%) (Auto) , Differential Total Cells Counted 100, Neutrophils % ( Manual) 89H, Lymphocytes % (Manual) 2L, Monocytes % (Manual) 8, Eosinophils % ( Manual) 1, Basophils % (Manual) 0, Band Neutrophils 0, Platelet Estimate Adequate, Platelet Morphology Normal, Macrocytosis Occasional, Prothrombin Time 16.8H, Prothromb Time International Ratio 1.6H, Sodium Level 137, Potassium Level 3.1L, Chloride Level 95L, Carbon Dioxide Level 25, Anion Gap 17H, Blood Urea Nitrogen 15, Creatinine 0.7, Estimat Glomerular Filtration Rate > 60, Glucose Level 76, Calcium Level 7.9L, Phosphorus Level 2.4L, Total Bilirubin 0.5 , Aspartate Amino Transf (AST/SGOT) 30, Alanine Aminotransferase (ALT/SGPT) 115H , Alkaline Phosphatase 194H, Total Protein 5.5L, Albumin 2.7L, Globulin 2.8, Albumin/Globulin Ratio 0.9L Height (Feet): 5 Height (Inches): 6.00 Weight (Pounds): 153 Objective WDWN AA woman NCAT supple CTA RRR soft NT ND no edema non focal KARINE WARREN Aug 02, 2016 13:25
--- NOTE | 2016-08-02 15:03 | Cardiology Report ---
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 Inferior infarct, age undetermined Deep T wave abnormality, consider anterior ischemia Abnormal ECG
[2016-08-02 16:00] VITALS: BP 87/56
[2016-08-02] MEDS ORDERED: Warfarin Sodium 4mg PO SCH (17:00)
--- NOTE | 2016-08-02 17:13 | Internal Med Progress Note ---
Subjective Physician Name Todd Kendall Attending Physician Todd Kendall MD Current Medications Medications (Trade) Dose Ordered Sig/Jagruti Route PRN Reason Start Time Stop Time Status Last Admin Dose Admin Acetaminophen (Tylenol) 650 mg Q4H PRN ORAL T>100.5 07/31/16 01:00 08/30/16 00:59 Albuterol/ Ipratropium (DuoNeb 0.5-3(2.5)mg/3ml) 3 ml Q4H PRN HHN Shortness of Breath 07/31/16 01:00 08/05/16 00:59 Ascorbic Acid (Vitamin C) 500 mg DAILY ORAL 07/31/16 09:00 08/30/16 08:59 08/02/16 09:53 Aspirin (Ecotrin) 81 mg DAILY ORAL 07/31/16 09:00 08/30/16 08:59 08/02/16 09:52 Atenolol (Tenormin) 50 mg BID ORAL 07/31/16 09:00 08/30/16 08:59 08/02/16 09:54 Ceftriaxone Sodium/Dextrose (Rocephin/D5W) 55 ml @ 110 mls/hr Q24H IVPB 08/01/16 18:00 08/08/16 17:59 08/01/16 18:26 Clonidine HCl (Catapres) 0.1 mg Q4H PRN ORAL SBP>160 07/31/16 01:00 08/30/16 00:59 Clopidogrel Bisulfate (Plavix) 75 mg DAILY ORAL 07/31/16 09:00 08/30/16 08:59 08/02/16 09:53 Dextrose (Dextrose 50%) STAT PRN IV Hypoglycemia 07/31/16 17:00 08/30/16 16:59 Haloperidol Lactate (Haldol) 2.5 mg Q6H PRN IM Agitation 07/31/16 03:45 08/30/16 03:44 08/02/16 14:43 Metoprolol Tartrate (Lopressor) 10 mg Q5MIN X 3 IVP 07/30/16 22:30 08/29/16 22:29 Midodrine (Pro-Amatine) 5 mg BEFORE BREAKFAST ORAL 07/31/16 06:30 08/30/16 06:29 07/31/16 06:58 Morphine Sulfate (Morphine Sulfate) 1 mg Q4H PRN IVP For Pain 7-10 07/31/16 01:00 08/07/16 00:59 08/02/16 13:05 Multivitamins Therapeutic (Therapeutic Multivitamin) 1 ea DAILY ORAL 07/31/16 09:00 08/30/16 08:59 08/01/16 10:26 Nitroglycerin (Ntg) 0.4 mg Q5M X 3 DOSES PRN SL Prn Chest Pain 07/30/16 22:30 08/29/16 22:29 Ondansetron HCl 4 mg 4 mg Q4H PRN IVP Nausea & Vomiting 08/01/16 11:45 08/31/16 11:44 08/01/16 12:21 Pantoprazole (Protonix) 40 mg EVERY 12 HOURS IVP 07/31/16 09:00 08/30/16 08:59 08/02/16 09:52 Potassium Chloride (K-Dur) 40 meq BID ORAL 08/02/16 18:00 09/01/16 17:59 Pravastatin Sodium (Pravachol) 80 mg BEDTIME ORAL 07/31/16 21:00 08/30/16 20:59 08/01/16 20:52 Vitamin A/Vitamin D (A & D Oint) 1 applic EVERY 12 HOURS TOPIC 07/31/16 09:00 08/30/16 08:59 08/02/16 13:05 Warfarin Sodium (Coumadin per pharmacy) 1 ea DAILY PRN MISC Per rx protocol 07/31/16 09:00 08/30/16 08:59 Allergies: Coded Allergies: No Known Allergies (Verified , 04/10/06) Subjective awake, alert, responsive, NAD, talking on the phone, WBC: 15.0, K: 3.1 Objective Last Vital Signs Date Time Temp Pulse Resp B/P Pulse Ox O2 Delivery O2 Flow Rate FiO2 08/02/16 16:00 98.2 100 22 87/56 97 Room Air 08/02/16 07:40 3.0 32 Laboratory Tests Test 08/02/16 00:30 08/02/16 04:55 Stool Occult Blood Negative (NEGATIVE) White Blood Count 15.0 K/UL (4.8-10.8) H Red Blood Count 3.17 M/UL (4.20-5.40) L Hemoglobin 10.0 G/DL (12.0-16.0) L Hematocrit 31.5 % (37.0-47.0) L Mean Corpuscular Volume 99 FL (80-99) Mean Corpuscular Hemoglobin 31.7 PG (27.0-31.0) H Mean Corpuscular Hemoglobin Concent 31.8 G/DL (32.0-36.0) L Red Cell Distribution Width 14.2 % (11.6-14.8) Platelet Count 170 K/UL (150-450) Mean Platelet Volume 7.4 FL (6.5-10.1) Neutrophils (%) (Auto) % (45.0-75.0) Lymphocytes (%) (Auto) % (20.0-45.0) Monocytes (%) (Auto) % (1.0-10.0) Eosinophils (%) (Auto) % (0.0-3.0) Basophils (%) (Auto) % (0.0-2.0) Differential Total Cells Counted 100 Neutrophils % (Manual) 89 % (45-75) H Lymphocytes % (Manual) 2 % (20-45) L Monocytes % (Manual) 8 % (1-10) Eosinophils % (Manual) 1 % (0-3) Basophils % (Manual) 0 % (0-2) Band Neutrophils 0 % (0-8) Platelet Estimate Adequate Platelet Morphology Normal Macrocytosis Occasional Prothrombin Time 16.8 SEC (9.30-11.50) H Prothromb Time International Ratio 1.6 (0.9-1.1) H Sodium Level 137 mEQ/L (135-145) Potassium Level 3.1 mEQ/L (3.4-4.9) L Chloride Level 95 mEQ/L (98-107) L Carbon Dioxide Level 25 mEQ/L (20-30) Anion Gap 17 (5-15) H Blood Urea Nitrogen 15 mg/dL (7-23) Creatinine 0.7 mg/dL (0.5-0.9) Estimat Glomerular Filtration Rate > 60 mL/min (>60) Glucose Level 76 mg/dL (74-106) Calcium Level 7.9 mg/dL (8.6-10.2) L Phosphorus Level 2.4 mg/dL (2.5-4.8) L Total Bilirubin 0.5 mg/dL (0.0-1.2) Aspartate Amino Transf (AST/SGOT) 30 U/L (5-40) Alanine Aminotransferase (ALT/SGPT) 115 U/L (3-33) H Alkaline Phosphatase 194 U/L (35-104) H Total Protein 5.5 g/dL (6.6-8.7) L Albumin 2.7 g/dL (3.5-5.2) L Globulin 2.8 g/dL Albumin/Globulin Ratio 0.9 (1.0-2.7) L Microbiology Date/Time Source Procedure Growth Status 07/31/16 03:00 Stool Clostridium difficile Toxin Assay - Final Complete Intake and Output 08/01/16 08/02/16 19:00 07:00 Intake Total 1425.0 ml 864 ml Output Total 500 ml Balance 925.0 ml 864 ml Intake Oral 480 ml 420 ml IV Total 945.0 ml 444 ml Output Urine Total 500 ml # Bowel Movements 1 2 Objective GENERAL: The patient is well-developed and well-nourished, awake, responsive, no apparent distress. HEENT: Eyes, pupils are equal and responsive to light and accommodation. Extraocular movements are intact. NECK: Supple without lymphadenopathy. CHEST: decrease air in bases, Lungs are clear to auscultation bilaterally without wheezes. CHEST WALL: [place] with access, no sign of infection CARDIOVASCULAR: Regular rhythm and rate. S1 and S2 are normal, + Click. ABDOMEN: Soft, nontender, and nondistended. Positive bowel sounds. EXTREMITIES: Negative for clubbing, cyanosis, or edema. Hyperpigmentation on LE 's. RECTAL/GENITALIA: Refused. NEUROLOGIC: CN2-12 wnl, moved all extremities. Assessment/Plan Assessment/Plan ASSESSMENT: 1. Altered mental status / Toxic Metabolic encephalopathy. 2. Proteus Mirabilis Urinary tract infection. 3. Chronic Congestive heart failure. 4. Chronic obstructive pulmonary disease. 5. History of coronary artery disease. 6. Hypertension. 7. Hypercholesterolemia. 8. Renal insufficiency. 9. History of gastrointestinal hemorrhage. 10. S/p Mechanical Mitral Valve replacement. 11. Squamous cell CA of Lung. 12. Depression and anxiety. 13. Acute and subacute hepatic failure without coma 14. 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 Kcl supplements Abx: [place] Rocephisandra discuss with patient with regard to discharge planning to SNF. Todd Kendall MD Aug 02, 2016 17:13
[2016-08-02] MEDS ORDERED: Phospha 250 Neutral tab ORAL SCH (18:00)
[2016-08-02 20:00] VITALS: BP 80/47
[2016-08-02] MEDS ORDERED: NS 275ml ONE (21:41)
[2016-08-03 00:33] VITALS: BP 98/58
[2016-08-03] MEDS: Morphine Sulfate 2mg/ml Inj IVP PRN ×4 (03:54→21:14)
[2016-08-03 04:26] VITALS: BP 114/59
[2016-08-03] MEDS ORDERED: Nitroglycerin Subl 0.4mg tab (Bottle Of 25) SL PRN (05:30)
[2016-08-03 07:37] LABS: MEAN CORPUSCULAR HEMOGLOBIN 31.7 PG (27.0-31.0); MEAN CORPUSCULAR VOLUME 99 FL (80-99); MEAN PLATELET VOLUME 7.9 FL (6.5-10.1); PLATELET COUNT 174 K/UL (150-450); RED BLOOD COUNT 3.17 M/UL (4.20-5.40); RED CELL DISTRIBUTION WIDTH 14.1 % (11.6-14.8); WHITE BLOOD COUNT 11.8 K/UL (4.8-10.8)
[2016-08-03 07:55] LABS: ALANINE AMINOTRANSFERASE 85 U/L (3-33); ALBUMIN/GLOBULIN RATIO 0.9 (1.0-2.7); ASPARTATE AMINO TRANSFERASE 28 U/L (5-40); CARBON DIOXIDE 27 mEQ/L (20-30); CHLORIDE 96 mEQ/L (98-107); CREATININE 0.7 mg/dL (0.5-0.9); CRP QUANT 0.5 mg/dL (< 0.5); GLOMERULAR FILTRATION RATE > 60 mL/min (>60); HEMOLYSIS 7; MAGNESIUM 1.1 mg/dL (1.7-2.5); PHOSPHORUS 1.8 mg/dL (2.5-4.8); SODIUM 138 mEQ/L (135-145); TOTAL PROTEIN 5.7 g/dL (6.6-8.7); URIC ACID 2.3 mg/dL (3.0-7.5)
[2016-08-03 08:00] VITALS: BP 104/54
[2016-08-03 08:13] LABS: ANION GAP 15 (5-15)
[2016-08-03 08:21] LABS: POTASSIUM 2.7 mEQ/L (3.4-4.9)
[2016-08-03] MEDS: Vitamin A&D Oint 2oz Tube TOPIC SCH ×2 (09:00→20:31)
[2016-08-03] MEDS ORDERED: Pantoprazole Inj IVP SCH (09:00)
[2016-08-03] MEDS ORDERED: DuoNeb 0.5-3(2.5)mg/3ml neb HHN PRN (09:00)
[2016-08-03] MEDS ORDERED: Haloperidol 5mg/ml Inj IM PRN (09:45)
[2016-08-03] MEDS: Aspirin EC 81mg tab ORAL SCH (10:17)
[2016-08-03] MEDS: Ascorbic Acid 500mg tab ORAL SCH (10:17)
[2016-08-03] MEDS: Multivitamin w/Minerals tab ORAL SCH (10:18)
[2016-08-03] MEDS: Phospha 250 Neutral tab ORAL SCH ×3 (10:18→16:59)
--- NOTE | 2016-08-03 10:21 | General Progress Note ---
Assessment/Plan Status: stable Assessment/Plan status: Acute Renal Failure - Cr deneen from 0.8 to 1.9- Multifactorial: Low BP- Vanco.... 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 elevated transaminase , likely due to shock liver , improving hypokalemia COPD Hx of lung Ca urinary retention , has hadley now Sugg: K , mag , Phos supplement Correct abnormal electrolytes- ordered Gastric support- Avoid Nephrotoxics- Aim to optimize cardiac and pulmonary status Subjective ROS Limited/Unobtainable: No Constitutional: Reports: malaise Allergies: Coded Allergies: No Known Allergies (Verified , 04/10/06) Objective Last 24 Hour Vital Signs Date Time Temp Pulse Resp B/P Pulse Ox O2 Delivery O2 Flow Rate FiO2 08/03/16 04:26 98.2 105 17 114/59 96 Nasal Cannula 4.0 08/03/16 00:33 98.1 89 18 98/58 94 Nasal Cannula 4.0 08/02/16 20:00 97.5 101 20 80/47 94 08/02/16 19:21 Nasal Cannula 3.0 32 08/02/16 19:21 99 Nasal Cannula 3.0 32 08/02/16 16:00 98.2 100 22 87/56 97 Room Air 08/02/16 12:00 93 08/02/16 11:29 98.1 111 20 107/70 98 Room Air Intake and Output 08/02/16 08/03/16 19:00 07:00 Intake Total 120 ml Output Total 150 ml 500 ml Balance -30 ml -500 ml Intake Oral 120 ml Output Urine Total 150 ml 500 ml # Bowel Movements 1 1 Laboratory Tests 08/03/16 06:20: White Blood Count 11.8H, Red Blood Count 3.17L, Hemoglobin 10.1L, Hematocrit 31.5L, Mean Corpuscular Volume 99, Mean Corpuscular Hemoglobin 31.7H, Mean Corpuscular Hemoglobin Concent 32.0, Red Cell Distribution Width 14.1, Platelet Count 174, Mean Platelet Volume 7.9, Neutrophils (%) (Auto) , Lymphocytes (%) ( Auto) , Monocytes (%) (Auto) , Eosinophils (%) (Auto) , Basophils (%) (Auto) , Neutrophils % (Manual) [Pending], Lymphocytes % (Manual) [Pending], Platelet Estimate [Pending], Platelet Morphology [Pending], Sodium Level 138, Potassium Level 2.7*L, Chloride Level 96L, Carbon Dioxide Level 27, Anion Gap 15, Blood Urea Nitrogen 15, Creatinine 0.7, Estimat Glomerular Filtration Rate > 60, Glucose Level 100, Uric Acid 2.3L, Calcium Level 8.0L, Phosphorus Level 1.8L, Magnesium Level 1.1L, Total Bilirubin 0.5, Aspartate Amino Transf (AST/SGOT) 28 , Alanine Aminotransferase (ALT/SGPT) 85H, Alkaline Phosphatase 186H, C- Reactive Protein, Quantitative 0.5, Pro-B-Type Natriuretic Peptide 4971H, Total Protein 5.7L, Albumin 2.8L, Globulin 2.9, Albumin/Globulin Ratio 0.9L Height (Feet): 5 Height (Inches): 6.00 Weight (Pounds): 153 General Appearance: no apparent distress Objective other physical exam not changed GINA VILLARREAL Aug 03, 2016 10:21
[2016-08-03 10:22] LABS: ANISOCYTOSIS 1+; BAND NEUTROPHILS % (MANUAL) 0 % (0-8); BASOPHILS % (MANUAL) 0 % (0-2); EOSINOPHILS % (MANUAL) 0 % (0-3); HYPOCHROMASIA 1+; LYMPHOCYTES % (MANUAL) 6 % (20-45); NEUTROPHILS % (MANUAL) 92 % (45-75); PLATELET ESTIMATE ADEQUATE; PLATELET MORPHOLOGY NORMAL; TOTAL CELLS COUNTED 100
[2016-08-03 12:00] VITALS: BP 118/58
[2016-08-03] MEDS ORDERED: Potassium Phosphate 30 MM in NS 275 ML IV ONE (13:00)
[2016-08-03 16:00] VITALS: BP 91/48
--- NOTE | 2016-08-03 16:01 | General Progress Note ---
Assessment/Plan Assessment/Plan Assessment (1) Elevated CEA ICD Codes: R97.0 - Elevated carcinoembryonic antigen [CEA] SNOMED: 47021896, 591492363 (2) Shock liver ICD Codes: K72.00 - Acute and subacute hepatic failure without coma SNOMED: 340806154 (3) Anemia ICD Codes: D64.9 - Anemia, unspecified SNOMED: 978544356 (4) Liver disease ICD Codes: K76.9 - Liver disease, unspecified SNOMED: 764179599 Status: unchanged Assessment/Plan po as tolerated. abd U/S >> fatty infiltration, see full report. OB stool (-) atool cdiff (-) stable H&H, transfuse prn shock liver >> monitor LFTS>>> downtrending ppi fu labs Subjective Allergies: Coded Allergies: No Known Allergies (Verified , 04/10/06) Subjective minimally verbal poor po Objective Last 24 Hour Vital Signs Date Time Temp Pulse Resp B/P Pulse Ox O2 Delivery O2 Flow Rate FiO2 08/03/16 12:00 98.0 109 18 118/58 96 Room Air 08/03/16 11:56 Nasal Cannula 3.0 32 08/03/16 11:56 99 Nasal Cannula 3.0 32 08/03/16 08:00 97.6 111 18 104/54 97 Room Air 08/03/16 04:26 98.2 105 17 114/59 96 Nasal Cannula 4.0 08/03/16 00:33 98.1 89 18 98/58 94 Nasal Cannula 4.0 08/02/16 20:00 97.5 101 20 80/47 94 08/02/16 19:21 Nasal Cannula 3.0 32 08/02/16 19:21 99 Nasal Cannula 3.0 32 Intake and Output 08/02/16 08/03/16 19:00 07:00 Intake Total 120 ml Output Total 150 ml 500 ml Balance -30 ml -500 ml Intake Oral 120 ml Output Urine Total 150 ml 500 ml # Bowel Movements 1 1 Laboratory Tests 08/03/16 06:20: White Blood Count 11.8H, Red Blood Count 3.17L, Hemoglobin 10.1L, Hematocrit 31.5L, Mean Corpuscular Volume 99, Mean Corpuscular Hemoglobin 31.7H, Mean Corpuscular Hemoglobin Concent 32.0, Red Cell Distribution Width 14.1, Platelet Count 174, Mean Platelet Volume 7.9, Neutrophils (%) (Auto) , Lymphocytes (%) ( Auto) , Monocytes (%) (Auto) , Eosinophils (%) (Auto) , Basophils (%) (Auto) , Differential Total Cells Counted 100, Neutrophils % (Manual) 92H, Lymphocytes % (Manual) 6L, Monocytes % (Manual) 2, Eosinophils % (Manual) 0, Basophils % ( Manual) 0, Band Neutrophils 0, Platelet Estimate Adequate, Platelet Morphology Normal, Hypochromasia 1+, Anisocytosis 1+, Sodium Level 138, Potassium Level 2.7 *L, Chloride Level 96L, Carbon Dioxide Level 27, Anion Gap 15, Blood Urea Nitrogen 15, Creatinine 0.7, Estimat Glomerular Filtration Rate > 60, Glucose Level 100, Uric Acid 2.3L, Calcium Level 8.0L, Phosphorus Level 1.8L, Magnesium Level 1.1L, Total Bilirubin 0.5, Aspartate Amino Transf (AST/SGOT) 28, Alanine Aminotransferase (ALT/SGPT) 85H, Alkaline Phosphatase 186H, C-Reactive Protein, Quantitative 0.5, Pro-B-Type Natriuretic Peptide 4971H, Total Protein 5.7L, Albumin 2.8L, Globulin 2.9, Albumin/Globulin Ratio 0.9L Height (Feet): 5 Height (Inches): 6.00 Weight (Pounds): 153 Objective WDWN AA woman NCAT supple CTA RRR soft NT ND no edema non focal KARINE WARREN Aug 03, 2016 16:01
[2016-08-03 18:14] LABS: INR 1.1 (0.9-1.1); PROTHROMBIN TIME 11.4 SEC (9.30-11.50)
[2016-08-03 19:00] VITALS: BP 94/57
[2016-08-03] MEDS ORDERED: Warfarin Sodium 3mg ORAL SCH (19:30)
[2016-08-03] MEDS: Enoxaparin 80mg Inj SUBQ SCH (20:26)
--- NOTE | 2016-08-03 20:53 | Internal Med Progress Note ---
Subjective Physician Name Todd Kendall Attending Physician Todd Kendall MD Current Medications Medications (Trade) Dose Ordered Sig/Jagruti Route PRN Reason Start Time Stop Time Status Last Admin Dose Admin Acetaminophen (Tylenol) 650 mg Q4H PRN ORAL T>100.5 08/03/16 09:00 09/02/16 08:59 Albuterol/ Ipratropium (DuoNeb 0.5-3(2.5)mg/3ml) 3 ml Q4H PRN HHN Shortness of Breath 08/03/16 09:00 08/08/16 08:59 Ascorbic Acid (Vitamin C) 500 mg DAILY ORAL 08/03/16 09:00 09/02/16 08:59 08/03/16 10:17 Aspirin (Ecotrin) 81 mg DAILY ORAL 08/03/16 09:00 09/02/16 08:59 08/03/16 10:17 Atenolol (Tenormin) 50 mg BID ORAL 08/03/16 18:00 09/02/16 17:59 Clopidogrel Bisulfate (Plavix) 75 mg DAILY ORAL 08/03/16 09:00 09/02/16 08:59 08/03/16 10:21 Dextrose (Dextrose 50%) STAT PRN IV Hypoglycemia 08/03/16 17:00 09/02/16 16:59 Enoxaparin Sodium (Lovenox) 70 mg Q12HR SUBQ 08/03/16 21:00 09/02/16 20:59 08/03/16 20:26 Haloperidol Lactate (Haldol) 2.5 mg Q6H PRN IM Agitation 08/03/16 09:45 09/02/16 09:44 Midodrine (Pro-Amatine) 5 mg BEFORE BREAKFAST ORAL 08/04/16 06:30 09/03/16 06:29 Morphine Sulfate (Morphine Sulfate) 1 mg Q4H PRN IVP For Pain 7-10 08/03/16 09:00 08/10/16 08:59 08/03/16 16:54 Multivitamins Therapeutic (Therapeutic Multivitamin) 1 ea DAILY ORAL 08/03/16 09:00 09/02/16 08:59 08/03/16 10:18 Nitroglycerin (Ntg) 0.4 mg Q5M X 3 DOSES PRN SL Prn Chest Pain 08/03/16 05:30 09/02/16 05:29 Ondansetron HCl (Zofran) 4 mg Q4H PRN IVP Nausea & Vomiting 08/03/16 07:45 09/02/16 07:44 Pantoprazole (Protonix) 40 mg DAILY ORAL 08/03/16 10:30 09/02/16 10:29 Phosphorus (Phospha 250 Neutral) 500 mg THREE TIMES A DAY ORAL 08/03/16 09:00 09/02/16 08:59 08/03/16 16:59 Potassium Chloride (K-Dur) 40 meq TID ORAL 08/03/16 09:00 09/02/16 08:59 08/03/16 16:59 Pravastatin Sodium (Pravachol) 80 mg BEDTIME ORAL 08/03/16 21:00 09/02/16 20:59 08/03/16 20:23 Vitamin A/Vitamin D (A & D Oint) 1 applic EVERY 12 HOURS TOPIC 08/03/16 09:00 09/02/16 08:59 08/03/16 09:00 Warfarin Sodium (Coumadin per pharmacy) 1 ea DAILY PRN MISC Per rx protocol 08/03/16 09:00 09/02/16 08:59 Allergies: Coded Allergies: No Known Allergies (Verified , 04/10/06) Subjective awake, alert, responsive, NAD, feeling good, Mg 1.1, K: 2.7 Objective Last Vital Signs Date Time Temp Pulse Resp B/P Pulse Ox O2 Delivery O2 Flow Rate FiO2 08/03/16 19:00 98.2 98 20 94/57 95 Room Air 08/03/16 18:58 2.0 28 Laboratory Tests Test 08/03/16 06:20 08/03/16 18:00 White Blood Count 11.8 K/UL (4.8-10.8) H Red Blood Count 3.17 M/UL (4.20-5.40) L Hemoglobin 10.1 G/DL (12.0-16.0) L Hematocrit 31.5 % (37.0-47.0) L Mean Corpuscular Volume 99 FL (80-99) Mean Corpuscular Hemoglobin 31.7 PG (27.0-31.0) H Mean Corpuscular Hemoglobin Concent 32.0 G/DL (32.0-36.0) Red Cell Distribution Width 14.1 % (11.6-14.8) Platelet Count 174 K/UL (150-450) Mean Platelet Volume 7.9 FL (6.5-10.1) Neutrophils (%) (Auto) % (45.0-75.0) Lymphocytes (%) (Auto) % (20.0-45.0) Monocytes (%) (Auto) % (1.0-10.0) Eosinophils (%) (Auto) % (0.0-3.0) Basophils (%) (Auto) % (0.0-2.0) Differential Total Cells Counted 100 Neutrophils % (Manual) 92 % (45-75) H Lymphocytes % (Manual) 6 % (20-45) L Monocytes % (Manual) 2 % (1-10) Eosinophils % (Manual) 0 % (0-3) Basophils % (Manual) 0 % (0-2) Band Neutrophils 0 % (0-8) Platelet Estimate Adequate Platelet Morphology Normal Hypochromasia 1+ Anisocytosis 1+ Sodium Level 138 mEQ/L (135-145) Potassium Level 2.7 mEQ/L (3.4-4.9) *L Chloride Level 96 mEQ/L (98-107) L Carbon Dioxide Level 27 mEQ/L (20-30) Anion Gap 15 (5-15) Blood Urea Nitrogen 15 mg/dL (7-23) Creatinine 0.7 mg/dL (0.5-0.9) Estimat Glomerular Filtration Rate > 60 mL/min (>60) Glucose Level 100 mg/dL (74-106) Uric Acid 2.3 mg/dL (3.0-7.5) L Calcium Level 8.0 mg/dL (8.6-10.2) L Phosphorus Level 1.8 mg/dL (2.5-4.8) L Magnesium Level 1.1 mg/dL (1.7-2.5) L Total Bilirubin 0.5 mg/dL (0.0-1.2) Aspartate Amino Transf (AST/SGOT) 28 U/L (5-40) Alanine Aminotransferase (ALT/SGPT) 85 U/L (3-33) H Alkaline Phosphatase 186 U/L (35-104) H C-Reactive Protein, Quantitative 0.5 mg/dL (< 0.5) Pro-B-Type Natriuretic Peptide 4971 pg/mL (0-125) H Total Protein 5.7 g/dL (6.6-8.7) L Albumin 2.8 g/dL (3.5-5.2) L Globulin 2.9 g/dL Albumin/Globulin Ratio 0.9 (1.0-2.7) L Prothrombin Time 11.4 SEC (9.30-11.50) Prothromb Time International Ratio 1.1 (0.9-1.1) Intake and Output 08/02/16 08/03/16 19:00 07:00 Intake Total 120 ml Output Total 150 ml 500 ml Balance -30 ml -500 ml Intake Oral 120 ml Output Urine Total 150 ml 500 ml # Bowel Movements 1 1 Objective GENERAL: The patient is well-developed and well-nourished, awake, responsive, no apparent distress. HEENT: Eyes, pupils are equal and responsive to light and accommodation. Extraocular movements are intact. NECK: Supple without lymphadenopathy. CHEST: decrease air in bases, Lungs are clear to auscultation bilaterally without wheezes. CHEST WALL: [place] with access, no sign of infection CARDIOVASCULAR: Regular rhythm and rate. S1 and S2 are normal, + Click. ABDOMEN: Soft, nontender, and nondistended. Positive bowel sounds. EXTREMITIES: Negative for clubbing, cyanosis, or edema. Hyperpigmentation on LE 's. RECTAL/GENITALIA: Refused. NEUROLOGIC: CN2-12 wnl, moved all extremities. Assessment/Plan Assessment/Plan ASSESSMENT: 1. Altered mental status / Toxic Metabolic encephalopathy resolved. 2. Proteus Mirabilis Urinary tract infection. 3. Chronic Congestive heart failure. 4. Chronic obstructive pulmonary disease. 5. History of coronary artery disease. 6. Hypertension. 7. Hypercholesterolemia. 8. Renal insufficiency. 9. History of gastrointestinal hemorrhage. 10. S/p Mechanical Mitral Valve replacement. 11. Squamous cell CA of Lung. 12. Depression and anxiety. 13. Acute and subacute hepatic failure without coma 14. Hypokalemia Plan: in Med / surg Monitor Labs and cultures Neurology / Pulmonary / cardiology / Renal consult. K , mag , Phos supplement Correct abnormal electrolytes- ordered Abx: off discuss with patient with regard to discharge planning to SNF in AM on Coumadin and Lovenox injection Todd Kendall MD Aug 03, 2016 20:53
--- NOTE | 2016-08-03 23:19 | Pulmonology Progress Note ---
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 (6) S /P CABG/MVR Assessment/Plan tolerating nasal cnnula check electrolytes titrate fio2 to sat of 92% f/u renal function dvt prophylaxis all notes, meds reviewed dc planning pt/pt Subjective Interval Events: no new complains, no SOb Allergies: Coded Allergies: No Known Allergies (Verified , 04/10/06) Objective Last 24 Hour Vital Signs Date Time Temp Pulse Resp B/P Pulse Ox O2 Delivery O2 Flow Rate FiO2 08/03/16 19:00 98.2 98 20 94/57 95 Room Air 08/03/16 18:58 95 18 Nasal Cannula 2.0 28 08/03/16 18:58 Nasal Cannula 2.0 28 08/03/16 18:58 98 Nasal Cannula 2.0 28 08/03/16 16:59 97 91/48 08/03/16 16:00 98.2 97 20 91/48 99 Room Air 08/03/16 12:00 98.0 109 18 118/58 96 Room Air 08/03/16 11:56 Nasal Cannula 3.0 32 08/03/16 11:56 99 Nasal Cannula 3.0 32 08/03/16 08:00 97.6 111 18 104/54 97 Room Air 08/03/16 04:26 98.2 105 17 114/59 96 Nasal Cannula 4.0 08/03/16 00:33 98.1 89 18 98/58 94 Nasal Cannula 4.0 Intake and Output 08/02/16 08/03/16 19:00 07:00 Intake Total 120 ml Output Total 150 ml 500 ml Balance -30 ml -500 ml Intake Oral 120 ml Output Urine Total 150 ml 500 ml # Bowel Movements 1 1 Objective General Appearance: WD/WN HEENT: normocephalic, atraumatic Respiratory/Chest: chest wall non-tender, crackles/rales Cardiovascular: normal peripheral pulses, normal rate Abdomen: normal bowel sounds, soft, non tender Genitourinary: normal external genitalia Extremities: no cyanosis, no clubbing Skin: no rash Neurologic/Psychiatric: simonizer II-XII grossly normal Laboratory Tests 08/03/16 06:20: White Blood Count 11.8H, Red Blood Count 3.17L, Hemoglobin 10.1L, Hematocrit 31.5L, Mean Corpuscular Volume 99, Mean Corpuscular Hemoglobin 31.7H, Mean Corpuscular Hemoglobin Concent 32.0, Red Cell Distribution Width 14.1, Platelet Count 174, Mean Platelet Volume 7.9, Neutrophils (%) (Auto) , Lymphocytes (%) ( Auto) , Monocytes (%) (Auto) , Eosinophils (%) (Auto) , Basophils (%) (Auto) , Differential Total Cells Counted 100, Neutrophils % (Manual) 92H, Lymphocytes % (Manual) 6L, Monocytes % (Manual) 2, Eosinophils % (Manual) 0, Basophils % ( Manual) 0, Band Neutrophils 0, Platelet Estimate Adequate, Platelet Morphology Normal, Hypochromasia 1+, Anisocytosis 1+, Sodium Level 138, Potassium Level 2.7 *L, Chloride Level 96L, Carbon Dioxide Level 27, Anion Gap 15, Blood Urea Nitrogen 15, Creatinine 0.7, Estimat Glomerular Filtration Rate > 60, Glucose Level 100, Uric Acid 2.3L, Calcium Level 8.0L, Phosphorus Level 1.8L, Magnesium Level 1.1L, Total Bilirubin 0.5, Aspartate Amino Transf (AST/SGOT) 28, Alanine Aminotransferase (ALT/SGPT) 85H, Alkaline Phosphatase 186H, C-Reactive Protein, Quantitative 0.5, Pro-B-Type Natriuretic Peptide 4971H, Total Protein 5.7L, Albumin 2.8L, Globulin 2.9, Albumin/Globulin Ratio 0.9L 08/03/16 18:00: Prothrombin Time 11.4, Prothromb Time International Ratio 1.1 Current Medications Medications (Trade) Dose Ordered Sig/Jagruti Route PRN Reason Start Time Stop Time Status Last Admin Dose Admin Acetaminophen (Tylenol) 650 mg Q4H PRN ORAL T>100.5 08/03/16 09:00 09/02/16 08:59 Albuterol/ Ipratropium (DuoNeb 0.5-3(2.5)mg/3ml) 3 ml Q4H PRN HHN Shortness of Breath 08/03/16 09:00 08/08/16 08:59 Ascorbic Acid (Vitamin C) 500 mg DAILY ORAL 08/03/16 09:00 09/02/16 08:59 08/03/16 10:17 Aspirin (Ecotrin) 81 mg DAILY ORAL 08/03/16 09:00 09/02/16 08:59 08/03/16 10:17 Atenolol (Tenormin) 50 mg BID ORAL 08/03/16 18:00 09/02/16 17:59 Clopidogrel Bisulfate (Plavix) 75 mg DAILY ORAL 08/03/16 09:00 09/02/16 08:59 08/03/16 10:21 Dextrose (Dextrose 50%) STAT PRN IV Hypoglycemia 08/03/16 17:00 09/02/16 16:59 Enoxaparin Sodium (Lovenox) 70 mg Q12HR SUBQ 08/03/16 21:00 09/02/16 20:59 08/03/16 20:26 Haloperidol Lactate (Haldol) 2.5 mg Q6H PRN IM Agitation 08/03/16 09:45 09/02/16 09:44 Midodrine (Pro-Amatine) 5 mg BEFORE BREAKFAST ORAL 08/04/16 06:30 09/03/16 06:29 Morphine Sulfate (Morphine Sulfate) 1 mg Q4H PRN IVP For Pain 7-10 08/03/16 09:00 08/10/16 08:59 08/03/16 21:14 Multivitamins Therapeutic (Therapeutic Multivitamin) 1 ea DAILY ORAL 08/03/16 09:00 09/02/16 08:59 08/03/16 10:18 Nitroglycerin (Ntg) 0.4 mg Q5M X 3 DOSES PRN SL Prn Chest Pain 08/03/16 05:30 09/02/16 05:29 Ondansetron HCl (Zofran) 4 mg Q4H PRN IVP Nausea & Vomiting 08/03/16 07:45 09/02/16 07:44 Pantoprazole (Protonix) 40 mg DAILY ORAL 08/03/16 10:30 09/02/16 10:29 Phosphorus (Phospha 250 Neutral) 500 mg THREE TIMES A DAY ORAL 08/03/16 09:00 09/02/16 08:59 08/03/16 16:59 Potassium Chloride (K-Dur) 40 meq TID ORAL 08/03/16 09:00 09/02/16 08:59 08/03/16 16:59 Pravastatin Sodium (Pravachol) 80 mg BEDTIME ORAL 08/03/16 21:00 09/02/16 20:59 08/03/16 20:23 Vitamin A/Vitamin D (A & D Oint) 1 applic EVERY 12 HOURS TOPIC 08/03/16 09:00 09/02/16 08:59 08/03/16 09:00 Warfarin Sodium (Coumadin per pharmacy) 1 ea DAILY PRN MISC Per rx protocol 08/03/16 09:00 09/02/16 08:59 LISETTE ANTUNEZ Aug 03, 2016 23:19
[2016-08-04] VITALS: BP 133/55
[2016-08-04] MEDS: Morphine Sulfate 2mg/ml Inj IVP PRN ×5 (02:48→20:26)
[2016-08-04 04:00] VITALS: BP 98/57
[2016-08-04 07:17] LABS: MEAN CORPUSCULAR HEMOGLOBIN 32.5 PG (27.0-31.0); MEAN CORPUSCULAR HGB CONC 33.1 G/DL (32.0-36.0); MEAN CORPUSCULAR VOLUME 98 FL (80-99); MEAN PLATELET VOLUME 6.7 FL (6.5-10.1); PLATELET COUNT 188 K/UL (150-450); RED BLOOD COUNT 2.98 M/UL (4.20-5.40); RED CELL DISTRIBUTION WIDTH 14.5 % (11.6-14.8); WHITE BLOOD COUNT 10.8 K/UL (4.8-10.8)
[2016-08-04 07:22] LABS: INR 1.1 (0.9-1.1); PROTHROMBIN TIME 11.5 SEC (9.30-11.50)
[2016-08-04 07:24] LABS: ALANINE AMINOTRANSFERASE 62 U/L (3-33); ALBUMIN/GLOBULIN RATIO 0.8 (1.0-2.7); ANION GAP 15 (5-15); ASPARTATE AMINO TRANSFERASE 25 U/L (5-40); CALCIUM 8.1 mg/dL (8.6-10.2); CARBON DIOXIDE 23 mEQ/L (20-30); CHLORIDE 98 mEQ/L (98-107); CREATININE 0.6 mg/dL (0.5-0.9); GLOMERULAR FILTRATION RATE > 60 mL/min (>60); HEMOLYSIS 5; MAGNESIUM 1.6 mg/dL (1.7-2.5); PHOSPHORUS 3.5 mg/dL (2.5-4.8); SODIUM 136 mEQ/L (135-145); TOTAL PROTEIN 5.4 g/dL (6.6-8.7)
[2016-08-04 08:00] VITALS: BP 124/80
--- NOTE | 2016-08-04 08:48 | Cardiology Report ---
APPROVED REPORT EKG Measurement Heart [id number] QT0T0 QTc0 No QRS complexes found, no ECG analysis possible
[2016-08-04] MEDS: Enoxaparin 80mg Inj SUBQ SCH ×3 (09:00→20:27)
[2016-08-04] MEDS: KCl 10% 40mEq/30ml liquid NG SCH ×3 (09:48→18:00)
[2016-08-04] MEDS: Ascorbic Acid 500mg tab ORAL SCH (09:48)
[2016-08-04] MEDS: Aspirin EC 81mg tab ORAL SCH (09:48)
[2016-08-04] MEDS: Phospha 250 Neutral tab ORAL SCH ×3 (09:49→18:00)
[2016-08-04] MEDS: Multivitamin w/Minerals tab ORAL SCH (09:49)
[2016-08-04] MEDS: Vitamin A&D Oint 2oz Tube TOPIC SCH ×2 (09:51→21:01)
[2016-08-04 10:16] LABS: BAND NEUTROPHILS % (MANUAL) 0 % (0-8); BASOPHILS % (MANUAL) 0 % (0-2); EOSINOPHILS % (MANUAL) 0 % (0-3); LYMPHOCYTES % (MANUAL) 3 % (20-45); NEUTROPHILS % (MANUAL) 90 % (45-75); PLATELET ESTIMATE ADEQUATE; PLATELET MORPHOLOGY NORMAL; TOTAL CELLS COUNTED 100
[2016-08-04 10:18] LABS: HYPOCHROMASIA 1+; MACROCYTES 1+
--- NOTE | 2016-08-04 11:43 | GI Progress Note ---
Assessment/Plan Problems: (1) Elevated CEA ICD Codes: R97.0 - Elevated carcinoembryonic antigen [CEA] SNOMED: 37673730, 914027047 (2) Shock liver ICD Codes: K72.00 - Acute and subacute hepatic failure without coma SNOMED: 746255733 (3) Anemia ICD Codes: D64.9 - Anemia, unspecified SNOMED: 015326640 (4) Liver disease ICD Codes: K76.9 - Liver disease, unspecified SNOMED: 978763409 Status: doing well, stable Status Narrative Discussed with Dr. Berman. Assessment/Plan ST eval >> INITIATE YVONNE MOIST PUREED AND NECTAR THICK LIQUIDS USING POSTED ASPIRATION AND REFLUX PRECAUTIONS AND 1 TO 1 FEEDING. abd U/S >> fatty infiltration, see full report. OB stool negative cdiff >> negative stable H&H, transfuse prn shock liver >> monitor LFTS>>> downtrending ppi fu labs outpatient GI procedures, according to patient she recently had a colonoscopy at [facility]. Subjective Gastrointestinal/Abdominal: Reports: no symptoms Objective Last 24 Hour Vital Signs Date Time Temp Pulse Resp B/P Pulse Ox O2 Delivery O2 Flow Rate FiO2 08/04/16 09:52 116 124/80 08/04/16 08:00 97.7 116 21 124/80 95 Room Air 08/04/16 07:47 Room Air 08/04/16 07:46 93 Room Air 21 08/04/16 04:00 98.2 108 18 98/57 96 Room Air 08/04/16 00:00 97.0 107 20 133/55 94 Room Air 08/03/16 19:00 98.2 98 20 94/57 95 Room Air 08/03/16 18:58 95 18 Nasal Cannula 2.0 28 08/03/16 18:58 Nasal Cannula 2.0 28 08/03/16 18:58 98 Nasal Cannula 2.0 28 08/03/16 16:59 97 91/48 08/03/16 16:00 98.2 97 20 91/48 99 Room Air 08/03/16 12:00 98.0 109 18 118/58 96 Room Air 08/03/16 11:56 Nasal Cannula 3.0 32 08/03/16 11:56 99 Nasal Cannula 3.0 32 Intake and Output 08/03/16 08/04/16 19:00 07:00 Intake Total 240 ml Output Total 1200 ml Balance -960 ml Intake Oral 240 ml Output Urine Total 1200 ml Laboratory Tests Test 08/03/16 18:00 08/04/16 05:29 Prothrombin Time 11.4 SEC (9.30-11.50) 11.5 SEC (9.30-11.50) Prothromb Time International Ratio 1.1 (0.9-1.1) 1.1 (0.9-1.1) White Blood Count 10.8 K/UL (4.8-10.8) Red Blood Count 2.98 M/UL (4.20-5.40) L Hemoglobin 9.7 G/DL (12.0-16.0) L Hematocrit 29.2 % (37.0-47.0) L Mean Corpuscular Volume 98 FL (80-99) Mean Corpuscular Hemoglobin 32.5 PG (27.0-31.0) H Mean Corpuscular Hemoglobin Concent 33.1 G/DL (32.0-36.0) Red Cell Distribution Width 14.5 % (11.6-14.8) Platelet Count 188 K/UL (150-450) Mean Platelet Volume 6.7 FL (6.5-10.1) Neutrophils (%) (Auto) % (45.0-75.0) Lymphocytes (%) (Auto) % (20.0-45.0) Monocytes (%) (Auto) % (1.0-10.0) Eosinophils (%) (Auto) % (0.0-3.0) Basophils (%) (Auto) % (0.0-2.0) Differential Total Cells Counted 100 Neutrophils % (Manual) 90 % (45-75) H Lymphocytes % (Manual) 3 % (20-45) L Monocytes % (Manual) 7 % (1-10) Eosinophils % (Manual) 0 % (0-3) Basophils % (Manual) 0 % (0-2) Band Neutrophils 0 % (0-8) Platelet Estimate Adequate Platelet Morphology Normal Hypochromasia 1+ Macrocytosis 1+ Sodium Level 136 mEQ/L (135-145) Potassium Level 3.0 mEQ/L (3.4-4.9) L Chloride Level 98 mEQ/L (98-107) Carbon Dioxide Level 23 mEQ/L (20-30) Anion Gap 15 (5-15) Blood Urea Nitrogen 8 mg/dL (7-23) Creatinine 0.6 mg/dL (0.5-0.9) Estimat Glomerular Filtration Rate > 60 mL/min (>60) Glucose Level 90 mg/dL (74-106) Calcium Level 8.1 mg/dL (8.6-10.2) L Phosphorus Level 3.5 mg/dL (2.5-4.8) Magnesium Level 1.6 mg/dL (1.7-2.5) L Total Bilirubin 0.5 mg/dL (0.0-1.2) Aspartate Amino Transf (AST/SGOT) 25 U/L (5-40) Alanine Aminotransferase (ALT/SGPT) 62 U/L (3-33) H Alkaline Phosphatase 167 U/L (35-104) H Total Protein 5.4 g/dL (6.6-8.7) L Albumin 2.5 g/dL (3.5-5.2) L Globulin 2.9 g/dL Albumin/Globulin Ratio 0.8 (1.0-2.7) L Height (Feet): 5 Height (Inches): 6.00 Weight (Pounds): 153 General Appearance: no apparent distress, alert Cardiovascular: normal rate Respiratory/Chest: normal breath sounds, no respiratory distress Abdominal Exam: normal bowel sounds, non tender, soft Objective Service Date: 07/26/16 Procedure: US ABD Complete Indication: Abdominal pain Impression: Punctate echogenic focus dependently within the gallbladder possibly a tiny calculus or polyp measuring 3 mm. No sonographic evidence of acute cholecystitis. Slight increased echogenicity of the liver may suggest fatty infiltration. Clinical correlation recommended. Small left renal cyst. Mckenzie Taylor N.P. Aug 04, 2016 11:43
--- NOTE | 2016-08-04 11:52 | Internal Med Progress Note ---
Subjective Date of Service: Aug 04, 2016 Physician Name Jaden Alfaro Attending Physician Todd Kendall MD Current Medications Medications (Trade) Dose Ordered Sig/Jagruti Route PRN Reason Start Time Stop Time Status Last Admin Dose Admin Acetaminophen (Tylenol) 650 mg Q4H PRN ORAL T>100.5 08/03/16 09:00 09/02/16 08:59 Albuterol/ Ipratropium (DuoNeb 0.5-3(2.5)mg/3ml) 3 ml Q4H PRN HHN Shortness of Breath 08/03/16 09:00 08/08/16 08:59 Ascorbic Acid (Vitamin C) 500 mg DAILY ORAL 08/03/16 09:00 09/02/16 08:59 08/04/16 09:48 Aspirin (Ecotrin) 81 mg DAILY ORAL 08/03/16 09:00 09/02/16 08:59 08/04/16 09:48 Atenolol (Tenormin) 50 mg BID ORAL 08/03/16 18:00 09/02/16 17:59 08/04/16 09:52 Clopidogrel Bisulfate (Plavix) 75 mg DAILY ORAL 08/03/16 09:00 09/02/16 08:59 08/04/16 09:48 Dextrose (Dextrose 50%) STAT PRN IV Hypoglycemia 08/03/16 17:00 09/02/16 16:59 Enoxaparin Sodium (Lovenox) 70 mg Q12HR SUBQ 08/03/16 21:00 09/02/16 20:59 08/03/16 20:26 Haloperidol Lactate (Haldol) 2.5 mg Q6H PRN IM Agitation 08/03/16 09:45 09/02/16 09:44 Magnesium Sulfate (Magnesium Sulfate 1gm/100ml) 100 ml @ 100 mls/hr Q1H IVPB 08/04/16 11:00 08/04/16 14:59 08/04/16 11:11 Midodrine (Pro-Amatine) 5 mg BEFORE BREAKFAST ORAL 08/04/16 06:30 09/03/16 06:29 08/04/16 06:02 Morphine Sulfate (Morphine Sulfate) 1 mg Q4H PRN IVP For Pain 7-10 08/03/16 09:00 08/10/16 08:59 08/04/16 07:58 Multivitamins Therapeutic (Therapeutic Multivitamin) 1 ea DAILY ORAL 08/03/16 09:00 09/02/16 08:59 08/04/16 09:49 Nitroglycerin (Ntg) 0.4 mg Q5M X 3 DOSES PRN SL Prn Chest Pain 08/03/16 05:30 09/02/16 05:29 Ondansetron HCl (Zofran) 4 mg Q4H PRN IVP Nausea & Vomiting 08/03/16 07:45 09/02/16 07:44 Pantoprazole (Protonix) 40 mg DAILY ORAL 08/03/16 10:30 09/02/16 10:29 08/04/16 09:48 Phosphorus (Phospha 250 Neutral) 500 mg THREE TIMES A DAY ORAL 08/03/16 09:00 09/02/16 08:59 08/04/16 09:49 Potassium Chloride 40 meq 40 meq TID NG 08/04/16 09:00 09/03/16 08:59 08/04/16 09:48 Pravastatin Sodium (Pravachol) 80 mg BEDTIME ORAL 08/03/16 21:00 09/02/16 20:59 08/03/16 20:23 Vitamin A/Vitamin D (A & D Oint) 1 applic EVERY 12 HOURS TOPIC 08/03/16 09:00 09/02/16 08:59 08/04/16 09:51 Warfarin Sodium (Coumadin per pharmacy) 1 ea DAILY PRN MISC Per rx protocol 08/03/16 09:00 09/02/16 08:59 Allergies: Coded Allergies: No Known Allergies (Verified , 04/10/06) ROS Limited/Unobtainable: No Constitutional: Reports: no symptoms HEENT: Reports: no symptoms Cardiovascular: Reports: no symptoms Respiratory: Reports: shortness of breath Gastrointestinal/Abdominal: Reports: no symptoms Genitourinary: Reports: no symptoms Neurologic/Psychiatric: Reports: no symptoms Subjective 56 YO F admitted with altered mental status. Cover for Int Med Dr Kendall. Tolerating room air. Await transfer to long-term fac today Objective Last Vital Signs Date Time Temp Pulse Resp B/P Pulse Ox O2 Delivery O2 Flow Rate FiO2 08/04/16 09:52 116 124/80 08/04/16 08:00 97.7 21 95 Room Air 08/04/16 07:46 21 08/03/16 18:58 2.0 Laboratory Tests Test 08/03/16 18:00 08/04/16 05:29 Prothrombin Time 11.4 SEC (9.30-11.50) 11.5 SEC (9.30-11.50) Prothromb Time International Ratio 1.1 (0.9-1.1) 1.1 (0.9-1.1) White Blood Count 10.8 K/UL (4.8-10.8) Red Blood Count 2.98 M/UL (4.20-5.40) L Hemoglobin 9.7 G/DL (12.0-16.0) L Hematocrit 29.2 % (37.0-47.0) L Mean Corpuscular Volume 98 FL (80-99) Mean Corpuscular Hemoglobin 32.5 PG (27.0-31.0) H Mean Corpuscular Hemoglobin Concent 33.1 G/DL (32.0-36.0) Red Cell Distribution Width 14.5 % (11.6-14.8) Platelet Count 188 K/UL (150-450) Mean Platelet Volume 6.7 FL (6.5-10.1) Neutrophils (%) (Auto) % (45.0-75.0) Lymphocytes (%) (Auto) % (20.0-45.0) Monocytes (%) (Auto) % (1.0-10.0) Eosinophils (%) (Auto) % (0.0-3.0) Basophils (%) (Auto) % (0.0-2.0) Differential Total Cells Counted 100 Neutrophils % (Manual) 90 % (45-75) H Lymphocytes % (Manual) 3 % (20-45) L Monocytes % (Manual) 7 % (1-10) Eosinophils % (Manual) 0 % (0-3) Basophils % (Manual) 0 % (0-2) Band Neutrophils 0 % (0-8) Platelet Estimate Adequate Platelet Morphology Normal Hypochromasia 1+ Macrocytosis 1+ Sodium Level 136 mEQ/L (135-145) Potassium Level 3.0 mEQ/L (3.4-4.9) L Chloride Level 98 mEQ/L (98-107) Carbon Dioxide Level 23 mEQ/L (20-30) Anion Gap 15 (5-15) Blood Urea Nitrogen 8 mg/dL (7-23) Creatinine 0.6 mg/dL (0.5-0.9) Estimat Glomerular Filtration Rate > 60 mL/min (>60) Glucose Level 90 mg/dL (74-106) Calcium Level 8.1 mg/dL (8.6-10.2) L Phosphorus Level 3.5 mg/dL (2.5-4.8) Magnesium Level 1.6 mg/dL (1.7-2.5) L Total Bilirubin 0.5 mg/dL (0.0-1.2) Aspartate Amino Transf (AST/SGOT) 25 U/L (5-40) Alanine Aminotransferase (ALT/SGPT) 62 U/L (3-33) H Alkaline Phosphatase 167 U/L (35-104) H Total Protein 5.4 g/dL (6.6-8.7) L Albumin 2.5 g/dL (3.5-5.2) L Globulin 2.9 g/dL Albumin/Globulin Ratio 0.8 (1.0-2.7) L Intake and Output 08/03/16 08/04/16 19:00 07:00 Intake Total 240 ml Output Total 1200 ml Balance -960 ml Intake Oral 240 ml Output Urine Total 1200 ml Objective General Appearance: WD/WN, no apparent distress, alert EENT: PERRL/EOMI, normal ENT inspection, TMs normal Neck: non-tender, normal alignment, supple Cardiovascular: normal peripheral pulses, normal rate, regular rhythm, regularly irregular, no gallop/murmur Respiratory/Chest: Room air; chest wall non-tender, Wheezing bilat, respiratory distress, accessory muscle use Abdomen: normal bowel sounds, non tender, soft, no organomegaly, no mass, abnormal bowel sounds Extremities: normal range of motion Neurologic: ceo [place] 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 D/C antibiotics-See ID note. (2) CAD (coronary artery disease) (3) HTN (hypertension) Assessment & Plan: Cont atenolol (4) Hypercholesteremia (5) Renal insufficiency Assessment & Plan: See nephrology note. 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 See pulmonary note. (9) Agitation Assessment & Plan: Delirium per psych. Agitation meds to be managed by psychiatry only. D/W Dr Hoskins (10) Delirium due to another medical condition, acute, hyperactive Assessment & Plan: See psych note. (11) Hypokalemia Assessment & Plan: Replace potassium; see nephrology note. Status: progressing Assessment/Plan Transfer to longterm facility today JADEN ALFARO Aug 04, 2016 11:52
[2016-08-04 11:56] VITALS: BP 107/68
--- NOTE | 2016-08-04 13:33 | Wound Care Consultation ---
Wound Assessment Wound Assessment #1: Wound Present on Admission: Yes New Wound: No Status Change of Wound: No Wound Location Body Site Modif: mid Wound Location Body Site: sacral Wound Type: pressure ulcer Barrie Test: Does not Barrie Pressure Ulcer Stage: I Wound Length: 3.0 Wound Width: 3.0 Percent of Wound Washam/Red: 100 Wound Drainage Amount: None Wound Drainage Odor: None/Absent Tissue Surrounding Wound: Intact Wound Assessment #2: Wound Number: #2 Wound Present on Admission: Yes New Wound: No Status Change of Wound: No Wound Location Body Site Modif: left, lower, anterior Wound Location Body Site: leg Wound Type: scab - resolving Barrie Test: Does not Barrie Wound Thickness: Full Thickness Wound Length: 0.8 Wound Width: 0.8 Wound Depth: 0.1 Percent of Wound Washam/Red: 100 Wound Drainage Amount: None Wound Drainage Odor: None/Absent Tissue Surrounding Wound: Intact Wound General Appearance: Reddened - noted good progress wound bed superficial, resolving. Wound Assessment #3: Wound Number: #3 Wound Present on Admission: Yes New Wound: No Status Change of Wound: No Wound Location Body Site Modif: left, dorsal Wound Location Body Site: foot Wound Type: scab Barrie Test: Does not Barrie Wound Thickness: Full Thickness Wound Length: 0.8 Wound Width: 0.8 Wound Depth: utd Percent of Wound Black/Brown: 100 - thick adhered scab Wound Drainage Amount: None Wound Drainage Odor: None/Absent Tissue Surrounding Wound: Intact Wound General Appearance: Blackened - dry scab adhered. Wound Assessment #4: Wound Number: #4 Wound Present on Admission: Yes New Wound: No Status Change of Wound: No Wound Location Body Site Modif: left Wound Location Body Site: toe - 2nd toe scab RESOLVED. Wound Type: scab - resolved. Barrie Test: Does not Barrie Wound Drainage Amount: None Wound Drainage Odor: None/Absent Tissue Surrounding Wound: Intact Wound General Appearance: Open to air, Clean/Dry Wound Assessment #5: Wound Number: #5 Wound Present on Admission: Yes New Wound: No Status Change of Wound: No Wound Location Body Site Modif: right Wound Location Body Site: knee Wound Type: other - open wound-etiology unknown, reassessed noted scab intact. Barrie Test: Does not Barrie Wound Thickness: Full Thickness Wound Length: 1.2 Wound Width: 1.2 Wound Depth: utd, scab intact Percent of Wound Black/Brown: 100 - scab adhered to wound bed Wound Drainage Amount: None Wound Drainage Odor: None/Absent Tissue Surrounding Wound: Intact Wound General Appearance: Clean/Dry Wound Assessment #6: Wound Number: #6 Wound Present on Admission: Yes New Wound: No Status Change of Wound: No Wound Location Body Site Modif: left, anterior, dorsal Wound Location Body Site: foot Wound Type: discoloration - scattered red discoloration Barrie Test: Does not Barrie Wound Drainage Amount: None Wound Drainage Odor: None/Absent Tissue Surrounding Wound: Intact Wound General Appearance: Clean/Dry Wound Assessment #7: Wound Number: #7 Wound Present on Admission: Yes New Wound: No Status Change of Wound: No Wound Location Body Site Modif: left Wound Location Body Site: heel Wound Type: pressure ulcer Barrie Test: Does not Barrie Pressure Ulcer Stage: IV/unstageable Wound Thickness: Full Thickness Wound Length: 0.5 Wound Width: 0.5 Wound Depth: utd Percent of Wound Black/Brown: 100 Wound Drainage Amount: None Wound Drainage Odor: None/Absent Tissue Surrounding Wound: Intact Wound General Appearance: Necrotic Wound Assessment #8: Wound Number: #8 Wound Present on Admission: No New Wound: Yes Status Change of Wound: No Wound Location Body Site Modif: right, lower Wound Location Body Site: leg - extending to doral foot Wound Type: scab - scattered dry scabs Barrie Test: Does not Barrie Wound Thickness: Partial Thickness Percent of Wound Black/Brown: 100 - scattered dry scabs Wound Drainage Amount: None Wound Drainage Odor: None/Absent Tissue Surrounding Wound: Intact Wound General Appearance: Open to air, Clean/Dry Wound Comment #1 Sacral pressure ulcer stage I. #2 Right knee open wound -etiology unknown - upon reassessment noted scab formation to site, clean , dry. #3 Left anterior lower leg scab- resolving, noted good progress, site clean and dry. #4 Left dorsal aspect of foot scab- remains clean and dry. #5 Left second toe scab-resolved, skin intact to site. #6 scattered reddened discoloration to left anterior foot. #7 Left heel pressure ulcer stage IV/Unstageable- No further change noted to site, eschar remains , clean, dry and intact. #8 Right lower extremity extending to dorsal foot scattered dry scabs. Upon reassessment noted good progress to all admitted wound sites, no further deterioration present,current wound care remains effective. TERRENCE CORTES Aug 04, 2016 13:33
--- NOTE | 2016-08-04 15:34 | General Progress Note ---
Assessment/Plan Status: stable - renal parameters Assessment/Plan status: Acute Renal Failure - Cr deneen from 0.8 to 1.9- Multifactorial: Low BP- Vanco.... 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 elevated transaminase , likely due to shock liver , improving hypokalemia COPD Hx of lung Ca urinary retention , has hadley now Sugg: K , mag , Phos supplement Correct abnormal electrolytes- ordered Gastric support- Avoid Nephrotoxics- Aim to optimize cardiac and pulmonary status Subjective ROS Limited/Unobtainable: No Constitutional: Reports: malaise Allergies: Coded Allergies: No Known Allergies (Verified , 04/10/06) Objective Last 24 Hour Vital Signs Date Time Temp Pulse Resp B/P Pulse Ox O2 Delivery O2 Flow Rate FiO2 08/04/16 11:56 97.9 107 21 107/68 95 Room Air 08/04/16 09:52 116 124/80 08/04/16 08:00 97.7 116 21 124/80 95 Room Air 08/04/16 07:47 Room Air 08/04/16 07:46 93 Room Air 21 08/04/16 04:00 98.2 108 18 98/57 96 Room Air 08/04/16 00:00 97.0 107 20 133/55 94 Room Air 08/03/16 19:00 98.2 98 20 94/57 95 Room Air 08/03/16 18:58 95 18 Nasal Cannula 2.0 28 08/03/16 18:58 Nasal Cannula 2.0 28 08/03/16 18:58 98 Nasal Cannula 2.0 28 08/03/16 16:59 97 91/48 08/03/16 16:00 98.2 97 20 91/48 99 Room Air Intake and Output 08/03/16 08/04/16 19:00 07:00 Intake Total 240 ml Output Total 1200 ml Balance -960 ml Intake Oral 240 ml Output Urine Total 1200 ml Laboratory Tests 08/03/16 18:00: Prothrombin Time 11.4, Prothromb Time International Ratio 1.1 08/04/16 05:29: Prothrombin Time 11.5, Prothromb Time International Ratio 1.1, White Blood Count 10.8, Red Blood Count 2.98L, Hemoglobin 9.7L, Hematocrit 29.2L, Mean Corpuscular Volume 98, Mean Corpuscular Hemoglobin 32.5H, Mean Corpuscular Hemoglobin Concent 33.1, Red Cell Distribution Width 14.5, Platelet Count 188, Mean Platelet Volume 6.7, Neutrophils (%) (Auto) , Lymphocytes (%) (Auto) , Monocytes (%) (Auto) , Eosinophils (%) (Auto) , Basophils (%) (Auto) , Differential Total Cells Counted 100, Neutrophils % (Manual) 90H, Lymphocytes % (Manual) 3L, Monocytes % (Manual) 7, Eosinophils % (Manual) 0, Basophils % ( Manual) 0, Band Neutrophils 0, Platelet Estimate Adequate, Platelet Morphology Normal, Hypochromasia 1+, Macrocytosis 1+, Sodium Level 136, Potassium Level 3.0L, Chloride Level 98, Carbon Dioxide Level 23, Anion Gap 15, Blood Urea Nitrogen 8, Creatinine 0.6, Estimat Glomerular Filtration Rate > 60, Glucose Level 90, Calcium Level 8.1L, Phosphorus Level 3.5, Magnesium Level 1.6L, Total Bilirubin 0.5, Aspartate Amino Transf (AST/SGOT) 25, Alanine Aminotransferase ( ALT/SGPT) 62H, Alkaline Phosphatase 167H, Total Protein 5.4L, Albumin 2.5L, Globulin 2.9, Albumin/Globulin Ratio 0.8L Height (Feet): 5 Height (Inches): 6.00 Weight (Pounds): 153 General Appearance: no apparent distress Cardiovascular: tachycardia, arrhythmia Respiratory/Chest: decreased breath sounds Abdomen: soft Objective other physical exam not changed GINA VILLARREAL Aug 04, 2016 15:34
[2016-08-04 16:00] VITALS: BP 105/60
--- NOTE | 2016-08-04 17:16 | Pulmonology Progress Note ---
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 (6) S /P CABG/MVR Assessment/Plan tolerating nasal cnnula check electrolytes titrate fio2 to sat of 92% f/u renal function dvt prophylaxis all notes, meds reviewed f/u INR dc planning pt/pt Subjective Interval Events: asymptomatic Allergies: Coded Allergies: No Known Allergies (Verified , 04/10/06) Objective Last 24 Hour Vital Signs Date Time Temp Pulse Resp B/P Pulse Ox O2 Delivery O2 Flow Rate FiO2 08/04/16 17:02 97.9 08/04/16 11:56 97.9 107 21 107/68 95 Room Air 08/04/16 09:52 116 124/80 08/04/16 08:00 97.7 116 21 124/80 95 Room Air 08/04/16 07:47 Room Air 08/04/16 07:46 93 Room Air 21 08/04/16 04:00 98.2 108 18 98/57 96 Room Air 08/04/16 00:00 97.0 107 20 133/55 94 Room Air 08/03/16 19:00 98.2 98 20 94/57 95 Room Air 08/03/16 18:58 95 18 Nasal Cannula 2.0 28 08/03/16 18:58 Nasal Cannula 2.0 28 08/03/16 18:58 98 Nasal Cannula 2.0 28 Intake and Output 08/03/16 08/04/16 19:00 07:00 Intake Total 240 ml Output Total 1200 ml Balance -960 ml Intake Oral 240 ml Output Urine Total 1200 ml Objective General Appearance: WD/WN HEENT: normocephalic, atraumatic Respiratory/Chest: chest wall non-tender, crackles/rales Cardiovascular: normal peripheral pulses, normal rate Abdomen: normal bowel sounds, soft, non tender Genitourinary: normal external genitalia Extremities: no cyanosis, no clubbing Skin: no rash Neurologic/Psychiatric: [employer] II-XII grossly normal Laboratory Tests 08/03/16 18:00: Prothrombin Time 11.4, Prothromb Time International Ratio 1.1 08/04/16 05:29: Prothrombin Time 11.5, Prothromb Time International Ratio 1.1, White Blood Count 10.8, Red Blood Count 2.98L, Hemoglobin 9.7L, Hematocrit 29.2L, Mean Corpuscular Volume 98, Mean Corpuscular Hemoglobin 32.5H, Mean Corpuscular Hemoglobin Concent 33.1, Red Cell Distribution Width 14.5, Platelet Count 188, Mean Platelet Volume 6.7, Neutrophils (%) (Auto) , Lymphocytes (%) (Auto) , Monocytes (%) (Auto) , Eosinophils (%) (Auto) , Basophils (%) (Auto) , Differential Total Cells Counted 100, Neutrophils % (Manual) 90H, Lymphocytes % (Manual) 3L, Monocytes % (Manual) 7, Eosinophils % (Manual) 0, Basophils % ( Manual) 0, Band Neutrophils 0, Platelet Estimate Adequate, Platelet Morphology Normal, Hypochromasia 1+, Macrocytosis 1+, Sodium Level 136, Potassium Level 3.0L, Chloride Level 98, Carbon Dioxide Level 23, Anion Gap 15, Blood Urea Nitrogen 8, Creatinine 0.6, Estimat Glomerular Filtration Rate > 60, Glucose Level 90, Calcium Level 8.1L, Phosphorus Level 3.5, Magnesium Level 1.6L, Total Bilirubin 0.5, Aspartate Amino Transf (AST/SGOT) 25, Alanine Aminotransferase ( ALT/SGPT) 62H, Alkaline Phosphatase 167H, Total Protein 5.4L, Albumin 2.5L, Globulin 2.9, Albumin/Globulin Ratio 0.8L Current Medications Medications (Trade) Dose Ordered Sig/Jagruti Route PRN Reason Start Time Stop Time Status Last Admin Dose Admin Acetaminophen (Tylenol) 650 mg Q4H PRN ORAL T>100.5 08/03/16 09:00 09/02/16 08:59 Albuterol/ Ipratropium (DuoNeb 0.5-3(2.5)mg/3ml) 3 ml Q4H PRN HHN Shortness of Breath 08/03/16 09:00 08/08/16 08:59 Ascorbic Acid (Vitamin C) 500 mg DAILY ORAL 08/03/16 09:00 09/02/16 08:59 08/04/16 09:48 Aspirin (Ecotrin) 81 mg DAILY ORAL 08/03/16 09:00 09/02/16 08:59 08/04/16 09:48 Atenolol (Tenormin) 50 mg BID ORAL 08/03/16 18:00 09/02/16 17:59 08/04/16 09:52 Clopidogrel Bisulfate (Plavix) 75 mg DAILY ORAL 08/03/16 09:00 09/02/16 08:59 08/04/16 09:48 Dextrose (Dextrose 50%) STAT PRN IV Hypoglycemia 08/03/16 17:00 09/02/16 16:59 Enoxaparin Sodium (Lovenox) 70 mg Q12HR SUBQ 08/03/16 21:00 09/02/16 20:59 08/03/16 20:26 Haloperidol Lactate (Haldol) 2.5 mg Q6H PRN IM Agitation 08/03/16 09:45 09/02/16 09:44 Midodrine (Pro-Amatine) 5 mg BEFORE BREAKFAST ORAL 08/04/16 06:30 09/03/16 06:29 08/04/16 06:02 Morphine Sulfate (Morphine Sulfate) 1 mg Q4H PRN IVP For Pain 7-10 08/03/16 09:00 08/10/16 08:59 08/04/16 16:24 Multivitamins Therapeutic (Therapeutic Multivitamin) 1 ea DAILY ORAL 08/03/16 09:00 09/02/16 08:59 08/04/16 09:49 Nitroglycerin (Ntg) 0.4 mg Q5M X 3 DOSES PRN SL Prn Chest Pain 08/03/16 05:30 09/02/16 05:29 Ondansetron HCl (Zofran) 4 mg Q4H PRN IVP Nausea & Vomiting 08/03/16 07:45 09/02/16 07:44 Pantoprazole (Protonix) 40 mg DAILY ORAL 08/03/16 10:30 09/02/16 10:29 08/04/16 09:48 Phosphorus (Phospha 250 Neutral) 500 mg THREE TIMES A DAY ORAL 08/03/16 09:00 09/02/16 08:59 08/04/16 14:25 Potassium Chloride (KCl 10% 40mEq Oral solution) 40 meq TID NG 08/04/16 09:00 09/03/16 08:59 08/04/16 14:25 Pravastatin Sodium (Pravachol) 80 mg BEDTIME ORAL 08/03/16 21:00 09/02/16 20:59 08/03/16 20:23 Vitamin A/Vitamin D (A & D Oint) 1 applic EVERY 12 HOURS TOPIC 08/04/16 21:00 09/03/16 20:59 Warfarin Sodium (Coumadin per pharmacy) 1 ea DAILY PRN MISC Per rx protocol 08/03/16 09:00 09/02/16 08:59 LISETTE ANTUNEZ Aug 04, 2016 17:16
[2016-08-04] MEDS ORDERED: Tubing IV Secondary IV ONE (18:36)
[2016-08-04] MEDS ORDERED: NS 275ml ONE (18:36)
[2016-08-04] MEDS ORDERED: Warfarin Sodium 10mg ORAL ONE (19:00)
[2016-08-04 20:00] VITALS: BP 90/50
[2016-08-05] VITALS (8 sets, daily range): BP systolic 90–106; BP diastolic 52–66
[2016-08-05] MEDS: Morphine Sulfate 2mg/ml Inj IVP PRN ×6 (00:32→22:35)
[2016-08-05 08:08] LABS: ANION GAP 17 (5-15); CALCIUM 8.2 mg/dL (8.6-10.2); CARBON DIOXIDE 21 mEQ/L (20-30); CHLORIDE 100 mEQ/L (98-107); CREATININE 0.7 mg/dL (0.5-0.9); GLOMERULAR FILTRATION RATE > 60 mL/min (>60); HEMOLYSIS 33; MEAN CORPUSCULAR HEMOGLOBIN 32.3 PG (27.0-31.0); MEAN CORPUSCULAR HGB CONC 31.9 G/DL (32.0-36.0); MEAN CORPUSCULAR VOLUME 101 FL (80-99); MEAN PLATELET VOLUME 6.8 FL (6.5-10.1); PLATELET COUNT 207 K/UL (150-450); POTASSIUM 3.9 mEQ/L (3.4-4.9); RED BLOOD COUNT 2.48 M/UL (4.20-5.40); RED CELL DISTRIBUTION WIDTH 15.2 % (11.6-14.8); SODIUM 138 mEQ/L (135-145)
[2016-08-05 08:22] LABS: INR 1.4 (0.9-1.1)
[2016-08-05] MEDS: Multivitamin w/Minerals tab ORAL SCH (08:44)
[2016-08-05] MEDS: Phospha 250 Neutral tab ORAL SCH ×3 (08:44→17:39)
[2016-08-05] MEDS: Ascorbic Acid 500mg tab ORAL SCH (08:44)
[2016-08-05] MEDS: Aspirin EC 81mg tab ORAL SCH (08:44)
[2016-08-05] MEDS: KCl 10% 40mEq/30ml liquid NG SCH ×3 (08:45→17:39)
[2016-08-05] MEDS: Vitamin A&D Oint 2oz Tube TOPIC SCH ×2 (08:45→22:02)
[2016-08-05] MEDS: Enoxaparin 80mg Inj SUBQ SCH ×2 (08:47→22:01)
--- NOTE | 2016-08-05 10:45 | GI Progress Note ---
Assessment/Plan Problems: (1) Elevated CEA ICD Codes: R97.0 - Elevated carcinoembryonic antigen [CEA] SNOMED: 80193772, 329704499 (2) Shock liver ICD Codes: K72.00 - Acute and subacute hepatic failure without coma SNOMED: 249779305 (3) Anemia ICD Codes: D64.9 - Anemia, unspecified SNOMED: 108273059 (4) Liver disease ICD Codes: K76.9 - Liver disease, unspecified SNOMED: 673310743 Status: stable Status Narrative Discussed with Dr. Berman. Assessment/Plan ST eval >> INITIATE YVONNE MOIST PUREED AND NECTAR THICK LIQUIDS USING POSTED ASPIRATION AND REFLUX PRECAUTIONS AND 1 TO 1 FEEDING. abd U/S >> fatty infiltration, see full report. OB stool negative cdiff >> negative monitor H&H >> downtrending, add OB stool shock liver >> monitor LFTS>>> downtrending ppi fu labs outpatient GI procedures, according to patient she recently had a colonoscopy at [facility]. Subjective Gastrointestinal/Abdominal: Reports: no symptoms Subjective eating well dark brown stool Objective Last 24 Hour Vital Signs Date Time Temp Pulse Resp B/P Pulse Ox O2 Delivery O2 Flow Rate FiO2 08/05/16 09:00 95 08/05/16 08:00 98.1 95 18 98/62 97 08/05/16 07:33 Room Air 08/05/16 07:33 96 Room Air 08/05/16 05:07 98.0 08/05/16 04:54 103/62 08/05/16 04:00 98.0 91 18 99/60 98 Room Air 08/05/16 00:00 98.1 92 20 106/66 96 Room Air 08/04/16 20:42 Room Air 08/04/16 20:42 100 Room Air 21 08/04/16 20:00 98.1 94 18 90/50 96 Room Air 08/04/16 18:00 107 107/68 08/04/16 17:02 97.9 08/04/16 16:00 97.3 117 18 105/60 95 Room Air 08/04/16 11:56 97.9 107 21 107/68 95 Room Air Intake and Output 08/04/16 08/05/16 19:00 07:00 Intake Total 580 ml 640 ml Balance 580 ml 640 ml Intake Oral 480 ml 640 ml IV Total 100 ml # Voids 2 1 # Bowel Movements 1 1 Laboratory Tests Test 08/05/16 06:30 White Blood Count 11.0 K/UL (4.8-10.8) H Red Blood Count 2.48 M/UL (4.20-5.40) L Hemoglobin 8.0 G/DL (12.0-16.0) L Hematocrit 25.1 % (37.0-47.0) L Mean Corpuscular Volume 101 FL (80-99) H Mean Corpuscular Hemoglobin 32.3 PG (27.0-31.0) H Mean Corpuscular Hemoglobin Concent 31.9 G/DL (32.0-36.0) L Red Cell Distribution Width 15.2 % (11.6-14.8) H Platelet Count 207 K/UL (150-450) Mean Platelet Volume 6.8 FL (6.5-10.1) Neutrophils (%) (Auto) % (45.0-75.0) Lymphocytes (%) (Auto) % (20.0-45.0) Monocytes (%) (Auto) % (1.0-10.0) Eosinophils (%) (Auto) % (0.0-3.0) Basophils (%) (Auto) % (0.0-2.0) Neutrophils % (Manual) Pending Lymphocytes % (Manual) Pending Platelet Estimate Pending Platelet Morphology Pending Prothrombin Time 14.0 SEC (9.30-11.50) H Prothromb Time International Ratio 1.4 (0.9-1.1) H Sodium Level 138 mEQ/L (135-145) Potassium Level 3.9 mEQ/L (3.4-4.9) Chloride Level 100 mEQ/L (98-107) Carbon Dioxide Level 21 mEQ/L (20-30) Anion Gap 17 (5-15) H Blood Urea Nitrogen 7 mg/dL (7-23) Creatinine 0.7 mg/dL (0.5-0.9) Estimat Glomerular Filtration Rate > 60 mL/min (>60) Glucose Level 91 mg/dL (74-106) Calcium Level 8.2 mg/dL (8.6-10.2) L Magnesium Level 1.8 mg/dL (1.7-2.5) Height (Feet): 5 Height (Inches): 6.00 Weight (Pounds): 153 General Appearance: no apparent distress, alert, thin Cardiovascular: normal rate Respiratory/Chest: normal breath sounds, no respiratory distress Abdominal Exam: normal bowel sounds, non tender, soft Objective Service Date: 07/26/16 Procedure: US ABD Complete Indication: Abdominal pain Impression: Punctate echogenic focus dependently within the gallbladder possibly a tiny calculus or polyp measuring 3 mm. No sonographic evidence of acute cholecystitis. Slight increased echogenicity of the liver may suggest fatty infiltration. Clinical correlation recommended. Small left renal cyst. Mckenzie Taylor N.P. Aug 05, 2016 10:45
[2016-08-05 12:13] LABS: BAND NEUTROPHILS % (MANUAL) 0 % (0-8); BASOPHILS % (MANUAL) 0 % (0-2); EOSINOPHILS % (MANUAL) 1 % (0-3); LYMPHOCYTES % (MANUAL) 4 % (20-45); NEUTROPHILS % (MANUAL) 90 % (45-75); PLATELET ESTIMATE ADEQUATE; PLATELET MORPHOLOGY NORMAL; TOTAL CELLS COUNTED 100
[2016-08-05 12:14] LABS: ANISOCYTOSIS 1+; HYPOCHROMASIA 1+
[2016-08-05 12:15] LABS: MACROCYTES 1+
--- NOTE | 2016-08-05 12:17 | General Progress Note ---
Assessment/Plan Status: doing well, stable - from renal stand Assessment/Plan status: Acute Renal Failure - Cr deneen from 0.8 to 1.9- Multifactorial: Low BP- Vanco.... 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 Subjective ROS Limited/Unobtainable: No Constitutional: Reports: weakness Allergies: Coded Allergies: No Known Allergies (Verified , 04/10/06) Objective Last 24 Hour Vital Signs Date Time Temp Pulse Resp B/P Pulse Ox O2 Delivery O2 Flow Rate FiO2 08/05/16 09:00 95 08/05/16 08:00 98.1 95 18 98/62 97 08/05/16 07:33 Room Air 08/05/16 07:33 96 Room Air 21 08/05/16 05:07 98.0 08/05/16 04:54 103/62 08/05/16 04:00 98.0 91 18 99/60 98 Room Air 08/05/16 00:00 98.1 92 20 106/66 96 Room Air 08/04/16 20:42 Room Air 08/04/16 20:42 100 Room Air 21 08/04/16 20:00 98.1 94 18 90/50 96 Room Air 08/04/16 18:00 107 107/68 08/04/16 17:02 97.9 08/04/16 16:00 97.3 117 18 105/60 95 Room Air Intake and Output 08/04/16 08/05/16 19:00 07:00 Intake Total 580 ml 640 ml Balance 580 ml 640 ml Intake Oral 480 ml 640 ml IV Total 100 ml # Voids 2 1 # Bowel Movements 1 1 Laboratory Tests 08/05/16 06:30: White Blood Count 11.0H, Red Blood Count 2.48L, Hemoglobin 8.0L, Hematocrit 25.1L, Mean Corpuscular Volume 101H, Mean Corpuscular Hemoglobin 32.3H, Mean Corpuscular Hemoglobin Concent 31.9L, Red Cell Distribution Width 15.2H, Platelet Count 207, Mean Platelet Volume 6.8, Neutrophils (%) (Auto) , Lymphocytes (%) (Auto) , Monocytes (%) (Auto) , Eosinophils (%) (Auto) , Basophils (%) (Auto) , Differential Total Cells Counted 100, Neutrophils % ( Manual) 90H, Lymphocytes % (Manual) 4L, Monocytes % (Manual) 5, Eosinophils % ( Manual) 1, Basophils % (Manual) 0, Band Neutrophils 0, Platelet Estimate Adequate, Platelet Morphology Normal, Hypochromasia 1+, Anisocytosis 1+, Macrocytosis 1+, Prothrombin Time 14.0H, Prothromb Time International Ratio 1.4H , Sodium Level 138, Potassium Level 3.9, Chloride Level 100, Carbon Dioxide Level 21, Anion Gap 17H, Blood Urea Nitrogen 7, Creatinine 0.7, Estimat Glomerular Filtration Rate > 60, Glucose Level 91, Calcium Level 8.2L, Magnesium Level 1.8 Height (Feet): 5 Height (Inches): 6.00 Weight (Pounds): 153 General Appearance: no apparent distress Objective other physical exam not changed GINA VILLARREAL Aug 05, 2016 12:17
[2016-08-05] MEDS ORDERED: Warfarin Sodium 5mg ORAL ONE (17:00)
--- NOTE | 2016-08-05 17:13 | Internal Med Progress Note ---
Subjective Date of Service: Aug 05, 2016 Physician Name Jaden Alfaro Attending Physician Todd Kendall MD Current Medications Medications (Trade) Dose Ordered Sig/Jagruti Route PRN Reason Start Time Stop Time Status Last Admin Dose Admin Acetaminophen (Tylenol) 650 mg Q4H PRN ORAL T>100.5 08/03/16 09:00 09/02/16 08:59 08/05/16 15:06 Albuterol/ Ipratropium (DuoNeb 0.5-3(2.5)mg/3ml) 3 ml Q4H PRN HHN Shortness of Breath 08/03/16 09:00 08/08/16 08:59 Ascorbic Acid (Vitamin C) 500 mg DAILY ORAL 08/03/16 09:00 09/02/16 08:59 08/05/16 08:44 Aspirin (Ecotrin) 81 mg DAILY ORAL 08/03/16 09:00 09/02/16 08:59 08/05/16 08:44 Atenolol (Tenormin) 50 mg BID ORAL 08/03/16 18:00 09/02/16 17:59 08/04/16 18:00 Clopidogrel Bisulfate (Plavix) 75 mg DAILY ORAL 08/03/16 09:00 09/02/16 08:59 08/05/16 08:45 Dextrose (Dextrose 50%) STAT PRN IV Hypoglycemia 08/03/16 17:00 09/02/16 16:59 Enoxaparin Sodium (Lovenox) 70 mg Q12HR SUBQ 08/03/16 21:00 09/02/16 20:59 08/05/16 08:47 Haloperidol Lactate (Haldol) 2.5 mg Q6H PRN IM Agitation 08/03/16 09:45 09/02/16 09:44 Midodrine (Pro-Amatine) 5 mg BEFORE BREAKFAST ORAL 08/04/16 06:30 09/03/16 06:29 08/04/16 06:02 Morphine Sulfate (Morphine Sulfate) 1 mg Q4H PRN IVP For Pain 7-10 08/03/16 09:00 08/10/16 08:59 08/04/16 16:24 Morphine Sulfate (Morphine Sulfate) 2 mg Q4H PRN IVP Severe Pain (Pain Scale 7-10) 08/04/16 20:00 08/11/16 19:59 08/05/16 13:39 Multivitamins Therapeutic (Therapeutic Multivitamin) 1 ea DAILY ORAL 08/03/16 09:00 09/02/16 08:59 08/05/16 08:44 Nitroglycerin (Ntg) 0.4 mg Q5M X 3 DOSES PRN SL Prn Chest Pain 08/03/16 05:30 09/02/16 05:29 Ondansetron HCl (Zofran) 4 mg Q4H PRN IVP Nausea & Vomiting 08/03/16 07:45 09/02/16 07:44 Pantoprazole (Protonix) 40 mg DAILY ORAL 08/03/16 10:30 09/02/16 10:29 08/05/16 08:44 Phosphorus (Phospha 250 Neutral) 500 mg THREE TIMES A DAY ORAL 08/03/16 09:00 09/02/16 08:59 08/05/16 13:38 Potassium Chloride (KCl 10% 40mEq Oral solution) 40 meq TID NG 08/04/16 09:00 09/03/16 08:59 08/05/16 13:38 Pravastatin Sodium (Pravachol) 80 mg BEDTIME ORAL 08/03/16 21:00 09/02/16 20:59 08/04/16 20:28 Vitamin A/Vitamin D (A & D Oint) 1 applic EVERY 12 HOURS TOPIC 08/04/16 21:00 09/03/16 20:59 08/05/16 08:45 Warfarin Sodium (Coumadin per pharmacy) 1 ea DAILY PRN MISC Per rx protocol 08/03/16 09:00 09/02/16 08:59 Allergies: Coded Allergies: No Known Allergies (Verified , 04/10/06) ROS Limited/Unobtainable: Yes Subjective 56 YO F admitted with altered mental status. Cover for Int Med Dr Kendall. Tolerating room air. Await transfer to [facility] acute care [place] today Objective Last Vital Signs Date Time Temp Pulse Resp B/P Pulse Ox O2 Delivery O2 Flow Rate FiO2 08/05/16 16:00 99.5 115 22 90/52 97 Room Air 08/05/16 07:33 21 08/03/16 18:58 2.0 Laboratory Tests Test 08/05/16 06:30 08/05/16 13:32 White Blood Count 11.0 K/UL (4.8-10.8) H Red Blood Count 2.48 M/UL (4.20-5.40) L Hemoglobin 8.0 G/DL (12.0-16.0) L Hematocrit 25.1 % (37.0-47.0) L Mean Corpuscular Volume 101 FL (80-99) H Mean Corpuscular Hemoglobin 32.3 PG (27.0-31.0) H Mean Corpuscular Hemoglobin Concent 31.9 G/DL (32.0-36.0) L Red Cell Distribution Width 15.2 % (11.6-14.8) H Platelet Count 207 K/UL (150-450) Mean Platelet Volume 6.8 FL (6.5-10.1) Neutrophils (%) (Auto) % (45.0-75.0) Lymphocytes (%) (Auto) % (20.0-45.0) Monocytes (%) (Auto) % (1.0-10.0) Eosinophils (%) (Auto) % (0.0-3.0) Basophils (%) (Auto) % (0.0-2.0) Differential Total Cells Counted 100 Neutrophils % (Manual) 90 % (45-75) H Lymphocytes % (Manual) 4 % (20-45) L Monocytes % (Manual) 5 % (1-10) Eosinophils % (Manual) 1 % (0-3) Basophils % (Manual) 0 % (0-2) Band Neutrophils 0 % (0-8) Platelet Estimate Adequate Platelet Morphology Normal Hypochromasia 1+ Anisocytosis 1+ Macrocytosis 1+ Prothrombin Time 14.0 SEC (9.30-11.50) H Prothromb Time International Ratio 1.4 (0.9-1.1) H Sodium Level 138 mEQ/L (135-145) Potassium Level 3.9 mEQ/L (3.4-4.9) Chloride Level 100 mEQ/L (98-107) Carbon Dioxide Level 21 mEQ/L (20-30) Anion Gap 17 (5-15) H Blood Urea Nitrogen 7 mg/dL (7-23) Creatinine 0.7 mg/dL (0.5-0.9) Estimat Glomerular Filtration Rate > 60 mL/min (>60) Glucose Level 91 mg/dL (74-106) Calcium Level 8.2 mg/dL (8.6-10.2) L Magnesium Level 1.8 mg/dL (1.7-2.5) Stool Occult Blood Negative (NEGATIVE) Intake and Output 08/04/16 08/05/16 19:00 07:00 Intake Total 580 ml 640 ml Balance 580 ml 640 ml Intake Oral 480 ml 640 ml IV Total 100 ml # Voids 2 1 # Bowel Movements 1 1 Objective General Appearance: WD/WN, no apparent distress, alert EENT: PERRL/EOMI, normal ENT inspection, TMs normal Neck: non-tender, normal alignment, supple Cardiovascular: normal peripheral pulses, normal rate, regular rhythm, regularly irregular, no gallop/murmur Respiratory/Chest: Room air; chest wall non-tender, Wheezing bilat, respiratory distress, accessory muscle use Abdomen: normal bowel sounds, non tender, soft, no organomegaly, no mass, abnormal bowel sounds Extremities: normal range of motion Neurologic: ratchet setter 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 D/C antibiotics-See ID note. (2) CAD (coronary artery disease) (3) HTN (hypertension) Assessment & Plan: Cont atenolol (4) Hypercholesteremia (5) Renal insufficiency Assessment & Plan: See nephrology note. 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 See pulmonary note. (9) Agitation Assessment & Plan: Delirium per psych. Agitation meds to be managed by psychiatry only. D/W Dr Hoskins (10) Delirium due to another medical condition, acute, hyperactive Assessment & Plan: See psych note. (11) Hypokalemia Assessment & Plan: Replace potassium; see nephrology note. (12) Anemia Assessment & Plan: Transfuse 1 unit PRBC today. Status: stable Assessment/Plan Transfer to [facility] acute care facility today after transfusion JADEN ALFARO Aug 05, 2016 17:13
--- NOTE | 2016-08-05 22:37 | Pulmonology Progress Note ---
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 (6) S /P CABG/MVR Assessment/Plan tolerating nasal cnnula check electrolytes titrate fio2 to sat of 92% f/u renal function dvt prophylaxis all notes, meds reviewed f/u INR dc planning pt/pt Subjective Allergies: Coded Allergies: No Known Allergies (Verified , 04/10/06) Objective Last 24 Hour Vital Signs Date Time Temp Pulse Resp B/P Pulse Ox O2 Delivery O2 Flow Rate FiO2 08/05/16 20:00 97.7 109 18 95/54 98 Room Air 08/05/16 18:40 98.2 109 18 92/62 100 Room Air 08/05/16 17:31 115 90/52 08/05/16 16:00 99.5 115 22 90/52 97 Room Air 08/05/16 12:00 98.1 98 18 100/58 98 Room Air 08/05/16 09:00 95 08/05/16 08:00 98.1 95 18 98/62 97 08/05/16 07:33 Room Air 08/05/16 07:33 96 Room Air 21 08/05/16 05:07 98.0 08/05/16 04:54 103/62 08/05/16 04:00 98.0 91 18 99/60 98 Room Air 08/05/16 00:00 98.1 92 20 106/66 96 Room Air Intake and Output 08/04/16 08/05/16 19:00 07:00 Intake Total 580 ml 640 ml Balance 580 ml 640 ml Intake Oral 480 ml 640 ml IV Total 100 ml # Voids 2 1 # Bowel Movements 1 1 Objective General Appearance: WD/WN HEENT: normocephalic, atraumatic Respiratory/Chest: chest wall non-tender, crackles/rales Cardiovascular: normal peripheral pulses, normal rate Abdomen: normal bowel sounds, soft, non tender Genitourinary: normal external genitalia Extremities: no cyanosis, no clubbing Skin: no rash Neurologic/Psychiatric: compotype operator II-XII grossly normal Laboratory Tests 08/05/16 06:30: White Blood Count 11.0H, Red Blood Count 2.48L, Hemoglobin 8.0L, Hematocrit 25.1L, Mean Corpuscular Volume 101H, Mean Corpuscular Hemoglobin 32.3H, Mean Corpuscular Hemoglobin Concent 31.9L, Red Cell Distribution Width 15.2H, Platelet Count 207, Mean Platelet Volume 6.8, Neutrophils (%) (Auto) , Lymphocytes (%) (Auto) , Monocytes (%) (Auto) , Eosinophils (%) (Auto) , Basophils (%) (Auto) , Differential Total Cells Counted 100, Neutrophils % ( Manual) 90H, Lymphocytes % (Manual) 4L, Monocytes % (Manual) 5, Eosinophils % ( Manual) 1, Basophils % (Manual) 0, Band Neutrophils 0, Platelet Estimate Adequate, Platelet Morphology Normal, Hypochromasia 1+, Anisocytosis 1+, Macrocytosis 1+, Prothrombin Time 14.0H, Prothromb Time International Ratio 1.4H , Sodium Level 138, Potassium Level 3.9, Chloride Level 100, Carbon Dioxide Level 21, Anion Gap 17H, Blood Urea Nitrogen 7, Creatinine 0.7, Estimat Glomerular Filtration Rate > 60, Glucose Level 91, Calcium Level 8.2L, Magnesium Level 1.8 08/05/16 13:32: Stool Occult Blood Negative Current Medications Medications (Trade) Dose Ordered Sig/Jagruti Route PRN Reason Start Time Stop Time Status Last Admin Dose Admin Acetaminophen (Tylenol) 650 mg Q4H PRN ORAL T>100.5 08/03/16 09:00 09/02/16 08:59 08/05/16 15:06 Albuterol/ Ipratropium (DuoNeb 0.5-3(2.5)mg/3ml) 3 ml Q4H PRN HHN Shortness of Breath 08/03/16 09:00 08/08/16 08:59 Ascorbic Acid (Vitamin C) 500 mg DAILY ORAL 08/03/16 09:00 09/02/16 08:59 08/05/16 08:44 Aspirin (Ecotrin) 81 mg DAILY ORAL 08/03/16 09:00 09/02/16 08:59 08/05/16 08:44 Atenolol (Tenormin) 50 mg BID ORAL 08/03/16 18:00 09/02/16 17:59 08/04/16 18:00 Clopidogrel Bisulfate (Plavix) 75 mg DAILY ORAL 08/03/16 09:00 09/02/16 08:59 08/05/16 08:45 Dextrose (Dextrose 50%) STAT PRN IV Hypoglycemia 08/03/16 17:00 09/02/16 16:59 Enoxaparin Sodium (Lovenox) 70 mg Q12HR SUBQ 08/03/16 21:00 09/02/16 20:59 08/05/16 08:47 Haloperidol Lactate (Haldol) 2.5 mg Q6H PRN IM Agitation 08/03/16 09:45 09/02/16 09:44 Midodrine (Pro-Amatine) 5 mg BEFORE BREAKFAST ORAL 08/04/16 06:30 09/03/16 06:29 08/04/16 06:02 Morphine Sulfate (Morphine Sulfate) 1 mg Q4H PRN IVP For Pain 7-10 08/03/16 09:00 08/10/16 08:59 08/04/16 16:24 Morphine Sulfate (Morphine Sulfate) 2 mg Q4H PRN IVP Severe Pain (Pain Scale 7-10) 08/04/16 20:00 08/11/16 19:59 08/05/16 22:35 Multivitamins Therapeutic (Therapeutic Multivitamin) 1 ea DAILY ORAL 08/03/16 09:00 09/02/16 08:59 08/05/16 08:44 Nitroglycerin (Ntg) 0.4 mg Q5M X 3 DOSES PRN SL Prn Chest Pain 08/03/16 05:30 09/02/16 05:29 Ondansetron HCl (Zofran) 4 mg Q4H PRN IVP Nausea & Vomiting 08/03/16 07:45 09/02/16 07:44 Pantoprazole (Protonix) 40 mg DAILY ORAL 08/03/16 10:30 09/02/16 10:29 08/05/16 08:44 Phosphorus (Phospha 250 Neutral) 500 mg THREE TIMES A DAY ORAL 08/03/16 09:00 09/02/16 08:59 08/05/16 17:39 Potassium Chloride (KCl 10% 40mEq Oral solution) 40 meq TID NG 08/04/16 09:00 09/03/16 08:59 08/05/16 17:39 Pravastatin Sodium (Pravachol) 80 mg BEDTIME ORAL 08/03/16 21:00 09/02/16 20:59 08/04/16 20:28 Vitamin A/Vitamin D (A & D Oint) 1 applic EVERY 12 HOURS TOPIC 08/04/16 21:00 09/03/16 20:59 08/05/16 08:45 Warfarin Sodium (Coumadin per pharmacy) 1 ea DAILY PRN MISC Per rx protocol 08/03/16 09:00 09/02/16 08:59 LISETTE ANTUNEZ Aug 05, 2016 22:37
[2016-08-06 07:22] LABS: INR 1.6 (0.9-1.1); PROTHROMBIN TIME 16.1 SEC (9.30-11.50)
[2016-08-06 07:28] LABS: ANION GAP 15 (5-15); CALCIUM 8.3 mg/dL (8.6-10.2); CARBON DIOXIDE 21 mEQ/L (20-30); CHLORIDE 102 mEQ/L (98-107); CREATININE 0.6 mg/dL (0.5-0.9); GLOMERULAR FILTRATION RATE > 60 mL/min (>60); HEMOLYSIS 2; POTASSIUM 3.5 mEQ/L (3.4-4.9); SODIUM 138 mEQ/L (135-145)
[2016-08-06 08:08] VITALS: BP 116/59
[2016-08-06] MEDS: Morphine Sulfate 2mg/ml Inj IVP PRN (08:32)
[2016-08-06] MEDS: Phospha 250 Neutral tab ORAL SCH (09:00)
[2016-08-06] MEDS: Aspirin EC 81mg tab ORAL SCH (09:00)
[2016-08-06] MEDS: Enoxaparin 80mg Inj SUBQ SCH (09:00)
[2016-08-06] MEDS: Multivitamin w/Minerals tab ORAL SCH (09:00)
[2016-08-06] MEDS: Ascorbic Acid 500mg tab ORAL SCH (09:00)
[2016-08-06] MEDS: Vitamin A&D Oint 2oz Tube TOPIC SCH (09:00)
[2016-08-06] MEDS: KCl 10% 40mEq/30ml liquid NG SCH (09:00)
[2016-08-06] MEDS ORDERED: Heplock Flush 100 units/ml 3 ml syr INJ ONE (09:30)
[2016-08-06] MEDS ORDERED: NS 550ML IV ONE (11:13)
[2016-08-06] MEDS ORDERED: Tubing Blood Filter IV ONE (11:13)
--- NOTE | 2016-08-06 12:08 | GI Progress Note ---
Assessment/Plan Problems: (1) Elevated CEA ICD Codes: R97.0 - Elevated carcinoembryonic antigen [CEA] SNOMED: 84117745, 229396705 (2) Shock liver ICD Codes: K72.00 - Acute and subacute hepatic failure without coma SNOMED: 221888493 (3) Anemia ICD Codes: D64.9 - Anemia, unspecified SNOMED: 140037287 (4) Liver disease ICD Codes: K76.9 - Liver disease, unspecified SNOMED: 608678735 Status: stable Status Narrative Discussed with Dr. Berman. Assessment/Plan ST eval >> INITIATE YVONNE MOIST PUREED AND NECTAR THICK LIQUIDS USING POSTED ASPIRATION AND REFLUX PRECAUTIONS AND 1 TO 1 FEEDING. abd U/S >> fatty infiltration, see full report. OB stool negative cdiff >> negative monitor H&H >> downtrending, add OB stool shock liver >> monitor LFTS>>> downtrending ppi fu labs outpatient GI procedures, according to patient she recently had a colonoscopy at [facility]. Subjective Subjective eating well Objective Last 24 Hour Vital Signs Date Time Temp Pulse Resp B/P Pulse Ox O2 Delivery O2 Flow Rate FiO2 08/06/16 08:08 98.1 115 20 116/59 95 Room Air 08/06/16 07:52 Room Air 08/06/16 07:51 96 Room Air 21 08/05/16 20:20 99 Nasal Cannula 2.0 28 08/05/16 20:20 Nasal Cannula 2.0 28 08/05/16 20:00 97.7 109 18 95/54 98 Room Air 08/05/16 18:40 98.2 109 18 92/62 100 Room Air 08/05/16 17:31 115 90/52 08/05/16 16:00 99.5 115 22 90/52 97 Room Air Intake and Output 08/05/16 08/06/16 19:00 07:00 Intake Total 980 ml 310 ml Output Total 150 ml 450 ml Balance 830 ml -140 ml Intake Oral 980 ml Blood Product 310 ml Output Urine Total 150 ml 450 ml # Voids 2 # Bowel Movements 2 Laboratory Tests Test 08/05/16 13:32 08/06/16 05:25 Stool Occult Blood Negative (NEGATIVE) Prothrombin Time 16.1 SEC (9.30-11.50) H Prothromb Time International Ratio 1.6 (0.9-1.1) H Sodium Level 138 mEQ/L (135-145) Potassium Level 3.5 mEQ/L (3.4-4.9) Chloride Level 102 mEQ/L (98-107) Carbon Dioxide Level 21 mEQ/L (20-30) Anion Gap 15 (5-15) Blood Urea Nitrogen 6 mg/dL (7-23) L Creatinine 0.6 mg/dL (0.5-0.9) Estimat Glomerular Filtration Rate > 60 mL/min (>60) Glucose Level 85 mg/dL (74-106) Calcium Level 8.3 mg/dL (8.6-10.2) L Height (Feet): 5 Height (Inches): 6.00 Weight (Pounds): 153 General Appearance: no apparent distress, alert, thin Cardiovascular: normal rate Respiratory/Chest: normal breath sounds, no respiratory distress Abdominal Exam: normal bowel sounds, non tender, soft Objective Service Date: 07/26/16 Procedure: US ABD Complete Indication: Abdominal pain Impression: Punctate echogenic focus dependently within the gallbladder possibly a tiny calculus or polyp measuring 3 mm. No sonographic evidence of acute cholecystitis. Slight increased echogenicity of the liver may suggest fatty infiltration. Clinical correlation recommended. Small left renal cyst. Mckenzie Taylor N.P. Aug 06, 2016 12:08
--- NOTE | 2016-08-06 12:58 | Internal Med Progress Note ---
Subjective Date of Service: Aug 06, 2016 Physician Name Jaden Alfaro Attending Physician Todd Kendall MD Allergies: Coded Allergies: No Known Allergies (Verified , 04/10/06) ROS Limited/Unobtainable: Yes Subjective 56 YO F admitted with altered mental status. Cover for Int Med Dr Kendall. Tolerating room air. Await transfer to [facility] today Objective Last Vital Signs Date Time Temp Pulse Resp B/P Pulse Ox O2 Delivery O2 Flow Rate FiO2 08/06/16 08:08 98.1 115 20 116/59 95 Room Air 08/06/16 07:51 21 08/05/16 20:20 2.0 Laboratory Tests Test 08/05/16 13:32 08/06/16 05:25 Stool Occult Blood Negative (NEGATIVE) Prothrombin Time 16.1 SEC (9.30-11.50) H Prothromb Time International Ratio 1.6 (0.9-1.1) H Sodium Level 138 mEQ/L (135-145) Potassium Level 3.5 mEQ/L (3.4-4.9) Chloride Level 102 mEQ/L (98-107) Carbon Dioxide Level 21 mEQ/L (20-30) Anion Gap 15 (5-15) Blood Urea Nitrogen 6 mg/dL (7-23) L Creatinine 0.6 mg/dL (0.5-0.9) Estimat Glomerular Filtration Rate > 60 mL/min (>60) Glucose Level 85 mg/dL (74-106) Calcium Level 8.3 mg/dL (8.6-10.2) L Intake and Output 08/05/16 08/06/16 19:00 07:00 Intake Total 980 ml 310 ml Output Total 150 ml 450 ml Balance 830 ml -140 ml Intake Oral 980 ml Blood Product 310 ml Output Urine Total 150 ml 450 ml # Voids 2 # Bowel Movements 2 Objective General Appearance: WD/WN, no apparent distress, alert EENT: PERRL/EOMI, normal ENT inspection, TMs normal Neck: non-tender, normal alignment, supple Cardiovascular: normal peripheral pulses, normal rate, regular rhythm, regularly irregular, no gallop/murmur Respiratory/Chest: Room air; chest wall non-tender, Wheezing bilat, respiratory distress, accessory muscle use Abdomen: normal bowel sounds, non tender, soft, no organomegaly, no mass, abnormal bowel sounds Extremities: normal range of motion Neurologic: planimeter operator 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 D/C antibiotics-See ID note. (2) CAD (coronary artery disease) (3) HTN (hypertension) Assessment & Plan: Cont atenolol (4) Hypercholesteremia (5) Renal insufficiency Assessment & Plan: See nephrology note. 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 See pulmonary note. (9) Agitation Assessment & Plan: Delirium per psych. Agitation meds to be managed by psychiatry only. D/W Dr Hoskins (10) Delirium due to another medical condition, acute, hyperactive Assessment & Plan: See psych note. (11) Hypokalemia Assessment & Plan: Replace potassium; see nephrology note. (12) Anemia Assessment & Plan: S/P Transfusion 1 unit PRBC Status: stable Assessment/Plan Transfer to [facility] acute care facility today. JADEN ALFARO Aug 06, 2016 12:58
--- NOTE | 2016-08-07 | Pulmonology Progress Note ---
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 (6) S /P CABG/MVR Assessment/Plan tolerating nasal cnnula check electrolytes titrate fio2 to sat of 92% f/u renal function dvt prophylaxis all notes, meds reviewed f/u INR dc planning pt/pt Subjective Allergies: Coded Allergies: No Known Allergies (Verified , 04/10/06) Objective Last 24 Hour Vital Signs Date Time Temp Pulse Resp B/P Pulse Ox O2 Delivery O2 Flow Rate FiO2 08/06/16 08:08 98.1 115 20 116/59 95 Room Air 08/06/16 07:52 Room Air 08/06/16 07:51 96 Room Air 21 Intake and Output 08/06/16 08/07/16 19:00 07:00 Intake Total 120 ml Output Total 300 ml Balance -180 ml Intake Oral 120 ml Output Urine Total 300 ml # Bowel Movements 2 Objective General Appearance: WD/WN HEENT: normocephalic, atraumatic Respiratory/Chest: chest wall non-tender, crackles/rales Cardiovascular: normal peripheral pulses, normal rate Abdomen: normal bowel sounds, soft, non tender Genitourinary: normal external genitalia Extremities: no cyanosis, no clubbing Skin: no rash Neurologic/Psychiatric: soaker hides II-XII grossly normal Laboratory Tests 08/06/16 05:25: Prothrombin Time 16.1H, Prothromb Time International Ratio 1.6H, Sodium Level 138, Potassium Level 3.5, Chloride Level 102, Carbon Dioxide Level 21, Anion Gap 15, Blood Urea Nitrogen 6L, Creatinine 0.6, Estimat Glomerular Filtration Rate > 60, Glucose Level 85, Calcium Level 8.3L LISETTE ANTUNEZ Aug 07, 2016 00:00
--- NOTE | 2016-08-09 08:08 | Discharge Summary ---
Discharge Summary Hospital Course Date of Admission Jul 23, 2016 at 18:25 Date of Discharge Aug 06, 2016 at 11:14 Admitting Diagnosis AMS, Chest pain HPI Joan Montenegro is a 56 year old female who was admitted on Jul 23, 2016 at 18: 25 for Altered Mental Status,Chest Pain Hospital Course [id number] Discharge Discharge Disposition Patient was discharged to SNF/Subacute Facility(03) Discharge Diagnoses: Joan Melgar NP Aug 09, 2016 08:08
--- NOTE | 2016-08-10 00:58 | Discharge Summary 2 SIG ---
DATE OF ADMISSION: 07/23/2016 DATE OF DISCHARGE: 08/06/2016 CONSULTANTS: 1. Jean-Claude Suresh M.D. 2. Mario Mayberry M.D. 3. aTz Ramon M.D. 4. Angus Berman M.D. 5. Khurram Hoskins M.D. 6. Darryn Storey M.D. BRIEF HOSPITAL COURSE: The patient is a 56-year-old female, who is a resident of [facility], who apparently according to staff, the patient became confused and the patient was sent to [facility]. She was admitted for altered mental status to rule out acute cerebrovascular accident. CT of the brain showed no acute intracranial bleed, mass, or edema. Urinalysis revealed nitrite positive and leukocyte esterase positive. She was started empirically on intravenous cefepime and Levaquin. Dr. Storey was consulted and recommended psychiatric evaluation. was consulted and assessed the patient has waxing and waning of consciousness. Delirium was secondary to underlying medical condition and was continued on Haldol and Risperdal nightly. The patient also has respiratory failure and was placed on BiPAP. Chest x-ray showed mild interstitial lung markings. ABG done showed no hypercapnia. BiPAP was discontinued and was placed on nasal cannula. Venous duplex of lower extremity showed patent deep venous system bilaterally, negative for DVT. Dr. Berman was consulted for evaluation of anemia. Hemoglobin and hematocrit have been stable and there was no active bleed. Stool OB x2 was negative. She had one unit packed RBC blood transfusion. Dr. Ramon was consulted for evaluation of renal failure as creatinine deneen from 0.8 to 1.9. Renal failure attributed to be multifactorial considering the patient has low blood pressure and is on vancomycin. She had episodes of elevated transaminases likely due to shocked liver. Hepatitis panel was negative. Urine culture showed growth of Proteus and antibiotics were completed and was eventually discharged to [facility]. FINAL DIAGNOSES: 1. Acute toxic metabolic encephalopathy secondary to urinary tract infection. 2. Acute delirium and agitation due to medical condition. 3. Coronary artery disease. 4. Hypokalemia. 5. Hypertension. 6. Hypercholesterolemia. 7. Chronic obstructive pulmonary disease. 8. Acute respiratory failure. 9. Acute anemia. 10. Shocked liver. 11. 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 12. Hypertension. 13. Status post mitral valve replacement. 14. Squamous cell carcinoma of the lung. 15. Acute and subacute hepatic failure without coma. 16. Urinary retention. 17. Ischemic cardiomyopathy. 18. Supraventricular tachycardia with right bundle-branch aberrancy. 19. Hypotension. 20. Left heel pressure ulcer, stage IV/unstageable, and sacral pressure ulcer stage I present on admission. Jaden Abbott M.D. I have been assigned to dictate discharge summary on this account and I was not involved in the patient's management. Joan Melgar N.P. DR: LOW JOB#: [id number] CC: SERVANDO
== END 2016-08-06 11:14 | DRG 689 ==
LOC: EDBD 17:26 → EMR 18:15 → 2E 18:25 → EDBEDREQ 19:35 → 2E 22:04 → 4W 07-25 10:41 → ICU 07-26 02:10 → 2W 07-26 15:55 → 2E 07-30 22:51 → 4E 08-03 05:09
PROC: 30233N1 Transfusion of Nonautologous Red Blood Cells into Peripheral Vein, Percutaneous Approach (ICD-10-PCS; principal; 2016-08-05)
DX: N39.0 Urinary tract infection, site not specified (principal); K72.00 Acute and subacute hepatic failure without coma; J96.00 Acute respiratory failure, unspecified whether with hypoxia or hypercapnia; G92 Toxic encephalopathy; D68.9 Coagulation defect, unspecified; L89.151 Pressure ulcer of sacral region, stage 1; N17.9 Acute kidney failure, unspecified; C34.90 Malignant neoplasm of unspecified part of unspecified bronchus or lung; M62.82 Rhabdomyolysis; I50.32 Chronic diastolic (congestive) heart failure; I47.1 Supraventricular tachycardia; I11.0 Hypertensive heart disease with heart failure; J44.9 Chronic obstructive pulmonary disease, unspecified; D64.9 Anemia, unspecified; I25.10 Atherosclerotic heart disease of native coronary artery without angina pectoris; F41.8 Other specified anxiety disorders; E78.00 Pure hypercholesterolemia, unspecified; Z98.61 Coronary angioplasty status; F03.90 Unspecified dementia, unspecified severity, without behavioral disturbance, psychotic disturbance, mood disturbance, and anxiety; E87.6 Hypokalemia; G93.9 Disorder of brain, unspecified; R33.9 Retention of urine, unspecified; R19.7 Diarrhea, unspecified; I34.0 Nonrheumatic mitral (valve) insufficiency; I25.5 Ischemic cardiomyopathy; B96.4 Proteus (mirabilis) (morganii) as the cause of diseases classified elsewhere; L89.629 Pressure ulcer of left heel, unspecified stage; Z79.82 Long term (current) use of aspirin; Z79.02 Long term (current) use of antithrombotics/antiplatelets; Z95.2 Presence of prosthetic heart valve; Z86.73 Personal history of transient ischemic attack (TIA), and cerebral infarction without residual deficits; Z95.1 Presence of aortocoronary bypass graft
CPT/HCPCS: 36415; 36600; 70450; 71010; 76700; 76775; 80048; 80053; 80061; 80202; 81003; 82270; 82378; 82436; 82533; 82550; 82553; 82607; 82746; 82803; 82962; 82977; 83540; 83550; 83615; 83735; 83880; 83930; 83935; 84100; 84133; 84300; 84439; 84443; 84481; 84484; 84550; 85007; 85025; 85044; 85060; 85610; 85651; 85730; 86140; 86705; 86709; 86803; 86850; 86900; 86901; 86920; 87040; 87081; 87086; 87181; 87340; 87493; 89050; 93005; 93306; 93970; 94640; 94660; 94664; 94760; C9399; J2405; J7620; J8499